=== PATIENT | male | born 1950 | race Caucasian/White ===

== ENCOUNTER → 2016-10-17 | Outpatient (CLI) | payer BC ==
[~2016-10-17] MED LIST: ALLO100T PO; ASPI81TA28 PO; ATOR-26 PO; CYAN10005 PO; ERGO500037 PO; FNTTP50 TD; HYDR25TA4 PO; INSDGI SC; INSU100I2 SQ; INSUINJ SC; ISOS60TA25 PO; KRIL1000 PO; LEVO100T PO; METO25TA56 PO; SODI650T8 PO; [UNRECOGNIZED DRUG - CODE] PO
[2016-10-17 12:39] LABS: HEMATOCRIT 31.3 % (42-52); MEAN CELL VOLUME 86.9 fL (80-100); MEAN CORPUSCULAR HEMOGLOBIN 28.1 pg (25-34); MEAN CORPUSCULAR HGB CONC 32.3 g/dl (32-36); MEAN PLATELET VOLUME 9.6 fL (7.4-10.4); PLATELET COUNT 251 K/uL (130-400)
[2016-10-17 13:07] LABS: URINE APPEARANCE CLEAR (CLEAR); URINE BILIRUBIN NEG (NEG); URINE COLOR YELLOW; URINE NITRITE NEG (NEG); URINE PH 7.5 (4.5-7.5); URINE SPECIFIC GRAVITY 1.008 (1.000-1.030); UROBILINOGEN NEG (NEG)
[2016-10-17 13:14] LABS: BLOOD UREA NITROGEN 24 mg/dl (7-18); BUN/CREATININE RATIO 14.1 (10-20); CALCIUM 9.4 mg/dl (8.5-10.1); CARBON DIOXIDE 26 mmol/L (21-32); CHLORIDE 104 mmol/L (98-107); GLUCOSE 94 mg/dl (70-99); PHOSPHORUS 3.5 mg/dl (2.5-4.9); POTASSIUM 4.1 mmol/L (3.5-5.1); SODIUM 142 mmol/L (136-145)
[2016-10-17 13:18] LABS: MANUAL MICROSCOPIC REQUIRED? NO; REVIEW REQ? NO; SULFASALICYLIC ACID POS (NEG)
[2016-10-17 13:19] LABS: URINE PROTIEN/CREAT RATIO 0.8 (0-0.2); URINE TOTAL PROTEIN 41.6 mg/dl (0-11.9)
== END | disposition home or self-care (01) ==
LOC: C.LABPVFM 09:49
PROVIDERS: ATTEND Internal Medicine Nephrology
DX: I10 Essential (primary) hypertension (principal); N20.0 Calculus of kidney; N18.3 Chronic kidney disease, stage 3 (moderate); F64.9 Gender identity disorder, unspecified; R80.9 Proteinuria, unspecified; E55.9 Vitamin D deficiency, unspecified

== ENCOUNTER → 2016-10-25 | Outpatient (CLI) | payer BC ==
[2016-10-25 14:09] VITALS: BP 116/70; PULSE 90; TEMP 37.2; O2SAT 96
--- NOTE | 2016-10-25 15:18 | Radiation Oncology Follow-Up ---
Radiation Oncology Follow-Up Date of Visit Oct 25, 2016. (Sadaf Smith PA-C) Reason For Visit One-month follow-up (Sadaf Smith PA-C) Radiation Completion Date 09/23/16 (Sadaf Smtih PA-C) Diagnosis (1) Cancer of renal pelvis and ureter Stage: IV Permanent Comment: STAGING: Right renal pelvis/ureter, urothelial carcinoma, cT3/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 Systemic chemotherapy (Opdivo) had progression 2. Combined radiation and chemotherapy. Radiation to the abdomen completed 09/23. Received 5,940 cGy. 3. Plan for immunotherapy Last Edited By: Sadaf Smith on Oct 25, 2016 14: 55 (2) Carcinoma of bladder Status: Chronic Onset Date: 03/29/2013 Permanent Comment: STAGING: Bladder, urothelial carcinoma, [id number] TREATMENT: 1. Partial course of neoadjuvant chemotherapy 2. Radical cystectomy, bilateral pelvic lymph node dissection and ileal neobladder formation - 04/12/2013 3. Adjuvant chemotherapy with G/C for 3 cycles Last Edited By: Maria De Jesus Canada on Jul 22, 2016 15:32 (Sadaf Smith PA-C) History of Present Illness Mr. Weir is a 66-year-old gentleman who was originally diagnosed with urothelial carcinoma of the bladder in 2012. He was initially treated with neoadjuvant cis-rincon and gemcitabine chemotherapy however he was unable to completely tolerate the therapy. He subsequently went on to undergo a radical cystectomy and bilateral pelvic lymph node dissection on 03/13/2013 which revealed invasive urothelial carcinoma of the bladder that was muscle invasive with perivesicular extension. Margins were negative at the time of surgery. Lymph nodes were resected bilaterally and 2 were positive, which were the right obturator and right hypogastric lymph nodes. The patient received 3 cycles of adjuvant chemotherapy with gemcitabine and cis-rincon. The patient was then followed with surveillance studies with no evidence of recurrence. More recently, he presented with right flank pain and underwent a CT abdomen/ pelvis on 03/24/2016 which did reveal a 2.7 cm soft tissue mass in the region of the right pelvis with probable hydronephrosis of the right renal collecting system. Several localized regional lymph nodes were also noted. There was some questionable hepatic lesions also noted that were unable to be more specifically determined. The patient subsequently underwent a biopsy of the right renal mass on 04/08/2016 which confirmed high-grade urothelial carcinoma. The patient then had a renal scan on 04/28/2016 which showed a nonfunctioning right kidney. The patient had a PET/CT scan on 05/02/2016 which revealed an intensely FDG avid obstructing mass at the right renal hilum with associated severe right-sided hydronephrosis as well as hypermetabolic right sided perirenal and retroperitoneal lymphadenopathy. The PET/CT scan did not show any evidence of distant metastatic disease. The patient's case was discussed at the multidisciplinary tumor board and consensus was to initiate systemic treatment with potentially locally aggressive therapy depending on the patient' s response. The patient was subsequently treated with Opvido underneath the supervision of Dr. Tracy Jarrett at [facility]. The patient subsequently had a restaging CT chest/abdomen/pelvis on 07/04/2016 which showed that the mass in the right renal pelvis increased in size from 5.4 cm to 5.7 cm and abuts the right paraspinous musculature and IVC. Otherwise, the study was unchanged overall. The patient's case was rediscussed at the [facility] multidisciplinary tumor board and the recommendation was consideration for definitive chemotherapy and radiation therapy. The patient was seen in consultation by Dr. Jan Gibson from radiation oncology at [facility] who agreed with the recommendation. The patient requested treatment closer to home so we are now seeing the patient in consultation to discuss the role of radiation therapy. The patient is also being sent to [facility]. Currently, the patient is doing okay overall. He continues to have right flank pain that is nontender to palpation. He is taking oxycodone at night to help relieve his pain which is partially successful. He denies any other significant complaints at this time. Status post completion of combined radiation and chemotherapy. Radiation completed 09/23/16, received 5,940 cGy. (Sadaf Smith PA-C) Interim History He is steadily recuperating since completion of radiation and chemotherapy. He is now beginning to feel less fatigued over the past week. He did have a blood transfusion of 2 units approximately 2 weeks ago. He has mild nausea and no vomiting. He has had no difficulty in bowel habits. He had a recheck visit with medical oncology in [place] and PET scan on 10/24/2016. He stated that he had a good report on the PET scan. It is now planned that he will begin immunotherapy. This will begin on 11/14/2016. He is going to receive this every 3 weeks. The discomfort that he had been experiencing has steadily improved. The fentanyl patch has steadily been decreased in size. He is now at 25 g per hour. His pain is well-controlled. He does not give his discomfort a pain level. He calls this a feeling of "tiredness in his back". (Sadaf Smith PA-C) Allergies Coded Allergies: No Known Allergies (Unverified , 10/06/16) Home Medications Scheduled Allopurinol (Zyloprim), 100 MG PO QAM Aspirin (Aspirin Ec), 81 MG PO QAM Atorvastatin (Lipitor), 80 MG PO HS Cyanocobalamin (Vitamin B-12), 500 MCG PO QAM Diltiazem Hcl Coated Beads (Cardizem La), 420 MG PO QAM Ergocalciferol (Vitamin D 13724 Unit), 1 CAP PO WK Fentanyl (Duragesic), 25 MCG TD [id number] Hydrochlorothiazide (Hctz), 1 TAB PO DAILY Insulin Glargine (Lantus), 40 UNITS SC QAM Insulin Lispro (Human) (Humalog Kwikpen), 100 UNITS SQ TIDM Insulin Nph (Humulin-N), 35 UNITS SC HS Isosorbide Mononitrate Ext Rel (Imdur Ext Rel), 60 MG PO QAM Krill Oil (Krill Oil), 1 CAP PO QAM Levothyroxine Sodium (Synthroid), 100 MCG PO QAM Metoprolol Tartrate (Lopressor) (Lopressor), 75 MG PO DAILY Sodium Bicarbonate (Sodium Bicarbonate), 650 MG PO BID Review of Systems Gastrointestinal: Symptoms: Nausea GI Comments: Nausea every once in a while - dav first thing in AM Oral: Symptoms: No Problems Respiratory: Symptoms: WNL Urinary: Symptoms: WNL Skin: Symptoms: No Problems (Sadaf Smith PA-C) Physical Exam Vital Signs Date Time Temp Pulse Resp B/P Pulse Ox O2 Delivery O2 Flow Rate FiO2 1/31/17 14:09 37.2 90 20 116/70 96 Pain: Patient Pain Scale: 0 - 10 Initial Pain Intensity: 0.0 Additional Comments: states when he gets pain its like a "tired back" Fatigue: None General Appearance: no apparent distress Eyes: normal inspection, EOMI ENT: normal ENT inspection, hearing grossly normal Respiratory/Chest: lungs clear, no respiratory distress, no accessory muscle use, + pertinent finding (no erythema or hyperpigmentation of the anterior posterior thorax) Cardiovascular: regular rate, rhythm, no gallop, no murmur Abdomen: non tender, soft, no organomegaly Extremities: no pedal edema Neurologic/Psychiatric: no motor/sensory deficits, alert, normal mood/affect Skin: warm/dry (Sadaf Smith PA-C) Laboratory Studies Test 08/15/16 13:25 08/17/16 11:22 08/22/16 13:31 08/29/16 12:35 Urine Renal Epithelial Cells 0-5 /lpf (0-5) Urine Pathogenic Casts 1-5 GRANULAR CASTS /lpf (0) Urine Yeast (Auto) (NONE PRSENT) Hypersegmented Polys 1+ Hypochromasia PRESENT PRESENT Echinocytes 1+ Beta-Hydroxybutyric Acid 1.05 mg/dL (0.2-2.81) Test 09/07/16 08:55 09/07/16 09:00 09/12/16 12:02 09/20/16 10:35 Estimated Average Glucose 180 mg/dl Hemoglobin A1c 7.9 % (4.5-5.6) Uric Acid 4.1 mg/dl (2.6-7.2) Triglycerides Level 154 mg/dl (0-150) Cholesterol Level 131 mg/dl (0-200) HDL Cholesterol 56 mg/dl LDL Cholesterol, Calculated 44 mg/dl VLDL Cholesterol, Calculated 31 mg/dl Cholesterol/HDL Ratio 2.3 25-Hydroxy Vitamin D Total 23.1 ng/ml (30-100) Parathyroid Hormone (Intact) 232.3 pg/mL (11.1-79.5) Urine Color YELLOW Urine Appearance TURBID (CLEAR) Urine pH 7.0 (4.5-7.5) Urine Specific [place] 1.010 (1.000-1.030) Urine Protein 1+ (NEG) Urine Glucose (UA) NEG (NEG) Urine Ketones NEG (NEG) Urine Occult Blood 2+ (NEG) Urine Nitrite NEG (NEG) Urine Bilirubin NEG (NEG) Urine Urobilinogen NEG (NEG) Urine Leukocyte Esterase NEG (NEG) Urine WBC (Auto) >30 /hpf (0-5) Urine RBC (Auto) 0-4 /hpf (0-4) Urine Hyaline Casts (Auto) 1-5 /lpf (0-5) Urine Epithelial Cells (Auto) 5-10 /lpf (0-5) Urine Bacteria (Auto) 1+ (NEG) Urine Yeast (Auto) (NONE PRSENT) Urine Random Creatinine 43.0 mg/dl Urine Random Total Protein 74.1 mg/dl (0-11.9) Urine Protein/Creatinine Ratio 1.7 (0-0.2) Acanthocytes (Spur Cells) 1+ Immature Granulocyte % (Auto) 6.7 % White Blood Count 2.70 K/uL (4.8-10.8) Red Blood Count 3.20 M/uL (4.7-6.1) Hemoglobin 8.3 g/dL (14.0-18.0) Hematocrit 26.4 % (42-52) Mean Corpuscular Volume 82.5 fL (80-100) Mean Corpuscular Hemoglobin 25.9 pg (25-34) Mean Corpuscular Hemoglobin Concent 31.4 g/dl (32-36) Platelet Count 147 K/uL (130-400) Mean Platelet Volume 9.4 fL (7.4-10.4) Neutrophils (%) (Auto) 70.7 % Lymphocytes (%) (Auto) 18.9 % Monocytes (%) (Auto) 3.7 % Eosinophils (%) (Auto) 0.0 % Basophils (%) (Auto) 0.0 % Neutrophils # (Auto) 1.91 K/uL (1.4-6.5) Lymphocytes # (Auto) 0.51 K/uL (1.2-3.4) Monocytes # (Auto) 0.10 K/uL (0.11-0.59) Eosinophils # (Auto) 0.00 K/uL (0-0.5) Basophils # (Auto) 0.00 K/uL (0-0.2) Immature Granulocyte # (Auto) 0.18 K/uL (0.00-0.02) Anisocytosis PRESENT Ovalocytes 1+ Est Creatinine Clear Calc Drug Dose 41.2 ml/min Magnesium Level 1.4 mg/dl (1.8-2.4) Total Bilirubin 0.5 mg/dl (0.2-1) Aspartate Amino Transferase (AST) 18 U/L (15-37) Alanine Aminotransferase (ALT) 29 U/L (12-78) Alkaline Phosphatase 96 U/L (45-117) Total Protein 5.7 gm/dl (6.4-8.2) Globulin 3.2 gm/dl (2.5-4.0) Albumin/Globulin Ratio 0.8 (0.9-2) Beta-Hydroxybutyric Acid 1.07 mg/dL (0.2-2.81) Test 10/04/16 13:46 10/17/16 09:57 10/17/16 10:00 White Blood Count 3.51 K/uL (4.8-10.8) 6.70 K/uL (4.8-10.8) Red Blood Count 3.25 M/uL (4.7-6.1) 3.60 M/uL (4.7-6.1) Hemoglobin 8.4 g/dL (14.0-18.0) 10.1 g/dL (14.0-18.0) Hematocrit 27.1 % (42-52) 31.3 % (42-52) Mean Corpuscular Volume 83.4 fL (80-100) 86.9 fL (80-100) Mean Corpuscular Hemoglobin 25.8 pg (25-34) 28.1 pg (25-34) Mean Corpuscular Hemoglobin Concent 31.0 g/dl (32-36) 32.3 g/dl (32-36) Platelet Count 163 K/uL (130-400) 251 K/uL (130-400) Mean Platelet Volume 9.2 fL (7.4-10.4) 9.6 fL (7.4-10.4) Neutrophils (%) (Auto) 50.4 % Lymphocytes (%) (Auto) 26.5 % Monocytes (%) (Auto) 14.2 % Eosinophils (%) (Auto) 0.9 % Basophils (%) (Auto) 0.3 % Neutrophils # (Auto) 1.77 K/uL (1.4-6.5) Lymphocytes # (Auto) 0.93 K/uL (1.2-3.4) Monocytes # (Auto) 0.50 K/uL (0.11-0.59) Eosinophils # (Auto) 0.03 K/uL (0-0.5) Basophils # (Auto) 0.01 K/uL (0-0.2) RDW Standard Deviation 69.0 fL (36.4-46.3) 63.1 fL (36.4-46.3) RDW Coefficient of Variation 22.6 % (11.5-14.5) 19.7 % (11.5-14.5) Immature Granulocyte % (Auto) 7.7 % Immature Granulocyte # (Auto) 0.27 K/uL (0.00-0.02) Anisocytosis PRESENT Ovalocytes 1+ Sodium Level 139 mmol/L (136-145) 142 mmol/L (136-145) Potassium Level 4.2 mmol/L (3.5-5.1) 4.1 mmol/L (3.5-5.1) Chloride Level 103 mmol/L (98-107) 104 mmol/L (98-107) Carbon Dioxide Level 28 mmol/L (21-32) 26 mmol/L (21-32) Anion Gap 8.0 mmol/L (3-11) 12.0 mmol/L (3-11) Blood Urea Nitrogen 21 mg/dl (7-18) 24 mg/dl (7-18) Creatinine 1.60 mg/dl (0.60-1.40) 1.70 mg/dl (0.60-1.40) Est Creatinine Clear Calc Drug Dose 56.6 ml/min Estimated GFR () 50.6 47.0 Estimated GFR (Non- 43.6 40.5 BUN/Creatinine Ratio 13.4 (10-20) 14.1 (10-20) Random Glucose 154 mg/dl (70-99) 94 mg/dl (70-99) Calcium Level 8.6 mg/dl (8.5-10.1) 9.4 mg/dl (8.5-10.1) Magnesium Level 1.6 mg/dl (1.8-2.4) Total Bilirubin 0.5 mg/dl (0.2-1) Aspartate Amino Transferase (AST) 17 U/L (15-37) Alanine Aminotransferase (ALT) 29 U/L (12-78) Alkaline Phosphatase 133 U/L (45-117) Total Protein 5.6 gm/dl (6.4-8.2) Albumin 2.4 gm/dl (3.4-5.0) 2.7 gm/dl (3.4-5.0) Globulin 3.2 gm/dl (2.5-4.0) Albumin/Globulin Ratio 0.8 (0.9-2) Urine Random Creatinine 50.0 mg/dl Urine Random Total Protein 41.6 mg/dl (0-11.9) Urine Protein/Creatinine Ratio 0.8 (0-0.2) Phosphorus Level 3.5 mg/dl (2.5-4.9) Urine Color YELLOW Urine Appearance CLEAR (CLEAR) Urine pH 7.5 (4.5-7.5) Urine Specific [place] 1.008 (1.000-1.030) Urine Protein 1+ (NEG) Urine Glucose (UA) NEG (NEG) Urine Ketones NEG (NEG) Urine Occult Blood TRACE (NEG) Urine Nitrite NEG (NEG) Urine Bilirubin NEG (NEG) Urine Urobilinogen NEG (NEG) Urine Leukocyte Esterase NEG (NEG) Urine WBC (Auto) >30 /hpf (0-5) Urine RBC (Auto) 0-4 /hpf (0-4) Urine Hyaline Casts (Auto) 5-10 /lpf (0-5) Urine Epithelial Cells (Auto) 5-10 /lpf (0-5) Urine Bacteria (Auto) NEG (NEG) (Sadaf Smith PA-C) Additional Studies He had a PET scan 10/24/2016 at [facility] ordered by Dr. Jarrett. This revealed favorable partial metabolic response of an enlarging right renal hilar mass with new central necrosis and persistent areas of peripheral intense FDG avidity which likely represents residual disease, and less likely post radiation changes. Interval decrease in size and metabolic activity of multiple retroperitoneal lymph nodes with no new enlarged or abnormally FDG avid lymph nodes. Stable postsurgical changes of radical cystoprostatectomy and pelvic lymph node dissection. No new abnormality enlarged or FDG avid pelvic lymph nodes. New focal intensely FDG avid superficial soft tissue density measuring 2.3 cm long the inferior aspect of the right scrotum, likely representing a focal infection. Direct visualization was recommended. Incidental finding including a right inguinal hernia containing the appendix, sequela of prior granulomatous infection, scattered peripheral vascular and coronary atherosclerotic disease, and bilateral L5 deficits with slight grade 1 anterior listhesis. (Sadaf Smith PA-C) Assessment & Plan Plan: Patient was also seen and examined by Dr. Canada. He'll continue follow- up with medical oncology at [place]. He is going to start immunotherapy every 3 weeks. His pain status is greatly improved. He continues on the fentanyl patch. We asked him to return to our office in 6 months. He'll call if he has a questions or concerns in the interim. (Sadaf Smith PA-C) I agree with note created by Sadaf Smith PA-C. I reviewed the patient's chart and information with her. I have examined and evaluated the patient. I reviewed relevant clinical information and answered the patient's and/or family' s questions. (Veeral. Canada MD) Total Time In Follow-Up I spent 20 minutes speaking to the patient performing examination. I spent 15 minutes reviewing information in completing this note. (Sadaf Smith PA-C) I spent 15 minutes examining and counseling the patient. (Veeral. Canada MD) Copy To Stephen Odom M.D.; Tracy Jarrett M.D.; Lewis Latif MD
== END | disposition home or self-care (01) ==
LOC: C.ONC 14:00
PROVIDERS: ATTEND Radiology Radiation Oncology
DX: Z08 Encounter for follow-up examination after completed treatment for malignant neoplasm (principal); Z92.3 Personal history of irradiation; Z85.89 Personal history of malignant neoplasm of other organs and systems

== ENCOUNTER → 2016-12-15 | Outpatient (CLI) | payer BC ==
[2016-12-15 13:01] LABS: ESTIMATED AVERAGE GLUCOSE 143 mg/dl; HA1C FLAG Normal (Normal)
== END | disposition home or self-care (01) ==
LOC: C.LABPVFM 10:36
PROVIDERS: ATTEND Nurse Practitioner Adult Health
DX: E11.65 Type 2 diabetes mellitus with hyperglycemia (principal)

== ENCOUNTER → 2017-04-13 | Outpatient (CLI) | payer BC ==
[2017-04-13 17:31] LABS: HEMATOCRIT 34.4 % (42-52); MEAN CELL VOLUME 92.2 fL (80-100); MEAN CORPUSCULAR HGB CONC 31.4 g/dl (32-36); MEAN PLATELET VOLUME 9.9 fL (7.4-10.4); PLATELET COUNT 270 K/uL (130-400); RED BLOOD COUNT 3.73 M/uL (4.7-6.1); WHITE BLOOD COUNT 7.43 K/uL (4.8-10.8)
[2017-04-13 17:37] LABS: URINE APPEARANCE CLEAR (CLEAR); URINE BILIRUBIN NEG (NEG); URINE COLOR YELLOW; URINE EPITHELIAL CELL AUTO >30 /lpf (0-5); URINE NITRITE NEG (NEG); URINE SPECIFIC GRAVITY 1.013 (1.000-1.030); UROBILINOGEN NEG (NEG)
[2017-04-13 17:40] LABS: MANUAL MICROSCOPIC REQUIRED? NO; REVIEW REQ? YES
[2017-04-13 17:54] LABS: ALB/GLOB RATIO 0.8 (0.9-2); ALKALINE PHOSPHATASE 186 U/L (45-117); ALT/SGPT 31 U/L (12-78); AST/SGOT 17 U/L (15-37); BLOOD UREA NITROGEN 49 mg/dl (7-18); BUN/CREATININE RATIO 22.3 (10-20); CALCIUM 9.5 mg/dl (8.5-10.1); CARBON DIOXIDE 25 mmol/L (21-32); CHLORIDE 108 mmol/L (98-107); GLUCOSE 187 mg/dl (70-99); MAGNESIUM 1.8 mg/dl (1.8-2.4); SODIUM 140 mmol/L (136-145); URIC ACID 6.8 mg/dl (2.6-7.2)
[2017-04-13 18:03] LABS: URINE PROTIEN/CREAT RATIO 0.8 (0-0.2); URINE TOTAL PROTEIN 64.6 mg/dl (0-11.9)
== END | disposition home or self-care (01) ==
LOC: C.LABPVFM 11:06
PROVIDERS: ATTEND Internal Medicine Nephrology
DX: I12.9 Hypertensive chronic kidney disease with stage 1 through stage 4 chronic kidney disease, or unspecified chronic kidney disease (principal); N20.0 Calculus of kidney; N18.3 Chronic kidney disease, stage 3 (moderate); R80.9 Proteinuria, unspecified; E55.9 Vitamin D deficiency, unspecified; R31.9 Hematuria, unspecified

== ENCOUNTER → 2017-04-19 | Outpatient (CLI) | payer BC ==
[2016-10-25 14:09] VITALS: BP 116/70; PULSE 90
[2017-04-19 14:01] VITALS: BP 145/72; PULSE 85; TEMP 37; O2SAT 96
--- NOTE | 2017-04-19 15:58 | Radiation Oncology Follow-Up ---
Radiation Oncology Follow-Up Date of Visit Apr 19, 2017. (Sadaf Smith PA-C) Reason For Visit 6 month follow-up (Sadaf Smith PA-C) Radiation Completion Date 09/23/16 (Sadaf Smith PA-C) Diagnosis (1) Cancer of renal pelvis and ureter Status: Chronic Stage: IV Permanent Comment: STAGING: Right renal pelvis/ureter, urothelial carcinoma, cT3/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 Systemic chemotherapy (Opdivo) had progression 2. Combined radiation and chemotherapy. Radiation to the abdomen completed 09/23. Received 5,940 cGy. 3. Plan for immunotherapy Last Edited By: Sadaf Smith on Oct 25, 2016 14: 55 (Sadaf Smith PA-C) History of Present Illness Mr. Weir is a 66-year-old gentleman who was originally diagnosed with urothelial carcinoma of the bladder in 2012. He was initially treated with neoadjuvant cis-campo and gemcitabine chemotherapy however he was unable to completely tolerate the therapy. He subsequently went on to undergo a radical cystectomy and bilateral pelvic lymph node dissection on 03/13/2013 which revealed invasive urothelial carcinoma of the bladder that was muscle invasive with perivesicular extension. Margins were negative at the time of surgery. Lymph nodes were resected bilaterally and 2 were positive, which were the right obturator and right hypogastric lymph nodes. The patient received 3 cycles of adjuvant chemotherapy with gemcitabine and cis-campo. The patient was then followed with surveillance studies with no evidence of recurrence. More recently, he presented with right flank pain and underwent a CT abdomen/ pelvis on 03/24/2016 which did reveal a 2.7 cm soft tissue mass in the region of the right pelvis with probable hydronephrosis of the right renal collecting system. Several localized regional lymph nodes were also noted. There was some questionable hepatic lesions also noted that were unable to be more specifically determined. The patient subsequently underwent a biopsy of the right renal mass on 04/08/2016 which confirmed high-grade urothelial carcinoma. The patient then had a renal scan on 04/28/2016 which showed a nonfunctioning right kidney. The patient had a PET/CT scan on 05/02/2016 which revealed an intensely FDG avid obstructing mass at the right renal hilum with associated severe right-sided hydronephrosis as well as hypermetabolic right sided perirenal and retroperitoneal lymphadenopathy. The PET/CT scan did not show any evidence of distant metastatic disease. The patient's case was discussed at the multidisciplinary tumor board and consensus was to initiate systemic treatment with potentially locally aggressive therapy depending on the patient' s response. The patient was subsequently treated with Opvido underneath the supervision of Dr. Tracy Jarrett at [facility]. The patient subsequently had a restaging CT chest/abdomen/pelvis on 07/04/2016 which showed that the mass in the right renal pelvis increased in size from 5.4 cm to 5.7 cm and abuts the right paraspinous musculature and IVC. Otherwise, the study was unchanged overall. The patient's case was rediscussed at the [facility] multidisciplinary tumor board and the recommendation was consideration for definitive chemotherapy and radiation therapy. The patient was seen in consultation by Dr. Jan Gibson from radiation oncology at [facility] who agreed with the recommendation. The patient requested treatment closer to home so we are now seeing the patient in consultation to discuss the role of radiation therapy. The patient is also being sent to [facility]. Currently, the patient is doing okay overall. He continues to have right flank pain that is nontender to palpation. He is taking oxycodone at night to help relieve his pain which is partially successful. He denies any other significant complaints at this time. Status post completion of combined radiation and chemotherapy. Radiation completed 09/23/16, received 5,940 cGy (Sadaf Smith PA-C) Interim History He's been doing well over the past 6 months. He has had an excellent clinical response. The severe pain he had of the abdomen has steadily resolved and is now gone. He had been on fentanyl patches. These were tapered and then discontinued. He doesn't require any periodic pain medications. He continues follow-up at [facility] with his medical oncologist and surgeon. He is now on immunotherapy. He is receiving Atezolizumab every 3 weeks. He is being followed with recheck PET scan's and CAT scans. He had a PET scan on . This showed interval decreased metabolic activity and size of the right renal mass since September 2016 consistent with a continued partial metabolic response. Residual moderate increased metabolic activity around the periphery of the right renal hilar mass probably resolving inflammation from radiation therapy versus less likely residual tumor. Complete metabolic resolution and continued decrease in the size of index retroperitoneal lymph nodes. No new abdominal or pelvic lymphadenopathy. Postsurgical changes from radical cystoprostatectomy, lymph node dissection and neobladder formation. Improving FDG avid superficial soft tissue lesion along the right infra hemiscrotal area likely represents resolving inflammation. He'll be having recheck CAT scans in 2 weeks. He stated he'll have a recheck PET scan in the fall. (Sadaf Smith PA-C) Allergies Coded Allergies: No Known Allergies (Unverified , 10/06/16) Home Medications Scheduled Allopurinol (Zyloprim), 100 MG PO QAM Aspirin (Aspirin Ec), 81 MG PO QAM Atorvastatin (Lipitor), 80 MG PO HS Cyanocobalamin (Vitamin B-12), 500 MCG PO QAM Diltiazem Hcl Coated Beads (Cardizem La), 420 MG PO QAM Ergocalciferol (Vitamin D 55882 Unit), 1 CAP PO WK Hydrochlorothiazide (Hctz), 1 TAB PO DAILY Insulin Glargine (Lantus), 40 UNITS SC QAM Insulin Lispro (Human) (Humalog Kwikpen), 100 UNITS SQ TIDM Insulin Nph (Humulin-N), 35 UNITS SC HS Isosorbide Mononitrate Ext Rel (Imdur Ext Rel), 60 MG PO QAM Krill Oil (Krill Oil), 1 CAP PO QAM Levothyroxine Sodium (Synthroid), 100 MCG PO QAM Metoprolol Tartrate (Lopressor) (Lopressor), 75 MG PO DAILY Sodium Bicarbonate (Sodium Bicarbonate), 650 MG PO BID Review of Systems Gastrointestinal: Symptoms: WNL GI Comments: Nausea every once in a while - dav first thing in AM Oral: Symptoms: No Problems Respiratory: Symptoms: WNL Urinary: Symptoms: WNL, Nocturia Comments: Nocturia x 2-3 Skin: Symptoms: No Problems (Sadaf Smith PA-C) Physical Exam Vital Signs Date Time Temp Pulse Resp B/P (MAP) Pulse Ox O2 Delivery O2 Flow Rate FiO2 04/19/17 14:01 37.0 85 16 145/72 96 Pain: Patient Pain Scale: 0 - 10 Initial Pain Intensity: 0.0 Additional Comments: states when he gets pain its like a "tired back" Fatigue: None General Appearance: no apparent distress Eyes: normal inspection, EOMI ENT: normal ENT inspection, hearing grossly normal Neck: no adenopathy, thyroid normal Respiratory/Chest: lungs clear, no respiratory distress, no accessory muscle use Cardiovascular: regular rate, rhythm, no gallop, no murmur Abdomen: non tender, soft, no organomegaly, + pertinent finding (obese) Extremities: no pedal edema Neurologic/Psychiatric: no motor/sensory deficits, alert, normal mood/affect Skin: warm/dry (Sadaf Smith PA-C) Laboratory Studies Test 04/13/17 11:10 04/13/17 11:15 White Blood Count 7.43 K/uL (4.8-10.8) Red Blood Count 3.73 M/uL (4.7-6.1) Hemoglobin 10.8 g/dL (14.0-18.0) Hematocrit 34.4 % (42-52) Mean Corpuscular Volume 92.2 fL (80-100) Mean Corpuscular Hemoglobin 29.0 pg (25-34) Mean Corpuscular Hemoglobin Concent 31.4 g/dl (32-36) RDW Standard Deviation 53.7 fL (36.4-46.3) RDW Coefficient of Variation 16.0 % (11.5-14.5) Platelet Count 270 K/uL (130-400) Mean Platelet Volume 9.9 fL (7.4-10.4) Sodium Level 140 mmol/L (136-145) Potassium Level 4.0 mmol/L (3.5-5.1) Chloride Level 108 mmol/L (98-107) Carbon Dioxide Level 25 mmol/L (21-32) Anion Gap 7.0 mmol/L (3-11) Blood Urea Nitrogen 49 mg/dl (7-18) Creatinine 2.20 mg/dl (0.60-1.40) Estimated GFR () 34.4 Estimated GFR (Non- 29.7 BUN/Creatinine Ratio 22.3 (10-20) Random Glucose 187 mg/dl (70-99) Uric Acid 6.8 mg/dl (2.6-7.2) Calcium Level 9.5 mg/dl (8.5-10.1) Magnesium Level 1.8 mg/dl (1.8-2.4) Total Bilirubin 0.5 mg/dl (0.2-1) Aspartate Amino Transferase (AST) 17 U/L (15-37) Alanine Aminotransferase (ALT) 31 U/L (12-78) Alkaline Phosphatase 186 U/L (45-117) Total Protein 7.4 gm/dl (6.4-8.2) Albumin 3.3 gm/dl (3.4-5.0) Globulin 4.1 gm/dl (2.5-4.0) Albumin/Globulin Ratio 0.8 (0.9-2) 25-Hydroxy Vitamin D Total 33.4 ng/ml (30-100) Parathyroid Hormone (Intact) 80.2 pg/mL (11.1-79.5) Urine Color YELLOW Urine Appearance CLEAR (CLEAR) Urine pH 7.0 (4.5-7.5) Urine Specific [place] 1.013 (1.000-1.030) Urine Protein 2+ (NEG) Urine Glucose (UA) NEG (NEG) Urine Ketones NEG (NEG) Urine Occult Blood 1+ (NEG) Urine Nitrite NEG (NEG) Urine Bilirubin NEG (NEG) Urine Urobilinogen NEG (NEG) Urine Leukocyte Esterase NEG (NEG) Urine WBC (Auto) 10-30 /hpf (0-5) Urine RBC (Auto) 0-4 /hpf (0-4) Urine Hyaline Casts (Auto) 1-5 /lpf (0-5) Urine Epithelial Cells (Auto) >30 /lpf (0-5) Urine Bacteria (Auto) NEG (NEG) Urine Renal Epithelial Cells 0-5 /lpf (0-5) Urine Random Creatinine 81.0 mg/dl Urine Random Total Protein 64.6 mg/dl (0-11.9) Urine Protein/Creatinine Ratio 0.8 (0-0.2) (Sadaf Smith PA-C) Assessment & Plan Plan: Patient is also seen today by Dr. Canada. He'll continue with his scheduled follow-up. He'll be having CAT scans in 2 weeks. It is planning on the PET scan in the fall. He continues on his immunotherapy every 3 weeks. He is planning to re-join his local gym next week to restart an exercise program to help with his fatigue. He'll continue follow-up with the medical oncologist and urologist at [place]. We asked her to return to our office in 1 year. He may call if he has any questions or concerns in the interim. (Sadaf Smith PA-C) I agree with note created by Sadaf Smith PA-C. I reviewed the patient's chart and information with her. I have examined and evaluated the patient. I reviewed relevant clinical information and answered the patient's and/or family' s questions. (Veeral. Canada MD) Total Time In Follow-Up I spent 20 minutes speaking to the patient performing examination. I spent 15 minutes reviewing information in completing this note. (Sadaf Smith PA-C) I spent 15 minutes examining and counseling the patient. (Veeral. Canada MD) Copy To Stephen Odom M.D.; Tracy Jarrett M.D.; Lewis Latif MD
== END | disposition home or self-care (01) ==
LOC: C.ONC 13:52
PROVIDERS: ATTEND Physician Assistant Medical
DX: Z08 Encounter for follow-up examination after completed treatment for malignant neoplasm (principal); Z92.3 Personal history of irradiation; Z85.54 Personal history of malignant neoplasm of ureter

== ENCOUNTER → 2017-06-21 | Outpatient (CLI) | payer BC ==
[~2017-06-21] MED LIST changes: -FNTTP50 TD
[2017-06-21 17:55] LABS: THYROID STIMULATING HORMONE 1.28 uIu/ml (0.300-4.500)
[2017-06-22 06:49] LABS: ESTIMATED AVERAGE GLUCOSE 189 mg/dl; HA1C FLAG Normal (Normal)
== END | disposition home or self-care (01) ==
LOC: C.LABPVFM 11:37
PROVIDERS: ATTEND Internal Medicine
DX: E03.9 Hypothyroidism, unspecified (principal); E11.65 Type 2 diabetes mellitus with hyperglycemia; Z79.4 Long term (current) use of insulin

== ENCOUNTER → 2017-08-25 | Outpatient (CLI) | payer BC ==
[2017-08-25 17:59] LABS: HEMATOCRIT 30.6 % (42-52); MEAN CELL VOLUME 88.2 fL (80-100); MEAN CORPUSCULAR HEMOGLOBIN 25.9 pg (25-34); MEAN CORPUSCULAR HGB CONC 29.4 g/dl (32-36); MEAN PLATELET VOLUME 9.4 fL (7.4-10.4); PLATELET COUNT 325 K/uL (130-400); RED BLOOD COUNT 3.47 M/uL (4.7-6.1); WHITE BLOOD COUNT 9.09 K/uL (4.8-10.8)
[2017-08-25 18:01] LABS: URINE APPEARANCE CLEAR (CLEAR); URINE BILIRUBIN NEG (NEG); URINE COLOR YELLOW; URINE EPITHELIAL CELL AUTO >30 /lpf (0-5); URINE NITRITE NEG (NEG); URINE SPECIFIC GRAVITY 1.013 (1.000-1.030); UROBILINOGEN NEG (NEG)
[2017-08-25 18:03] LABS: MANUAL MICROSCOPIC REQUIRED? NO; REVIEW REQ? YES
[2017-08-25 18:24] LABS: BLOOD UREA NITROGEN 41 mg/dl (7-18); BUN/CREATININE RATIO 18.6 (10-20); CARBON DIOXIDE 26 mmol/L (21-32); CHLORIDE 101 mmol/L (98-107); CREATININE 2.22 mg/dl (0.60-1.40); GLUCOSE 180 mg/dl (70-99); POTASSIUM 4.7 mmol/L (3.5-5.1); SODIUM 134 mmol/L (136-145)
[2017-08-25 18:27] LABS: ALB/GLOB RATIO 0.5 (0.9-2); ALKALINE PHOSPHATASE 288 U/L (45-117); ALT/SGPT 44 U/L (12-78); AST/SGOT 27 U/L (15-37); URIC ACID 6.7 mg/dl (2.6-7.2)
[2017-08-25 18:31] LABS: CREATININE, URINE 77.3 mg/dl; URINE PROTIEN/CREAT RATIO 0.7 (0-0.2)
== END | disposition home or self-care (01) ==
LOC: C.LABPVFM 11:15
PROVIDERS: ATTEND Internal Medicine Nephrology
DX: D64.9 Anemia, unspecified (principal); I12.9 Hypertensive chronic kidney disease with stage 1 through stage 4 chronic kidney disease, or unspecified chronic kidney disease; N18.3 Chronic kidney disease, stage 3 (moderate); N20.0 Calculus of kidney; N28.89 Other specified disorders of kidney and ureter; E55.9 Vitamin D deficiency, unspecified

== ENCOUNTER 2017-09-02 09:04 | Inpatient (IN) | payer BC, OTHER ==
[~2017-09-02] VITALS: Ht 180.3 cm; Wt 99.1 kg
[2017-09-02] MEDS ORDERED: SODIUM CHLORIDE 0.9% 1000ML 1,000 ML IV STA (09:37)
[2017-09-02] MEDS ORDERED: ONDANSETRON INJ 2 MG/ML 2 ML VIAL IV STA (09:42)
[2017-09-02 09:56] LABS: BASO % 0.1 %; BASO ABS # 0.01 K/uL (0-0.2); COMPLETE YES; HEMATOCRIT 33.2 % (42-52); IG% 0.7 %; LYMPH % 4.7 %; LYMPH ABS # 0.75 K/uL (1.2-3.4); MEAN CELL VOLUME 84.7 fL (80-100); MEAN CORPUSCULAR HEMOGLOBIN 26.3 pg (25-34); MONO % 7.7 %; NEUT % 86.8 %; PLATELET COUNT 384 K/uL (130-400); RED BLOOD COUNT 3.92 M/uL (4.7-6.1); WHITE BLOOD COUNT 15.92 K/uL (4.8-10.8)
[2017-09-02] MEDS ORDERED: PIPERACILLIN/TAZOBACTAM 4.5 GM/100ML D5W IV STA (10:13)
--- NOTE | 2017-09-02 10:13 | DIAGNOSTIC IMAGING REPORT ---
CHEST ONE VIEW PORTABLE CLINICAL HISTORY: Shortness of breath. COMPARISON STUDY: Chest radiograph September 26, 2013 and PET/CT January 12, 2017. FINDINGS: A right internal jugular Omkqms-o-Efoo is noted. No pneumothorax or pleural effusion is present. There is no consolidation or evidence of pulmonary edema. Moderate cardiomegaly is noted. This is unchanged. Calcified right lung nodule is noted. IMPRESSION: 1. No acute cardiopulmonary findings. 2. Moderate cardiomegaly. Electronically signed by: Brendan Machado M.D. 09/02/2017 10:12 AM Dictated Date/Time: 09/02/2017 10:10 AM
[2017-09-02] MEDS ORDERED: LEVAQUIN 750MG / 150ML D5W IV ONE (10:15)
[2017-09-02 10:18] LABS: ALB/GLOB RATIO 0.6 (0.9-2); ALKALINE PHOSPHATASE 311 U/L (45-117); ALT/SGPT 31 U/L (12-78); AST/SGOT 18 U/L (15-37); BLOOD UREA NITROGEN 71 mg/dl (7-18); BUN/CREATININE RATIO 25.2 (10-20); CALCIUM 11.7 mg/dl (8.5-10.1); CARBON DIOXIDE 31 mmol/L (21-32); CHLORIDE 93 mmol/L (98-107); GLUCOSE 358 mg/dl (70-99); POTASSIUM 3.5 mmol/L (3.5-5.1); SODIUM 134 mmol/L (136-145)
[2017-09-02] MEDS ORDERED: INSU1INJ23 SQ (10:21)
[2017-09-02] MEDS ORDERED: ALLO300T2 PO (10:21)
[2017-09-02] MEDS ORDERED: DILT-121 PO (10:21)
[2017-09-02] MEDS ORDERED: INSDGIPEN SC (10:21)
[2017-09-02] MEDS ORDERED: METO50TA16 PO (10:22)
[2017-09-02] MEDS ORDERED: CHOL2000 PO (10:24)
[2017-09-02] MEDS ORDERED: FENT25DI10 TD (10:25)
[2017-09-02 10:29] LABS: BETA-HYDROXYBUTYRATE 15.83 mg/dL (0.2-2.81)
[2017-09-02 10:44] LABS: INR 1.1 (0.9-1.1); PARTIAL THROMBOPLASTIN RATIO 1.1; PROTHROMBIN TIME (PATIENT) 11.4 SECONDS (9.0-12.0)
[2017-09-02 11:10] VITALS: O2SAT 97; BMI 29.9
[2017-09-02 11:11] VITALS: Ht 180.3 cm; Wt 99.1 kg
[2017-09-02] MEDS: SODIUM CHLORIDE 0.9% 1000ML 1,000 ML IV SCH ×2 (11:15→12:16)
[2017-09-02 11:19] LABS: VEN BLOOD GAS BASE EXCESS 5.8 mEq/L; VENOUS BLOOD GAS PCO2 41 mmHg (38.0-50.0); VENOUS BLOOD GAS PO2 27 mmHg
[2017-09-02 11:20] LABS: VEN BLD GAS O2 SATURATION < 60.0 %
[2017-09-02 11:36] LABS: URINE APPEARANCE CLEAR (CLEAR); URINE BILIRUBIN NEG (NEG); URINE COLOR DK YELLOW; URINE EPITHELIAL CELL AUTO >30 /lpf (0-5); URINE NITRITE POS (NEG); URINE PH 7.5 (4.5-7.5); URINE SPECIFIC GRAVITY 1.014 (1.000-1.030); UROBILINOGEN NEG (NEG)
[2017-09-02 11:50] LABS: MANUAL MICROSCOPIC REQUIRED? NO; REVIEW REQ? YES; SULFASALICYLIC ACID POS (NEG)
[2017-09-02] MEDS ORDERED: PROMETHAZINE HCL INJ 12.5 MG in SODIUM CHLORIDE 0.9% 50ML 50 ML IV STA (12:01)
--- NOTE | 2017-09-02 12:13 | EMERGENCY ROOM VISIT NOTE ---
History First contact with patient: 09:25 Chief Complaint: NAUSEA Stated Complaint: NAUSEA,VOMITING EXTREME WEAKNESS Nursing Triage Summary: see triage note History of Present Illness The patient is a 67 year old male who presents to the Emergency Room with complaints of vomiting. He has had vomiting on and off for the past month which he possibly relates to his opiate use due to malignant bladder ca. It has been much worse in the past 2 days and he is very fatigued and short of breath on exertion. His has also noticed he has been getting progressively confused. Due to his vomiting he was switched to fentanyl on Monday but reports this may have made things worse. He has a history of urothelial bladder ca. which was treated with surgery (he has a neobladder), chemotherapy and radiation. Despite this is spread to his kidney and he is currently awaiting to talk to Dr Collazo (Oncology) and Surgery about further treatment. He travelled to [facility] 4 weeks previously by plane, he took a cruise ship on the way back for 2 weeks and returned to the [place] 10 days ago. He reports not calf pain or swelling. He has a Hx of PE when he was diagnosed with bladder cancer and previously treated with warfarin although he is no longer on anticoagulation although is unsure who stopped this medication. Review of Systems All other systems reviewed and otherwise negative other than HPI Past Medical/Surgical History Medical Problems: (1) Cancer of renal pelvis and ureter (2) Carcinoma of bladder (3) History of pulmonary embolus (PE) (4) History of renal bleeding (5) Presence of IVC filter (6) Vomiting Social History Smoking Status: Former Smoker Drug Use: none Marital Status: Housing Status: lives with family Current/Historical Medications Scheduled Allopurinol (Zyloprim), 300 MG PO DAILY Aspirin (Aspirin Ec), 81 MG PO QAM Atorvastatin (Lipitor), 80 MG PO HS Cholecalciferol (Vitamin D3), 2,000 UNITS PO DAILY Cyanocobalamin (Vitamin B-12), 1,000 MCG PO QAM Diltiazem Hcl Ext Rel (Tiazac), 420 MG PO DAILY Fentanyl (Duragesic), 25 MCG TD [id number] Hydrochlorothiazide (Hctz), 25 MG PO QAM Insulin Glargine (Lantus Solostar), 45 UNITS SC QAM Insulin Isophane (Human) (Humulin N Kwikpen), 35 UNITS SQ HS Insulin Lispro (Human) (Humalog Kwikpen), 33 UNITS SQ TIDM Krill Oil (Krill Oil), 1 CAP PO QAM Levothyroxine Sodium (Synthroid), 100 MCG PO QAM Metoprolol Tartrate (Lopressor) (Lopressor), 75 MG PO DAILY Ondasetron Odt (Zofran Odt), 4 MG SL TID Sodium Bicarbonate (Sodium Bicarbonate), 650 MG PO BID Physical Exam Vital Signs Date Time Temp Pulse Resp B/P (MAP) Pulse Ox O2 Delivery O2 Flow Rate FiO2 09/02/17 13:29 115 24 171/109 94 Room Air 09/02/17 12:35 112 20 171/99 97 Room Air 09/02/17 11:22 120 24 178/107 97 Room Air 09/02/17 11:10 97 Room Air 09/02/17 09:56 121 24 143/99 97 Room Air 09/02/17 09:53 97 Room Air 09/02/17 09:46 123 09/02/17 09:11 36.4 126 20 115/78 98 Room Air Physical Exam General Appearance: + mild distress (respiratory), + obese Head: normocephalic, atraumatic Eyes: normal inspection, PERRL, EOMI ENT: normal ENT inspection, pharynx normal (dry mucus membranes) Neck: supple, no JVD (difficult to assess due to neck size), trachea midline Respiratory/Chest: no accessory muscle use, + respiratory distress (mild), + crackles (R> L basal crackles, no wheezing) Cardiovascular: no murmur, normal peripheral pulses, + tachycardia Abdomen / GI: normal bowel sounds, non tender, soft Back: no CVA tenderness Extremities: no calf tenderness, normal capillary refill, + pedal edema (1+ b/l to knees) Neurologic/Psych: hospice registered nurse II-XII nml as tested, no motor/sensory deficits, alert , oriented x 3 Medical Decision & Procedures ER Provider Diagnostic Interpretation: CHEST ONE VIEW PORTABLE CLINICAL HISTORY: Shortness of breath. COMPARISON STUDY: Chest radiograph September 26, 2013 and PET/CT January 12, 2017. FINDINGS: A right internal jugular Wmllgv-c-Ckon is noted. No pneumothorax or pleural effusion is present. There is no consolidation or evidence of pulmonary edema. Moderate cardiomegaly is noted. This is unchanged. Calcified right lung nodule is noted. IMPRESSION: 1. No acute cardiopulmonary findings. 2. Moderate cardiomegaly. Electronically signed by: Brendan Machado M.D. 09/02/2017 10:12 AM Dictated Date/Time: 09/02/2017 10:10 AM Laboratory Results Test 09/02/17 09:35 09/02/17 11:05 09/02/17 11:20 Immature Granulocyte % (Auto) 0.7 % White Blood Count 15.92 K/uL (4.8-10.8) Red Blood Count 3.92 M/uL (4.7-6.1) Hemoglobin 10.3 g/dL (14.0-18.0) Hematocrit 33.2 % (42-52) Mean Corpuscular Volume 84.7 fL (80-100) Mean Corpuscular Hemoglobin 26.3 pg (25-34) Mean Corpuscular Hemoglobin Concent 31.0 g/dl (32-36) Platelet Count 384 K/uL (130-400) Mean Platelet Volume 10.0 fL (7.4-10.4) Neutrophils (%) (Auto) 86.8 % Lymphocytes (%) (Auto) 4.7 % Monocytes (%) (Auto) 7.7 % Eosinophils (%) (Auto) 0.0 % Basophils (%) (Auto) 0.1 % Neutrophils # (Auto) 13.82 K/uL (1.4-6.5) Lymphocytes # (Auto) 0.75 K/uL (1.2-3.4) Monocytes # (Auto) 1.23 K/uL (0.11-0.59) Eosinophils # (Auto) 0.00 K/uL (0-0.5) Basophils # (Auto) 0.01 K/uL (0-0.2) Immature Granulocyte # (Auto) 0.11 K/uL (0.00-0.02) Prothrombin Time 11.4 SECONDS (9.0-12.0) Prothromb Time International Ratio 1.1 (0.9-1.1) Activated Partial Thromboplast Time 29.2 SECONDS (21.0-31.0) Partial Thromboplastin Ratio 1.1 Troponin I < 0.015 ng/ml (0-0.045) Lipase 142 U/L (73-393) Beta-Hydroxybutyric Acid 15.83 mg/dL (0.2-2.81) Hepatitis C Antibody Screen NEG (NEG) Venous Blood pH 7.48 (7.36-7.41) Venous Blood Partial Pressure CO2 41 mmHg (38.0-50.0) Venous Blood Partial Pressure O2 27 mmHg Venous Blood HCO3 30 mmol/L Venous Blood Oxygen Saturation < 60.0 % Venous Blood Base Excess 5.8 mEq/L Urine Color DK YELLOW Urine Appearance CLEAR (CLEAR) Urine pH 7.5 (4.5-7.5) Urine Specific [place] 1.014 (1.000-1.030) Urine Protein 2+ (NEG) Urine Glucose (UA) NEG (NEG) Urine Ketones TRACE (NEG) Urine Occult Blood 3+ (NEG) Urine Nitrite POS (NEG) Urine Bilirubin NEG (NEG) Urine Urobilinogen NEG (NEG) Urine Leukocyte Esterase TRACE (NEG) Urine WBC (Auto) >30 /hpf (0-5) Urine RBC (Auto) >30 /hpf (0-4) Urine Hyaline Casts (Auto) 1-5 /lpf (0-5) Urine Epithelial Cells (Auto) >30 /lpf (0-5) Urine Bacteria (Auto) NEG (NEG) Urine Renal Epithelial Cells /lpf (0-5) Date/Time Source Procedure Growth Status 09/02/17 11:20 Urine , Clean Catch Urine Culture - Final NO GROWTH - LESS THAN 1,000 COLONIES/ML Complete Medications Administered Medications (Trade) Dose Ordered Sig/Sara Route Start Time Stop Time Status Last Admin Dose Admin Sodium Chloride 1,000 ml @ 999 mls/hr Q1H1M STAT IV 09/02/17 09:37 09/02/17 10:37 DC 09/02/17 10:00 999 MLS/HR Ondansetron HCl (Zofran Inj) 4 mg NOW STAT IV 09/02/17 09:42 09/02/17 09:43 DC 09/02/17 10:00 4 MG Piperacillin Sod/ Tazobactam Sod (Zosyn Iv) 4.5 gm NOW STAT IV 09/02/17 10:13 09/02/17 10:19 DC 09/02/17 11:06 4.5 GM Levofloxacin (Levaquin / D5W) 750 mg NOW ONCE IV 09/02/17 10:15 09/02/17 10:19 DC 09/02/17 10:15 750 MG Sodium Chloride 1,000 ml @ 999 mls/hr Q1H1M IV 09/02/17 11:15 09/02/17 18:32 DC 09/02/17 11:15 999 MLS/HR Promethazine HCl 12.5 mg/Sodium Chloride 50.5 ml @ 204 mls/hr NOW STAT IV 09/02/17 12:01 09/02/17 12:15 DC 09/02/17 12:28 204 MLS/HR ECG Indication: nausea, vomiting Rate (beats per minute): 111 Rhythm: sinus tachycardia Change: Sinus tachycardia Possible Left atrial enlargement Inferior infarct (cited on or before 28-APR-2011) Anterolateral infarct , age undetermined Abnormal ECG When compared with ECG of 26-SEP-2013 00:57, Anterolateral infarct is now Present Nonspecific T wave abnormality now evident in Anterolateral leads Confirmed by ROCKY CARPENTER ([id number]) on 09/03/2017 11:50:42 AM ED Course Complete history and physical was performed by myself - routine labs and workup for sepsis ordered The patient was discussed with Dr Barfield who separately performed history and physical The patient was re-examined multiple times without change in his symptoms Patient was discussed with Dr Rodriguez and Dr Man from the [facility] hospitalist team and he will be evaluated in the ER for further treatment. Patient was discussed in the ER with Dr Lackey (Resident) who will admit the patient. Medical Decision Prior records/ancillary studies reviewed. Triage Nursing notes reviewed. Additional history obtained from the family. The patient's history was concerning for respiratory difficulties and vomiting Differential diagnosis: Etiologies such as infections, reactive airway disease, pneumonia, pneumothorax , COPD, CHF, cardiac ischemia, pulmonary embolism, musculoskeletal, gastrointestinal, as well as others were entertained. Physical examination: As above. Crackles in right > left base ER treatment provided: Ondansetron 4mg IV Phenergan 12.5mg IV Levaquin 750mg IV Zosyn 4.5g IV On reassessment the patient felt his nausea slightly improve. Diagnostic interpretation by me: The electrocardiogram was concerning for sinus tachycardia and some ischemic changes (likely related to rate) The labs revealed hypercalcemia, elevated BUN and Cr from baseline and elevated WBC. Concerning for significant dehydration and infection. Imaging studies: Chest x-ray as above. Consultation: A consultation was placed with the [facility] hospitalist given concern of ongoing vomiting with tachycardia and labs concerning for significant dehydration, possible chest sepsis, unable to rule out PE at this stage. The case was discussed and diagnostics were reviewed. The patient was evaluated in the ER for further treatment. Medication Reconcilliation Current Medication List: was personally reviewed by me Consults Time Called: 10:54 Consulting Physician: [facility] Hospitalist (Dr Rodriguez) Agree to call Dr Man to admit the patient under resident service. Patient was discussed with Dr Man and Dr Lackey will come to the ER to evaluate for admission Impression Primary Impression: Vomiting Additional Impressions: Hypercalcemia Dehydration Sepsis Departure Information Dispostion Being Evaluated By Hospitalist Prescriptions Ondasetron Odt (ZOFRAN ODT) 4 Mg Tab 4 MG SL TID for Nausea or Vomiting, #5 TAB Prov: Issac Toro M.D. 09/04/17 Referrals Stephen Odom M.D. (PCP) Patient Instructions My [facility] Resident Tracking Resident Involvement: Resident Care Provided Care Provided: Adult ED Problem Qualifiers
--- NOTE | 2017-09-02 13:01 | History and Physical ---
History & Physical Date & Time of Service: Sep 02, 2017 at 12:41 Chief Complaint: Nausea,Vomiting Extreme Weakness Primary Care Physician: Stephen Odom M.D. History of Present Illness Source: patient, family Patient is a 67 year old male with bladder cancer (s/p chemo and radiation) who presented with 24 hours of vomiting. Patient notes that he has been vomiting for the past 24 hours. He denies any blood in the vomit and it is mostly food contents. He has been feeling very nauseated. He denies any associated abdominal pain, diarrhea, fevers or chills. He has also been feeling very fatigued, with low energy levels and has a decreased appetite. His notes that at times he has been nonsensical and has been slightly confused. He has also had a 15 pound weight loss in the past 1 month He was started on a fentanyl patch 3 days ago and was transitioned from PO morphine due to pain from cancer in his R kidney. He has had recurrence of cancer which has been found in his R kidney and there is still uncertainty as to whether or not this is a new primary cancer or recurrence of his bladder cancer that has spread to the kidney. He has been following with Dr. Jarrett in [place] and is planning to have chemotherapy. He had a PET scan 1 week ago which did not show any spread outside the kidney and he recently had a port placed in preparation for chemo. Of note in the ED his vitals were significant for a pulse in the 120's, RR of 24 ; however he was afebrile. He was found to have a WCC of 16. CXR was unremarkable. UA showed +nitrites, +leukocytes, >30wbc's, >30rbc's and trace high ketones. Patient was also found to have a glucose of 385. He had lower extremity dopplers which were negative for DVT. In the ED he was given IV levaquin, IV pip-tazo, 2 L of Normal saline, zofran and phenergan The patient was admitted to the telemetry unit for further monitoring Past Medical/Surgical History Medical Problems: Cancer of renal pelvis and ureter Bladder carcinoma Pulmonary Embolism HTN DM T2 Hypothyroid Gout Family History Mom- aneurysm Brother- colon cancer Brother - HLD Social History Smoking Status: Former Smoker Alcohol Use: occasionally Drug Use: none Marital Status: Housing status: lives with family Occupational Status: retired Immunizations History of Influenza Vaccine: Yes Influenza Vaccine Date: Aug 01, 2013 History of Tetanus Vaccine?: Unknown Tetanus Immunization Date: Sep 28, 2011 History of Pneumococcal: Yes Pneumococcal Date: Jul 04, 2012 History of Hepatitis B Vaccine: Unknown Multi-Drug Resistant Organisms History of MDRO: No Allergies Coded Allergies: No Known Allergies (Unverified , 09/02/17) Home Medications Scheduled Allopurinol (Zyloprim), 300 MG PO DAILY Aspirin (Aspirin Ec), 81 MG PO QAM Atorvastatin (Lipitor), 80 MG PO HS Cholecalciferol (Vitamin D3), 2,000 UNITS PO DAILY Cyanocobalamin (Vitamin B-12), 1,000 MCG PO QAM Diltiazem Hcl Ext Rel (Tiazac), 420 MG PO DAILY Fentanyl (Duragesic), 25 MCG TD [id number] Hydrochlorothiazide (Hctz), 25 MG PO QAM Insulin Glargine (Lantus Solostar), 45 UNITS SC QAM Insulin Isophane (Human) (Humulin N Kwikpen), 35 UNITS SQ HS Insulin Lispro (Human) (Humalog Kwikpen), 100 UNITS SQ TIDM Krill Oil (Krill Oil), 1 CAP PO QAM Levothyroxine Sodium (Synthroid), 100 MCG PO QAM Metoprolol Tartrate (Lopressor) (Lopressor), 75 MG PO DAILY Sodium Bicarbonate (Sodium Bicarbonate), 650 MG PO BID Review of Systems Constitutional: + weight loss, + weakness, + fatigue, No fever, No chills, No sweats Eyes: No worsening of vision ENT: No hearing loss, No sore throat, No trouble swallowing Respiratory: + dyspnea on exertion, No cough, No sputum, No shortness of breath , No dyspnea at rest, No hemoptysis Cardiovascular: No chest pain, No edema, No palpitations Abdomen: + nausea, + vomiting, No pain, No diarrhea, No constipation, No GI bleeding Musculoskeletal: No joint pain, No muscle pain, No swelling Genitourinary - Male: + hematuria, No dysuria, No urinary frequency Neurologic: + weakness, + problem reported (confusion), No memory loss, No numbness/tingling Endocrine: + fatigue Hematologic / Lymphatic: + abnormal bleeding/bruising Physical Exam Vital Signs Date Time Temp Pulse Resp B/P (MAP) Pulse Ox O2 Delivery O2 Flow Rate FiO2 09/02/17 12:35 112 20 171/99 97 Room Air 09/02/17 11:22 120 24 178/107 97 Room Air 09/02/17 11:10 97 Room Air 09/02/17 09:56 121 24 143/99 97 Room Air 09/02/17 09:53 97 Room Air 09/02/17 09:46 123 09/02/17 09:11 36.4 126 20 115/78 98 Room Air General Appearance: WD/WN, no apparent distress Head: normocephalic, atraumatic Eyes: normal inspection, sclerae normal ENT: hearing grossly normal, pharynx normal Neck: supple, no adenopathy, thyroid normal, no JVD, no carotid bruits, trachea midline Respiratory/Chest: chest non-tender, lungs clear (crackles at LLLB), no respiratory distress, no accessory muscle use Cardiovascular: regular rate, rhythm, no edema, no JVD, no murmur, normal peripheral pulses Abdomen/GI: normal bowel sounds, non tender, soft, + pertinent finding (lower abdominal scar for neobladder surgery) Back: normal inspection, no muscle spasm, normal range of motion Extremities/Musculoskelatal: normal inspection, no calf tenderness, no pedal edema, normal range of motion, non-tender 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, no motor/sensory deficits, alert, normal mood/affect, oriented x 3 Skin: normal color, warm/dry, no rash Diagnostics Laboratory Results Results Past 24 Hours Test 09/02/17 09:35 09/02/17 10:13 09/02/17 11:05 09/02/17 11:20 Range/Units White Blood Count 15.92 4.8-10.8 K/uL Red Blood Count 3.92 4.7-6.1 M/uL Hemoglobin 10.3 14.0-18.0 g/dL Hematocrit 33.2 42-52 % Mean Corpuscular Volume 84.7 80-100 fL Mean Corpuscular Hemoglobin 26.3 25-34 pg Mean Corpuscular Hemoglobin Concent 31.0 32-36 g/dl Platelet Count 384 130-400 K/uL Mean Platelet Volume 10.0 7.4-10.4 fL Neutrophils (%) (Auto) 86.8 % Lymphocytes (%) (Auto) 4.7 % Monocytes (%) (Auto) 7.7 % Eosinophils (%) (Auto) 0.0 % Basophils (%) (Auto) 0.1 % Neutrophils # (Auto) 13.82 1.4-6.5 K/uL Lymphocytes # (Auto) 0.75 1.2-3.4 K/uL Monocytes # (Auto) 1.23 0.11-0.59 K/uL Eosinophils # (Auto) 0.00 0-0.5 K/uL Basophils # (Auto) 0.01 0-0.2 K/uL RDW Standard Deviation 54.3 36.4-46.3 fL RDW Coefficient of Variation 17.4 11.5-14.5 % Immature Granulocyte % (Auto) 0.7 % Immature Granulocyte # (Auto) 0.11 0.00-0.02 K/uL Prothrombin Time 11.4 9.0-12.0 SECONDS Prothromb Time International Ratio 1.1 0.9-1.1 Activated Partial Thromboplast Time 29.2 21.0-31.0 SECONDS Partial Thromboplastin Ratio 1.1 Sodium Level 134 136-145 mmol/L Potassium Level 3.5 3.5-5.1 mmol/L Chloride Level 93 98-107 mmol/L Carbon Dioxide Level 31 21-32 mmol/L Anion Gap 10.0 3-11 mmol/L Blood Urea Nitrogen 71 7-18 mg/dl Creatinine 2.80 0.60-1.40 mg/dl Estimated GFR () 25.5 Estimated GFR (Non- 22.0 BUN/Creatinine Ratio 25.2 10-20 Random Glucose 358 70-99 mg/dl Calcium Level 11.7 8.5-10.1 mg/dl Total Bilirubin 0.6 0.2-1 mg/dl Aspartate Amino Transf (AST/SGOT) 18 15-37 U/L Alanine Aminotransferase (ALT/SGPT) 31 12-78 U/L Alkaline Phosphatase 311 45-117 U/L Troponin I < 0.015 0-0.045 ng/ml Total Protein 8.4 6.4-8.2 gm/dl Albumin 3.0 3.4-5.0 gm/dl Globulin 5.4 2.5-4.0 gm/dl Albumin/Globulin Ratio 0.6 0.9-2 Lipase 142 73-393 U/L Beta-Hydroxybutyric Acid 15.83 0.2-2.81 mg/dL Venous Blood pH 7.48 7.36-7.41 Venous Blood Partial Pressure CO2 41 38.0-50.0 mmHg Venous Blood Partial Pressure O2 27 mmHg Venous Blood HCO3 30 mmol/L Venous Blood Oxygen Saturation < 60.0 % Venous Blood Base Excess 5.8 mEq/L Urine Color DK YELLOW Urine Appearance CLEAR CLEAR Urine pH 7.5 4.5-7.5 Urine Specific [place] 1.014 1.000-1.030 Urine Protein 2+ NEG Urine Glucose (UA) NEG NEG Urine Ketones TRACE NEG Urine Occult Blood 3+ NEG Urine Nitrite POS NEG Urine Bilirubin NEG NEG Urine Urobilinogen NEG NEG Urine Leukocyte Esterase TRACE NEG Urine WBC (Auto) >30 0-5 /hpf Urine RBC (Auto) >30 0-4 /hpf Urine Hyaline Casts (Auto) 1-5 0-5 /lpf Urine Epithelial Cells (Auto) >30 0-5 /lpf Urine Bacteria (Auto) NEG NEG Urine Renal Epithelial Cells 0-5 /lpf Test 09/02/17 11:37 Range/Units Microbiology Results 09/02/17 Blood Culture, Received Pending 09/02/17 Blood Culture, Received Pending 09/02/17 Urine Culture, Received Pending CXR normal EKG Tachycardia with left atrial enlargement Impression Assessment and Plan Assessment: 67 year old male with PMH of bladder cancer/renal cancer and DMT2 who presented with a 1 day history of vomiting. Leading diagnosis at the moment is UTI leading to decreased appetite, confusion and weakness. This may have led to hyperglycemic state which has led to worsening nausea. Vomiting may also be due to current immunotherapy which was started in July 24 or from starting oral morphine and now fentanyl patch. If patient continues to remain tachycardic after fluid resuscitation and antibiotic treatment then would be reasonable to consider PE on the differential diagnosis. Plan: Vomiting secondary to complicated UTI - UA showed infection in ED - treat with cefepime 2g IV q12 - normosol 135 mls/hr with 20meq of potassium - urine culture and blood cultures pending - IV zofran 4mg q6 for nausea Hyperglycemia/ T2DM - ketones in urine and VBG without any abnormalities therefore does not meet criteria for hyperosmolar hyperglycemic state - glucose 385 in the ED - hx of T2 DM - continue glargine 40 untis qam and humalin 30 units at bedtime - glycemic consult ordered CATHERINE with CKD stage 4 - creatinine 2.5, baseline 2 - secondary to dehydration - continue IVF and continue to monitor Anemia - hgb 10.3, baseline 8.5 (likely volume depleted) - normocytic - will continue to monitor Renal and bladder carcinoma - diagnosed in 2012 --> neobladder surgery ---> chemo and radiation in 2015 ---- > immunotherapy started in [place] July 24 ---> PET scan showed cancer in R kidney ----> A-port placed and plan for chemo - continue fentanyl patch for pain HTN - continue diltiazem and isosorbide Hypothyroidism - continue levothyroxine HLD - continue atorvastatin Gout - continue allopurinol DVT prophylaxis - Lovenox 30mg q12 Code Status: Unknown Dispo: likely will go home with , ambulatory at baseline Resident Physician Supervision Note: I interviewed and examined the patient. Discussed with Dr. Lackey and agree with findings and plan as documented in the note. Any exceptions or clarifications are listed here: 67-year-old male with history of bladder cancer and now renal cancer (uncertain if metastatic spread versus primary) presents to the emergency department with a 24-36 hour history of nausea, vomiting, and weakness. The patient asked he states that he's been having episodes of nausea for quite some time - may be as long as 4 weeks. He was recently on a cruise with his - and states that he lost almost 15 pounds. The patient states he will develop what he describes as a hiccup, which will regress to retching; he may or may not have actual emesis, but when he does it usually a small amount, and the symptoms will sadaf for a period of time. Over the last 24-36 hours, this cycle has intensified. He reports that he was unable to sleep last night due to the symptoms. In addition, over the last 24-36 hours, he is noted a profound weakness. He stated that he was unable to walk up the steps in his house without pausing for recovery. Upon examination, he is currently afebrile - he is awake alert and oriented; he does have an episode of retching without emesis during my examination. Heart is rate or rhythm but tachycardic. His lungs are clear throughout; he does have some difficulty taking a deep breath secondary to the retching. His abdomen is generally soft and nontender. No rebound or guarding is noted. IMPRESSION Nausea and vomiting, uncertain etiology Urinary tract infection Weakness Acute kidney injury Bladder cancer, status post neobladder, renal cell carcinoma (question metastatic versus second primary) Diabetes with hyperglycemia Anemia (his hemoglobin is actually improved compared to his most recent outpatient labs 2 weeks ago, suspect that he is hemoconcentrated at this moment) PLAN Antibiotic coverage as noted above IV fluids Symptomatic treatment for his nausea and vomiting Resume home medications; hopefully he is able to tolerate with additional medicines for his nausea Lower extremity Dopplers to rule out DVT Documented By: Ovi Man Advanced Directives Existing Living Will: Yes Existing Power of Bodily Injury Adjuster: Yes VTE Prophylaxis VTE Risk Assessment Done? Y/N: Yes Risk Level: High Given or contraindicated: Enoxaparin (Lovenox)SQ
[2017-09-02] MEDS ORDERED: INSULIN IV INFUSION PROTOCOL STA (13:11)
--- NOTE | 2017-09-02 13:14 | DIAGNOSTIC IMAGING REPORT ---
BILATERAL LOWER EXTREMITY VENOUS DOPPLER CLINICAL HISTORY: Tachycardia, shortness of breath, unable to get CT for PE. COMPARISON STUDY: Bilateral lower extremity venous Doppler September 26, 2013 TECHNIQUE: Sonography of the deep venous system of the bilateral lower extremities was performed. Compression and augmentation were evaluated. FINDINGS: The bilateral common femoral, superficial femoral and popliteal veins were compressible. Augmentation was normal. Flow was shown within the deep calf vessels. IMPRESSION: No evidence of deep venous thrombus within the bilateral lower extremities. Electronically signed by: Brendan Machado M.D. 09/02/2017 1:13 PM Dictated Date/Time: 09/02/2017 1:12 PM
[2017-09-02] MEDS ORDERED: MODERATE STRESS LEVEL ONE (13:15)
[2017-09-02] MEDS ORDERED: POLYETHYLENE (MIRALAX) 17 GM PACK PO PRN (13:15)
[2017-09-02] MEDS ORDERED: MAGNESIUM HYDROXIDE SUSP 30 ML UDC PO PRN (13:15)
[2017-09-02] MEDS ORDERED: ALUMINUM/MAGNESIUM/SIMETH (MAALOX MAX) 30 ML UDC PO PRN (13:15)
[2017-09-02] MEDS ORDERED: INSULIN PROTOCOL GOAL RANGE ONE (13:15)
[2017-09-02] MEDS ORDERED: ONDANSETRON INJ 2 MG/ML 2 ML VIAL IV PRN (13:15)
--- NOTE | 2017-09-02 13:20 | EMERGENCY ROOM VISIT NOTE ---
History Report prepared by Zeb: Marjorie Ponce Under the Supervision of: Dr. Eusebio Barfield D.O. First contact with patient: 09:25 Chief Complaint: NAUSEA Stated Complaint: NAUSEA,VOMITING EXTREME WEAKNESS Nursing Triage Summary: see triage note History of Present Illness The patient is a 67 year old male who presents to the Emergency Room with complaints of worsening vomiting beginning 2 days ago. The patient states that he has a past medical history of bladder cancer and now the cancer has spread to his right kidney. He states that he has had chemotherapy for this and that he plans to meet with a surgeon. The patient states that he had a PET scan done last week which did not show that the cancer has spread anywhere else. He states that he has been placed on pain medications and since this, he has had worsening nausea and vomiting. He also reports having shortness of breath upon exertion over the last 2 days. His states that the patient has been more confused over the last 2 days. He states that he went to [facility] 4 weeks ago. Source of History: patient Onset: 2 days ago Position: other (global) Quality: other (vomiting ) Timing: worsening Associated Symptoms: + SOB (upon exertion ), + nausea, + weakness ( confusion ) Review of Systems See HPI for pertinent positives & negatives. A total of 10 systems reviewed and were otherwise negative. Past Medical & Surgical Medical Problems: (1) Cancer of renal pelvis and ureter (2) Carcinoma of bladder (3) History of pulmonary embolus (PE) (4) History of renal bleeding (5) Presence of IVC filter (6) Vomiting Family History No pertinent family history stated. Social History Smoking Status: Former Smoker Drug Use: none Marital Status: Housing Status: lives with family Current/Historical Medications Scheduled Allopurinol (Zyloprim), 300 MG PO DAILY Aspirin (Aspirin Ec), 81 MG PO QAM Atorvastatin (Lipitor), 80 MG PO HS Cholecalciferol (Vitamin D3), 2,000 UNITS PO DAILY Cyanocobalamin (Vitamin B-12), 1,000 MCG PO QAM Diltiazem Hcl Ext Rel (Tiazac), 420 MG PO DAILY Fentanyl (Duragesic), 25 MCG TD [id number] Hydrochlorothiazide (Hctz), 25 MG PO QAM Insulin Glargine (Lantus Solostar), 45 UNITS SC QAM Insulin Isophane (Human) (Humulin N Kwikpen), 35 UNITS SQ HS Insulin Lispro (Human) (Humalog Kwikpen), 100 UNITS SQ TIDM Krill Oil (Krill Oil), 1 CAP PO QAM Levothyroxine Sodium (Synthroid), 100 MCG PO QAM Metoprolol Tartrate (Lopressor) (Lopressor), 75 MG PO DAILY Sodium Bicarbonate (Sodium Bicarbonate), 650 MG PO BID Allergies Coded Allergies: No Known Allergies (Unverified , 09/02/17) Physical Exam Vital Signs Date Time Temp Pulse Resp B/P (MAP) Pulse Ox O2 Delivery O2 Flow Rate FiO2 09/02/17 12:35 112 20 171/99 97 Room Air 09/02/17 11:22 120 24 178/107 97 Room Air 09/02/17 11:10 97 Room Air 09/02/17 09:56 121 24 143/99 97 Room Air 09/02/17 09:53 97 Room Air 09/02/17 09:46 123 09/02/17 09:11 36.4 126 20 115/78 98 Room Air Physical Exam CONSTITUTIONAL/VITAL SIGNS: Reviewed / noted above. GENERAL: Vomiting. INTEGUMENTARY: Warm, dry, and [place]. HEAD: Normocephalic. EYES: without scleral icterus or trauma. ENT/OROPHARYNX: clear and moist. LYMPHADENOPATHY/NECK: Is supple without lymphadenopathy or meningismus. RESPIRATORY: Lungs clear and equal. CARDIOVASCULAR: Regular rate and rhythm. GI/ABDOMEN: Soft and nontender. No organomegaly or pulsatile mass. No rebound or guarding. Normal bowel sounds. EXTREMITIES: Warm and well perfused. BACK: No CVA tenderness. NEUROLOGICAL: Intact without focal deficits. PSYCHIATRIC: normal affect. MUSCULOSKELETAL: Normally developed with good muscle tone. Medical Decision & Procedures ER Provider Diagnostic Interpretation: Radiology results as stated below per my review and radiologist interpretation: CHEST ONE VIEW PORTABLE CLINICAL HISTORY: Shortness of breath. COMPARISON STUDY: Chest radiograph September 26, 2013 and PET/CT January 12, 2017. FINDINGS: A right internal jugular [id number] is noted. No pneumothorax or pleural effusion is present. There is no consolidation or evidence of pulmonary edema. Moderate cardiomegaly is noted. This is unchanged. Calcified right lung nodule is noted. IMPRESSION: 1. No acute cardiopulmonary findings. 2. Moderate cardiomegaly. Electronically signed by: Brendan Machado M.D. 09/02/2017 10:12 AM Dictated Date/Time: 09/02/2017 10:10 AM Laboratory Results 09/02/17 09:35 Red Blood Count 3.92, Mean Corpuscular Volume 84.7, Mean Corpuscular Hemoglobin 26.3, Mean Corpuscular Hemoglobin Concent 31.0, Mean Platelet Volume 10.0, Neutrophils (%) (Auto) 86.8, Lymphocytes (%) (Auto) 4.7, Monocytes (%) (Auto) 7.7, Eosinophils (%) (Auto) 0.0, Basophils (%) (Auto) 0.1, Neutrophils # (Auto) 13.82, Lymphocytes # (Auto) 0.75, Monocytes # (Auto) 1.23, Eosinophils # (Auto) 0.00, Basophils # (Auto) 0.01 09/02/17 09:35 Test 09/02/17 09:35 09/02/17 10:13 09/02/17 11:05 09/02/17 11:20 White Blood Count 15.92 K/uL (4.8-10.8) Red Blood Count 3.92 M/uL (4.7-6.1) Hemoglobin 10.3 g/dL (14.0-18.0) Hematocrit 33.2 % (42-52) Mean Corpuscular Volume 84.7 fL (80-100) Mean Corpuscular Hemoglobin 26.3 pg (25-34) Mean Corpuscular Hemoglobin Concent 31.0 g/dl (32-36) Platelet Count 384 K/uL (130-400) Mean Platelet Volume 10.0 fL (7.4-10.4) Neutrophils (%) (Auto) 86.8 % Lymphocytes (%) (Auto) 4.7 % Monocytes (%) (Auto) 7.7 % Eosinophils (%) (Auto) 0.0 % Basophils (%) (Auto) 0.1 % Neutrophils # (Auto) 13.82 K/uL (1.4-6.5) Lymphocytes # (Auto) 0.75 K/uL (1.2-3.4) Monocytes # (Auto) 1.23 K/uL (0.11-0.59) Eosinophils # (Auto) 0.00 K/uL (0-0.5) Basophils # (Auto) 0.01 K/uL (0-0.2) RDW Standard Deviation 54.3 fL (36.4-46.3) RDW Coefficient of Variation 17.4 % (11.5-14.5) Immature Granulocyte % (Auto) 0.7 % Immature Granulocyte # (Auto) 0.11 K/uL (0.00-0.02) Prothrombin Time 11.4 SECONDS (9.0-12.0) Prothromb Time International Ratio 1.1 (0.9-1.1) Activated Partial Thromboplast Time 29.2 SECONDS (21.0-31.0) Partial Thromboplastin Ratio 1.1 Anion Gap 10.0 mmol/L (3-11) Estimated GFR () 25.5 Estimated GFR (Non- 22.0 BUN/Creatinine Ratio 25.2 (10-20) Calcium Level 11.7 mg/dl (8.5-10.1) Total Bilirubin 0.6 mg/dl (0.2-1) Aspartate Amino Transf (AST/SGOT) 18 U/L (15-37) Alanine Aminotransferase (ALT/SGPT) 31 U/L (12-78) Alkaline Phosphatase 311 U/L (45-117) Troponin I < 0.015 ng/ml (0-0.045) Total Protein 8.4 gm/dl (6.4-8.2) Albumin 3.0 gm/dl (3.4-5.0) Globulin 5.4 gm/dl (2.5-4.0) Albumin/Globulin Ratio 0.6 (0.9-2) Lipase 142 U/L (73-393) Beta-Hydroxybutyric Acid 15.83 mg/dL (0.2-2.81) Venous Blood pH 7.48 (7.36-7.41) Venous Blood Partial Pressure CO2 41 mmHg (38.0-50.0) Venous Blood Partial Pressure O2 27 mmHg Venous Blood HCO3 30 mmol/L Venous Blood Oxygen Saturation < 60.0 % Venous Blood Base Excess 5.8 mEq/L Urine Color DK YELLOW Urine Appearance CLEAR (CLEAR) Urine pH 7.5 (4.5-7.5) Urine Specific [place] 1.014 (1.000-1.030) Urine Protein 2+ (NEG) Urine Glucose (UA) NEG (NEG) Urine Ketones TRACE (NEG) Urine Occult Blood 3+ (NEG) Urine Nitrite POS (NEG) Urine Bilirubin NEG (NEG) Urine Urobilinogen NEG (NEG) Urine Leukocyte Esterase TRACE (NEG) Urine WBC (Auto) >30 /hpf (0-5) Urine RBC (Auto) >30 /hpf (0-4) Urine Hyaline Casts (Auto) 1-5 /lpf (0-5) Urine Epithelial Cells (Auto) >30 /lpf (0-5) Urine Bacteria (Auto) NEG (NEG) Urine Renal Epithelial Cells /lpf (0-5) Medications Administered Medications (Trade) Dose Ordered Sig/Sara Route Start Time Stop Time Status Last Admin Dose Admin Sodium Chloride 1,000 ml @ 999 mls/hr Q1H1M STAT IV 09/02/17 09:37 09/02/17 10:37 DC 09/02/17 10:00 999 MLS/HR Ondansetron HCl (Zofran Inj) 4 mg NOW STAT IV 09/02/17 09:42 09/02/17 09:43 DC 09/02/17 10:00 4 MG Piperacillin Sod/ Tazobactam Sod (Zosyn Iv) 4.5 gm NOW STAT IV 09/02/17 10:13 09/02/17 10:19 DC 09/02/17 11:06 4.5 GM Levofloxacin (Levaquin / D5W) 750 mg NOW ONCE IV 09/02/17 10:15 09/02/17 10:19 DC 09/02/17 10:15 750 MG Sodium Chloride 1,000 ml @ 999 mls/hr Q1H1M IV 09/02/17 11:15 10/02/17 11:14 09/02/17 11:15 999 MLS/HR Promethazine HCl 12.5 mg/Sodium Chloride 50.5 ml @ 204 mls/hr NOW STAT IV 09/02/17 12:01 09/02/17 12:15 DC 09/02/17 12:28 204 MLS/HR ECG Indication: weakness Rate (beats per minute): 111 Rhythm: sinus tachycardia Findings: no acute ischemic change, no ectopy ED Course 0930: Previous medical records were reviewed. The patient was evaluated in room B2 by Dr. Carter. A complete history and physical examination was performed. 0937: Ordered Sodium Chloride 1,000 ml @ 999 mls/hr IV. 0942: Ordered Zofran Inj 4 mg IV. 1013: Ordered Zosyn Iv 4.5 gn IV. 1015: Ordered Levofloxacin 750 mg IV. 1036: Previous medical records were reviewed. The patient was evaluated in room B2. A complete history and physical examination was performed. 1054: Dr. Carter discussed the patient's case with Dr. Rodriguez. The patient will be evaluated for further treatment and disposition. 1100: On reevaluation, the patient is resting. I discussed the results and findings with the patient. He verbalized agreement of the treatment plan. The patient will be evaluated for further management and care. Medical Decision Differential includes acute coronary syndrome, myocardial infarction, CVA, TIA, anemia, infection, pneumonia, UTI, pyelonephritis, poor nutrition, dehydration, electrolyte disturbance,hypoglycemia. This patient was seen in conjunction with the resident. The patient presents to the emergency department with a chief complaint of severe vomiting and unable to keep anything down for the past 24 hours. Over the past couple of weeks, the patient has had a poor appetite as well as poor by mouth intake. He also has a history of IDDM. His thought that he was a little confused this morning. He also reports some shortness of breath with exertion. He recently went to [facility] 6 weeks ago and then came on a cruise back to the 10 days ago. Physical exam reveals things noted above. The patient appears to be generally weak and has vomiting despite nausea medication. He was treated here with IV fluids as well as Zofran. He was also Given some antibiotics his laboratory studies were concerning for dehydration, hyperglycemia and hypercalcemia. The patient will be seen by the hospitalist service for further inpatient evaluation and care. Medication Reconcilliation Current Medication List: was personally reviewed by me Blood Pressure Screening Patient's blood pressure: Normal blood pressure Consults Time Called: 1040 Consulting Physician: Dr. Yamila Albright Returned Call: 1054 Dr. Carter discussed the patient's case with Dr. Rodriguez. The patient will be evaluated for further treatment and disposition. Impression Primary Impression: Intractable vomiting Additional Impressions: Dehydration Hyperglycemia Hypercalcemia Scribe Attestation The scribe's documentation has been prepared under my direction and personally reviewed by me in its entirety. I confirm that the note above accurately reflects all work, treatment, procedures, and medical decision making performed by me. Departure Information Dispostion Being Evaluated By Hospitalist Referrals Odom, Christopher E.,M.D. (PCP) Patient Instructions My [facility] Problem Qualifiers
[2017-09-02] MEDS ORDERED: PHARMACY GLYCEMIC MGMT CONSULT SCH (13:41)
[2017-09-02] MEDS ORDERED: INSULIN HUMAN REGULAR PER IV ONE ×2 (14:15→16:00)
[2017-09-02 15:41] VITALS: BP 119/63; PULSE 127; TEMP 36.7; O2SAT 94
[2017-09-02] MEDS ORDERED: INSULIN ASPART 100 UNITS/ML 3 ML PEN SC SCH ×2 (16:00→19:00)
[2017-09-02] MEDS ORDERED: GLUCOSE 40% GEL 15 GM TUBE PO PRN (16:15)
[2017-09-02] MEDS ORDERED: DEXTROSE 50% 50 ML SYR IV PRN (16:15)
[2017-09-02] MEDS ORDERED: GLUCOSE 10 TABS/TUBE PO PRN (16:15)
[2017-09-02] MEDS ORDERED: GLUCAGON FOR INJ 1 MG VIAL SQ PRN (16:15)
[2017-09-02] MEDS: INSULIN ASPART 100 UNITS/ML 3 ML PEN SC SCH ×2 (16:30→21:00)
[2017-09-02] MEDS ORDERED: POTASSIUM CHLORIDE IV SCH (16:30)
[2017-09-02] MEDS ORDERED: INSULIN HUMAN REGULAR IV BOLUS 2.5 UNIT in SYRINGE 0 ML IV ONE (16:30)
[2017-09-02] MEDS ORDERED: NORMOSOL R IV SCH (16:30)
[2017-09-02] MEDS: INSULIN REGULAR 250 UNITS in SODIUM CHLORIDE 0.9% 250ML 250 ML IV SCH ×2 (17:05→18:09)
[2017-09-02] MEDS ORDERED: NURSING VERBAL MED ORDER ONE (17:15)
[2017-09-02] MEDS ORDERED: DILTIAZEM HCL 120 MG EXT REL CAP PO ONE (17:45)
[2017-09-02] MEDS ORDERED: REL PO ONE ×2 (18:00)
[2017-09-02] MEDS ORDERED: DILTIAZEM HCL PO ONE ×2 (18:00)
[2017-09-02] MEDS ORDERED: METOPROLOL TARTRATE 25 MG TAB PO ONE (18:00)
[2017-09-02] MEDS: CEFEPIME IV 1,000 MG in SYRINGE 0 ML IV SCH (18:12)
[2017-09-02] MEDS: NSS + 20MEQ KCL 1000ML 1,000 ML IV SCH (18:27)
[2017-09-02 19:02] VITALS: BP 144/95; PULSE 113; TEMP 37.1; O2SAT 97
[2017-09-02 20:00] VITALS: BP 150/96; PULSE 110; TEMP 37; O2SAT 92
[2017-09-02] MEDS ORDERED: CEFEPIME IV 2,000 MG in DEXTROSE 5% 100ML 100 ML IV SCH (20:00)
[2017-09-02] MEDS ORDERED: INSULIN HUMAN NPH SQ SCH (21:00)
[2017-09-02] MEDS: ATORVASTATIN 40 MG TAB PO SCH (21:07)
[2017-09-02] MEDS: SODIUM BICARBONATE 650 MG TAB PO SCH (21:07)
[2017-09-02] MEDS: ENOXAPARIN 30 MG/0.3 ML SYR SQ SCH (21:09)
[2017-09-02 23:52] VITALS: BP 137/85; PULSE 105; TEMP 37.3; O2SAT 90
[2017-09-03] VITALS (8 sets, daily range): BP systolic 129–163; BP diastolic 75–91; PULSE 77–90; TEMP 36.7–36.9; O2SAT 93–96
[2017-09-03] MEDS: CHECK FENTANYL PATCH PLACEMENT SCH ×4 (00:07→23:25)
[2017-09-03] MEDS: NSS + 20MEQ KCL 1000ML 1,000 ML IV SCH ×4 (01:54→23:25)
[2017-09-03 04:48] LABS: HEMATOCRIT 29.8 % (42-52); MEAN CELL VOLUME 86.9 fL (80-100); MEAN CORPUSCULAR HEMOGLOBIN 25.9 pg (25-34); MEAN CORPUSCULAR HGB CONC 29.9 g/dl (32-36); MEAN PLATELET VOLUME 9.3 fL (7.4-10.4); PLATELET COUNT 297 K/uL (130-400); RED BLOOD COUNT 3.43 M/uL (4.7-6.1); WHITE BLOOD COUNT 16.67 K/uL (4.8-10.8)
[2017-09-03 05:07] LABS: BUN/CREATININE RATIO 30.2 (10-20); CALCIUM 10.2 mg/dl (8.5-10.1); CREATININE 2.54 mg/dl (0.60-1.40); POTASSIUM 3.6 mmol/L (3.5-5.1)
[2017-09-03 05:26] LABS: ALB/GLOB RATIO 0.5 (0.9-2)
[2017-09-03] MEDS: LEVOTHYROXINE 100 MCG TAB PO SCH (06:17)
[2017-09-03] MEDS: ASPIRIN 81 MG ECTAB PO SCH (07:59)
[2017-09-03] MEDS ORDERED: [UNRECOGNIZED DRUG - OTHER] PO SCH (08:00)
[2017-09-03] MEDS ORDERED: NON-FORMULARY MEDICATION (Krill Oil 1 CAP) PO SCH (08:00)
[2017-09-03] MEDS ORDERED: INSULIN GLARGINE SOLOSTAR 100 UNITS/ML 3 ML PEN SC SCH ×2 (08:00→09:00)
[2017-09-03] MEDS: HYDROCHLOROTHIAZIDE 25 MG TAB PO SCH (08:00)
[2017-09-03] MEDS: SODIUM BICARBONATE 650 MG TAB PO SCH ×2 (08:01→21:07)
[2017-09-03] MEDS: METOPROLOL TARTRATE 50 MG TAB PO SCH (08:01)
[2017-09-03] MEDS: CYANOCOBALAMIN 500 MCG TAB (VIT B-12) PO SCH (08:01)
[2017-09-03] MEDS: ALLOPURINOL 300 MG TAB PO SCH (08:02)
[2017-09-03] MEDS: CHOLECALCIFEROL 1000 INTER.UNIT TAB PO SCH (08:02)
[2017-09-03] MEDS: DILTIAZEM HCL PO SCH ×2 (08:04)
[2017-09-03] MEDS: REL PO SCH ×2 (08:04)
[2017-09-03] MEDS: INSULIN ASPART 100 UNITS/ML 3 ML PEN SC SCH ×4 (09:01→21:09)
--- NOTE | 2017-09-03 09:51 | Family Medicine Progress Note ---
Progress Note Date of Service Sep 03, 2017. Subjective Pt evaluation today including: conversation w/ patient, physical exam, chart review, lab review, conversation w/ science consultant, review of inpatient medication list Pain: none PO Intake: good Voiding: no voiding problems Patient is feeling much better today Denies any vomiting or belching overnight Appetite has returned and fatigue has improved Constitutional: + weakness, No fever, No chills, No sweats, No fatigue Respiratory: No cough, No sputum, No shortness of breath Cardiovascular: No chest pain, No edema, No palpitations Abdomen: No pain, No nausea, No vomiting, No diarrhea, No GI bleeding Male : No dysuria, No urinary frequency, No hematuria Medications Current Inpatient Medications Medications (Trade) Dose Ordered Sig/Sara Route Start Time Stop Time Status Last Admin Dose Admin Enoxaparin Sodium (Lovenox Inj) 30 mg Q24H SQ 09/02/17 21:00 10/02/17 20:59 09/02/17 21:09 30 MG Al Hydrox/Mg Hydrox/Simethicone (Maalox Max Susp) 15 ml Q4H PRN PO 09/02/17 13:15 10/02/17 13:14 Magnesium Hydroxide (Milk Of Magnesia Susp) 30 ml Q6H PRN PO 09/02/17 13:15 10/02/17 13:14 Polyethylene (Miralax Powder Packet) 17 gm DAILY PRN PO 09/02/17 13:15 10/02/17 13:14 Ondansetron HCl (Zofran Inj) 4 mg Q6H PRN IV 09/02/17 13:15 10/02/17 13:14 Allopurinol (Zyloprim Tab) 300 mg DAILY PO 09/03/17 08:00 10/03/17 08:59 09/03/17 08:02 300 MG Aspirin (Ecotrin Tab) 81 mg QAM PO 09/03/17 08:00 10/03/17 08:59 09/03/17 07:59 81 MG Atorvastatin Calcium (Lipitor Tab) 80 mg HS PO 09/02/17 21:00 10/02/17 20:59 09/02/17 21:07 80 MG Cyanocobalamin (Vitamin B-12 Tab) 1,000 mcg QAM PO 09/03/17 08:00 10/03/17 08:59 09/03/17 08:01 1,000 MCG Fentanyl (Duragesic Patch) 25 mcg Q3D TD 09/03/17 12:00 09/17/17 11:59 Hydrochlorothiazide (Hydrochlorothiazide Tab) 25 mg QAM PO 09/03/17 08:00 10/03/17 08:59 09/03/17 08:00 25 MG Levothyroxine Sodium (Synthroid Tab) 100 mcg DAILYBB PO 09/03/17 06:00 10/03/17 06:59 09/03/17 06:17 100 MCG Metoprolol Tartrate (Lopressor Tab) 75 mg DAILY PO 09/03/17 08:00 10/03/17 08:59 09/03/17 08:01 75 MG Sodium Bicarbonate (Sodium Bicarbonate Tab) 650 mg BID PO 09/02/17 20:00 10/02/17 20:59 09/03/17 08:01 650 MG Cholecalciferol (Vitamin D Tab) 2,000 inter.unit DAILY PO 09/03/17 08:00 10/03/17 08:59 09/03/17 08:02 2,000 INTER.UNIT Miscellaneous Information (Consult Glycemic Management Pharmacy) 1 ea UD N/A 09/02/17 13:41 10/02/17 13:40 Insulin Human Regular 250 units/ Sodium Chloride 252.5 ml @ 0 mls/hr Q24H IV 09/02/17 16:15 09/03/17 15:00 09/02/17 18:09 1.9 MLS/HR Glucose (Glucose 40% Gel) UD PRN PO 09/02/17 16:15 10/02/17 16:14 Glucose (Glucose Chew Tab) 1 tabs UD PRN PO 09/02/17 16:15 10/02/17 16:14 Dextrose (Dextrose 50% 50ML Syringe) 50 ml UD PRN IV 09/02/17 16:15 10/02/17 16:14 Glucagon (Glucagon Inj) 1 mg UD PRN SQ 09/02/17 16:15 10/02/17 16:14 Diltiazem HCl (TIAzac CAP) 420 mg QAM PO 09/03/17 08:00 10/03/17 07:59 09/03/17 08:04 420 MG Miscellaneous (Fentanyl Patch Remove & Waste) 1 ea Q3D N/A 09/03/17 11:59 10/03/17 11:58 Miscellaneous Information (Check Fentanyl Patch Placement) 1 ea QS N/A 09/03/17 00:00 10/03/17 00:00 09/03/17 07:59 1 EA Potassium Chloride/Sodium Chloride 1,000 ml @ 135 mls/hr Q7H25M IV 09/02/17 17:45 10/02/17 17:44 09/03/17 08:35 135 MLS/HR Cefepime HCl 1000 mg/Syringe 11 ml @ 5.5 mls/min Q24H IV 09/02/17 18:00 09/12/17 17:59 09/02/17 18:12 5.5 MLS/MIN Heparin Sodium (Porcine) (Heparin 100 Unit/ml 5ml Flush) 5 ml PRN PRN IV 09/03/17 02:15 10/03/17 02:14 Insulin Glargine (Lantus Solostar Pen) 60 units QAM SC 09/03/17 09:00 09/03/17 10:00 09/03/17 08:34 60 UNITS Miscellaneous Information (Dc Iv Insulin Infusion) 1 ea 1500 ONCE N/A 09/03/17 15:00 09/03/17 15:01 Insulin Aspart (novoLOG ASPART) SLIDING SCALE If CARB RA... ACHS IN 09/03/17 08:00 10/03/17 07:59 09/03/17 09:01 8 UNITS Objective Vital Signs Date Time Temp Pulse Resp B/P (MAP) Pulse Ox O2 Delivery O2 Flow Rate FiO2 09/03/17 07:52 36.9 89 16 153/89 (110) 93 Room Air 09/03/17 04:00 36.7 90 16 135/84 (101) 93 Room Air 09/03/17 04:00 Room Air 09/02/17 23:59 Room Air 09/02/17 23:52 37.3 105 18 137/85 (102) 90 Room Air 09/02/17 20:00 Room Air 09/02/17 20:00 37.0 110 24 150/96 (114) 92 Room Air 09/02/17 19:02 37.1 113 21 144/95 (111) 97 Room Air 09/02/17 15:41 36.7 127 22 119/63 (81) 94 Room Air 09/02/17 14:44 117 160/104 93 Room Air 09/02/17 13:29 115 24 171/109 94 Room Air 09/02/17 12:35 112 20 171/99 97 Room Air 09/02/17 11:22 120 24 178/107 97 Room Air 09/02/17 11:10 97 Room Air 09/02/17 09:56 121 24 143/99 97 Room Air 09/02/17 09:53 97 Room Air 09/02/17 09:46 123 Physical Exam General Appearance: WD/WN, no apparent distress ENT: hearing grossly normal, pharynx normal Neck: supple, no JVD, no carotid bruits Respiratory/Chest: chest non-tender, lungs clear, no respiratory distress, no accessory muscle use Cardiovascular: regular rate, rhythm, no JVD, no murmur Abdomen: normal bowel sounds, non tender, soft, + pertinent finding (Lower abdominal surgical scar) Extremities: non-tender, no pedal edema, no calf tenderness, normal capillary refill Neurologic/Psychiatric: alert, normal mood/affect, oriented x 3 Skin: normal color, warm/dry, no rash Laboratory Results Results Past 24 Hours Test 09/02/17 11:05 09/02/17 11:20 09/02/17 13:32 09/02/17 14:33 Range/Units Venous Blood pH 7.48 7.36-7.41 Venous Blood Partial Pressure CO2 41 38.0-50.0 mmHg Venous Blood Partial Pressure O2 27 mmHg Venous Blood HCO3 30 mmol/L Venous Blood Oxygen Saturation < 60.0 % Venous Blood Base Excess 5.8 mEq/L Urine Color DK YELLOW Urine Appearance CLEAR CLEAR Urine pH 7.5 4.5-7.5 Urine Specific [place] 1.014 1.000-1.030 Urine Protein 2+ NEG Urine Glucose (UA) NEG NEG Urine Ketones TRACE NEG Urine Occult Blood 3+ NEG Urine Nitrite POS NEG Urine Bilirubin NEG NEG Urine Urobilinogen NEG NEG Urine Leukocyte Esterase TRACE NEG Urine WBC (Auto) >30 0-5 /hpf Urine RBC (Auto) >30 0-4 /hpf Urine Hyaline Casts (Auto) 1-5 0-5 /lpf Urine Epithelial Cells (Auto) >30 0-5 /lpf Urine Bacteria (Auto) NEG NEG Urine Renal Epithelial Cells 0-5 /lpf Bedside Glucose 327 70-99 mg/dl Lactic Acid Level 1.7 0.4-2.0 mmol/L Test 09/02/17 15:33 09/02/17 17:05 09/02/17 18:05 09/02/17 19:07 Range/Units Bedside Glucose 326 319 251 267 70-99 mg/dl Test 09/02/17 20:06 09/02/17 21:03 09/02/17 21:54 09/02/17 23:05 Range/Units Bedside Glucose 228 217 202 188 70-99 mg/dl Test 09/03/17 00:45 09/03/17 03:05 09/03/17 04:38 09/03/17 04:40 Range/Units Bedside Glucose 184 183 179 70-99 mg/dl White Blood Count 16.67 4.8-10.8 K/uL Red Blood Count 3.43 4.7-6.1 M/uL Hemoglobin 8.9 14.0-18.0 g/dL Hematocrit 29.8 42-52 % Mean Corpuscular Volume 86.9 80-100 fL Mean Corpuscular Hemoglobin 25.9 25-34 pg Mean Corpuscular Hemoglobin Concent 29.9 32-36 g/dl RDW Standard Deviation 56.2 36.4-46.3 fL RDW Coefficient of Variation 17.9 11.5-14.5 % Platelet Count 297 130-400 K/uL Mean Platelet Volume 9.3 7.4-10.4 fL Sodium Level 140 136-145 mmol/L Potassium Level 3.6 3.5-5.1 mmol/L Chloride Level 105 98-107 mmol/L Carbon Dioxide Level 28 21-32 mmol/L Anion Gap 7.0 3-11 mmol/L Blood Urea Nitrogen 77 7-18 mg/dl Creatinine 2.54 0.60-1.40 mg/dl Est Creatinine Clear Calc Drug Dose 32.6 ml/min Estimated GFR () 28.7 Estimated GFR (Non- 24.8 BUN/Creatinine Ratio 30.2 10-20 Random Glucose 162 70-99 mg/dl Calcium Level 10.2 8.5-10.1 mg/dl Total Bilirubin 0.4 0.2-1 mg/dl Aspartate Amino Transf (AST/SGOT) 22 15-37 U/L Alanine Aminotransferase (ALT/SGPT) 32 12-78 U/L Alkaline Phosphatase 253 45-117 U/L Total Protein 6.8 6.4-8.2 gm/dl Albumin 2.4 3.4-5.0 gm/dl Globulin 4.4 2.5-4.0 gm/dl Albumin/Globulin Ratio 0.5 0.9-2 Test 09/03/17 06:37 Range/Units Bedside Glucose 171 70-99 mg/dl Microbiology Results 09/02/17 Blood Culture, Received Pending 09/02/17 Blood Culture, Received Pending 09/02/17 Urine Culture, Received Pending Assessment and Plan Assessment: 67 year old male with PMH of bladder cancer/renal cancer and DMT2 who presented with a 1 day history of vomiting. Patient has improved overnight and is no longer tachycardic. Many of his symptoms have resolved since starting cefepime. He was put on an insulin drip last night and his blood sugars have been improving slowly. Plan: Vomiting secondary to complicated UTI - UA showed infection in ED - treat with cefepime 2g IV q12 Day #2 - potassium chloride/sodium chloride 135 mls/hr - urine culture and blood cultures pending - IV zofran 4mg q6 for nausea Hyperglycemia/ T2DM - ketones in urine and VBG without any abnormalities therefore does not meet criteria for hyperosmolar hyperglycemic state - glucose 385 in the ED ----> downtrending with most recent 171 - On an insulin drip which will be stopped when blood sugars less than 180 - hx of T2 DM - glycemic consult ordered CATHERINE with CKD stage 4 - creatinine improved from 2.8 to 2.54, baseline around 2 - secondary to dehydration - continue IVF and continue to monitor Anemia - hgb decreased to 8.9 which is his baseline - normocytic - will continue to monitor Renal and bladder carcinoma - diagnosed in 2012 --> neobladder surgery ---> chemo and radiation in 2015 ---- > immunotherapy started in [place] July 24 ---> PET scan showed cancer in R kidney ----> A-port placed and plan for chemo - continue fentanyl patch for pain HTN - continue diltiazem and isosorbide Hypothyroidism - continue levothyroxine HLD - continue atorvastatin Gout - continue allopurinol DVT prophylaxis - Lovenox 30mg q12 Code Status: Unknown Dispo: likely home tomorrow pending urine culture and symptom control Resident Physician Supervision Note: I interviewed and examined the patient. Discussed with Dr. Lackey and agree with findings and plan as documented in the note. Any exceptions or clarifications are listed here: The patient states that he feels better in general; he has less nausea, no emesis, and few hiccups. Continue current IV hydration Antibiotics pending urine and blood cultures Continue insulin drip per protocol Recommended addition of PPI Documented By: Ovi Man Continued [facility] stay due to: multiple IV medications needed Discharge planning: home
[2017-09-03] MEDS ORDERED: FENTANYL PATCH REMOVE & WASTE SCH (11:59)
[2017-09-03] MEDS ORDERED: FENTANYL 25 MCG/HR TDSY TD SCH (12:00)
[2017-09-03] MEDS ORDERED: DC IV INSULIN INFUSION ONE (15:00)
--- NOTE | 2017-09-03 15:04 | Pharmacy Progress Note ---
Glycemic Control Intl Consult Date of Service Sep 03, 2017. Scope Glycemic Pharmacist consulted by Dr Lackey on 09/02/17 for glycemic control and to write orders per [facility] inpatient glycemic control protocol Objective Weight (Kilograms): 98.600 Accuchecks BSG (last 24hrs): Test 09/02/17 15:33 09/02/17 17:05 09/02/17 18:05 09/02/17 19:07 Bedside Glucose 326 mg/dl (70-99) 319 mg/dl (70-99) 251 mg/dl (70-99) 267 mg/dl (70-99) Test 09/02/17 20:06 09/02/17 21:03 09/02/17 21:54 09/02/17 23:05 Bedside Glucose 228 mg/dl (70-99) 217 mg/dl (70-99) 202 mg/dl (70-99) 188 mg/dl (70-99) Test 09/03/17 00:45 09/03/17 03:05 09/03/17 04:38 09/03/17 04:40 Bedside Glucose 184 mg/dl (70-99) 183 mg/dl (70-99) 179 mg/dl (70-99) Random Glucose 162 mg/dl (70-99) Test 09/03/17 06:37 09/03/17 09:02 09/03/17 10:54 Bedside Glucose 171 mg/dl (70-99) 169 mg/dl (70-99) 166 mg/dl (70-99) Laboratory Data (last 24hrs) Test 09/03/17 04:38 Anion Gap 7.0 mmol/L BUN/Creatinine Ratio 30.2 Blood Urea Nitrogen 77 mg/dl Creatinine 2.54 mg/dl Potassium Level 3.6 mmol/L Sodium Level 140 mmol/L White Blood Count 16.67 K/uL Recent Pertinent Medications Outpatient Anti-diabetic Regimen: * Lantus 45 units SQ qam + NPH 35 units SQ HS + Novolog 30-33 units TIDM * A1c = 8.2 % 06/21/17 * Per conversation with patient; he rarely has hypoglycemia, fasting BSG tends to be ~ 140 mg/dL Assessment & Plan ASSESSMENT: * 67 yr old T2DM male admitted with 24 hours of vomiting, dehydration, UTI. * Pt on significant amount of insulin at home; 170-179 units[address] Mr. Weir told me he has been decreasing his insulin doses d/t N/V. * At time of consult, patient's BSG was 326 mg/dL and had been > 300 mg/dL since at least 9 am. Patient had missed am dose of Lantus and Novolog breakfast and lunch doses. Due to severe hyperglycemia, pt was started on an IV insulin infusion for short term use. * BSGs improved this am. Will transition to SQ basal/bolus insulin. * Basal dose will be based off of current infusion rate of 2.3 units/hr (~55 units per day) and 25% reduction in basal dose based on home needs. Patient not eating during this time so drip rate is indicative of basal needs. * Home insulin needs of 170 units/day split 50/50 basal/bolus = Lantus 43 units BID, CF/CR 06/27 * Bolus insulin will be based on wt/stress of 3 for today. May need tightened on 09/04. PLAN FOR INPATIENT GLYCEMIC CONTROL: * IV insulin infusion per moderate stress protocol * overlap with SQ insulin for up to 6 hours * Basal insulin * Lantus 60 units SQ this am * Lantus 25-30-35 units SQ BID * 25 units for BSG < 120 * 30 for BSG 120-180 * 35 units for BSG >180 * Bolbus Insulin with NOVOLOG per scale ACHS or Q6hrs while NPO * Goal Range: Low 110 mg/dL - High 140 mg/dL * Correction Factor: 15 mg/dL/unit * Nutritional / Prandial insulin per carb ratio of 1 unit per 5 grams CHO consumed * overnight check with coverage added for 0200 * Please note that the plan above was derived based on current level of insulin resistance and hospital stress. These recommendations are appropriate for inpatient admission only. Plan of care upon discharge will need to be reassessed to avoid potential outpatient hypo/hyperglycemia. Thank you.
[2017-09-03] MEDS: CEFEPIME IV 1,000 MG in SYRINGE 0 ML IV SCH (17:05)
[2017-09-03] MEDS ORDERED: RANITIDINE HCL 150 MG TAB PO ONE (17:32)
[2017-09-03] MEDS: ENOXAPARIN 30 MG/0.3 ML SYR SQ SCH (21:07)
[2017-09-03] MEDS: ATORVASTATIN 40 MG TAB PO SCH (21:07)
[2017-09-03] MEDS: INSULIN GLARGINE SOLOSTAR 100 UNITS/ML 3 ML PEN SC SCH (21:09)
[2017-09-04 00:03] VITALS: BP 164/91; PULSE 83; TEMP 37.2; O2SAT 93
[2017-09-04] MEDS ORDERED: INSULIN ASPART 100 UNITS/ML 3 ML PEN SC SCH (02:00)
[2017-09-04 03:39] VITALS: BP 157/84; PULSE 81; TEMP 37; O2SAT 92
[2017-09-04 04:52] LABS: HEMATOCRIT 28.8 % (42-52); MEAN CELL VOLUME 87.8 fL (80-100); MEAN CORPUSCULAR HEMOGLOBIN 25.6 pg (25-34); MEAN CORPUSCULAR HGB CONC 29.2 g/dl (32-36); MEAN PLATELET VOLUME 9.5 fL (7.4-10.4); PLATELET COUNT 260 K/uL (130-400); RED BLOOD COUNT 3.28 M/uL (4.7-6.1)
[2017-09-04 05:41] LABS: BUN/CREATININE RATIO 30.4 (10-20); CALCIUM 9.5 mg/dl (8.5-10.1); CREATININE 2.04 mg/dl (0.60-1.40); POTASSIUM 4.5 mmol/L (3.5-5.1)
[2017-09-04] MEDS: LEVOTHYROXINE 100 MCG TAB PO SCH (06:01)
[2017-09-04] MEDS: NSS + 20MEQ KCL 1000ML 1,000 ML IV SCH (06:15)
--- NOTE | 2017-09-04 06:47 | Family Medicine Progress Note ---
Progress Note Date of Service Sep 04, 2017.
[2017-09-04] MEDS: CYANOCOBALAMIN 500 MCG TAB (VIT B-12) PO SCH (08:13)
[2017-09-04] MEDS: REL PO SCH ×2 (08:13)
[2017-09-04] MEDS: ALLOPURINOL 300 MG TAB PO SCH (08:13)
[2017-09-04] MEDS: ASPIRIN 81 MG ECTAB PO SCH (08:13)
[2017-09-04] MEDS: DILTIAZEM HCL PO SCH ×2 (08:13)
[2017-09-04] MEDS: SODIUM BICARBONATE 650 MG TAB PO SCH (08:13)
[2017-09-04] MEDS: HYDROCHLOROTHIAZIDE 25 MG TAB PO SCH (08:13)
[2017-09-04] MEDS: METOPROLOL TARTRATE 50 MG TAB PO SCH (08:14)
[2017-09-04] MEDS: CHOLECALCIFEROL 1000 INTER.UNIT TAB PO SCH (08:14)
[2017-09-04 08:15] VITALS: BP 153/88; PULSE 92; TEMP 37; O2SAT 98
[2017-09-04] MEDS: INSULIN ASPART 100 UNITS/ML 3 ML PEN SC SCH ×2 (08:17→12:04)
[2017-09-04] MEDS: INSULIN GLARGINE SOLOSTAR 100 UNITS/ML 3 ML PEN SC SCH (08:17)
[2017-09-04] MEDS: CHECK FENTANYL PATCH PLACEMENT SCH (08:18)
[2017-09-04 11:39] VITALS: BP 159/88; PULSE 82; TEMP 36.6; O2SAT 96
[2017-09-04] MEDS ORDERED: ONDA4TAB10 SL (13:53)
--- NOTE | 2017-09-04 14:04 | Discharge Instructions ---
Discharge Instructions Date of Service Sep 04, 2017. Admission Reason for Admission: Vomiting Discharge Discharge Diagnosis / Problem: Vomiting Discharge Goals Goal(s): Decrease discomfort, Improve function, Increase independence, Improve disease control, Improve nutritional status, Learn about illness Activity Recommendations Activity Limitations: per Instructions/Follow-up section . Instructions / Follow-Up Instructions / Follow-Up Current Hospital Diet Patient's current hospital diet: Renal Diet, Diabetes Type 2 Diet Discharge Diet Recommended Diet: Diabetes Type 2 Diet Pending Studies Studies pending at discharge: no Laboratory Results Hemoglobin A1c Test 06/21/17 11:40 Range/Units Estimated Average Glucose 189 mg/dl Hemoglobin A1c 8.2 H 4.5-5.6 % Medical Emergencies . Who to Call and When: Medical Emergencies: If at any time you feel your situation is an emergency, please call 911 immediately. . Non-Emergent Contact Non-Emergency issues call your: Primary Care Provider, Specialist ( field human resources manager) . . "Provider Documentation" section prepared by Issac Toro. . VTE Core Measure Inpt VTE Proph given/why not?: Enoxaparin (Lovenox)SQ Resident Involvement: Resident Care Provided Care Provided: Adult Hospital Medicine
[2017-09-04 14:26] VITALS: BP 159/88; PULSE 82; TEMP 36.6; O2SAT 96
--- NOTE | 2017-09-04 15:37 | Discharge Summary ---
Discharge Summary Date of Service Sep 04, 2017. Discharge Summary Admission Date: Sep 02, 2017 at 14:03 Discharge Date: Sep 04, 2017 Discharge Disposition: Home Principal Diagnosis: Vomiting Immunizations: Have You Had Influenza Vaccine: Yes Influenza Vaccine Date: Aug 01, 2013 History of Tetanus Vaccine?: Unknown Tetanus Immunization Date: Sep 28, 2011 History of Pneumococcal: Yes Pneumococcal Date: Jul 04, 2012 History of Hepatitis B Vaccine: Unknown Procedures: BILATERAL LOWER EXTREMITY VENOUS DOPPLER CLINICAL HISTORY: Tachycardia, shortness of breath, unable to get CT for PE. COMPARISON STUDY: Bilateral lower extremity venous Doppler September 26, 2013 TECHNIQUE: Sonography of the deep venous system of the bilateral lower extremities was performed. Compression and augmentation were evaluated. FINDINGS: The bilateral common femoral, superficial femoral and popliteal veins were compressible. Augmentation was normal. Flow was shown within the deep calf vessels. IMPRESSION: No evidence of deep venous thrombus within the bilateral lower extremities. CHEST ONE VIEW PORTABLE CLINICAL HISTORY: Shortness of breath. COMPARISON STUDY: Chest radiograph September 26, 2013 and PET/CT January 12, 2017. FINDINGS: A right internal jugular [id number] is noted. No pneumothorax or pleural effusion is present. There is no consolidation or evidence of pulmonary edema. Moderate cardiomegaly is noted. This is unchanged. Calcified right lung nodule is noted. IMPRESSION: 1. No acute cardiopulmonary findings. 2. Moderate cardiomegaly. Medication Reconciliation New Medications: Ondasetron Odt (Zofran Odt) 4 Mg Tab 4 MG SL TID for Nausea or Vomiting, #5 TAB Continued Medications: Allopurinol (Zyloprim) 300 Mg Tab 300 MG PO DAILY, TAB Aspirin (Aspirin Ec) 81 Mg Tab 81 MG PO QAM Atorvastatin (Lipitor) 80 Mg Tab 80 MG PO HS, 0 Refills Cholecalciferol (Vitamin D3) 2,000 Unit Cap 2000 UNITS PO DAILY for 90 Days, CAP 3 Refills Cyanocobalamin (Vitamin B-12) 1,000 Mcg Tab 1000 MCG PO QAM, 0 Refills Diltiazem Hcl Ext Rel (Tiazac) 420 Mg Capcr 420 MG PO DAILY, CAP Fentanyl (Duragesic) 25 Mcg/Hr Dis 25 MCG TD CQ72HR Insulin Glargine (Lantus Solostar) 100 Unit/Ml Inj 45 UNITS SC QAM, PEN Insulin Isophane (Human) (Humulin N Kwikpen) 100 Unit/Ml Inj 35 UNITS SQ HS Insulin Lispro (Human) (Humalog Kwikpen) 100 Unit/Ml Inj 33 UNITS SQ TIDM PER SLIDING SCALE 30-33 UNITS Krill Oil (Krill Oil) 1 Cap Cap 1 CAP PO QAM Levothyroxine Sodium (Synthroid) 100 Mcg Tab 100 MCG PO QAM, TAB Metoprolol Tartrate (Lopressor) (Lopressor) 50 Mg Tab 75 MG PO DAILY, TAB Sodium Bicarbonate (Sodium Bicarbonate) 650 Mg Tab 650 MG PO BID Discontinued Medications: Hydrochlorothiazide (Hctz) 25 Mg Tab 25 MG PO QAM for 30 Days, #30 TAB 5 Refills Discharge Exam The patient was seen and examined at bedside. No acute overnight events. Tele showed sinus rhythm on monitor. Patient reports that his vomiting has resolved. Patient is resting comfortably in bed. Denies having any pain. Eating and urinating well. Review of Systems: Constitutional: No fever, No chills ENT: No sore throat Respiratory: No cough, No sputum, No wheezing, No shortness of breath, No dyspnea on exertion Abdomen: No pain, No nausea, No vomiting, No diarrhea, No constipation Musculoskeletal: No joint pain Genitourinary - Female: No urinary frequency, No urinary urgency Genitourinary - Male: No dysuria Integumentary: No rash Physical Exam General Appearance: WD/WN, no apparent distress Head: normocephalic, atraumatic Eyes: normal inspection, sclerae normal ENT: hearing grossly normal, pharynx normal Neck: supple, no adenopathy, thyroid normal, no JVD, no carotid bruits, trachea midline Respiratory/Chest: chest non-tender, lungs clear, no respiratory distress, no accessory muscle use Cardiovascular: regular rate, rhythm, no edema, no JVD, no murmur, normal peripheral pulses Abdomen/GI: normal bowel sounds, non tender, soft, + pertinent finding (lower abdominal scar for neobladder surgery) Back: normal inspection, no muscle spasm, normal range of motion Extremities/Musculoskelatal: normal inspection, no calf tenderness, no pedal edema, normal range of motion, non-tender Neurologic/Psych: marketing executive II-XII nml as tested, no motor/sensory deficits, alert, normal mood/affect, oriented x 3 Skin: normal color, warm/dry, no rash Hospital Course 67 year old male with PMH of bladder cancer/renal cancer and DMT2 who presented with a 1 day history of vomiting. He was noted to have abnormal UA and so was started on IV Cefepime and vomiting was thought to be likely due to it. Urine and blood cultures came back negative though. On further questioning patient has been taking narcotics and has been constipated which certainly could be contributing to his symptoms. Advised to keep regular bowel movements. To consider GI eval if symptoms recur. Prescribed 4mg of ODT Zofran TID PRN nausea/vomiting in case his symptoms reappear. Patient was also found to have a calcium of 11.7 on admission with a Albumin of 2.4. While in the hospital the calcium decreased from 11.7 to 9.5. Patient has been seeing Dr. Butler and had PTH tested on 08/25/2017 for Vitamin D deficiency (per [facility] chart review) with low normal level. Since HCTZ can contribute to hypercalcemia - it has been d/gianna on d/gianna. To consider resuming if calcium continues to be controlled. Should f/u with nephrology and PCP to further address this. Incidentally the patient had a blood sugar on admission of 180 that increased to 350. Most recent HBA1C was 8.2. We will arranged outpatient follow up with Dr. Morales's office within two weeks. All other home meds were continued on discharge. Total Time Spent: Greater than 30 minutes (44 min) This includes examination of the patient, discharge planning, medication reconciliation, and communication with other providers. Discharge Instructions Please refer to the electronic Patient Visit Report (Discharge Instructions) for additional information. Additional Copies To Roverto Butler M.D.; Stephen Odom M.D.; Selvin Morales M.D. Resident Involvement: Resident Care Provided Care Provided: Adult Hospital Medicine Reviewed: Pt Seen/Exam by Me History nausea resolved. tolerating regular diet well. no bowel movement here. Constitutional: denies: fever Respiratory: negative: short of breath Cardiovascular: denies chest pain Gastrointestinal/Abdominal: negative: abdominal pain General Appearance: no apparent distress Respiratory: lungs clear, no respiratory distress Cardiovascular: regular rate, rhythm Gastrointestinal: soft Neurologic/Psychiatric: alert, oriented x 3 Assessment/Plan Resident Physician Supervision Note: I independently interviewed and examined the patient and verified the morris history and physical, reviewed labs and image studies, discussed the case with the resident Dr. Toro and agree with the findings and care plan.
[2017-09-04] MEDS ORDERED: ENOXAPARIN 40 MG/0.4 ML SYR SQ SCH (21:00)
[2017-09-04] MEDS ORDERED: RANITIDINE HCL 150 MG TAB PO SCH (21:00)
== END 2017-09-04 16:05 | disposition home or self-care (01) | DRG 392 ==
LOC: C.EDB 09:07 → CANRESERV 13:47 → ENRESERV 13:47 → C.4E 14:03 → ENRESERV 14:21 → C.2T 19:04
PROVIDERS: ADMIT Family Medicine; ATTEND Family Medicine
DX: K59.03 Drug induced constipation (principal); N17.9 Acute kidney failure, unspecified; C64.1 Malignant neoplasm of right kidney, except renal pelvis; N18.4 Chronic kidney disease, stage 4 (severe); T40.605A Adverse effect of unspecified narcotics, initial encounter; E11.65 Type 2 diabetes mellitus with hyperglycemia; Z86.711 Personal history of pulmonary embolism; I12.9 Hypertensive chronic kidney disease with stage 1 through stage 4 chronic kidney disease, or unspecified chronic kidney disease; Z95.828 Presence of other vascular implants and grafts; Z85.51 Personal history of malignant neoplasm of bladder; Z87.891 Personal history of nicotine dependence; E86.0 Dehydration; E83.52 Hypercalcemia; Z92.3 Personal history of irradiation; M1A.9XX0 Chronic gout, unspecified, without tophus (tophi); E55.9 Vitamin D deficiency, unspecified; R00.0 Tachycardia, unspecified; Y92.009 Unspecified place in unspecified non-institutional (private) residence as the place of occurrence of the external cause

== ENCOUNTER 2017-09-08 11:40 | Inpatient (IN) | payer BC, OTHER ==
[~2017-09-08] VITALS: Ht 180.3 cm; Wt 115.8 kg
[~2017-09-08 11:40] MED LIST changes: -ALLO100T PO; +ALLO300T2 PO; +CHOL2000 PO; +DILT-121 PO; -ERGO500037 PO; +ETOMIDATE 2 MG/ML 20 ML VIAL IV ONE; +FENT25DI10 TD; +FENTANYL CITRATE 100 MCG 2 ML CARP IV ONE; -HYDR25TA4 PO; -INSDGI SC; +INSDGIPEN SC; +INSU1INJ23 SQ; -INSUINJ SC; -ISOS60TA25 PO; -METO25TA56 PO; +METO50TA16 PO; +MIDAZOLAM HCL 5 MG/ML 1 ML VIAL IV ONE; +ONDA4TAB10 SL; +SODIUM CHLORIDE 0.9% 10ML FLUSH IV ONE; +SODIUM CHLORIDE 0.9% 2.5 ML FLUSH IV ONE; -[UNRECOGNIZED DRUG - CODE] PO
[2017-09-08 12:44] VITALS: BP 136/87; PULSE 108; TEMP 36.6; O2SAT 97; Ht 180.3 cm; Wt 115.8 kg
[2017-09-08] MEDS ORDERED: ONDANSETRON INJ 2 MG/ML 2 ML VIAL IV PRN (12:45)
[2017-09-08] MEDS ORDERED: FENTANYL 25 MCG/HR TDSY TD SCH (13:00)
[2017-09-08] MEDS ORDERED: PANTOprazole INJ 40 MG in SYRINGE 0 ML IV ONE (13:00)
[2017-09-08 13:20] LABS: BASO % 0.1 %; BASO ABS # 0.02 K/uL (0-0.2); EOS % 0.8 %; EOS ABS # 0.12 K/uL (0-0.5); HEMATOCRIT 29.8 % (42-52); HEMOGLOBIN 9.1 g/dL (14.0-18.0); IG# 0.34 K/uL (0.00-0.02); LYMPH % 9.3 %; LYMPH ABS # 1.35 K/uL (1.2-3.4); MEAN CELL VOLUME 85.4 fL (80-100); MEAN CORPUSCULAR HEMOGLOBIN 26.1 pg (25-34); MEAN CORPUSCULAR HGB CONC 30.5 g/dl (32-36); MEAN PLATELET VOLUME 10.4 fL (7.4-10.4); MONO % 11.1 %; MONO ABS # 1.62 K/uL (0.11-0.59); NEUT % 76.4 %; NEUT ABS # 11.08 K/uL (1.4-6.5); PLATELET COUNT 150 K/uL (130-400); RED CELL DISTRIBUTION WIDTH CV 18.1 % (11.5-14.5); RED CELL DISTRIBUTION WIDTH SD 55.6 fL (36.4-46.3); WHITE BLOOD COUNT 14.53 K/uL (4.8-10.8)
[2017-09-08] MEDS: SODIUM CHLORIDE 0.9% 1000ML 1,000 ML IV SCH ×2 (13:30→23:28)
[2017-09-08] MEDS ORDERED: NURSING DECISION MEDICATION ORDER SCH (13:30)
--- NOTE | 2017-09-08 13:33 | History and Physical ---
History & Physical Date & Time of Service: Sep 08, 2017 at 13:23 Chief Complaint: Weakness Primary Care Physician: Stephen Odom M.D. History of Present Illness This is a 67 yo M with PMhx of bladder carcinoma dx in 2012, renal pelvis and ureteral cancer more recently diagnosed and following with Dr. Jarrett in [facility], HTN, HLD, hx of PE, DM II, hypothyroidism, gout and remote tobacco use who presents directly from Dr. Odom's office. The patient was recently admitted here from 09/02-09/04 with hypercalcemia, nausea/vomiting and weakness. Today he was seen in the PCP office for routine follow up and noted to be extremely weak, where he thought he would be unable to get up on his own. He has been sleeping upwards on 16-18 hours per day, and is uninterested in ADLs and even conversation at times. He attributes some of this weakness to his poor appetite where he has only been able to take a few bites of food per day due to indigestion and nausea. He reports upon exam even deep breaths seem to cause epigastric pain which lasts a few seconds then goes away. He reports feeling like some dryer foods do get stuck in the esophagus, and has early satiety. Pt notes he must be sitting up at 90 degrees to drink thin liquids as he sometimes chokes on it. He admits to a slight cough with clear-white mucous production which is new since coming home from the hospital. His and grandchildren whom they watch twice per week have had a similar cough however. The patient recently had an A-port placed in anticipation of starting chemotherapy and had an appointment with Dr. Collazo this Monday for chemo options.. He admits to a weight loss of 40 lbs in the past 6 weeks. This first started around Jul 26 when he and his went on a cruise and he lost 15 lbs alone on that trip due to nausea and vomiting. He denies night sweats. The patient also recently was taken off morphine for pain and switched to Fentanyl patch 25 mcg daily, but denies that this appears to be worsening his nausea or vomiting. His pain is well controlled. Past Medical/Surgical History Medical Problems: (1) Cancer of renal pelvis and ureter Permanent Comment: STAGING: Right renal pelvis/ureter, urothelial carcinoma, cT3 /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 Systemic chemotherapy (Opdivo) had progression 2. Combined radiation and chemotherapy. Radiation to the abdomen completed 09/23. Received 5,940 cGy. 3. Plan for immunotherapy Status: Chronic (2) Carcinoma of bladder Permanent Comment: STAGING: Bladder, urothelial carcinoma, [id number] TREATMENT: 1. Partial course of neoadjuvant chemotherapy 2. Radical cystectomy, bilateral pelvic lymph node dissection and ileal neobladder formation - 04/12/2013 3. Adjuvant chemotherapy with G/C for 3 cycles Status: Chronic (3) History of pulmonary embolus (PE) Status: Chronic (4) History of renal bleeding Status: Chronic (5) Presence of IVC filter Status: Chronic Social History Smoking Status: Former Smoker Drug Use: none Marital Status: Housing status: lives with family Occupational Status: retired Immunizations History of Influenza Vaccine: Yes Influenza Vaccine Date: Aug 01, 2013 History of Tetanus Vaccine?: Unknown Tetanus Immunization Date: Sep 28, 2011 History of Pneumococcal: Yes Pneumococcal Date: Jul 04, 2012 History of Hepatitis B Vaccine: Unknown Multi-Drug Resistant Organisms History of MDRO: No Allergies Coded Allergies: No Known Allergies (Unverified , 09/02/17) Home Medications Scheduled Allopurinol (Zyloprim), 300 MG PO DAILY Aspirin (Aspirin Ec), 81 MG PO QAM Atorvastatin (Lipitor), 80 MG PO HS Cholecalciferol (Vitamin D3), 2,000 UNITS PO DAILY Cyanocobalamin (Vitamin B-12), 1,000 MCG PO QAM Diltiazem Hcl Ext Rel (Tiazac), 420 MG PO DAILY Fentanyl (Duragesic), 25 MCG TD CQ72HR Insulin Glargine (Lantus Solostar), 45 UNITS SC QAM Insulin Isophane (Human) (Humulin N Kwikpen), 35 UNITS SQ HS Insulin Lispro (Human) (Humalog Kwikpen), 33 UNITS SQ TIDM Krill Oil (Krill Oil), 1 CAP PO QAM Levothyroxine Sodium (Synthroid), 100 MCG PO QAM Metoprolol Tartrate (Lopressor) (Lopressor), 75 MG PO DAILY Ondasetron Odt (Zofran Odt), 4 MG SL TID Sodium Bicarbonate (Sodium Bicarbonate), 650 MG PO BID Review of Systems Constitutional: + weight loss, + weakness, + fatigue, No fever, No chills, No sweats Eyes: No redness, No discharge, No diplopia ENT: + sore throat, + trouble swallowing, No nasal symptoms, No dental problems Respiratory: + cough, + sputum, No wheezing, No shortness of breath, No dyspnea on exertion, No dyspnea at rest, No hemoptysis Cardiovascular: + edema, No chest pain, No palpitations Abdomen: + pain, + nausea, + vomiting, No diarrhea, No constipation Musculoskeletal: No joint pain, No calf pain Genitourinary - Male: No hematuria Neurologic: No numbness/tingling, No balance problems Psychiatric: No depression symptoms, No anxiety Endocrine: + fatigue Integumentary: No rash, No itch Physical Exam Vital Signs Date Time Temp Pulse Resp B/P (MAP) Pulse Ox O2 Delivery O2 Flow Rate FiO2 09/08/17 12:44 36.6 108 18 136/87 97 Room Air General Appearance: WD/WN, no apparent distress Head: normocephalic, atraumatic Eyes: PERRL, EOMI ENT: hearing grossly normal, pharynx normal Neck: supple, no JVD Respiratory/Chest: chest non-tender, lungs clear, no respiratory distress, no accessory muscle use, + pertinent finding (A port in left upper chest wall, accessed) Cardiovascular: no murmur, normal peripheral pulses, + tachycardia Abdomen/GI: normal bowel sounds, non tender, soft Back: normal inspection Extremities/Musculoskelatal: no calf tenderness, + pedal edema (2+ pitting up to knee on Left, 1+ pitting up to knee on Right) Neurologic/Psych: alert, normal mood/affect, oriented x 3 Skin: normal color, warm/dry Diagnostics Laboratory Results Results Past 24 Hours Test 09/08/17 12:53 Range/Units White Blood Count 14.53 4.8-10.8 K/uL Red Blood Count 3.49 4.7-6.1 M/uL Hemoglobin 9.1 14.0-18.0 g/dL Hematocrit 29.8 42-52 % Mean Corpuscular Volume 85.4 80-100 fL Mean Corpuscular Hemoglobin 26.1 25-34 pg Mean Corpuscular Hemoglobin Concent 30.5 32-36 g/dl Platelet Count 150 130-400 K/uL Mean Platelet Volume 10.4 7.4-10.4 fL Neutrophils (%) (Auto) 76.4 % Lymphocytes (%) (Auto) 9.3 % Monocytes (%) (Auto) 11.1 % Eosinophils (%) (Auto) 0.8 % Basophils (%) (Auto) 0.1 % Neutrophils # (Auto) 11.08 1.4-6.5 K/uL Lymphocytes # (Auto) 1.35 1.2-3.4 K/uL Monocytes # (Auto) 1.62 0.11-0.59 K/uL Eosinophils # (Auto) 0.12 0-0.5 K/uL Basophils # (Auto) 0.02 0-0.2 K/uL RDW Standard Deviation 55.6 36.4-46.3 fL RDW Coefficient of Variation 18.1 11.5-14.5 % Immature Granulocyte % (Auto) 2.3 % Immature Granulocyte # (Auto) 0.34 0.00-0.02 K/uL Impression Assessment and Plan (1) Hypercalcemia Assessment & Plan: - Pt recently admitted with hypercalcemia where level was > 11, at time of discharge was 9.5. - Today is 10.3 - Will give fluids for hydration, concern that hypercalcemia is due to malignancy (2) Vomiting (3) Weakness Assessment & Plan: - Unknown etiology - WBC 14 K with a left shift, follow am labs, no antibiotics at this time. Afebrile and other VSS. - Supportive care with zofran and IVFs, maalox, magic swizzel - Speech therapy consult - possibly will need a barium swallow study - Follow CXR to r/o pulmonary involvement - lungs are clear but pt is at risk for aspiration (4) Carcinoma of bladder (5) Cancer of renal pelvis and ureter Assessment & Plan: - Cont fentanyl patch 25 mcg daily (6) Chemotherapy Assessment & Plan: - Follows with Dr. Jarrett at [facility], Dr. Collazo here - was scheduled for outpt appt to discuss chemo regimen this Monday - consult oncology for hypercalcemia - A-port placed in anticipation of chemotherapy- L upper chest wall - Pt had underwent immunotherapy starting Jul 24 2017 at [place] as well - Follow cbc - Unsure if hypercalcemia is secondary to malignancy at this time. During last admission hyperCa+ was treated with IVF and seemed to resolve. (7) PE (pulmonary embolism) (8) DVT (deep venous thrombosis) (9) Presence of IVC filter Assessment & Plan: - Currently stable - Placed on lovenox subQ 40 mg daily for DVT ppx (10) DM II (diabetes mellitus, type II), controlled Assessment & Plan: - Continue on ISS with accuchecks - Last A1C = 8.2 at end of May, will recheck with am labs - Pt has been taking Lantus 45 U QAm and Humalin 35 U QHS and Humalin Quickpen 33 U TID at home despite poor diet - denies hypoglycemia. (11) Benign essential HTN Assessment & Plan: - Continue metoprolol tartrate 75 mg daily, dilltiazem 420 mg daily, asa 81 mg (12) Hypothyroidism Assessment & Plan: - Cont levothyroxine 100 mcg daily (13) CKD (chronic kidney disease) stage 3, GFR 30-59 ml/min Assessment & Plan: - Cr 2.22 and seems to be around baseline currently Level of Care Med/Surg Advanced Directives Existing Living Will: Yes Existing Power of Staff Accountant: Yes (Dominga ()) Resuscitation Status FULL RESUSCITATION VTE Prophylaxis VTE Risk Assessment Done? Y/N: Yes Risk Level: High Given or contraindicated: Enoxaparin (Lovenox)SQ
[2017-09-08 13:42] LABS: ALBUMIN 2.7 gm/dl (3.4-5.0); CALCIUM 10.3 mg/dl (8.5-10.1); CREATININE 2.22 mg/dl (0.60-1.40); POTASSIUM 3.6 mmol/L (3.5-5.1)
[2017-09-08 13:44] LABS: TOTAL PROTEIN 6.5 gm/dl (6.4-8.2)
[2017-09-08] MEDS ORDERED: IV FLUIDS COMPLETED PRN (13:45)
[2017-09-08] MEDS ORDERED: ALUMINUM/MAGNESIUM/SIMETH (MAALOX MAX) 30 ML UDC PO PRN (14:15)
[2017-09-08] MEDS ORDERED: LIDOCAINE HCL 2% VISCOUS SOLN 60 ML, DiphenhydrAMINE HCL SYRUP 150 MG, ALUMINUM/MAGNESI... MT PRN ×4 (14:15)
[2017-09-08] MEDS ORDERED: MAGIC SWIZZLE PO PRN (14:15)
[2017-09-08 14:49] VITALS: BP 128/83; PULSE 99; TEMP 36.2; O2SAT 97
[2017-09-08] MEDS ORDERED: FLUCONAZOLE / NSS 100 MG in PREMIXED NSS 50 ML IV ONE (15:05)
[2017-09-08] MEDS ORDERED: GLUCAGON FOR INJ 1 MG VIAL SQ PRN (15:15)
[2017-09-08] MEDS ORDERED: DEXTROSE 50% 50 ML SYR IV PRN (15:15)
[2017-09-08] MEDS ORDERED: GLUCOSE 40% GEL 15 GM TUBE PO PRN (15:15)
[2017-09-08] MEDS ORDERED: GLUCOSE 10 TABS/TUBE PO PRN (15:15)
[2017-09-08] MEDS: FLUCONAZOLE / NSS 100 MG in PREMIXED NSS 50 ML IV SCH (15:47)
[2017-09-08] MEDS: CHECK FENTANYL PATCH PLACEMENT SCH ×2 (15:48→23:30)
[2017-09-08] MEDS: ENOXAPARIN 40 MG/0.4 ML SYR SQ SCH (15:49)
--- NOTE | 2017-09-08 16:01 | DIAGNOSTIC IMAGING REPORT ---
CHEST ONE VIEW PORTABLE HISTORY: cough, leukocytosis COMPARISON: Chest 09/02/2017. FINDINGS: Right jugular Port-A-Cath terminates in the distal SVC. There are low lung volumes. The heart remains mildly enlarged. No pleural effusions. No pneumothorax. Calcified granuloma within the right midlung zone is again noted. Slight increase in the bibasilar densities. The upper lungs and remain clear. IMPRESSION: Slight increase in the bibasilar densities. This favors atelectasis given the low lung volumes. A pneumonia could also have a similar appearance. Electronically signed by: Cornel Clifton M.D. 09/08/2017 4:00 PM Dictated Date/Time: 09/08/2017 3:58 PM
[2017-09-08] MEDS: NYSTATIN SUSP 500,000 U/5 ML UDC PO SCH ×2 (16:58→19:07)
[2017-09-08] MEDS: INSULIN ASPART 100 UNITS/ML 3 ML PEN SC SCH ×2 (17:15→20:54)
[2017-09-08 17:42] LABS: INFLUENZA B ANTIGEN Neg for Influ B (NEG)
[2017-09-08] MEDS: SODIUM BICARBONATE 650 MG TAB PO SCH (19:08)
[2017-09-08 19:12] VITALS: BP 126/77; PULSE 101; TEMP 36.1; O2SAT 94
--- NOTE | 2017-09-08 20:13 | Oncology Consultation ---
Oncology/Heme Consultation Date of Consultation: Sep 08, 2017. Attending Physician: Devin Gamino M.D. Reason for Consultation: Mr Weir is a 67-year-old gentleman with a history of metastatic bladder carcinoma. History of Present Illness He has a history of metastatic urothelial carcinoma the bladder originally diagnosed in early 2012. He has a history of muscle invasive urothelial carcinoma the bladder was diagnosed in early 2012. He initially received gemcitabine and cis-eklutna and developed renal failure. He then underwent radical cystectomy as well as bilateral pelvic lymph node dissection with an ileal neobladder formation in March 2014. Stage of the tumor at that time was pathologic stage T3 N2 with negative surgical margins. He had positive lymph nodes and subsequently was at high risk for recurrence. He denied have any recurrence but did have a pulmonary embolism post his treatment. He was anticoagulated but then developed hemorrhage secondary to the anticoagulation. He subsequently needed right renal embolization an umbrella was placed and has subsequently been removed. He was followed up with surveillance imaging every 3 -6 months. In mid 2015 he developed flank pain which prompted a CT of the abdomen done in March 2016 and was found to have moderate right and mild left hydronephrosis. There was also an mass in the region of the right renal pelvis with multiple surrounding lymph nodes. A biopsy of the right renal pelvis lesion was positive for malignant cells consistent with high-grade urothelial carcinoma. It was felt that this could be a recurrence of the initial cancer or a second primary. He had significant renal impairment. Because of this it was felt that he was not a cis-eklutna treatment candidate. He was treated with Taxol and carboplatinum along with radiation therapy. A subsequent PET CT scan showed a good response but there was concern for residual disease and he was started on a checkpoint inhibitor. However disease progression has been noted. His last PET/CT on August show progression of disease with marked enlargement and increased metabolic activity of a right renal and pararenal mass since the prior PET/CT examination. The mass contacts and surrounds and may involve the right renal vessels as well as the inferior vena cava and the right psoas muscle. There is no evidence of distant metastatic disease. There was severe right renal and mid upper hydronephrosis with thin rim of surrounding renal cortex. Previous scans have demonstrated no significant right renal function. There was a new intensely FDG avid cutaneous lesion along the medial left upper thigh and there was postoperative changes of a radical cystoprostatectomy as well as pelvic pelvic lymph node dissection. Discussions were carried out with the patient in a suggestion has been made to begin weekly Navebine. He was to come to the cancer clinic to begin that. He is now admitted with progression of lethargy. He was found to be mildly hypercalcemic. He denies fever. He denies any chills. Denies any new bone pain. He denies significant constipation he does admit to anorexia. Past Medical/Surgical History Medical Problems: (1) Acute kidney injury Status: Acute (2) Cancer of renal pelvis and ureter Permanent Comment: STAGING: Right renal pelvis/ureter, urothelial carcinoma, cT3 /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 Systemic chemotherapy (Opdivo) had progression 2. Combined radiation and chemotherapy. Radiation to the abdomen completed 09/23. Received 5,940 cGy. 3. Plan for immunotherapy Status: Chronic (3) Carcinoma of bladder Permanent Comment: STAGING: Bladder, urothelial carcinoma, [id number] TREATMENT: 1. Partial course of neoadjuvant chemotherapy 2. Radical cystectomy, bilateral pelvic lymph node dissection and ileal neobladder formation - 04/12/2013 3. Adjuvant chemotherapy with G/C for 3 cycles Status: Acute (4) Chemotherapy Status: Acute (5) Dehydration Status: Acute (6) History of pulmonary embolus (PE) Status: Chronic (7) History of renal bleeding Status: Chronic (8) Hypercalcemia Status: Acute (9) Hypercalcemia Status: Acute (10) Hyperglycemia Status: Acute (11) Intractable vomiting Status: Acute (12) Perinephric hematoma Status: Acute (13) Retroperitoneal bleeding Status: Acute (14) Retroperitoneal hematoma Status: Acute (15) Sepsis Status: Acute (16) Vomiting Status: Acute (17) Weakness Status: Acute Social History Smoking Status: Former Smoker Drug Use: none Marital Status: Housing Status: lives with family Occupation Status: retired Allergies Coded Allergies: No Known Allergies (Unverified , 09/02/17) Home Medications Scheduled Allopurinol (Zyloprim), 300 MG PO DAILY Aspirin (Aspirin Ec), 81 MG PO QAM Atorvastatin (Lipitor), 80 MG PO HS Cholecalciferol (Vitamin D3), 2,000 UNITS PO DAILY Cyanocobalamin (Vitamin B-12), 1,000 MCG PO QAM Diltiazem Hcl Ext Rel (Tiazac), 420 MG PO DAILY Fentanyl (Duragesic), 25 MCG TD [id number] Insulin Glargine (Lantus Solostar), 45 UNITS SC QAM Insulin Isophane (Human) (Humulin N Kwikpen), 35 UNITS SQ HS Insulin Lispro (Human) (Humalog Kwikpen), 33 UNITS SQ TIDM Krill Oil (Krill Oil), 1 CAP PO QAM Levothyroxine Sodium (Synthroid), 100 MCG PO QAM Metoprolol Tartrate (Lopressor) (Lopressor), 75 MG PO DAILY Ondasetron Odt (Zofran Odt), 4 MG SL TID Sodium Bicarbonate (Sodium Bicarbonate), 650 MG PO BID Current Inpatient Medications Current Inpatient Medications Medications (Trade) Dose Ordered Sig/Sara Route Start Time Stop Time Status Last Admin Dose Admin Enoxaparin Sodium (Lovenox Inj) 40 mg Q24H SQ 09/08/17 16:00 10/08/17 15:59 09/08/17 15:49 40 MG Acetaminophen (Tylenol Tab) 650 mg Q4H PRN PO 09/08/17 12:45 10/08/17 12:44 Ondansetron HCl (Zofran Inj) 4 mg Q6H PRN IV 09/08/17 12:45 10/08/17 12:44 Pantoprazole Sodium 40 mg/ Syringe 10 ml @ 5 mls/min DAILY@11 IV 09/09/17 11:00 10/09/17 10:59 Allopurinol (Zyloprim Tab) 300 mg DAILY PO 09/09/17 08:00 10/09/17 07:59 Aspirin (Ecotrin Tab) 81 mg QAM PO 09/09/17 08:00 10/09/17 07:59 Levothyroxine Sodium (Synthroid Tab) 100 mcg DAILYBB PO 09/09/17 06:30 10/09/17 06:29 Metoprolol Tartrate (Lopressor Tab) 75 mg DAILY PO 09/09/17 08:00 10/09/17 07:59 Sodium Bicarbonate (Sodium Bicarbonate Tab) 650 mg BID PO 09/08/17 20:00 10/08/17 19:59 09/08/17 19:08 650 MG Diltiazem HCl (TIAzac CAP) 240 mg DAILY PO 09/09/17 08:00 10/09/17 07:59 Miscellaneous Information (Check Fentanyl Patch Placement) 1 ea QS N/A 09/08/17 16:00 10/08/17 15:59 09/08/17 15:48 1 EA Sodium Chloride 1,000 ml @ 100 mls/hr Q10H IV 09/08/17 13:00 10/08/17 12:59 09/08/17 13:30 100 MLS/HR Diltiazem HCl (TIAzac CAP) 180 mg DAILY PO 09/09/17 08:00 10/09/17 07:59 Heparin Sodium (Porcine) (Heparin 100 Unit/ml 5ml Flush) 5 ml PRN PRN IV 09/08/17 13:30 10/08/17 13:29 Fentanyl (Duragesic Patch) 25 mcg Q3D@0900 TD 09/10/17 09:00 09/24/17 08:59 Miscellaneous (Fentanyl Patch Remove & Waste) 1 ea Q3D@0859 N/A 09/10/17 08:59 10/10/17 08:58 Miscellaneous (Iv Fluids Completed) 1 ea PRN PRN N/A 09/08/17 13:45 09/08/18 13:44 Al Hydrox/Mg Hydrox/Simethicone (Maalox Max Susp) 30 ml Q6H PRN PO 09/08/17 14:15 10/08/17 14:14 Lidocaine HCl/ Diphenhydramine HCl/Al Hydroxide/ Mg Hydroxide/ Glycerin/Barcode Q6H PRN MT 09/08/17 14:15 10/08/17 14:14 09/08/17 19:05 5 ML Insulin Glargine (Lantus Solostar Pen) 25 units QAM SC 09/09/17 08:00 10/09/17 07:59 Insulin Human NPH (novoLIN-N NPH) 15 units HS SQ 09/08/17 21:00 10/08/17 20:59 Insulin Aspart (novoLOG ASPART) SLIDING SCALE G... ACHS SC 09/08/17 16:30 10/08/17 16:29 Glucose (Glucose 40% Gel) 15-30 GRAMS 15 GRAMS... UD PRN PO 09/08/17 15:15 1/14/18 15:14 Glucose (Glucose Chew Tab) 4-8 Tablets 4 Tabl... UD PRN PO 09/08/17 15:15 10/08/17 15:14 Dextrose (Dextrose 50% 50ML Syringe) 25-50ML OF 50% DW IV FOR... UD PRN IV 09/08/17 15:15 10/08/17 15:14 Glucagon (Glucagon Inj) 1 mg UD PRN SQ 09/08/17 15:15 10/08/17 15:14 Fluconazole/ Sodium Chloride 100 mg/Prmx 50 ml @ 100 mls/hr Q24H IV 09/08/17 16:00 09/18/17 15:59 09/08/17 15:47 100 MLS/HR Nystatin (Mycostatin Susp) 5 ml QID PO 09/08/17 17:00 09/18/17 16:59 09/08/17 19:07 5 ML Review of Systems Constitutional: Negative for night sweats, or fever. Positive for significant weight loss Eyes: Negative for event change of vision ENT: Negative for epistaxis, nasal discharge, sore throat, or deafness Cardiovascular: Negative for chest pain, palpitations, dizziness, diaphoresis Respiratory: Negative for new shortness of breath,hemoptysis, or purulent cough Gastrointestinal: Negative for diarrhea, hematemesis, melena, nausea, vomiting , or dyspepsia Integumentary (skin): Negative for rash or jaundice discoloration Genitourinary: Negative for urinary frequency, hematuria, or dysuria Neurological: Negative for weakness, seizure activity, headache, or dizziness Lymphatic/Hematologic: Negative for petechiae, bleeding or new adenopathy Musculoskeletal: Negative for new joint or back pain Allergic/Immunologic: Negative for unusual rash or pruritis. Physical Exam Date Time Temp Pulse Resp B/P (MAP) Pulse Ox O2 Delivery O2 Flow Rate FiO2 09/08/17 19:12 36.1 101 20 126/77 (93) 94 Room Air 09/08/17 16:00 Room Air 09/08/17 14:49 36.2 99 20 128/83 (98) 97 09/08/17 12:44 36.6 108 18 136/87 97 Room Air Constitutional: vitals are stable. Eyes: Eyes are JUAN EOMI without conjuctival erythema or icterus. ENT: External examination was negative for masses. Neck: Negative for masses or palpable thyromegaly Respiratory: Lung sounds were generally clear bilaterally Cardiovascular: Heart was RRR without significant murmur, gallops aoe rubs Gastrointestinal: No palpable hepatic or splenomegaly. The abdomen was soft with normal bowel sounds. Lymphatic system: there was no palpable peripheral lymphadenopathy Musculoskeletal System: The musculoskeletal system seemed concordant with age. Skin: The skin was negative for jaundice. Neurologic exam: The exam was negative for any focal findings. Deep tendon reflexes were equal and symmetrical. Psychiatric exam: Was essentially negative with normal mood and effect. Extremities: negative for edema Laboratory Results Last 24 Hours Test 09/08/17 12:53 09/08/17 14:42 09/08/17 16:35 09/08/17 16:57 White Blood Count 14.53 K/uL Red Blood Count 3.49 M/uL Hemoglobin 9.1 g/dL Hematocrit 29.8 % Mean Corpuscular Volume 85.4 fL Mean Corpuscular Hemoglobin 26.1 pg Mean Corpuscular Hemoglobin Concent 30.5 g/dl Platelet Count 150 K/uL Mean Platelet Volume 10.4 fL Neutrophils (%) (Auto) 76.4 % Lymphocytes (%) (Auto) 9.3 % Monocytes (%) (Auto) 11.1 % Eosinophils (%) (Auto) 0.8 % Basophils (%) (Auto) 0.1 % Neutrophils # (Auto) 11.08 K/uL Lymphocytes # (Auto) 1.35 K/uL Monocytes # (Auto) 1.62 K/uL Eosinophils # (Auto) 0.12 K/uL Basophils # (Auto) 0.02 K/uL RDW Standard Deviation 55.6 fL RDW Coefficient of Variation 18.1 % Immature Granulocyte % (Auto) 2.3 % Immature Granulocyte # (Auto) 0.34 K/uL Sodium Level 135 mmol/L Potassium Level 3.6 mmol/L Chloride Level 100 mmol/L Carbon Dioxide Level 27 mmol/L Anion Gap 8.0 mmol/L Blood Urea Nitrogen 67 mg/dl Creatinine 2.22 mg/dl Est Creatinine Clear Calc Drug Dose 37.3 ml/min Estimated GFR () 33.8 Estimated GFR (Non- 29.2 BUN/Creatinine Ratio 30.2 Random Glucose 117 mg/dl Calcium Level 10.3 mg/dl Total Bilirubin 0.5 mg/dl Aspartate Amino Transf (AST/SGOT) 29 U/L Alanine Aminotransferase (ALT/SGPT) 29 U/L Alkaline Phosphatase 206 U/L Total Protein 6.5 gm/dl Albumin 2.7 gm/dl Globulin 3.8 gm/dl Albumin/Globulin Ratio 0.7 Bedside Glucose 132 mg/dl 142 mg/dl Influenza Type A Antigen Neg for Influ A Influenza Type B Antigen Neg for Influ B Test 09/08/17 19:03 Urine Color DK YELLOW Urine Appearance CLEAR Urine pH 7.0 Urine Specific [place] 1.015 Urine Protein 1+ Urine Glucose (UA) NEG Urine Ketones NEG Urine Occult Blood 2+ Urine Nitrite NEG Urine Bilirubin NEG Urine Urobilinogen NEG Urine Leukocyte Esterase TRACE Urine WBC (Auto) 10-30 /hpf Urine RBC (Auto) >30 /hpf Urine Hyaline Casts (Auto) 1-5 /lpf Urine Epithelial Cells (Auto) >30 /lpf Urine Bacteria (Auto) NEG Urine Renal Epithelial Cells /lpf Assessment & Plan metastatic refractory urothelial carcinoma. He is slightly hypercalcemic. With the correction of the albumin is calcium borders just slightly above 11.0. This should be correctable with fluid and in addition I would add Solu-Medrol 40-60 mg a day for now. The patient also complains of nausea that has been intermittent to the cause is unclear. I believe a least a CT scan without contrast of his head would be warranted. Supportive care continues we will follow along with you. He is scheduled to come to our clinic in the middle of next week in anticipation of perhaps beginning a drug like weekly Navelbine.
[2017-09-08] MEDS: INSULIN HUMAN NPH SQ SCH (20:54)
[2017-09-08] MEDS ORDERED: INSULIN HUMAN NPH SQ SCH (21:00)
[2017-09-08 23:00] VITALS: BP 126/75; PULSE 87; TEMP 36.7; O2SAT 95
[2017-09-09 03:30] VITALS: BP 136/76; PULSE 85; TEMP 36.6; O2SAT 96
[2017-09-09 05:54] LABS: HEMOGLOBIN 8.1 g/dL (14.0-18.0); MEAN CORPUSCULAR HEMOGLOBIN 25.8 pg (25-34); MEAN PLATELET VOLUME 10.2 fL (7.4-10.4); PLATELET COUNT 136 K/uL (130-400); RED CELL DISTRIBUTION WIDTH CV 18.5 % (11.5-14.5); RED CELL DISTRIBUTION WIDTH SD 57.6 fL (36.4-46.3); WHITE BLOOD COUNT 10.39 K/uL (4.8-10.8)
[2017-09-09 06:17] LABS: CALCIUM 9.5 mg/dl (8.5-10.1); CREATININE 1.99 mg/dl (0.60-1.40); POTASSIUM 4.1 mmol/L (3.5-5.1)
[2017-09-09 06:27] LABS: BASO % 0.2 %; BASO ABS # 0.02 K/uL (0-0.2); EOS % 1.3 %; EOS ABS # 0.14 K/uL (0-0.5); IG# 0.37 K/uL (0.00-0.02); LYMPH % 8.2 %; LYMPH ABS # 0.85 K/uL (1.2-3.4); MONO % 10.4 %; MONO ABS # 1.08 K/uL (0.11-0.59); NEUT % 76.3 %; NEUT ABS # 7.93 K/uL (1.4-6.5)
[2017-09-09] MEDS: LEVOTHYROXINE 100 MCG TAB PO SCH (06:40)
[2017-09-09 07:03] LABS: HEMOGLOBIN A1C 7.1 % (4.5-5.6)
[2017-09-09 07:32] VITALS: BP 142/81; PULSE 89; TEMP 36.4; O2SAT 96
[2017-09-09] MEDS ORDERED: INSULIN GLARGINE SOLOSTAR 100 UNITS/ML 3 ML PEN SC SCH ×2 (08:00)
[2017-09-09] MEDS: NYSTATIN SUSP 500,000 U/5 ML UDC PO SCH ×4 (08:14→20:23)
[2017-09-09] MEDS: PANTOprazole INJ 40 MG in SYRINGE 0 ML IV SCH (08:14)
[2017-09-09] MEDS: ALLOPURINOL 300 MG TAB PO SCH (08:15)
[2017-09-09] MEDS: METOPROLOL TARTRATE 25 MG TAB PO SCH (08:15)
[2017-09-09] MEDS: DILTIAZEM HCL 120 MG EXT REL CAP PO SCH (08:15)
[2017-09-09] MEDS: SODIUM BICARBONATE 650 MG TAB PO SCH ×2 (08:15→20:23)
[2017-09-09] MEDS: DILTIAZEM HCL (TIAzac) 180 MG CAPCR PO SCH (08:15)
[2017-09-09] MEDS: CHECK FENTANYL PATCH PLACEMENT SCH ×2 (08:16→16:20)
[2017-09-09] MEDS: ASPIRIN 81 MG ECTAB PO SCH (08:16)
[2017-09-09] MEDS: SODIUM CHLORIDE 0.9% 1000ML 1,000 ML IV SCH ×2 (08:21→19:09)
[2017-09-09] MEDS: INSULIN ASPART 100 UNITS/ML 3 ML PEN SC SCH ×4 (08:21→20:26)
[2017-09-09] MEDS ORDERED: METHYLPREDNISOLONE IV 40 MG in SYRINGE 0 ML IV ONE (08:45)
--- NOTE | 2017-09-09 10:32 | DIAGNOSTIC IMAGING REPORT ---
HEAD CT NONCONTRAST CT DOSE: 614.27 mGy.cm HISTORY: nausea, renal cancer, eval for mets TECHNIQUE: Multiaxial CT images of the head were performed without the use of intravenous contrast. Automated exposure control was utilized for this study. A dose lowering technique was utilized adhering to the principles of ALARA. Comparison: None. Findings: Mild mucosal thickening within the left maxillary sinus. Remaining paranasal sinuses and mastoid air cells are clear. The calvarium and skull base are intact. There is no hematoma, midline shift, acute infarct. White matter hypodensity is nonspecific but suggestive of microvascular ischemic change. The ventricles and sulci demonstrate mild age-related involutional changes. No intracranial masses identified on this noncontrast study. Impression: No acute intracranial abnormality. Electronically signed by: Cornel Clifton M.D. 09/09/2017 10:30 AM Dictated Date/Time: 09/09/2017 10:27 AM
--- NOTE | 2017-09-09 11:22 | GASTROINTESTINAL CONSULTATION ---
DATE OF CONSULTATION: 09/09/2017 REASON FOR EVALUATION: Nausea, anorexia and weakness. HISTORY OF PRESENT ILLNESS: The patient is a 67-year-old male diagnosed with bladder cancer in 2012, which spread to the renal pelvis and ureter. The patient has had surgery and chemo and since July 26, he has been feeling extremely weak with anorexia and nausea at the same time that this began. The patient was initially started on morphine for pain and then a couple of weeks ago switched to fentanyl patch. The patient was admitted from Dr. Odom's office with profound weakness, anorexia, nausea and was hospitalized earlier this month with similar symptoms associated with hypercalcemia as well. The patient has lost about 40 pounds in the last 6 weeks. PAST MEDICAL HISTORY: Remarkable for bladder cancer T3N2M0 stage IV, treated with surgery, radiation and chemotherapy. He has had a history of a pulmonary embolism and has had an inferior vena cava filter. MEDICATIONS: Include enteric coated aspirin once a day along with other medications. ALLERGIES: None. SOCIAL HISTORY: The patient is and lives with his . He is retired, former smoker. FAMILY HISTORY: Noncontributory. REVIEW OF SYSTEMS: The patient is extremely weak, has intermittent nausea and anorexia. The remainder is negative. PHYSICAL EXAMINATION: GENERAL: The patient appears very weak, but in no acute distress. VITAL SIGNS: Blood pressure is 136/87, pulse is 100, he is afebrile. ABDOMEN: Shows a low midline scar, no masses or hepatosplenomegaly. He has a Rice catheter in place. LABORATORY: Shows a white count of 14.53, hemoglobin 9.1, platelets are 150,000. Liver profile is normal. IMPRESSION: The patient has nausea, anorexia, weakness with anemia. He is on a baby aspirin and has been started on Protonix since being hospitalized 40 mg a day IV. I think that an ulcer is possible, but I think more likely his symptoms are due to his opiates for pain. It is interesting that his symptoms of nausea and anorexia began when he was started on morphine on July 26 and continued while he has been switched to fentanyl patches. In the meantime, I agree with using the IV Protonix. We will check a stool for H. pylori and schedule for an EGD on Monday, September 11 and if that is negative, then we may need to reconsider the opiates that is on for pain medication. We will follow the patient during his hospital stay.
[2017-09-09 11:25] VITALS: BP 144/83; PULSE 93; TEMP 36.7; O2SAT 97
--- NOTE | 2017-09-09 11:31 | Hematology/Oncology Prog Note ---
Hematology/Onc Progress Note Date of Service Sep 09, 2017. Diagnoses Static urothelial cell carcinoma Increasing lethargy Mild hypercalcemia Medications Medications Administered Medications (Trade) Dose Ordered Sig/Sara Route Start Time Stop Time Status Last Admin Dose Admin Enoxaparin Sodium (Lovenox Inj) 40 mg Q24H SQ 09/08/17 16:00 10/08/17 15:59 09/08/17 15:49 40 MG Pantoprazole Sodium 40 mg/ Syringe 10 ml @ 5 mls/min DAILY@11 IV 09/09/17 11:00 10/09/17 10:59 09/09/17 08:14 5 MLS/MIN Pantoprazole Sodium 40 mg/ Syringe 10 ml @ 5 mls/min TODAY@1300 ONCE IV 09/08/17 13:00 09/08/17 13:01 DC 09/08/17 13:30 5 MLS/MIN Allopurinol (Zyloprim Tab) 300 mg DAILY PO 09/09/17 08:00 10/09/17 07:59 09/09/17 08:15 300 MG Aspirin (Ecotrin Tab) 81 mg QAM PO 09/09/17 08:00 10/09/17 07:59 09/09/17 08:16 81 MG Levothyroxine Sodium (Synthroid Tab) 100 mcg DAILYBB PO 09/09/17 06:30 10/09/17 06:29 09/09/17 06:40 100 MCG Metoprolol Tartrate (Lopressor Tab) 75 mg DAILY PO 09/09/17 08:00 10/09/17 07:59 09/09/17 08:15 75 MG Sodium Bicarbonate (Sodium Bicarbonate Tab) 650 mg BID PO 09/08/17 20:00 10/08/17 19:59 09/09/17 08:15 650 MG Diltiazem HCl (TIAzac CAP) 240 mg DAILY PO 09/09/17 08:00 10/09/17 07:59 09/09/17 08:15 240 MG Miscellaneous Information (Check Fentanyl Patch Placement) 1 ea QS N/A 09/08/17 16:00 10/08/17 15:59 09/09/17 08:16 1 EA Sodium Chloride 1,000 ml @ 100 mls/hr Q10H IV 09/08/17 13:00 10/08/17 12:59 09/09/17 08:21 100 MLS/HR Diltiazem HCl (TIAzac CAP) 180 mg DAILY PO 09/09/17 08:00 10/09/17 07:59 09/09/17 08:15 180 MG Lidocaine HCl/ Diphenhydramine HCl/Al Hydroxide/ Mg Hydroxide/ Glycerin/Barcode Q6H PRN MT 09/08/17 14:15 10/08/17 14:14 09/08/17 19:05 5 ML Insulin Glargine (Lantus Solostar Pen) 25 units QAM SC 09/09/17 08:00 10/09/17 07:59 09/09/17 08:21 25 UNITS Insulin Human NPH (novoLIN-N NPH) 15 units HS SQ 09/08/17 21:00 10/08/17 20:59 09/08/17 20:54 15 UNITS Insulin Aspart (novoLOG ASPART) SLIDING SCALE G... ACHS SC 09/08/17 16:30 10/08/17 16:29 09/09/17 08:21 1 UNITS Fluconazole/ Sodium Chloride 100 mg/Prmx 50 ml @ 100 mls/hr Q24H IV 09/08/17 16:00 09/18/17 15:59 09/08/17 15:47 100 MLS/HR Nystatin (Mycostatin Susp) 5 ml QID PO 09/08/17 17:00 09/18/17 16:59 09/09/17 08:14 5 ML Methylprednisolone Sodium Succinate 40 mg/Syringe 0.64 ml @ 1.5 mls/min TODAY@0845 ONCE IV 09/09/17 08:45 09/09/17 08:46 DC 09/09/17 09:01 1.5 MLS/MIN Subjective Lab work looks acceptable. His hemoglobin is 8.1 and may need eventually transfused. CT scan of the head done today without contrast was really unremarkable. Clinically he remains about the same. Review of Systems: Constitutional: Negative for night sweats, or fever Eyes: Negative for event change of vision ENT: Negative for epistaxis, nasal discharge, sore throat, or deafness Cardiovascular: Negative for chest pain, palpitations, dizziness, diaphoresis Respiratory: Negative for new shortness of breath,hemoptysis, or purulent cough Gastrointestinal: Negative for diarrhea, hematemesis, melena, nausea, vomiting , or dyspepsia Integumentary (skin): Negative for rash or jaundice discoloration Genitourinary: Negative for urinary frequency, hematuria, or dysuria Neurological: Negative for weakness, seizure activity, headache, or dizziness Lymphatic/Hematologic: Negative for petechiae, bleeding or new adenopathy Musculoskeletal: Negative for new joint or back pain Allergic/Immunologic: Negative for unusual rash or pruritis. Vital Signs Vital Signs Past 12 Hours Date Time Temp Pulse Resp B/P (MAP) Pulse Ox O2 Delivery O2 Flow Rate FiO2 09/09/17 11:25 36.7 93 18 144/83 (103) 97 09/09/17 08:00 Room Air 09/09/17 07:32 36.4 89 18 142/81 (101) 96 Room Air 09/09/17 03:30 36.6 85 18 136/76 (96) 96 Room Air 09/09/17 00:00 Room Air Physical Exam Constitutional: vitals are stable. Awake and alert Eyes: Eyes are JUAN EOMI without conjuctival erythema or icterus. ENT: External examination was negative for masses. Neck: Negative for masses or palpable thyromegaly Respiratory: Lung sounds were generally clear bilaterally Cardiovascular: Heart was RRR without significant murmur, gallops aoe rubs Gastrointestinal: No palpable hepatic or splenomegaly. The abdomen was soft with normal bowel sounds. Lymphatic system: there was no palpable peripheral lymphadenopathy Musculoskeletal System: The musculoskeletal system seemed concordant with age. Skin: The skin was negative for jaundice. Neurologic exam: The exam was negative for any focal findings. Deep tendon reflexes were equal and symmetrical. Psychiatric exam: Was essentially negative with normal mood and effect. Extremities: Right lower extremity remains mildly edematous. This had been edematous in the past The patient and inform me. Doppler in the past have been unremarkable for DVT. Laboratory Last 24 Hours Test 09/08/17 12:53 09/08/17 14:42 09/08/17 16:35 09/08/17 16:57 White Blood Count 14.53 K/uL Red Blood Count 3.49 M/uL Hemoglobin 9.1 g/dL Hematocrit 29.8 % Mean Corpuscular Volume 85.4 fL Mean Corpuscular Hemoglobin 26.1 pg Mean Corpuscular Hemoglobin Concent 30.5 g/dl Platelet Count 150 K/uL Mean Platelet Volume 10.4 fL Neutrophils (%) (Auto) 76.4 % Lymphocytes (%) (Auto) 9.3 % Monocytes (%) (Auto) 11.1 % Eosinophils (%) (Auto) 0.8 % Basophils (%) (Auto) 0.1 % Neutrophils # (Auto) 11.08 K/uL Lymphocytes # (Auto) 1.35 K/uL Monocytes # (Auto) 1.62 K/uL Eosinophils # (Auto) 0.12 K/uL Basophils # (Auto) 0.02 K/uL RDW Standard Deviation 55.6 fL RDW Coefficient of Variation 18.1 % Immature Granulocyte % (Auto) 2.3 % Immature Granulocyte # (Auto) 0.34 K/uL Sodium Level 135 mmol/L Potassium Level 3.6 mmol/L Chloride Level 100 mmol/L Carbon Dioxide Level 27 mmol/L Anion Gap 8.0 mmol/L Blood Urea Nitrogen 67 mg/dl Creatinine 2.22 mg/dl Est Creatinine Clear Calc Drug Dose 37.3 ml/min Estimated GFR () 33.8 Estimated GFR (Non- 29.2 BUN/Creatinine Ratio 30.2 Random Glucose 117 mg/dl Calcium Level 10.3 mg/dl Total Bilirubin 0.5 mg/dl Aspartate Amino Transf (AST/SGOT) 29 U/L Alanine Aminotransferase (ALT/SGPT) 29 U/L Alkaline Phosphatase 206 U/L Total Protein 6.5 gm/dl Albumin 2.7 gm/dl Globulin 3.8 gm/dl Albumin/Globulin Ratio 0.7 Bedside Glucose 132 mg/dl 142 mg/dl Influenza Type A Antigen Neg for Influ A Influenza Type B Antigen Neg for Influ B Test 09/08/17 19:03 09/08/17 20:43 09/09/17 00:47 09/09/17 05:38 Urine Color DK YELLOW Urine Appearance CLEAR Urine pH 7.0 Urine Specific [place] 1.015 Urine Protein 1+ Urine Glucose (UA) NEG Urine Ketones NEG Urine Occult Blood 2+ Urine Nitrite NEG Urine Bilirubin NEG Urine Urobilinogen NEG Urine Leukocyte Esterase TRACE Urine WBC (Auto) 10-30 /hpf Urine RBC (Auto) >30 /hpf Urine Hyaline Casts (Auto) 1-5 /lpf Urine Epithelial Cells (Auto) >30 /lpf Urine Bacteria (Auto) NEG Urine Renal Epithelial Cells /lpf Bedside Glucose 180 mg/dl Hepatitis B Surface Antigen NEG Hepatitis C Antibody NEG HIV (1&2) Ab and P24 Ag, 4th Gener NEG White Blood Count 10.39 K/uL Red Blood Count 3.14 M/uL Hemoglobin 8.1 g/dL Hematocrit 27.0 % Mean Corpuscular Volume 86.0 fL Mean Corpuscular Hemoglobin 25.8 pg Mean Corpuscular Hemoglobin Concent 30.0 g/dl Platelet Count 136 K/uL Mean Platelet Volume 10.2 fL Neutrophils (%) (Auto) 76.3 % Lymphocytes (%) (Auto) 8.2 % Monocytes (%) (Auto) 10.4 % Eosinophils (%) (Auto) 1.3 % Basophils (%) (Auto) 0.2 % Neutrophils # (Auto) 7.93 K/uL Lymphocytes # (Auto) 0.85 K/uL Monocytes # (Auto) 1.08 K/uL Eosinophils # (Auto) 0.14 K/uL Basophils # (Auto) 0.02 K/uL RDW Standard Deviation 57.6 fL RDW Coefficient of Variation 18.5 % Immature Granulocyte % (Auto) 3.6 % Immature Granulocyte # (Auto) 0.37 K/uL Sodium Level 135 mmol/L Potassium Level 4.1 mmol/L Chloride Level 104 mmol/L Carbon Dioxide Level 24 mmol/L Anion Gap 7.0 mmol/L Blood Urea Nitrogen 64 mg/dl Creatinine 1.99 mg/dl Est Creatinine Clear Calc Drug Dose 41.6 ml/min Estimated GFR () 38.6 Estimated GFR (Non- 33.3 BUN/Creatinine Ratio 32.1 Random Glucose 166 mg/dl Estimated Average Glucose 157 mg/dl Hemoglobin A1c 7.1 % Calcium Level 9.5 mg/dl Magnesium Level 2.5 mg/dl Test 09/09/17 07:46 Bedside Glucose 188 mg/dl Assessment & Plan Metastatic urothelial cell carcinoma. Declining performance status. Does have mild hypercalcemia but it is questionable as to whether this is playing a role in his symptoms. I understand an upper endoscopy is planned in Monday for possible peptic ulceration. It seems as though he will need to be a little stronger in order to receive chemotherapy. Navelbine has been proposed to be given weekly by his physicians at [facility] and this should be fairly well tolerated. For now supportive care continues. He has received some IV steroids. Results of the noncontrast head CT (negative) were reviewed with the patient and his .
[2017-09-09] MEDS ORDERED: FAMOTIDINE IV INJ 20 MG in DEXTROSE 5% 100ML 100 ML IV ONE (15:16)
--- NOTE | 2017-09-09 15:47 | Progress Note ---
Subjective Date of Service: Sep 09, 2017. Subjective Pt evaluation today including: conversation w/ patient, physical exam, chart review, lab review, review of studies, review of inpatient medication list feeling about the same - tried to eat lunch and then vomited right away. no much as far as epigastric pain - he can't say that there isn't, but also it certainly is not a dominant part of the picture. has been ongoing - willing to do just about anythign to help w the nausea GI to scope monday asymmetric leg edema no real pain R bigger than L Problem List Medical Problems: (1) Acute kidney injury Status: Acute (2) Cancer of renal pelvis and ureter Permanent Comment: STAGING: Right renal pelvis/ureter, urothelial carcinoma, cT3 /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 Systemic chemotherapy (Opdivo) had progression 2. Combined radiation and chemotherapy. Radiation to the abdomen completed 09/23. Received 5,940 cGy. 3. Plan for immunotherapy Status: Chronic (3) Carcinoma of bladder Permanent Comment: STAGING: Bladder, urothelial carcinoma, [id number] TREATMENT: 1. Partial course of neoadjuvant chemotherapy 2. Radical cystectomy, bilateral pelvic lymph node dissection and ileal neobladder formation - 04/12/2013 3. Adjuvant chemotherapy with G/C for 3 cycles Status: Acute (4) Chemotherapy Status: Acute (5) Dehydration Status: Acute (6) History of pulmonary embolus (PE) Status: Chronic (7) History of renal bleeding Status: Chronic (8) Hypercalcemia Status: Acute (9) Hypercalcemia Status: Acute (10) Hyperglycemia Status: Acute (11) Intractable vomiting Status: Acute (12) Perinephric hematoma Status: Acute (13) Retroperitoneal bleeding Status: Acute (14) Retroperitoneal hematoma Status: Acute (15) Sepsis Status: Acute (16) Vomiting Status: Acute (17) Weakness Status: Acute Review of Systems all other ROS otherwise negative except for as above Objective Vital Signs Date Time Temp Pulse Resp B/P (MAP) Pulse Ox O2 Delivery O2 Flow Rate FiO2 09/09/17 11:25 36.7 93 18 144/83 (103) 97 09/09/17 08:00 Room Air 09/09/17 07:32 36.4 89 18 142/81 (101) 96 Room Air 09/09/17 03:30 36.6 85 18 136/76 (96) 96 Room Air 09/09/17 00:00 Room Air 09/08/17 23:00 36.7 87 18 126/75 (92) 95 Room Air 09/08/17 19:12 36.1 101 20 126/77 (93) 94 Room Air 09/08/17 16:00 Room Air Physical Exam General Appearance: no apparent distress Eyes: EOMI ENT: hearing grossly normal Neck: trachea midline Respiratory/Chest: no respiratory distress, no accessory muscle use Extremities: normal range of motion Neurologic/Psychiatric: 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, alert, normal mood/affect Skin: normal color, warm/dry Laboratory Results Last 24 Hours Test 09/08/17 16:35 09/08/17 16:57 09/08/17 19:03 09/08/17 20:43 Influenza Type A Antigen Neg for Influ A Influenza Type B Antigen Neg for Influ B Bedside Glucose 142 mg/dl 180 mg/dl Urine Color DK YELLOW Urine Appearance CLEAR Urine pH 7.0 Urine Specific [place] 1.015 Urine Protein 1+ Urine Glucose (UA) NEG Urine Ketones NEG Urine Occult Blood 2+ Urine Nitrite NEG Urine Bilirubin NEG Urine Urobilinogen NEG Urine Leukocyte Esterase TRACE Urine WBC (Auto) 10-30 /hpf Urine RBC (Auto) >30 /hpf Urine Hyaline Casts (Auto) 1-5 /lpf Urine Epithelial Cells (Auto) >30 /lpf Urine Bacteria (Auto) NEG Urine Renal Epithelial Cells /lpf Test 09/09/17 00:47 09/09/17 05:38 09/09/17 07:46 09/09/17 11:29 Hepatitis B Surface Antigen NEG Hepatitis C Antibody NEG HIV (1&2) Ab and P24 Ag, 4th Gener NEG White Blood Count 10.39 K/uL Red Blood Count 3.14 M/uL Hemoglobin 8.1 g/dL Hematocrit 27.0 % Mean Corpuscular Volume 86.0 fL Mean Corpuscular Hemoglobin 25.8 pg Mean Corpuscular Hemoglobin Concent 30.0 g/dl Platelet Count 136 K/uL Mean Platelet Volume 10.2 fL Neutrophils (%) (Auto) 76.3 % Lymphocytes (%) (Auto) 8.2 % Monocytes (%) (Auto) 10.4 % Eosinophils (%) (Auto) 1.3 % Basophils (%) (Auto) 0.2 % Neutrophils # (Auto) 7.93 K/uL Lymphocytes # (Auto) 0.85 K/uL Monocytes # (Auto) 1.08 K/uL Eosinophils # (Auto) 0.14 K/uL Basophils # (Auto) 0.02 K/uL RDW Standard Deviation 57.6 fL RDW Coefficient of Variation 18.5 % Immature Granulocyte % (Auto) 3.6 % Immature Granulocyte # (Auto) 0.37 K/uL Sodium Level 135 mmol/L Potassium Level 4.1 mmol/L Chloride Level 104 mmol/L Carbon Dioxide Level 24 mmol/L Anion Gap 7.0 mmol/L Blood Urea Nitrogen 64 mg/dl Creatinine 1.99 mg/dl Est Creatinine Clear Calc Drug Dose 41.6 ml/min Estimated GFR () 38.6 Estimated GFR (Non- 33.3 BUN/Creatinine Ratio 32.1 Random Glucose 166 mg/dl Estimated Average Glucose 157 mg/dl Hemoglobin A1c 7.1 % Calcium Level 9.5 mg/dl Magnesium Level 2.5 mg/dl Bedside Glucose 188 mg/dl 215 mg/dl Assessment and Plan (1) Vomiting Assessment & Plan: unclear etiology but likely multifactorial - ?effects from cancer since urinary tract irritation can cause nausea, ?GI mucosal pathology as well (EGD monday), ?other factors -aggressive symptomatic care even as w/u in progress: pepcid IV scheduled zofran trial of marinol (discussed risks/benefits and controversies) (2) Hypercalcemia Assessment & Plan: probably mostly due to dehydration continue fluids and follow (3) Weakness Assessment & Plan: likely multifactorial but poor eating/acute malnutrition/ weight loss likely a big factor -treat above, hydrate, supportive care, time (4) Carcinoma of bladder (5) Cancer of renal pelvis and ureter (6) Chemotherapy (7) PE (pulmonary embolism) (8) DVT (deep venous thrombosis) (9) Presence of IVC filter (10) DM II (diabetes mellitus, type II), controlled (11) Benign essential HTN (12) Hypothyroidism (13) CKD (chronic kidney disease) stage 3, GFR 30-59 ml/min (14) Edema Assessment & Plan: venous dopplers
[2017-09-09 16:00] VITALS: BP 135/78; PULSE 83; TEMP 36.5; O2SAT 94
[2017-09-09] MEDS: FLUCONAZOLE / NSS 100 MG in PREMIXED NSS 50 ML IV SCH (16:18)
[2017-09-09] MEDS: ENOXAPARIN 40 MG/0.4 ML SYR SQ SCH (16:19)
[2017-09-09] MEDS ORDERED: DRONABINOL 2.5 MG CAP PO ONE (16:45)
[2017-09-09] MEDS: FAMOTIDINE IV INJ 20 MG in SYRINGE 3 ML IV SCH ×2 (17:12→20:24)
[2017-09-09] MEDS: ONDANSETRON INJ 2 MG/ML 2 ML VIAL IV SCH ×2 (17:13→23:23)
[2017-09-09 19:44] VITALS: BP 144/83; PULSE 77; TEMP 36.6; O2SAT 97
[2017-09-09 20:00] VITALS: O2SAT 97
[2017-09-09] MEDS ORDERED: FAMOTIDINE IV INJ 20 MG in DEXTROSE 5% 100ML 100 ML IV SCH (20:00)
[2017-09-09] MEDS: DRONABINOL 2.5 MG CAP PO SCH (20:23)
[2017-09-09] MEDS: INSULIN HUMAN NPH SQ SCH (20:26)
[2017-09-10] VITALS (7 sets, daily range): BP systolic 150–164; BP diastolic 75–80; PULSE 69–77; TEMP 36.4–36.8; O2SAT 96–98
[2017-09-10] MEDS ORDERED: HEPARIN IV BOLUS 7,000 UNIT in SYRINGE 0 ML IV ONE (01:30)
[2017-09-10] MEDS: HEPARIN 25,000 UNIT/500ML D5W 500 ML IV PRN ×3 (01:40→18:10)
[2017-09-10] MEDS: ONDANSETRON INJ 2 MG/ML 2 ML VIAL IV SCH ×4 (05:31→20:06)
[2017-09-10] MEDS: LEVOTHYROXINE 100 MCG TAB PO SCH (05:31)
[2017-09-10] MEDS: SODIUM CHLORIDE 0.9% 1000ML 1,000 ML IV SCH ×2 (05:31→15:24)
--- NOTE | 2017-09-10 05:36 | DIAGNOSTIC IMAGING REPORT ---
VENOUS DOPPLER LWR EXT BILA CLINICAL HISTORY: 67 years-old Male presenting with asymmetric edema rule out DVT. TECHNIQUE: Real-time grayscale and color and spectral Doppler ultrasound imaging of the veins of the bilateral lower extremities was performed. Compression and augmentation were also utilized. COMPARISON: None. FINDINGS: Right: Common femoral vein: Nearly occlusive filling defect in the common femoral vein. Femoral vein: Nearly occlusive filling defect throughout the femoral vein. Deep femoral vein: Patent. Greater saphenous vein: Nearly occlusive filling defect extends into the greater saphenous vein. Popliteal vein: Nearly occlusive filling defect throughout the popliteal vein Calf veins: Minimal extension of thrombus into the calf veins. Left: Common femoral vein: Nearly occlusive filling defect in the common femoral vein. Femoral vein: Nearly occlusive filling defect throughout the femoral vein. Deep femoral vein: Patent. Greater saphenous vein: Patent. Popliteal vein: Nearly occlusive filling defect throughout the popliteal vein Calf veins: Extensive thrombus in the calf veins. Other: None. IMPRESSION: Extensive bilateral lower extremity deep venous thrombosis extending from the calf veins to the common femoral veins bilaterally. The report will be called/faxed according to standard departmental protocol. Electronically signed by: Hever Buckner M.D. 09/10/2017 5:35 AM Dictated Date/Time: 09/10/2017 5:31 AM
[2017-09-10 07:42] LABS: HEMOGLOBIN 8.9 g/dL (14.0-18.0); MEAN CELL VOLUME 85.7 fL (80-100); MEAN CORPUSCULAR HEMOGLOBIN 25.4 pg (25-34); MEAN CORPUSCULAR HGB CONC 29.7 g/dl (32-36); MEAN PLATELET VOLUME 9.6 fL (7.4-10.4); PLATELET COUNT 166 K/uL (130-400); RED CELL DISTRIBUTION WIDTH CV 18.4 % (11.5-14.5); RED CELL DISTRIBUTION WIDTH SD 57.1 fL (36.4-46.3); WHITE BLOOD COUNT 10.89 K/uL (4.8-10.8)
[2017-09-10] MEDS: CHECK FENTANYL PATCH PLACEMENT SCH ×4 (08:48→22:46)
[2017-09-10] MEDS: FENTANYL 25 MCG/HR TDSY TD SCH (08:48)
[2017-09-10] MEDS: METHYLPREDNISOLONE IV 40 MG in SYRINGE 0 ML IV SCH (08:48)
[2017-09-10] MEDS: ALLOPURINOL 300 MG TAB PO SCH (08:49)
[2017-09-10] MEDS: SODIUM BICARBONATE 650 MG TAB PO SCH ×2 (08:49→20:07)
[2017-09-10] MEDS: DILTIAZEM HCL (TIAzac) 180 MG CAPCR PO SCH (08:50)
[2017-09-10] MEDS: METOPROLOL TARTRATE 25 MG TAB PO SCH (08:50)
[2017-09-10] MEDS: DILTIAZEM HCL 120 MG EXT REL CAP PO SCH (08:50)
[2017-09-10] MEDS: NYSTATIN SUSP 500,000 U/5 ML UDC PO SCH ×4 (08:50→20:07)
[2017-09-10] MEDS: ASPIRIN 81 MG ECTAB PO SCH (08:51)
[2017-09-10] MEDS: INSULIN ASPART 100 UNITS/ML 3 ML PEN SC SCH ×4 (08:58→20:09)
[2017-09-10] MEDS: FAMOTIDINE IV INJ 20 MG in SYRINGE 3 ML IV SCH ×2 (08:59→20:18)
[2017-09-10] MEDS: DRONABINOL 2.5 MG CAP PO SCH ×2 (08:59→20:06)
[2017-09-10] MEDS: FENTANYL PATCH REMOVE & WASTE SCH (08:59)
[2017-09-10 09:05] LABS: PTT PATIENT 124.6 SECONDS (21.0-31.0)
[2017-09-10 10:14] LABS: PTT PATIENT 70.4 SECONDS (21.0-31.0)
[2017-09-10] MEDS: PANTOprazole INJ 40 MG in SYRINGE 0 ML IV SCH (12:21)
--- NOTE | 2017-09-10 15:23 | Progress Note ---
Subjective Date of Service: Sep 10, 2017. Subjective Pt evaluation today including: conversation w/ patient, physical exam, chart review, lab review, review of inpatient medication list feeling better actually able to eat some today levy was blocked for about 1300 of urine felt full but no new nausea notes grogginess improving notes feeling stronger no other new complaints Problem List Medical Problems: (1) Acute kidney injury Status: Acute (2) Cancer of renal pelvis and ureter Permanent Comment: STAGING: Right renal pelvis/ureter, urothelial carcinoma, cT3 /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 Systemic chemotherapy (Opdivo) had progression 2. Combined radiation and chemotherapy. Radiation to the abdomen completed 09/23. Received 5,940 cGy. 3. Plan for immunotherapy Status: Chronic (3) Carcinoma of bladder Permanent Comment: STAGING: Bladder, urothelial carcinoma, [id number] TREATMENT: 1. Partial course of neoadjuvant chemotherapy 2. Radical cystectomy, bilateral pelvic lymph node dissection and ileal neobladder formation - 04/12/2013 3. Adjuvant chemotherapy with G/C for 3 cycles Status: Acute (4) Chemotherapy Status: Acute (5) Dehydration Status: Acute (6) Edema Status: Acute (7) History of pulmonary embolus (PE) Status: Chronic (8) History of renal bleeding Status: Chronic (9) Hypercalcemia Status: Acute (10) Hypercalcemia Status: Acute (11) Hyperglycemia Status: Acute (12) Intractable vomiting Status: Acute (13) Perinephric hematoma Status: Acute (14) Retroperitoneal bleeding Status: Acute (15) Retroperitoneal hematoma Status: Acute (16) Sepsis Status: Acute (17) Vomiting Status: Acute (18) Weakness Status: Acute Review of Systems all other ROS otherwise negative except for as above Objective Vital Signs Date Time Temp Pulse Resp B/P (MAP) Pulse Ox O2 Delivery O2 Flow Rate FiO2 09/10/17 11:00 36.6 72 18 157/79 (105) 96 Room Air 09/10/17 10:43 Room Air 09/10/17 07:27 36.5 77 18 164/75 (104) 96 09/10/17 04:22 36.6 71 20 163/80 (107) 97 Room Air 09/10/17 00:00 97 Room Air 09/09/17 20:00 97 Room Air 09/09/17 19:44 36.6 77 18 144/83 (103) 97 Room Air 09/09/17 16:00 36.5 83 18 135/78 (97) 94 Room Air Physical Exam General Appearance: no apparent distress Eyes: EOMI ENT: hearing grossly normal Neck: trachea midline Respiratory/Chest: no respiratory distress, no accessory muscle use Extremities: normal range of motion Neurologic/Psychiatric: 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, alert, normal mood/affect Skin: normal color, warm/dry Laboratory Results Last 24 Hours Test 09/09/17 16:35 09/09/17 20:02 09/10/17 07:31 09/10/17 07:42 Bedside Glucose 227 mg/dl 247 mg/dl 218 mg/dl White Blood Count 10.89 K/uL Red Blood Count 3.50 M/uL Hemoglobin 8.9 g/dL Hematocrit 30.0 % Mean Corpuscular Volume 85.7 fL Mean Corpuscular Hemoglobin 25.4 pg Mean Corpuscular Hemoglobin Concent 29.7 g/dl RDW Standard Deviation 57.1 fL RDW Coefficient of Variation 18.4 % Platelet Count 166 K/uL Mean Platelet Volume 9.6 fL Prothrombin Time 11.0 SECONDS Prothromb Time International Ratio 1.0 Activated Partial Thromboplast Time 148.0 SECONDS Partial Thromboplastin Ratio 5.7 Test 09/10/17 08:22 09/10/17 09:20 09/10/17 11:56 Activated Partial Thromboplast Time 124.6 SECONDS 70.4 SECONDS Partial Thromboplastin Ratio 4.8 2.7 Bedside Glucose 253 mg/dl Assessment and Plan (1) Vomiting Assessment & Plan: unclear etiology but likely multifactorial - ?effects from cancer since urinary tract irritation can cause nausea, ?GI mucosal pathology as well (EGD monday), ?other factors -aggressive symptomatic care even as w/u in progress: pepcid IV continue scheduled zofran trial of marinol going well, increase to 5mg bid (2) Hypercalcemia (3) Weakness (4) Carcinoma of bladder (5) Cancer of renal pelvis and ureter (6) Chemotherapy (7) PE (pulmonary embolism) (8) DVT (deep venous thrombosis) (9) Presence of IVC filter (10) DM II (diabetes mellitus, type II), controlled (11) Benign essential HTN (12) Hypothyroidism (13) CKD (chronic kidney disease) stage 3, GFR 30-59 ml/min (14) Edema
[2017-09-10] MEDS: FLUCONAZOLE / NSS 100 MG in PREMIXED NSS 50 ML IV SCH (15:24)
[2017-09-10 17:04] LABS: PTT PATIENT 87.8 SECONDS (21.0-31.0)
[2017-09-10] MEDS: INSULIN HUMAN NPH SQ SCH (20:10)
[2017-09-11] VITALS (13 sets, daily range): BP systolic 148–174; BP diastolic 80–94; PULSE 72–170; TEMP 36–36.8; O2SAT 94–97
[2017-09-11] MEDS: ONDANSETRON INJ 2 MG/ML 2 ML VIAL IV SCH ×3 (01:22→13:27)
[2017-09-11] MEDS: HEPARIN 25,000 UNIT/500ML D5W 500 ML IV PRN ×3 (01:22→18:08)
[2017-09-11] MEDS: SODIUM CHLORIDE 0.9% 1000ML 1,000 ML IV SCH ×2 (01:23→11:27)
[2017-09-11] MEDS: LEVOTHYROXINE 100 MCG TAB PO SCH (05:17)
[2017-09-11] MEDS: DRONABINOL 2.5 MG CAP PO SCH ×2 (07:16→20:38)
[2017-09-11] MEDS: NYSTATIN SUSP 500,000 U/5 ML UDC PO SCH ×4 (07:16→20:35)
[2017-09-11] MEDS: METOPROLOL TARTRATE 25 MG TAB PO SCH (07:16)
[2017-09-11] MEDS: SODIUM BICARBONATE 650 MG TAB PO SCH ×2 (07:16→20:36)
[2017-09-11] MEDS: DILTIAZEM HCL (TIAzac) 180 MG CAPCR PO SCH (07:16)
[2017-09-11] MEDS: ASPIRIN 81 MG ECTAB PO SCH (07:16)
[2017-09-11] MEDS: DILTIAZEM HCL 120 MG EXT REL CAP PO SCH (07:17)
[2017-09-11] MEDS: ALLOPURINOL 300 MG TAB PO SCH (07:17)
[2017-09-11 07:56] LABS: PTT PATIENT 33.4 SECONDS (21.0-31.0)
[2017-09-11] MEDS: CHECK FENTANYL PATCH PLACEMENT SCH ×3 (08:20→23:04)
[2017-09-11] MEDS: METHYLPREDNISOLONE IV 40 MG in SYRINGE 0 ML IV SCH (08:20)
[2017-09-11] MEDS: INSULIN ASPART 100 UNITS/ML 3 ML PEN SC SCH ×4 (08:27→20:56)
[2017-09-11] MEDS: INSULIN GLARGINE SOLOSTAR 100 UNITS/ML 3 ML PEN SC SCH (08:28)
[2017-09-11] MEDS: FAMOTIDINE IV INJ 20 MG in SYRINGE 3 ML IV SCH ×2 (08:29→20:35)
[2017-09-11] MEDS ORDERED: HEPARIN IV BOLUS 7,000 UNIT in SYRINGE 0 ML IV ONE (08:45)
--- NOTE | 2017-09-11 09:20 | Progress Note ---
Subjective Date of Service: Sep 11, 2017. Subjective Pt evaluation today including: conversation w/ patient, conversation w/ family , physical exam, chart review, lab review, review of studies, conversation w/ urban design consultant, review of inpatient medication list Feeling better, out of bed with railways assistant, feeling every day stronger, was vomiting 1 yesterday, no nausea vomiting today, feeling heart burnt occasionally report was possible confused, patient reported he does not feel confused, possible to many providers, Problem List Medical Problems: (1) Acute kidney injury Status: Acute (2) Cancer of renal pelvis and ureter Permanent Comment: STAGING: Right renal pelvis/ureter, urothelial carcinoma, cT3 /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 Systemic chemotherapy (Opdivo) had progression 2. Combined radiation and chemotherapy. Radiation to the abdomen completed 09/23. Received 5,940 cGy. 3. Plan for immunotherapy Status: Chronic (3) Carcinoma of bladder Permanent Comment: STAGING: Bladder, urothelial carcinoma, [id number] TREATMENT: 1. Partial course of neoadjuvant chemotherapy 2. Radical cystectomy, bilateral pelvic lymph node dissection and ileal neobladder formation - 04/12/2013 3. Adjuvant chemotherapy with G/C for 3 cycles Status: Acute (4) Chemotherapy Status: Acute (5) Dehydration Status: Acute (6) Edema Status: Acute (7) History of pulmonary embolus (PE) Status: Chronic (8) History of renal bleeding Status: Chronic (9) Hypercalcemia Status: Acute (10) Hypercalcemia Status: Acute (11) Hyperglycemia Status: Acute (12) Intractable vomiting Status: Acute (13) Perinephric hematoma Status: Acute (14) Retroperitoneal bleeding Status: Acute (15) Retroperitoneal hematoma Status: Acute (16) Sepsis Status: Acute (17) Vomiting Status: Acute (18) Weakness Status: Acute Review of Systems Constitutional: + fatigue, No fever, No chills, No sweats, No weight loss, No weakness, No problem reported Eyes: No worsening of vision, No eye pain, No redness, No discharge, No diplopia ENT: No hearing loss, No unusual epistaxis, No nasal symptoms, No sore throat, No tinnitus, No dental problems, No trouble swallowing Respiratory: No cough, No sputum, No wheezing, No shortness of breath, No dyspnea on exertion, No dyspnea at rest, No hemoptysis Cardiac: + edema, No chest pain, No orthopnea, No PND, No claudication, No palpitations Abdomen: + problem reported (okay to drink water but difficult to drink foot), No pain, No nausea, No vomiting, No diarrhea, No constipation Musculoskeletal: No joint pain, No muscle pain, No swelling, No calf pain Male : No dysuria, No urinary frequency, No incontinence, No nocturia more than once/night, No slowing stream, No hematuria Neurologic: No memory loss, No paralysis, No weakness, No numbness/tingling, No vertigo, No balance problems Psychiatric: No depression symptoms, No anhedonism, No anxiety, No insomnia, No substance abuse Heme: No abnormal bleeding/bruising, No clotting problems, No swollen lymph nodes, No night sweats Endo: No fatigue, No excessive thirst, No excessive urination Skin: No rash, No itch, No new/changing skin lesions, No color change, No bleeding Objective Vital Signs Date Time Temp Pulse Resp B/P (MAP) Pulse Ox O2 Delivery O2 Flow Rate FiO2 09/11/17 07:32 36.2 78 22 168/88 (114) 95 Room Air 172/89 (116) 09/11/17 03:24 36.4 72 20 174/82 (112) 97 Room Air 09/11/17 00:00 Room Air 09/10/17 23:02 36.4 69 20 156/76 (102) 96 Room Air 09/10/17 20:00 Room Air 09/10/17 19:17 36.8 74 19 150/78 (102) 98 Room Air 09/10/17 16:00 Room Air 09/10/17 15:16 36.6 74 18 161/80 (107) 98 Room Air 09/10/17 11:00 36.6 72 18 157/79 (105) 96 Room Air 09/10/17 10:43 Room Air Physical Exam General Appearance: WD/WN, no apparent distress, + obese Eyes: normal inspection, PERRL, EOMI, sclerae normal ENT: normal ENT inspection, hearing grossly normal, pharynx normal Neck: supple, no adenopathy, thyroid normal, no JVD, no carotid bruits, trachea midline Respiratory/Chest: chest non-tender, normal breath sounds, no respiratory distress, no accessory muscle use, + decreased breath sounds, + crackles (left lower lung) Cardiovascular: regular rate, rhythm, no edema, no gallop, no JVD, no murmur Abdomen: normal bowel sounds, non tender, soft, no organomegaly, no pulsatile mass, + pertinent finding (Rice in place with light yellow clean urine) Extremities: normal range of motion, non-tender, normal inspection, no pedal edema, no calf tenderness, normal capillary refill, pelvis stable, + swelling (1 + in left lower extremity, 2+ in right lower extremity) Neurologic/Psychiatric: 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, no motor/sensory deficits, alert, normal mood/affect, oriented x 3 Skin: normal color, warm/dry, no rash Lymphatic: no adenopathy Laboratory Results Last 24 Hours Test 09/10/17 09:20 09/10/17 11:56 09/10/17 16:19 09/10/17 16:35 Activated Partial Thromboplast Time 70.4 SECONDS 87.8 SECONDS Partial Thromboplastin Ratio 2.7 3.4 Bedside Glucose 253 mg/dl 256 mg/dl Test 09/10/17 20:00 09/11/17 00:14 09/11/17 07:35 09/11/17 07:46 Bedside Glucose 248 mg/dl 212 mg/dl Activated Partial Thromboplast Time 86.0 SECONDS 33.4 SECONDS Partial Thromboplastin Ratio 3.3 1.3 Prothrombin Time 10.4 SECONDS Prothromb Time International Ratio 1.0 Assessment and Plan (1) Vomiting (2) Hypercalcemia (3) Weakness (4) Carcinoma of bladder (5) Cancer of renal pelvis and ureter (6) Chemotherapy (7) PE (pulmonary embolism) (8) DVT (deep venous thrombosis) (9) Presence of IVC filter (10) DM II (diabetes mellitus, type II), controlled (11) Benign essential HTN (12) Hypothyroidism (13) CKD (chronic kidney disease) stage 3, GFR 30-59 ml/min (14) Edema (15) Hypercalcemia (16) Dysphagia (17) Anemia (18) Acute kidney injury 67-year-old white male admitted because of dysphagia, Vomiting with Dysphagia/odynophagia: causing significant weight loss has lost 40 lbs Unclear etiology but likely multifactorial ?effects from cancer since urinary tract irritation can cause nausea ?GI mucosal pathology as well ?other factors has been on pepcid IV, scheduled zofran, and trial of marinol (my previous colleague discussed risks/benefits and controversies) Plan EGD today Hypercalcemia probably mostly due to dehydration Improved to corrected calcium is 10.5 yesterday continue fluids and follow Weakness, likely multifactorial but poor eating/acute malnutrition/weight loss , treat with hydrate, supportive care, time Hypertensive with history of hypertension, hydralazine as needed metastatic refractory stage iV urothelial carcinoma. most recent PET shows it is confined to right kidney, supposed to follow up with Dr. Collazo, patient and family requesting inpatient visit, oncologist up in per , the report shows that the tumor is confined to the right kidney onco f/u, recs a CT scan without contrast of his head would, which was done and unremarkable Confusion? Patient currently conversational awake alert and orientated, has CTs not remarkable Chronic anemia, hemoglobin 8.9 from 8.1 yesterday, which is stable Hyperglycemia with history of diabetic on Lantus, currently is nothing by mouth , planning for EGD Chronic kidney disease, creatinine is in baseline History of right lower extremity DVT, S/P IVC filter, was not on anticoagulation by the admission, currently ON Lovenox for DVT prophylaxis Discussed with Dominga patient's about condition and care plan answer all questions Continued [facility] stay due to: multiple IV medications needed Discharge planning: uncertain
[2017-09-11] MEDS ORDERED: HydrALAZINE HCL 20 MG/ML VIAL IV. PRN (09:30)
--- NOTE | 2017-09-11 10:08 | Clinical Documentation Query ---
CLINICAL DOCUMENTATION QUERY A 67 yo male with PMH bladder ca admitted with extreme weakness, poor appetite, nausea and vomiting. In your clinical opinion is this patient being managed for: ( x ) possible Protein-calorie malnutrition ( ) Not Agree ( ) Other explanation of clinical findings (Please Explain) ( ) Unable to determine (Please Define) ( ) Need to Discuss The medical record reflects the following clinical findings, treatment, and risk factors. Clinical Indicators: 40 pound weight loss in past 6 weeks, nausea, vomiting Treatment: Aspiration precautions, daily weights Risk Factors: Malignant carcinomas, weakness, vomiting, nausea, chemotherapy Please clarify and document your clinical opinion in the progress notes and discharge summary. Terms such as "probable", "suspected", "likely", "questionable", "possible", or "still to be ruled out" are acceptable. IF IN AGREEMENT, YOU MUST DOCUMENT ABOVE DIAGNOSTIC STATEMENT IN DAILY PROGRESS NOTES AND DISCHARGE SUMMARY. This document is not part of the patient's record. Thank You, Kell Peoples RN [phone]
[2017-09-11] MEDS: PANTOprazole INJ 40 MG in SYRINGE 0 ML IV SCH (11:27)
--- NOTE | 2017-09-11 12:09 | Clinical Documentation Query ---
CLINICAL DOCUMENTATION QUERY A 67 yo male with PMH bladder ca admitted with extreme weakness, poor appetite, nausea and vomiting. In your clinical opinion is this patient being managed for: ( x )possible Encephalopathy upon admission, resolved ( ) Not Agree ( ) Other explanation of clinical findings (Please Explain) ( ) Unable to determine (Please Define) ( ) Need to Discuss The medical record reflects the following clinical findings, treatment, and risk factors. Clinical Indicators: Altered mental status, confusion, lethargy, weakness Treatment: IV hydration, CT head, hematology consult Risk Factors: Malignant carcinoma, malnutrition, vomiting Please clarify and document your clinical opinion in the progress notes and discharge summary. Terms such as "probable", "suspected", "likely", "questionable", "possible", or "still to be ruled out" are acceptable. IF IN AGREEMENT, YOU MUST DOCUMENT ABOVE DIAGNOSTIC STATEMENT IN DAILY PROGRESS NOTES AND DISCHARGE SUMMARY. This document is not part of the patient's record. Thank You, Kell Peoples RN [phone]
[2017-09-11] MEDS ORDERED: FENTANYL PATCH REMOVE & WASTE SCH (13:00)
--- NOTE | 2017-09-11 15:06 | Endo History and Physical ---
History & Physical Date of Service: Sep 11, 2017. Chief Complaint: nausea, anorexia Referring Physician: Dr Odom History of Present Illness For EGD Past Medical History Diabetes, Male Genitourinary Prob., Pulmonary Emboli, Cancer, High Cholesterol, Hypertension, Thyroid Disease Past Surgical History Hx Cardiac Surgery: No Hx Internal Defibrillator: No Hx Pacemaker: No Hx Abdominal Surgery: Yes (appendectomy) Hx Post-Op Nausea and Vomiting: No Hx Cancer Surgery: Yes (bladder) Hx Thoracic Surgery: No Hx Orthopedic: No Hx Urinary Tract Surgery: No Social History Smoking Status: Former Smoker Hx Substance Use: No Hx Alcohol Use: Yes (1 beverage a day) Allergies Coded Allergies: No Known Allergies (Unverified , 09/02/17) Current Medications Reported Home Medications Medications Dose Route/Sig Max Daily Dose Days Date Category Dose Instructions Zofran Odt (Ondansetron HCl) 4 Mg Tab 4 Mg SL TID 09/04/17 Rx Duragesic (Fentanyl) 25 Mcg/Hr Dis 25 Mcg TD [id number] 09/02/17 Reported Vitamin D3 (Cholecalciferol) 2,000 Unit Cap 2,000 Units PO DAILY 90 09/02/17 Reported Lopressor (Metoprolol Tartrate) 50 Mg Tab 75 Mg PO DAILY 09/02/17 Reported Lantus Solostar (Insulin Glargine) 100 Unit/Ml Inj 45 Units SC QAM 09/02/17 Reported Humulin N Kwikpen (Insulin Isophane (Human)) 100 Unit/Ml Inj 35 Units SQ HS 09/02/17 Reported Tiazac (Diltiazem HCl) 420 Mg Capcr 420 Mg PO DAILY 09/02/17 Reported Zyloprim (Allopurinol) 300 Mg Tab 300 Mg PO DAILY 09/02/17 Reported Aspirin Ec (Aspirin) 81 Mg Tab 81 Mg PO QAM 08/18/15 Reported Synthroid (Levothyroxine Sodium) 100 Mcg Tab 100 Mcg PO QAM 08/18/15 Reported Krill Oil 1 Cap Cap 1 Cap PO QAM 08/18/15 Reported Sodium Bicarbonate 650 Mg Tab 650 Mg PO BID 11/04/13 Reported Humalog Kwikpen (Insulin Lispro (Human)) 100 Unit/Ml Inj 33 Units SQ TIDM 09/26/13 Reported PER SLIDING SCALE 30-33 UNITS Vitamin B-12 (Cyanocobalamin) 1,000 Mcg Tab 1,000 Mcg PO QAM 04/28/11 Reported Lipitor (Atorvastatin Calcium) 80 Mg Tab 80 Mg PO HS 12/19/10 Reported Vital Signs Weight (Kilograms): 104.300 Height (Feet): 5 Height (Inches): 11.00 Date Time Temp Pulse Resp B/P (MAP) Pulse Ox O2 Delivery O2 Flow Rate FiO2 09/11/17 14:59 36.7 86 14 155/85 (108) 96 Room Air 09/11/17 14:44 36.8 86 18 151/88 (109) 95 Room Air 09/11/17 14:23 36.2 83 20 149/84 94 Room Air 09/11/17 11:59 36.2 83 20 149/84 (105) 94 Room Air 09/11/17 08:00 95 Room Air 09/11/17 07:32 36.2 78 22 168/88 (114) 95 Room Air 172/89 (116) 09/11/17 03:24 36.4 72 20 174/82 (112) 97 Room Air 09/11/17 00:00 Room Air 09/10/17 23:02 36.4 69 20 156/76 (102) 96 Room Air 09/10/17 20:00 Room Air 09/10/17 19:17 36.8 74 19 150/78 (102) 98 Room Air 09/10/17 16:00 Room Air 09/10/17 15:16 36.6 74 18 161/80 (107) 98 Room Air Physical Exam General Appearance: WD/WN Respiratory/Chest: Respiratory effort: no dyspnea Cardiovascular: Heart Auscultation: RRR Abdomen: Inspection & Palpation: soft Assessment and Plan Nausea, anorexia for EGD
--- NOTE | 2017-09-11 15:41 | Discharge Instructions ---
Endoscopy Patient Instructions Date / Procedure(s) Performed Sep 11, 2017. EGD Allergy Information Coded Allergies: No Known Allergies (Unverified , 09/02/17) Discharge Date / Findings Sep 11, 2017. Linda, gastric retention Medication Instructions Restart Stopped Medication(s): resume meds Current Inpatient Medications Medications (Trade) Dose Ordered Sig/Sara Route Start Time Stop Time Status Last Admin Dose Admin Acetaminophen (Tylenol Tab) 650 mg Q4H PRN PO 09/08/17 12:45 10/08/17 12:44 Pantoprazole Sodium 40 mg/ Syringe 10 ml @ 5 mls/min DAILY@11 IV 09/09/17 11:00 10/09/17 10:59 09/11/17 11:27 5 MLS/MIN Allopurinol (Zyloprim Tab) 300 mg DAILY PO 09/09/17 08:00 10/09/17 07:59 09/10/17 08:49 300 MG Aspirin (Ecotrin Tab) 81 mg QAM PO 09/09/17 08:00 10/09/17 07:59 09/10/17 08:51 81 MG Levothyroxine Sodium (Synthroid Tab) 100 mcg DAILYBB PO 09/09/17 06:30 10/09/17 06:29 09/10/17 05:31 100 MCG Metoprolol Tartrate (Lopressor Tab) 75 mg DAILY PO 09/09/17 08:00 10/09/17 07:59 09/10/17 08:50 75 MG Sodium Bicarbonate (Sodium Bicarbonate Tab) 650 mg BID PO 09/08/17 20:00 10/08/17 19:59 09/10/17 20:07 650 MG Diltiazem HCl (TIAzac CAP) 240 mg DAILY PO 09/09/17 08:00 10/09/17 07:59 09/10/17 08:50 240 MG Miscellaneous Information (Check Fentanyl Patch Placement) 1 ea QS N/A 09/08/17 16:00 10/08/17 15:59 09/11/17 08:20 1 EA Sodium Chloride 1,000 ml @ 75 mls/hr [id number] IV 09/08/17 13:00 10/08/17 12:59 09/11/17 11:27 75 MLS/HR Diltiazem HCl (TIAzac CAP) 180 mg DAILY PO 09/09/17 08:00 10/09/17 07:59 09/10/17 08:50 180 MG Heparin Sodium (Porcine) (Heparin 100 Unit/ml 5ml Flush) 5 ml PRN PRN IV 09/08/17 13:30 10/08/17 13:29 Fentanyl (Duragesic Patch) 25 mcg Q3D@0900 TD 09/10/17 09:00 09/24/17 08:59 09/10/17 08:48 25 MCG Miscellaneous (Fentanyl Patch Remove & Waste) 1 ea Q3D@0859 N/A 09/10/17 08:59 10/10/17 08:58 09/10/17 08:59 1 EA Miscellaneous (Iv Fluids Completed) 1 ea PRN PRN N/A 09/08/17 13:45 09/08/18 13:44 Al Hydrox/Mg Hydrox/Simethicone (Maalox Max Susp) 30 ml Q6H PRN PO 09/08/17 14:15 10/08/17 14:14 Lidocaine HCl/ Diphenhydramine HCl/Al Hydroxide/ Mg Hydroxide/ Glycerin/Barcode Q6H PRN MT 09/08/17 14:15 10/08/17 14:14 09/08/17 19:05 5 ML Insulin Human NPH (novoLIN-N NPH) 15 units HS SQ 09/08/17 21:00 10/08/17 20:59 09/10/17 20:10 15 UNITS Insulin Aspart (novoLOG ASPART) SLIDING SCALE G... ACHS SC 09/08/17 16:30 10/08/17 16:29 09/11/17 11:30 3 UNITS Glucose (Glucose 40% Gel) 15-30 GRAMS 15 GRAMS... UD PRN PO 09/08/17 15:15 10/08/17 15:14 Glucose (Glucose Chew Tab) 4-8 Tablets 4 Tabl... UD PRN PO 09/08/17 15:15 10/08/17 15:14 Dextrose (Dextrose 50% 50ML Syringe) 25-50ML OF 50% DW IV FOR... UD PRN IV 09/08/17 15:15 10/08/17 15:14 Glucagon (Glucagon Inj) 1 mg UD PRN SQ 09/08/17 15:15 10/08/17 15:14 Fluconazole/ Sodium Chloride 100 mg/Prmx 50 ml @ 100 mls/hr Q24H IV 09/08/17 16:00 09/18/17 15:59 09/10/17 15:24 100 MLS/HR Nystatin (Mycostatin Susp) 5 ml QID PO 09/08/17 17:00 09/18/17 16:59 09/10/17 20:07 5 ML Methylprednisolone Sodium Succinate 40 mg/Syringe 0.64 ml @ 1.5 mls/min DAILY IV 09/10/17 08:00 10/10/17 07:59 09/11/17 08:20 1.5 MLS/MIN Famotidine 20 mg/ Syringe 5 ml @ 2.5 mls/min Q12 IV 09/09/17 17:00 10/09/17 16:59 09/11/17 08:29 2.5 MLS/MIN Heparin Sodium/ Dextrose 500 ml @ 26 mls/hr [id number] PRN IV 09/10/17 01:30 10/10/17 01:29 09/11/17 08:50 26 MLS/HR Insulin Glargine (Lantus Solostar Pen) 30 units QAM SC 09/11/17 08:00 10/09/17 07:59 09/11/17 08:28 15 UNITS Dronabinol (Marinol Cap) 5 mg BID PO 09/10/17 20:00 10/09/17 19:59 09/10/17 20:06 5 MG Ondansetron HCl (Zofran Inj) 4 mg Q6H PRN IV 09/11/17 13:00 10/11/17 12:59 Hydralazine HCl (HydrALAZINE INJ) 20 mg Q6 PRN IV. 09/11/17 09:30 10/11/17 09:29 Provider Instructions Activity Restrictions - No exercising or heavy lifting for 24 hours. - Do not drink alcohol the day of the procedure. - Do not drive a car or operate machinery until the day after the procedure. - Do not make any important decisions or sign important papers in 24 hours after the procedure. Following Day: - Return to full activity which may include returning to work/school. Diet Start your diet with liquids and light foods (jello, soup, juice, toast). Then eat your usual diet if not nauseated. Treatment For Common After Affects For mild abdominal pain, bloating, or excessive gas: - Rest - Eat lightly - Lie on right side Follow-Up Information Follow-up with as scheduled Anesthesia Information What You Should Know You have had a procedure that required some medicine to reduce anxiety and discomfort. This treatment is called moderate sedation. After receiving the treatment, you may be sleepy, but you will be able to breathe on your own. The effects of the treatment may last for several hours. Follow these instructions along with Activity/Diet recommendations noted above: * Do NOT do anything where dizziness or clumsiness would be dangerous. * Rest quietly at home today, then you can be up and about tomorrow. * Have a responsible person stay with you the rest of today. * You may have had an I.V. today. If so, you may take the dressing off later today. Recommendations Call your doctor if: * Trouble breathing * Continuous vomiting for more than 24 hours * Temperature above 101 degrees * Severe abdominal pain or bloating * Pain not relieved by pain medicine ordered * There is increased drainage or redness from any incision * A large amount of rectal bleeding greater than 2-3 tablespoons. (If you had a polyp/s removed or have hemorrhoids, a small amount of blood - from the rectum is to be expected.) * You have any unanswered questions or concerns. IN THE EVENT OF A SERIOUS EMERGENCY, GO TO THE NEAREST EMERGENCY ROOM Your discharge instructions were prepared by provider Doni Verdugo. Patient Instructions Signature Page Wilner Weir Patient (or Guardian) Signature/Date: I have read and understand the instructions given to me by my caregivers. Caregiver/RN/Doctor Signature/Date: The above-named patient and/or guardian has received patient instructions on this date. + Original Patient Signature Page (only) stays with chart. Please make copy for patient.
--- NOTE | 2017-09-11 15:45 | GI REPORT ---
Procedure Date: 09/11/2017 3:04 PM Procedure: Upper GI endoscopy Indications: Anorexia, Nausea with vomiting Medicines: Propofol total dose 90 mg IV, Lidocaine 80 mg IV Complications: No immediate complications. Estimated Blood Loss: Estimated blood loss: none. Procedure: Pre-Anesthesia Assessment: - Prior to the procedure, a History and Physical was performed, and patient medications, allergies and sensitivities were reviewed. The patient's tolerance of previous anesthesia was reviewed. - The risks and benefits of the procedure and the sedation options and risks were discussed with the patient. All questions were answered and informed consent was obtained. - Prior to the procedure, a History and Physical was performed, and patient medications, allergies and sensitivities were reviewed. The patient's tolerance of previous anesthesia was reviewed. - The risks and benefits of the procedure and the sedation options and risks were discussed with the patient. All questions were answered and informed consent was obtained. After obtaining informed consent, the endoscope was passed under direct vision. Throughout the procedure, the patient's blood pressure, pulse, and oxygen saturations were monitored continuously. The Scope was introduced through the mouth, and advanced to the second part of duodenum. The upper GI endoscopy was accomplished without difficulty. The patient tolerated the procedure poorly due to vomiting. Findings: Diffuse candidiasis was found in the entire esophagus. Cells for cytology were obtained by brushing. Estimated blood loss: none. Excessive fluid was found in the gastric body. The duodenal bulb was normal. Impression: - Monilial esophagitis. Cells for cytology obtained. - Excessive gastric fluid. - Normal duodenal bulb. Recommendation: - [facility] patient [facility] care. - Await pathology results. Doni Verdugo M.D. Doni Verdugo MD 09/11/2017 3:44:35 PM This report has been signed electronically. Note Initiated On: 09/11/2017 3:04 PM I attest to the content of the Intraoperative Record and orders documented therein, exceptions below
[2017-09-11] MEDS ORDERED: LIDOCAINE HCL 2% 2 ML VIAL (20MG/ML) ONE (15:52)
[2017-09-11] MEDS ORDERED: PROPOFOL IV EMULSION 10 MG/ML 20 ML VIAL IV ONE (15:52)
--- NOTE | 2017-09-11 16:24 | Hematology/Oncology Prog Note ---
Hematology/Onc Progress Note Date of Service Sep 11, 2017. 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 Intractable nausea/vomiting Medications Medications Administered Medications (Trade) Dose Ordered Sig/Sara Route Start Time Stop Time Status Last Admin Dose Admin Enoxaparin Sodium (Lovenox Inj) 40 mg Q24H SQ 09/08/17 16:00 09/10/17 01:16 DC 09/09/17 16:19 40 MG Ondansetron HCl (Zofran Inj) 4 mg Q6H PRN IV 09/08/17 12:45 09/09/17 15:19 DC 09/09/17 12:32 4 MG Pantoprazole Sodium 40 mg/ Syringe 10 ml @ 5 mls/min DAILY@11 IV 09/09/17 11:00 10/09/17 10:59 09/11/17 11:27 5 MLS/MIN Pantoprazole Sodium 40 mg/ Syringe 10 ml @ 5 mls/min TODAY@1300 ONCE IV 09/08/17 13:00 09/08/17 13:01 DC 09/08/17 13:30 5 MLS/MIN Allopurinol (Zyloprim Tab) 300 mg DAILY PO 09/09/17 08:00 10/09/17 07:59 09/10/17 08:49 300 MG Aspirin (Ecotrin Tab) 81 mg QAM PO 09/09/17 08:00 10/09/17 07:59 09/10/17 08:51 81 MG Levothyroxine Sodium (Synthroid Tab) 100 mcg DAILYBB PO 09/09/17 06:30 10/09/17 06:29 09/10/17 05:31 100 MCG Metoprolol Tartrate (Lopressor Tab) 75 mg DAILY PO 09/09/17 08:00 10/09/17 07:59 09/10/17 08:50 75 MG Sodium Bicarbonate (Sodium Bicarbonate Tab) 650 mg BID PO 09/08/17 20:00 10/08/17 19:59 09/10/17 20:07 650 MG Diltiazem HCl (TIAzac CAP) 240 mg DAILY PO 09/09/17 08:00 10/09/17 07:59 09/10/17 08:50 240 MG Miscellaneous Information (Check Fentanyl Patch Placement) 1 ea QS N/A 09/08/17 16:00 10/08/17 15:59 09/11/17 08:20 1 EA Sodium Chloride 1,000 ml @ 75 mls/hr [id number] IV 09/08/17 13:00 10/08/17 12:59 09/11/17 11:27 75 MLS/HR Diltiazem HCl (TIAzac CAP) 180 mg DAILY PO 09/09/17 08:00 10/09/17 07:59 09/10/17 08:50 180 MG Fentanyl (Duragesic Patch) 25 mcg Q3D@0900 TD 09/10/17 09:00 09/24/17 08:59 09/10/17 08:48 25 MCG Miscellaneous (Fentanyl Patch Remove & Waste) 1 ea Q3D@0859 N/A 09/10/17 08:59 10/10/17 08:58 09/10/17 08:59 1 EA Lidocaine HCl/ Diphenhydramine HCl/Al Hydroxide/ Mg Hydroxide/ Glycerin/Barcode Q6H PRN MT 09/08/17 14:15 10/08/17 14:14 09/08/17 19:05 5 ML Insulin Glargine (Lantus Solostar Pen) 25 units QAM SC 09/09/17 08:00 09/10/17 08:21 DC 09/09/17 08:21 25 UNITS Insulin Human NPH (novoLIN-N NPH) 15 units HS SQ 09/08/17 21:00 10/08/17 20:59 09/10/17 20:10 15 UNITS Insulin Aspart (novoLOG ASPART) SLIDING SCALE G... ACHS SC 09/08/17 16:30 10/08/17 16:29 09/11/17 11:30 3 UNITS Fluconazole/ Sodium Chloride 100 mg/Prmx 50 ml @ 100 mls/hr Q24H IV 09/08/17 16:00 09/18/17 15:59 09/10/17 15:24 100 MLS/HR Nystatin (Mycostatin Susp) 5 ml QID PO 09/08/17 17:00 09/11/17 15:53 DC 09/10/17 20:07 5 ML Methylprednisolone Sodium Succinate 40 mg/Syringe 0.64 ml @ 1.5 mls/min DAILY IV 09/10/17 08:00 1/16/18 07:59 09/11/17 08:20 1.5 MLS/MIN Methylprednisolone Sodium Succinate 40 mg/Syringe 0.64 ml @ 1.5 mls/min TODAY@0845 ONCE IV 09/09/17 08:45 09/09/17 08:46 DC 09/09/17 09:01 1.5 MLS/MIN Ondansetron HCl (Zofran Inj) 4 mg Q6H IV 09/09/17 17:00 09/10/17 15:22 DC 09/10/17 12:22 4 MG Dronabinol (Marinol Cap) 2.5 mg BID PO 09/09/17 20:00 09/10/17 15:17 DC 09/10/17 08:59 2.5 MG Dronabinol (Marinol Cap) 2.5 mg NOW ONCE PO 09/09/17 16:45 09/09/17 16:46 DC 09/09/17 17:12 2.5 MG Famotidine 20 mg/ Syringe 5 ml @ 2.5 mls/min Q12 IV 09/09/17 17:00 10/09/17 16:59 09/11/17 08:29 2.5 MLS/MIN Ondansetron HCl (Zofran Inj) 4 mg Q6H IV 09/10/17 13:00 09/11/17 13:00 DC 09/11/17 13:27 4 MG Heparin Sodium (Porcine) 7000 unit/Syringe 7 ml @ 10 mls/min NOW ONCE IV 09/10/17 01:30 09/10/17 01:31 DC 09/10/17 01:38 10 MLS/MIN Heparin Sodium/ Dextrose 500 ml @ 26 mls/hr [id number] PRN IV 09/10/17 01:30 10/10/17 01:29 09/11/17 08:50 26 MLS/HR Insulin Glargine (Lantus Solostar Pen) 30 units QAM SC 09/11/17 08:00 10/09/17 07:59 09/11/17 08:28 15 UNITS Dronabinol (Marinol Cap) 5 mg BID PO 09/10/17 20:00 10/09/17 19:59 09/10/17 20:06 5 MG Heparin Sodium (Porcine) 7000 unit/Syringe 7 ml @ 10 mls/min 0845 ONCE IV 09/11/17 08:45 09/11/17 08:46 DC 09/11/17 08:28 10 MLS/MIN Subjective Mr. Weir continues to have difficult eating. He describes something like early satiety, with an urge to belch with even small amounts of food. He has recently had his narcotic dose increased and some of his GI issues correspond with this change. He moves his bowels every other day, on average, but sometimes goes 3 days or more without a BM. He takes intermittent senna and some other sort of stool softener, the name of which he could not recall. He had not yet gone for his EGD by the time I saw him. Review of Systems: Constitutional: No fever, No chills Respiratory: No cough, No shortness of breath Cardiovascular: No chest pain Abdomen: + nausea, + vomiting Male : No dysuria Heme: No abnormal bleeding/bruising, No night sweats Skin: No rash Vital Signs Vital Signs Past 12 Hours Date Time Temp Pulse Resp B/P (MAP) Pulse Ox O2 Delivery O2 Flow Rate FiO2 09/11/17 16:05 82 18 149/83 (105) 96 Room Air 09/11/17 15:51 81 18 140/79 (99) 97 Room Air 09/11/17 14:59 36.7 86 14 155/85 (108) 96 Room Air 09/11/17 14:44 36.8 86 18 151/88 (109) 95 Room Air 09/11/17 14:23 36.2 83 20 149/84 94 Room Air 09/11/17 11:59 36.2 83 20 149/84 (105) 94 Room Air 09/11/17 08:00 95 Room Air 09/11/17 07:32 36.2 78 22 168/88 (114) 95 Room Air 172/89 (116) Physical Exam Constitutional: Level of Distress: NAD, chronically ill Psychiatric: Mental Status: active & alert Orientation: oriented except where noted ENMT: pharynx normal Lungs: Respiratory Effort: no dyspnea Auscuitation: breath sounds normal Cardiovascular: Heart Auscultation: RRR Abdomen: Inspection & Palpation: soft, no tenderness, guarding & rebound Extremities: no edema Laboratory Last 24 Hours Test 09/10/17 16:35 09/10/17 20:00 09/11/17 00:14 09/11/17 07:35 Bedside Glucose 256 mg/dl 248 mg/dl Activated Partial Thromboplast Time 86.0 SECONDS 33.4 SECONDS Partial Thromboplastin Ratio 3.3 1.3 Prothrombin Time 10.4 SECONDS Prothromb Time International Ratio 1.0 Test 09/11/17 07:46 09/11/17 11:20 09/11/17 11:32 09/11/17 14:30 Bedside Glucose 212 mg/dl 247 mg/dl Prealbumin 13.0 mg/dl Assessment & Plan Mr. Weir's EGD revealed extensive esophageal candidasis, which may be contributing to his symptoms. I also suspect narcotic-induced GI motility issues are playing a part as well. He will need treatment for both issues. I would suggest a more aggressive bowel regimen, like Senna and Colace BID with Dulcolax or Miralax as needed if he does not move his bowels in more than 2 days. We will discuss plans for further treatment of his cancer as an outpatient , once his acute issues are resolved.
--- NOTE | 2017-09-11 16:25 | PROGRESS NOTE ---
DATE: 09/11/2017 SUBJECTIVE: The patient underwent an EGD today and was found to have a large volume of fluid in the stomach, about 2 liters, about half which he vomited during the procedure. Unfortunately, did not seem to aspirate. His esophagus was coated with white plaque consistent with severe Linda esophagitis, brush cytology was obtained. Most of the fluid was suctioned from the stomach and the scope advanced into the duodenal bulb. I did not advance beyond there as I was concerned that he could continue to vomit and aspirate. There was no mass, no ulcer, no tumor found. IMPRESSION: The patient has, appears to be Linda esophagitis and gastric retention, probably from gastroparesis related to his pain medication. PLAN: Plan on starting him on antifungal and see if he feels any better. Since he has got gastric retention, I do not think will treat him with Diflucan, which probably is Nystatin swish and swallow.
--- NOTE | 2017-09-11 16:42 | Anesthesiology Progress Note ---
Anesthesia Post Op Note Date & Time Sep 11, 2017 at 16:41 Vital Signs Pain Intensity: 0 Vital Signs Past 12 Hours Date Time Temp Pulse Resp B/P (MAP) Pulse Ox O2 Delivery O2 Flow Rate FiO2 09/11/17 16:18 81 18 143/85 (104) 97 Room Air 09/11/17 16:05 82 18 149/83 (105) 96 Room Air 09/11/17 15:51 81 18 140/79 (99) 97 Room Air 09/11/17 14:59 36.7 86 14 155/85 (108) 96 Room Air 09/11/17 14:44 36.8 86 18 151/88 (109) 95 Room Air 09/11/17 14:23 36.2 83 20 149/84 94 Room Air 09/11/17 11:59 36.2 83 20 149/84 (105) 94 Room Air 09/11/17 11:25 83 94 09/11/17 08:00 95 Room Air 09/11/17 07:32 36.2 78 22 168/88 (114) 95 Room Air 172/89 (116) Notes Mental Status: alert / awake / arousable, participated in evaluation Pt Amnestic to Procedure: Yes Nausea / Vomiting: adequately controlled Pain: adequately controlled Airway Patency, RR, SpO2: stable & adequate BP & HR: stable & adequate Hydration State: stable & adequate Anesthetic Complications: no major complications apparent Anesthetic Complications: Pt with copious stomach contents during EGD and some emesis despite aggressive suctioning though scope. No evidence of aspiration and patient hemodynamically stable throughout case and while in PACU.
[2017-09-11] MEDS: FLUCONAZOLE / NSS 100 MG in PREMIXED NSS 50 ML IV SCH (16:51)
[2017-09-11 17:56] LABS: PTT PATIENT 49.1 SECONDS (21.0-31.0)
[2017-09-11] MEDS: INSULIN HUMAN NPH SQ SCH (20:57)
[2017-09-12] MEDS ORDERED: NURSING VERBAL MED ORDER ONE ×2 (00:15→15:30)
[2017-09-12] MEDS: HEPARIN 25,000 UNIT/500ML D5W 500 ML IV PRN (00:22)
[2017-09-12] MEDS ORDERED: INSULIN ASPART 100 UNITS/ML 3 ML PEN SC ONE (00:45)
[2017-09-12 03:31] VITALS: BP 176/92; PULSE 76; TEMP 36.5; O2SAT 96
[2017-09-12] MEDS: INSULIN ASPART 100 UNITS/ML 3 ML PEN SC SCH ×4 (06:30→20:58)
[2017-09-12] MEDS: LEVOTHYROXINE 100 MCG TAB PO SCH (06:30)
[2017-09-12 07:27] VITALS: BP 152/78; PULSE 85; TEMP 36.6; O2SAT 96
[2017-09-12 07:44] LABS: BASO % 0.1 %; BASO ABS # 0.01 K/uL (0-0.2); EOS % 0.1 %; EOS ABS # 0.01 K/uL (0-0.5); HEMATOCRIT 30.1 % (42-52); HEMOGLOBIN 9.2 g/dL (14.0-18.0); LYMPH % 7.6 %; MEAN CELL VOLUME 85.5 fL (80-100); MEAN CORPUSCULAR HEMOGLOBIN 26.1 pg (25-34); MEAN CORPUSCULAR HGB CONC 30.6 g/dl (32-36); MEAN PLATELET VOLUME 9.6 fL (7.4-10.4); MONO % 7.2 %; MONO ABS # 0.86 K/uL (0.11-0.59); NEUT % 83.3 %; NEUT ABS # 9.92 K/uL (1.4-6.5); PLATELET COUNT 193 K/uL (130-400); RED CELL DISTRIBUTION WIDTH CV 18.1 % (11.5-14.5); RED CELL DISTRIBUTION WIDTH SD 56.7 fL (36.4-46.3)
[2017-09-12 08:14] LABS: ALBUMIN 2.3 gm/dl (3.4-5.0); CALCIUM 9.9 mg/dl (8.5-10.1); CREATININE 1.86 mg/dl (0.60-1.40); POTASSIUM 4.4 mmol/L (3.5-5.1)
[2017-09-12 08:17] LABS: PHOSPHORUS 3.4 mg/dl (2.5-4.9); TOTAL PROTEIN 5.9 gm/dl (6.4-8.2)
[2017-09-12] MEDS: SODIUM CHLORIDE 0.9% 1000ML 1,000 ML IV SCH (09:27)
[2017-09-12] MEDS: METHYLPREDNISOLONE IV 40 MG in SYRINGE 0 ML IV SCH (09:27)
[2017-09-12] MEDS: ASPIRIN 81 MG ECTAB PO SCH (09:28)
[2017-09-12] MEDS: ALLOPURINOL 300 MG TAB PO SCH (09:28)
[2017-09-12] MEDS: CHECK FENTANYL PATCH PLACEMENT SCH ×2 (09:28→16:05)
[2017-09-12] MEDS: NYSTATIN SUSP 500,000 U/5 ML UDC PO SCH ×4 (09:29→20:52)
[2017-09-12] MEDS: METOPROLOL TARTRATE 25 MG TAB PO SCH (09:29)
[2017-09-12] MEDS: DILTIAZEM HCL 120 MG EXT REL CAP PO SCH (09:30)
[2017-09-12] MEDS: DILTIAZEM HCL (TIAzac) 180 MG CAPCR PO SCH (09:30)
[2017-09-12] MEDS: SODIUM BICARBONATE 650 MG TAB PO SCH ×2 (09:31→20:53)
[2017-09-12] MEDS: DRONABINOL 2.5 MG CAP PO SCH ×2 (09:34→21:01)
[2017-09-12] MEDS: FAMOTIDINE IV INJ 20 MG in SYRINGE 3 ML IV SCH (09:35)
[2017-09-12] MEDS: PANTOprazole INJ 40 MG in SYRINGE 0 ML IV SCH (12:32)
[2017-09-12] MEDS: INSULIN GLARGINE SOLOSTAR 100 UNITS/ML 3 ML PEN SC SCH (12:38)
--- NOTE | 2017-09-12 12:49 | DIAGNOSTIC IMAGING REPORT ---
VIDEO SWALLOW HISTORY: Aspiration. Colon cancer. TECHNIQUE: Video fluoroscopic evaluation of swallowing was performed in the AP and lateral projections by the speech pathology staff. The patient is fed nectar-thick and thin liquid barium, a barium coated wafer, and barium pudding. FLUOROSCOPY TIME: 2.5 minutes. NUMBER OF FLUOROSCOPY IMAGES: 0 COMPARISON STUDY: None. FINDINGS: With swallowing thin liquids, there was a single episode of minimal penetration. There is no aspiration. There is no aspiration when swallowing nectar thick liquids, pudding, or cracker with paste. There is premature vallecular leakage. There is mild vallecular residue. IMPRESSION: 1. No aspiration identified. 2. Please see the speech pathologist report for detailed findings and recommendations. Electronically signed by: Froylan Rodriguez M.D. 09/12/2017 12:47 PM Dictated Date/Time: 09/12/2017 12:46 PM
--- NOTE | 2017-09-12 14:34 | Progress Note ---
Subjective Date of Service: Sep 12, 2017. Problem List Medical Problems: (1) Acute kidney injury Status: Acute (2) Cancer of renal pelvis and ureter Permanent Comment: STAGING: Right renal pelvis/ureter, urothelial carcinoma, cT3 /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 Systemic chemotherapy (Opdivo) had progression 2. Combined radiation and chemotherapy. Radiation to the abdomen completed 09/23. Received 5,940 cGy. 3. Plan for immunotherapy Status: Chronic (3) Carcinoma of bladder Permanent Comment: STAGING: Bladder, urothelial carcinoma, [id number] TREATMENT: 1. Partial course of neoadjuvant chemotherapy 2. Radical cystectomy, bilateral pelvic lymph node dissection and ileal neobladder formation - 04/12/2013 3. Adjuvant chemotherapy with G/C for 3 cycles Status: Acute (4) Chemotherapy Status: Acute (5) Dehydration Status: Acute (6) Edema Status: Acute (7) History of pulmonary embolus (PE) Status: Chronic (8) History of renal bleeding Status: Chronic (9) Hypercalcemia Status: Acute (10) Hypercalcemia Status: Acute (11) Hyperglycemia Status: Acute (12) Intractable vomiting Status: Acute (13) Perinephric hematoma Status: Acute (14) Retroperitoneal bleeding Status: Acute (15) Retroperitoneal hematoma Status: Acute (16) Sepsis Status: Acute (17) Vomiting Status: Acute (18) Weakness Status: Acute Objective Vital Signs Date Time Temp Pulse Resp B/P (MAP) Pulse Ox O2 Delivery O2 Flow Rate FiO2 09/12/17 08:40 Room Air 09/12/17 07:27 36.6 85 18 152/78 (102) 96 09/12/17 03:31 36.5 76 20 176/92 (120) 96 Room Air 09/12/17 00:00 Room Air 09/11/17 23:40 36.7 79 20 170/90 (116) 96 Room Air 09/11/17 19:46 36.8 170 81 170/92 (118) 96 Room Air 09/11/17 17:30 36.8 85 18 163/94 (117) 97 Room Air 09/11/17 17:15 36.6 80 20 148/84 (105) 97 Room Air 09/11/17 17:00 36.6 79 20 164/85 (111) 97 Room Air 09/11/17 16:45 36.0 80 18 159/80 (106) 97 Room Air 09/11/17 16:30 Room Air 09/11/17 16:18 81 18 143/85 (104) 97 Room Air 09/11/17 16:05 82 18 149/83 (105) 96 Room Air 09/11/17 15:51 81 18 140/79 (99) 97 Room Air 09/11/17 14:59 36.7 86 14 155/85 (108) 96 Room Air 09/11/17 14:44 36.8 86 18 151/88 (109) 95 Room Air Laboratory Results Last 24 Hours Test 09/11/17 16:46 09/11/17 17:11 09/11/17 19:46 09/12/17 00:20 Bedside Glucose 259 mg/dl 258 mg/dl 199 mg/dl Activated Partial Thromboplast Time 49.1 SECONDS Partial Thromboplastin Ratio 1.9 Test 09/12/17 06:27 09/12/17 07:17 09/12/17 11:30 Bedside Glucose 176 mg/dl 207 mg/dl White Blood Count 11.90 K/uL Red Blood Count 3.52 M/uL Hemoglobin 9.2 g/dL Hematocrit 30.1 % Mean Corpuscular Volume 85.5 fL Mean Corpuscular Hemoglobin 26.1 pg Mean Corpuscular Hemoglobin Concent 30.6 g/dl Platelet Count 193 K/uL Mean Platelet Volume 9.6 fL Neutrophils (%) (Auto) 83.3 % Lymphocytes (%) (Auto) 7.6 % Monocytes (%) (Auto) 7.2 % Eosinophils (%) (Auto) 0.1 % Basophils (%) (Auto) 0.1 % Neutrophils # (Auto) 9.92 K/uL Lymphocytes # (Auto) 0.90 K/uL Monocytes # (Auto) 0.86 K/uL Eosinophils # (Auto) 0.01 K/uL Basophils # (Auto) 0.01 K/uL RDW Standard Deviation 56.7 fL RDW Coefficient of Variation 18.1 % Immature Granulocyte % (Auto) 1.7 % Immature Granulocyte # (Auto) 0.20 K/uL Prothrombin Time 10.5 SECONDS Prothromb Time International Ratio 1.0 Activated Partial Thromboplast Time 53.0 SECONDS Partial Thromboplastin Ratio 2.0 Sodium Level 141 mmol/L Potassium Level 4.4 mmol/L Chloride Level 113 mmol/L Carbon Dioxide Level 18 mmol/L Anion Gap 10.0 mmol/L Blood Urea Nitrogen 56 mg/dl Creatinine 1.86 mg/dl Est Creatinine Clear Calc Drug Dose 46.0 ml/min Estimated GFR () 41.8 Estimated GFR (Non- 36.1 BUN/Creatinine Ratio 30.1 Random Glucose 175 mg/dl Calcium Level 9.9 mg/dl Phosphorus Level 3.4 mg/dl Magnesium Level 2.3 mg/dl Total Bilirubin 0.4 mg/dl Direct Bilirubin 0.1 mg/dl Aspartate Amino Transf (AST/SGOT) 15 U/L Alanine Aminotransferase (ALT/SGPT) 26 U/L Alkaline Phosphatase 182 U/L Total Protein 5.9 gm/dl Albumin 2.3 gm/dl Assessment and Plan (1) Vomiting (2) Hypercalcemia (3) Weakness (4) Carcinoma of bladder (5) Cancer of renal pelvis and ureter (6) Chemotherapy (7) PE (pulmonary embolism) (8) DVT (deep venous thrombosis) (9) Presence of IVC filter (10) DM II (diabetes mellitus, type II), controlled (11) Benign essential HTN (12) Hypothyroidism (13) CKD (chronic kidney disease) stage 3, GFR 30-59 ml/min (14) Edema (15) Hypercalcemia (16) Dysphagia (17) Anemia (18) Acute kidney injury 67-year-old white male admitted because of dysphagia, Linda esophagitis with Vomiting with Dysphagia/odynophagia: causing significant weight loss has lost 40 lbs Had EGD on 09/11/2017, report in below EGD per report: Impression: - Monilial esophagitis. Cells for cytology obtained. - Excessive gastric fluid. - Normal duodenal bulb. Recommendation: - [facility]. - Await pathology results. has been on pepcid IV, scheduled zofran, and trial of marinol (my previous colleague discussed risks/benefits and controversies) GI consulted for the antibiotics because of esophageal candidiasis in cancer.pt Hypercalcemia probably mostly due to dehydration Improved to corrected calcium is 10.5 yesterday continue fluids and follow Weakness, likely multifactorial but poor eating/acute malnutrition/weight loss , treat with hydrate, supportive care, time Hypertensive with history of hypertension, hydralazine as needed metastatic refractory stage iV urothelial carcinoma. most recent PET shows it is confined to right kidney, supposed to follow up with Dr. Collazo, patient and family requesting inpatient visit, oncologist up in per , the report shows that the tumor is confined to the right kidney onco f/u, recs a CT scan without contrast of his head would, which was done and unremarkable Confusion upon admission , Patient currently conversational awake alert and orientated, has CTs not remarkable Chronic anemia, hemoglobin 8.9 from 8.1 yesterday, which is stable Hyperglycemia with history of diabetic on Lantus, currently is nothing by mouth , planning for EGD Chronic kidney disease, creatinine is in baseline History of right lower extremity DVT, S/P IVC filter but was removed , Possible Lovenox bridging for Coumadin upon discharge to home Discussed with Dominga patient's about condition and care plan answer all questions Continued [facility] stay due to: multiple IV medications needed Discharge planning: uncertain
--- NOTE | 2017-09-12 14:58 | Progress Note ---
Progress Note Date of Service Sep 12, 2017. Progress Note ID Consult Dictated #[id number] A/P: 1. Esophageal candidiasis -Suggest fluconazole 200mg po daily x 21 days -Thank you
--- NOTE | 2017-09-12 15:21 | INFECT. DISEASE CONSULTATION ---
DATE OF CONSULTATION: 09/12/2017 DATE OF CONSULTATION: 09/12/2017 REQUESTING PHYSICIAN: Dr. Rodriguez. HISTORY OF PRESENT ILLNESS: This is a 67-year-old gentleman who was admitted to the hospital secondary to weakness and fatigue. He does have a history of pelvis and ureteral cancer which was diagnosed in 2012. He also has a history of bladder carcinoma. He has been following previously at [facility]. He recently had a port placed to begin chemotherapy. As part of his workup here he did undergo an EGD yesterday which showed a diffuse esophageal candidiasis. He was placed on a statin, but infectious disease was called for additional treatment of this. He does have a history of radiation and chemotherapy. On my examination today, he denies any fevers or chills. He denies any abdominal pain, nausea, vomiting or diarrhea. He denies any chest pain. He denies any difficulty swallowing. He did have a swallowing eval which was unremarkable. He has no known drug allergies. He currently has no complaints. He has no pain at his port site. All remaining review of systems are reviewed and unremarkable. PAST MEDICAL HISTORY: Significant for carcinoma as stated above. He has history of PE and IVC filter, cystectomy, lymph node dissection, formation in 2012. SOCIAL HISTORY: Significant for history of tobacco use. He denies any alcohol or drug use. ALLERGIES: He has no known drug allergies. MEDICATIONS: Include Coumadin, insulin, Nystatin suspension, Zofran, hydralazine, Lantus, Marinol, Duragesic patch, Solu-Medrol, subQ heparin, Pepcid, Protonix, allopurinol, aspirin, Lopressor, diltiazem, Synthroid, fluconazole, Maalox. PHYSICAL EXAMINATION: VITAL SIGNS: He is afebrile, pulse 85, respiratory rate 18, blood pressure is 152/78. Oxygen saturation is 96% on room air. GENERAL: He is awake, alert and oriented x3. He is in no acute distress. HEAD, EYES, EARS, NOSE, AND THROAT: Mucous membranes are moist. Extraocular muscles are intact. HEART: Regular. LUNGS: Clear. Port site is clean, dry and intact. ABDOMEN: Soft and nondistended. Catheter is in place. EXTREMITIES: There is no lower extremity edema bilaterally. SKIN: Without rash. Flu swab was negative in the ER. LABORATORY STUDIES: CBC today reveals a white blood cell count of 11.9, hemoglobin 9.2, platelets are 193. Chemistry panel reveals a sodium of 141, potassium 4.4, chloride 113, bicarbonate 18, BUN 56, creatinine 1.6, glucose is 207. LFTs are within normal limits. Urinalysis had no bacteria. A fungal culture of the throat is negative. Venous Dopplers done this admission showed bilateral DVTs. A chest x-ray done in the ER showed atelectasis. IMPRESSION: Esophageal candidiasis. He currently is on fluconazole. This dose could be increased to 200 mg daily. If he is tolerating p.o. and able to eat, which he states he is this certainly could be changed to oral fluconazole. I would recommend a 21-day course. Thank you for this consultation. CORNELIUS
[2017-09-12 15:27] VITALS: BP 166/85; PULSE 82; TEMP 36.7; O2SAT 97
[2017-09-12 16:00] VITALS: O2SAT 97
[2017-09-12] MEDS ORDERED: FLUCONAZOLE / NSS 200 MG in PREMIXED NSS 100 ML IV SCH (16:00)
[2017-09-12] MEDS: FAMOTIDINE 20 MG TAB PO SCH (20:52)
[2017-09-12] MEDS: INSULIN HUMAN NPH SQ SCH (20:57)
[2017-09-12 22:43] VITALS: BP 153/76; PULSE 64; TEMP 36.5; O2SAT 96
[2017-09-13] VITALS (7 sets, daily range): BP systolic 122–156; BP diastolic 72–88; PULSE 73–83; TEMP 36.4–37; O2SAT 94–98
[2017-09-13] MEDS: CHECK FENTANYL PATCH PLACEMENT SCH ×4 (00:41→23:25)
[2017-09-13] MEDS: ACETAMINOPHEN 325 MG TAB PO PRN ×2 (03:45→23:15)
[2017-09-13] MEDS: LEVOTHYROXINE 100 MCG TAB PO SCH (07:10)
[2017-09-13 07:49] LABS: PTT PATIENT 59.2 SECONDS (21.0-31.0)
[2017-09-13] MEDS ORDERED: WARFARIN SOD 4 MG TAB PO SCH (08:00)
[2017-09-13] MEDS: PANTOprazole SOD 40 MG TAB PO SCH (09:01)
[2017-09-13] MEDS: ALLOPURINOL 300 MG TAB PO SCH (09:01)
[2017-09-13] MEDS: METOPROLOL TARTRATE 25 MG TAB PO SCH (09:01)
[2017-09-13] MEDS: ASPIRIN 81 MG ECTAB PO SCH (09:01)
[2017-09-13] MEDS: NYSTATIN SUSP 500,000 U/5 ML UDC PO SCH ×4 (09:02→21:20)
[2017-09-13] MEDS: SODIUM BICARBONATE 650 MG TAB PO SCH ×2 (09:02→21:21)
[2017-09-13] MEDS: DILTIAZEM HCL (TIAzac) 180 MG CAPCR PO SCH (09:02)
[2017-09-13] MEDS: DILTIAZEM HCL 120 MG EXT REL CAP PO SCH (09:03)
[2017-09-13] MEDS: FAMOTIDINE 20 MG TAB PO SCH ×2 (09:03→21:22)
[2017-09-13] MEDS: METHYLPREDNISOLONE IV 40 MG in SYRINGE 0 ML IV SCH (09:03)
[2017-09-13] MEDS: DRONABINOL 2.5 MG CAP PO SCH ×2 (09:10→21:30)
[2017-09-13] MEDS: FENTANYL 25 MCG/HR TDSY TD SCH (09:11)
[2017-09-13] MEDS: INSULIN ASPART 100 UNITS/ML 3 ML PEN SC SCH ×4 (09:21→21:25)
[2017-09-13] MEDS: INSULIN GLARGINE SOLOSTAR 100 UNITS/ML 3 ML PEN SC SCH (09:22)
[2017-09-13] MEDS: FENTANYL PATCH REMOVE & WASTE SCH (09:23)
--- NOTE | 2017-09-13 09:46 | Progress Note ---
Subjective Date of Service: Sep 13, 2017. Subjective Pt evaluation today including: conversation w/ patient, conversation w/ family , physical exam, chart review, lab review, review of studies, conversation w/ [employer] operations consultant, review of inpatient medication list Generally feeling better, and stronger , tolerate diet, still has pain when swallowing and after eating, patient has been better controlled, however and this morning is feeling some pain is generalized pain, has Rice catheter which is not new because of neobladder Problem List Medical Problems: (1) Acute kidney injury Status: Acute (2) Cancer of renal pelvis and ureter Permanent Comment: STAGING: Right renal pelvis/ureter, urothelial carcinoma, cT3 /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 Systemic chemotherapy (Opdivo) had progression 2. Combined radiation and chemotherapy. Radiation to the abdomen completed 09/23. Received 5,940 cGy. 3. Plan for immunotherapy Status: Chronic (3) Carcinoma of bladder Permanent Comment: STAGING: Bladder, urothelial carcinoma, [id number] TREATMENT: 1. Partial course of neoadjuvant chemotherapy 2. Radical cystectomy, bilateral pelvic lymph node dissection and ileal neobladder formation - 04/12/2013 3. Adjuvant chemotherapy with G/C for 3 cycles Status: Acute (4) Chemotherapy Status: Acute (5) Dehydration Status: Acute (6) Edema Status: Acute (7) History of pulmonary embolus (PE) Status: Chronic (8) History of renal bleeding Status: Chronic (9) Hypercalcemia Status: Acute (10) Hypercalcemia Status: Acute (11) Hyperglycemia Status: Acute (12) Intractable vomiting Status: Acute (13) Perinephric hematoma Status: Acute (14) Retroperitoneal bleeding Status: Acute (15) Retroperitoneal hematoma Status: Acute (16) Sepsis Status: Acute (17) Vomiting Status: Acute (18) Weakness Status: Acute Review of Systems Constitutional: + weakness, + fatigue, No fever, No chills, No sweats, No weight loss, No problem reported Eyes: No worsening of vision, No eye pain, No redness, No discharge, No diplopia ENT: No hearing loss, No unusual epistaxis, No nasal symptoms, No sore throat, No tinnitus, No dental problems, No trouble swallowing Respiratory: No cough, No sputum, No wheezing, No shortness of breath, No dyspnea on exertion, No dyspnea at rest, No hemoptysis Cardiac: No chest pain, No orthopnea, No PND, No edema, No claudication, No palpitations Abdomen: No pain, No nausea, No vomiting, No diarrhea, No constipation Musculoskeletal: No joint pain, No muscle pain, No swelling, No calf pain Male : + incontinence (sometimes), No dysuria, No urinary frequency, No nocturia more than once/night, No slowing stream, No hematuria Neurologic: No memory loss, No paralysis, No weakness, No numbness/tingling, No vertigo, No balance problems Psychiatric: No depression symptoms, No anhedonism, No anxiety, No insomnia, No substance abuse Heme: No abnormal bleeding/bruising, No clotting problems, No swollen lymph nodes, No night sweats Endo: No fatigue, No excessive thirst, No excessive urination Skin: No rash, No itch, No new/changing skin lesions, No color change, No bleeding Objective Vital Signs Date Time Temp Pulse Resp B/P (MAP) Pulse Ox O2 Delivery O2 Flow Rate FiO2 09/13/17 07:38 36.7 77 18 122/72 (89) 97 Room Air 09/13/17 03:30 36.5 78 19 149/88 (108) 96 Room Air 09/13/17 01:00 Room Air 09/12/17 22:43 36.5 64 20 153/76 (101) 96 Room Air 09/12/17 16:00 97 Room Air 09/12/17 15:27 36.7 82 18 166/85 (112) 97 Room Air Physical Exam General Appearance: WD/WN, no apparent distress, + pertinent finding ( generally looks better in 2 days) Eyes: normal inspection, PERRL, EOMI, sclerae normal ENT: normal ENT inspection, hearing grossly normal, pharynx normal Neck: supple, no adenopathy, thyroid normal, no JVD, no carotid bruits, trachea midline Respiratory/Chest: chest non-tender, lungs clear, normal breath sounds, no respiratory distress, no accessory muscle use Cardiovascular: regular rate, rhythm, no edema, no gallop, no JVD, no murmur Abdomen: normal bowel sounds, non tender, soft, no organomegaly, no pulsatile mass, + pertinent finding (Rice in place with clean and yellow urine) Extremities: normal range of motion, non-tender, normal inspection, no pedal edema, no calf tenderness, normal capillary refill, pelvis stable Neurologic/Psychiatric: 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, no motor/sensory deficits, alert, normal mood/affect, oriented x 3 Skin: normal color, warm/dry, no rash Lymphatic: no adenopathy Laboratory Results Last 24 Hours Test 09/12/17 11:30 09/12/17 16:39 09/12/17 20:08 09/13/17 07:06 Bedside Glucose 207 mg/dl 223 mg/dl 259 mg/dl Prothrombin Time 10.5 SECONDS Prothromb Time International Ratio 1.0 Activated Partial Thromboplast Time 59.2 SECONDS Partial Thromboplastin Ratio 2.3 Test 09/13/17 07:50 Bedside Glucose 186 mg/dl Assessment and Plan (1) Vomiting (2) Hypercalcemia (3) Weakness (4) Carcinoma of bladder (5) Cancer of renal pelvis and ureter (6) Chemotherapy (7) PE (pulmonary embolism) (8) DVT (deep venous thrombosis) (9) Presence of IVC filter (10) DM II (diabetes mellitus, type II), controlled (11) Benign essential HTN (12) Hypothyroidism (13) CKD (chronic kidney disease) stage 3, GFR 30-59 ml/min (14) Edema (15) Hypercalcemia (16) Dysphagia (17) Anemia (18) Acute kidney injury 67-year-old white male admitted because of dysphagia, Linda esophagitis with Vomiting with Dysphagia/odynophagia: causing significant weight loss has lost 40 lbs Had EGD on 09/11/2017, report in below EGD per report: Impression: - Monilial esophagitis. Cells for cytology obtained. - Excessive gastric fluid. - Normal duodenal bulb. Recommendation: - [facility]. - Await pathology results. has been on pepcid IV, scheduled zofran, and trial of marinol (my previous colleague discussed risks/benefits and controversies) ID consulted for the antibiotics because of esophageal candidiasis in cancer.pt Per recommendation from ID, Diflucan can be 200 mg daily for totally 21 days, today is day 2 , has change IV to oral to see if patient able to tolerate Hypercalcemia, resolved probably mostly due to dehydration , encourage plenty fluid intake, follow-up labs Weakness, likely multifactorial but poor eating/acute malnutrition/weight loss , treat with hydrate, supportive care, time Hypertensive with history of hypertension, stable, hydralazine as needed metastatic refractory stage iV urothelial carcinoma. most recent PET shows it is confined to right kidney, supposed to follow up with Dr. Collazo, patient and family requesting inpatient visit, oncologist up in per , the report shows that the tumor is confined to the right kidney onco f/u, recs a CT scan without contrast of his head would, which was done and unremarkable Confusion upon admission , Patient currently conversational awake alert and orientated, has CTs not remarkable Chronic anemia, hemoglobin 8.9 to 9.1 yesterday, which is stable Hyperglycemia with history of diabetic on Lantus, continue current dose Chronic kidney disease, creatinine is in baseline, continue improving Right lower extremity DVT, S/P IVC filter but was removed , history of kidney bleeding need to transfer to [facility] because of on Lovenox Therefore he'll be not safe to use Lovenox bridging for Coumadin upon discharge to home, continue heparin drip until INR therapeutic Again discussed the risk and benefit of anticoagulation which include current heparin drip, and on Coumadin, and also discussed the options, such as IVC filter,, patient and understand and willing to take all the risks to be on blood thinner because they don't want to get pulmonary embolization which can be life-threatening For the pain control, we'll continue fentanyl patch, and discussed to taper off the Marinol , patient and family agreed Discussed with Dominga patient's about condition and care plan answer all questions Planning to go to [facility] when INR therapeutic Continued [facility] stay due to: multiple IV medications needed Discharge planning: rehab hospital
[2017-09-13] MEDS: FLUCONAZOLE 100 MG TAB PO SCH (11:43)
[2017-09-13] MEDS: HEPARIN 25,000 UNIT/500ML D5W 500 ML IV PRN (14:46)
[2017-09-13] MEDS ORDERED: WARFARIN SOD 5 MG TAB PO SCH (16:00)
--- NOTE | 2017-09-13 18:36 | GASTROENTEROLOGY PROGRESS NOTE ---
DATE: 09/13/2017 GASTROENTEROLOGY INPATIENT PROGRESS NOTE SUBJECTIVE: Chart reviewed, patient examined. The patient is sitting in bed comfortably and seemed to be tolerating food intake better today. The patient reports that his symptoms of dysphagia and discomfort seem to be getting better. This likely reflects the Diflucan IV, given his diffuse esophageal candidiasis. There was evidence of potential outlet obstruction or dysmotility with retained fluid in the stomach. The duodenal bulb was not traversed. The patient had an oral specimen obtained for cytology that did not reveal yeast or hyphae. However, the endoscopic appearance appears to represent esophageal candidiasis. MEDICATIONS: The patient's medications include Marinol, fluconazole, pantoprazole, famotidine, insulin, nystatin, hydralazine, Zofran. The patient is no longer on steroids. The patient on levothyroxine, diltiazem, and Lopressor. LABORATORY DATA: His laboratory studies today - white count of 11.9, up slightly from yesterday, although down from September 08; his hemoglobin is stable at 9.2, platelets 193. Serum chemistry is mid 200 on sugars. The patient's hepatitis B core total antibody is nonreactive. He is negative for influenza A and B. REVIEW OF SYSTEMS: Otherwise noncontributory based on 13-point exam except for mentioned above. The patient did not have a bowel movement yet, and believes he feels like he may have to go soon, although has not had flatus. PHYSICAL EXAMINATION: VITAL SIGNS: At this time, blood pressure 136/88, afebrile, 36.4, 97% on room air, respirations 18, pulse 83. GENERAL: The patient is awake, alert and oriented x3. HEENT: Sclerae are anicteric, conjunctivae moist. HEART: Normal S1, S2. LUNGS: Clear to auscultation. ABDOMEN: Soft, flat, nontender, without rebound or guarding. EXTREMITIES: Without edema. RECTAL: Deferred. IMPRESSION AND PLAN: The patient with evidence of esophageal candidiasis endoscopically, although brushings did not reveal this. Nevertheless, he has shown improvement with Diflucan IV and this should be continued. He has begun to tolerate oral intake better. Hopefully, as this resolves and his intestinal motility improves, he will begin bowel movements. Would follow with serial exams and if this is no evidence for return of bowel movements, consideration for enema may be prudent. Will follow with you.
[2017-09-13] MEDS: INSULIN HUMAN NPH SQ SCH (21:26)
[2017-09-13] MEDS ORDERED: COUGH DROP (SUGAR FREE) LOZ 24 LOZ/1 BOX ONE (21:27)
[2017-09-14] VITALS (7 sets, daily range): BP systolic 122–155; BP diastolic 78–88; PULSE 74–87; TEMP 36.3–36.8; O2SAT 96–99
[2017-09-14] MEDS: ACETAMINOPHEN 325 MG TAB PO PRN (04:21)
[2017-09-14] MEDS: LEVOTHYROXINE 100 MCG TAB PO SCH (05:53)
[2017-09-14 06:30] LABS: HEMATOCRIT 28.8 % (42-52); HEMOGLOBIN 8.8 g/dL (14.0-18.0); MEAN CELL VOLUME 84.5 fL (80-100); MEAN CORPUSCULAR HEMOGLOBIN 25.8 pg (25-34); MEAN CORPUSCULAR HGB CONC 30.6 g/dl (32-36); MEAN PLATELET VOLUME 9.5 fL (7.4-10.4); PLATELET COUNT 198 K/uL (130-400); RED CELL DISTRIBUTION WIDTH CV 18.1 % (11.5-14.5); RED CELL DISTRIBUTION WIDTH SD 55.6 fL (36.4-46.3); WHITE BLOOD COUNT 13.85 K/uL (4.8-10.8)
[2017-09-14 06:50] LABS: PTT PATIENT 58.3 SECONDS (21.0-31.0)
[2017-09-14 07:01] LABS: CALCIUM 9.1 mg/dl (8.5-10.1); CREATININE 1.71 mg/dl (0.60-1.40); POTASSIUM 4.3 mmol/L (3.5-5.1)
[2017-09-14] MEDS: DRONABINOL 2.5 MG CAP PO SCH (09:27)
[2017-09-14] MEDS: ALLOPURINOL 300 MG TAB PO SCH (09:27)
[2017-09-14] MEDS: FAMOTIDINE 20 MG TAB PO SCH ×2 (09:28→20:11)
[2017-09-14] MEDS: METOPROLOL TARTRATE 25 MG TAB PO SCH (09:28)
[2017-09-14] MEDS: ASPIRIN 81 MG ECTAB PO SCH (09:28)
[2017-09-14] MEDS: PANTOprazole SOD 40 MG TAB PO SCH (09:28)
[2017-09-14] MEDS: DILTIAZEM HCL 120 MG EXT REL CAP PO SCH (09:29)
[2017-09-14] MEDS: DILTIAZEM HCL (TIAzac) 180 MG CAPCR PO SCH (09:29)
[2017-09-14] MEDS: FLUCONAZOLE 100 MG TAB PO SCH (09:30)
[2017-09-14] MEDS: NYSTATIN SUSP 500,000 U/5 ML UDC PO SCH ×4 (09:30→20:10)
[2017-09-14] MEDS: SODIUM BICARBONATE 650 MG TAB PO SCH ×2 (09:30→20:10)
[2017-09-14] MEDS: INSULIN ASPART 100 UNITS/ML 3 ML PEN SC SCH ×4 (09:35→20:15)
[2017-09-14] MEDS: INSULIN GLARGINE SOLOSTAR 100 UNITS/ML 3 ML PEN SC SCH (09:36)
--- NOTE | 2017-09-14 10:11 | Progress Note ---
Subjective Date of Service: Sep 14, 2017. Subjective Pt evaluation today including: conversation w/ patient, conversation w/ family , physical exam, chart review, lab review, review of studies, conversation w/ financial sales consultant, review of inpatient medication list Has been out of bed to chair, occasionally, report possible worsening heartburn or esophageal pain when swallowing and eating, feel lower back pain is coming back, Otherwise tolerate diet, voiding okay, no fever and chill, denied dysuria Problem List Medical Problems: (1) Acute kidney injury Status: Acute (2) Cancer of renal pelvis and ureter Permanent Comment: STAGING: Right renal pelvis/ureter, urothelial carcinoma, cT3 /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 Systemic chemotherapy (Opdivo) had progression 2. Combined radiation and chemotherapy. Radiation to the abdomen completed 09/23. Received 5,940 cGy. 3. Plan for immunotherapy Status: Chronic (3) Carcinoma of bladder Permanent Comment: STAGING: Bladder, urothelial carcinoma, [id number] TREATMENT: 1. Partial course of neoadjuvant chemotherapy 2. Radical cystectomy, bilateral pelvic lymph node dissection and ileal neobladder formation - 04/12/2013 3. Adjuvant chemotherapy with G/C for 3 cycles Status: Acute (4) Chemotherapy Status: Acute (5) Dehydration Status: Acute (6) Edema Status: Acute (7) History of pulmonary embolus (PE) Status: Chronic (8) History of renal bleeding Status: Chronic (9) Hypercalcemia Status: Acute (10) Hypercalcemia Status: Acute (11) Hyperglycemia Status: Acute (12) Intractable vomiting Status: Acute (13) Perinephric hematoma Status: Acute (14) Retroperitoneal bleeding Status: Acute (15) Retroperitoneal hematoma Status: Acute (16) Sepsis Status: Acute (17) Vomiting Status: Acute (18) Weakness Status: Acute Review of Systems Constitutional: + weakness, + fatigue, No fever, No chills, No sweats, No weight loss, No problem reported Eyes: No worsening of vision, No eye pain, No redness, No discharge, No diplopia ENT: No hearing loss, No unusual epistaxis, No nasal symptoms, No sore throat, No tinnitus, No dental problems, No trouble swallowing Respiratory: No cough, No sputum, No wheezing, No shortness of breath, No dyspnea on exertion, No dyspnea at rest, No hemoptysis Cardiac: No chest pain, No orthopnea, No PND, No edema, No claudication, No palpitations Abdomen: + problem reported (heartburn), No pain, No nausea, No vomiting, No diarrhea, No constipation Musculoskeletal: + problem reported (low back pain having this problem before) , No joint pain, No muscle pain, No swelling, No calf pain Male : No dysuria, No urinary frequency, No incontinence, No nocturia more than once/night, No slowing stream, No hematuria Neurologic: No memory loss, No paralysis, No weakness, No numbness/tingling, No vertigo, No balance problems Psychiatric: No depression symptoms, No anhedonism, No anxiety, No insomnia, No substance abuse Heme: No abnormal bleeding/bruising, No clotting problems, No swollen lymph nodes, No night sweats Endo: No fatigue, No excessive thirst, No excessive urination Skin: No rash, No itch, No new/changing skin lesions, No color change, No bleeding Objective Vital Signs Date Time Temp Pulse Resp B/P (MAP) Pulse Ox O2 Delivery O2 Flow Rate FiO2 09/14/17 07:08 36.3 76 22 155/78 (103) 99 Room Air 09/14/17 04:23 36.7 81 20 122/82 (95) 96 Room Air 09/14/17 00:30 Room Air 09/13/17 23:30 36.6 73 22 137/79 (98) 96 Room Air 09/13/17 19:26 37.0 73 16 149/82 (104) 94 Room Air 09/13/17 16:30 Room Air 09/13/17 15:28 36.4 83 18 156/88 (110) 97 Room Air 09/13/17 15:15 80 98 09/13/17 11:57 36.7 83 18 154/88 (110) 95 Room Air Physical Exam General Appearance: WD/WN, no apparent distress, + pertinent finding (looks a little uncomfortable compared to yesterday) Eyes: normal inspection, PERRL, EOMI, sclerae normal ENT: normal ENT inspection, hearing grossly normal, pharynx normal Neck: supple, no adenopathy, thyroid normal, no JVD, no carotid bruits, trachea midline Respiratory/Chest: chest non-tender, normal breath sounds, no respiratory distress, no accessory muscle use, + decreased breath sounds Cardiovascular: regular rate, rhythm, no gallop, no JVD, no murmur, + pertinent finding (trace edema) Abdomen: normal bowel sounds, non tender, soft, no organomegaly, no pulsatile mass Extremities: normal range of motion, non-tender, normal inspection, no pedal edema, no calf tenderness, normal capillary refill, pelvis stable, + swelling ( trace edema) Neurologic/Psychiatric: 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, no motor/sensory deficits, alert, normal mood/affect, oriented x 3 Skin: normal color, warm/dry, no rash Lymphatic: no adenopathy Laboratory Results Last 24 Hours Test 09/13/17 12:15 09/13/17 16:26 09/13/17 20:07 09/14/17 05:50 Bedside Glucose 205 mg/dl 228 mg/dl 222 mg/dl White Blood Count 13.85 K/uL Red Blood Count 3.41 M/uL Hemoglobin 8.8 g/dL Hematocrit 28.8 % Mean Corpuscular Volume 84.5 fL Mean Corpuscular Hemoglobin 25.8 pg Mean Corpuscular Hemoglobin Concent 30.6 g/dl RDW Standard Deviation 55.6 fL RDW Coefficient of Variation 18.1 % Platelet Count 198 K/uL Mean Platelet Volume 9.5 fL Prothrombin Time 10.8 SECONDS Prothromb Time International Ratio 1.0 Activated Partial Thromboplast Time 58.3 SECONDS Partial Thromboplastin Ratio 2.2 Sodium Level 135 mmol/L Potassium Level 4.3 mmol/L Chloride Level 106 mmol/L Carbon Dioxide Level 20 mmol/L Anion Gap 9.0 mmol/L Blood Urea Nitrogen 49 mg/dl Creatinine 1.71 mg/dl Est Creatinine Clear Calc Drug Dose 49.8 ml/min Estimated GFR () 46.3 Estimated GFR (Non- 40.0 BUN/Creatinine Ratio 28.5 Random Glucose 220 mg/dl Calcium Level 9.1 mg/dl Magnesium Level 1.8 mg/dl Test 09/14/17 07:29 Bedside Glucose 231 mg/dl Assessment and Plan (1) Vomiting (2) Hypercalcemia (3) Weakness (4) Carcinoma of bladder (5) Cancer of renal pelvis and ureter (6) Chemotherapy (7) PE (pulmonary embolism) (8) DVT (deep venous thrombosis) (9) Presence of IVC filter (10) DM II (diabetes mellitus, type II), controlled (11) Benign essential HTN (12) Hypothyroidism (13) CKD (chronic kidney disease) stage 3, GFR 30-59 ml/min (14) Edema (15) Hypercalcemia (16) Dysphagia (17) Anemia (18) Acute kidney injury 67-year-old white male admitted because of dysphagia, Linda esophagitis with Vomiting with Dysphagia/odynophagia: Possible worse heartburn after switch IV Pepcid and Protonix to by mouth, and switching fluconazole to by mouth Had EGD on 09/11/2017, report in below EGD per report: Impression: - Monilial esophagitis. Cells for cytology obtained. - Excessive gastric fluid. - Normal duodenal bulb. Recommendation: - [facility]. - Await pathology results. has been on pepcid IV, scheduled zofran, and trial of marinol (my previous colleague discussed risks/benefits and controversies) Continue current dose of Pepcid, Protonix, Diflucan, and reduced dose of Marinol ID consulted for the antibiotics because of esophageal candidiasis in cancer.pt Per recommendation from ID, Diflucan can be 200 mg daily for totally 21 days, today is day , has change IV to oral to see if patient able to tolerate Hypercalcemia, resolved probably mostly due to dehydration , encourage plenty fluid intake, follow-up labs Weakness, likely multifactorial but poor eating/acute malnutrition/weight loss , Continue treat with hydrate, supportive care, time Hypertensive with history of hypertension, stable, hydralazine as needed metastatic refractory stage iV urothelial carcinoma. most recent PET shows it is confined to right kidney, supposed to follow up with Dr. Collazo, patient and family requesting inpatient visit, oncologist on the case per , the report shows that the tumor is confined to the right kidney onco f/u, recs a CT scan without contrast of his head would, which was done and unremarkable Confusion upon admission , Totally resolved Patient currently conversational awake alert and orientated, has CTs not remarkable Chronic anemia, hemoglobin stable Hyperglycemia with history of diabetic on Lantus, continue current dose Chronic kidney disease, creatinine is in baseline, continue improving Right lower extremity DVT, hx of S/P IVC filter but was removed , history of kidney bleeding need to transfer to [facility] while on Lovenox Therefore he'll be not safe to use Lovenox bridging for Coumadin upon discharge to home, continue heparin drip until INR therapeutic Again discussed the risk and benefit of anticoagulation which include current heparin drip, and on Coumadin, and also discussed the options, such as IVC filter,, patient and understand and willing to take all the risks to be on blood thinner because they don't want to get pulmonary embolization which can be life-threatening INR is 1.0 today, increase Coumadin from 4 mg to 5 mg yesterday, today we'll increase to 6 mg by mouth daily, follow-up PT/INR For the pain control, we'll continue fentanyl patch, and discussed to taper off the Marinol , continue lower dose , heating pack for lower back pain , oxycodone as needed for breakthrough pain, patient and family agreed Discussed with Dominga patient's about condition and care plan answer all questions Planning to go to [facility] when INR therapeutic, in the case can stop heparin drip Continued [facility] stay due to: multiple IV medications needed Discharge planning: rehab hospital
[2017-09-14] MEDS ORDERED: NURSING VERBAL MED ORDER ONE (10:15)
[2017-09-14] MEDS ORDERED: FENTANYL 12 MCG/HR TDSY TD SCH (11:00)
[2017-09-14] MEDS ORDERED: FENTANYL 25 MCG/HR TDSY TD SCH (11:00)
[2017-09-14] MEDS: BOOST VANILLA PO SCH ×2 (14:30→20:17)
[2017-09-14] MEDS: CHECK FENTANYL PATCH PLACEMENT SCH (16:00)
[2017-09-14] MEDS ORDERED: CHECK FENTANYL PATCH PLACEMENT SCH (16:00)
--- NOTE | 2017-09-14 16:18 | Hematology/Oncology Prog Note ---
Hematology/Onc Progress Note Date of Service Sep 14, 2017. 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 Intractable nausea/vomiting Medications Medications Administered Medications (Trade) Dose Ordered Sig/Sara Route Start Time Stop Time Status Last Admin Dose Admin Enoxaparin Sodium (Lovenox Inj) 40 mg Q24H SQ 09/08/17 16:00 09/10/17 01:16 DC 09/09/17 16:19 40 MG Acetaminophen (Tylenol Tab) 650 mg Q4H PRN PO 09/08/17 12:45 10/08/17 12:44 09/14/17 04:21 650 MG Ondansetron HCl (Zofran Inj) 4 mg Q6H PRN IV 09/08/17 12:45 09/09/17 15:19 DC 09/09/17 12:32 4 MG Pantoprazole Sodium 40 mg/ Syringe 10 ml @ 5 mls/min DAILY@11 IV 09/09/17 11:00 09/12/17 15:26 DC 09/12/17 12:32 5 MLS/MIN Pantoprazole Sodium 40 mg/ Syringe 10 ml @ 5 mls/min TODAY@1300 ONCE IV 09/08/17 13:00 09/08/17 13:01 DC 09/08/17 13:30 5 MLS/MIN Allopurinol (Zyloprim Tab) 300 mg DAILY PO 09/09/17 08:00 10/09/17 07:59 09/14/17 09:27 300 MG Aspirin (Ecotrin Tab) 81 mg QAM PO 09/09/17 08:00 10/09/17 07:59 09/14/17 09:28 81 MG Levothyroxine Sodium (Synthroid Tab) 100 mcg DAILYBB PO 09/09/17 06:30 10/09/17 06:29 09/14/17 05:53 100 MCG Metoprolol Tartrate (Lopressor Tab) 75 mg DAILY PO 09/09/17 08:00 10/09/17 07:59 09/14/17 09:28 75 MG Sodium Bicarbonate (Sodium Bicarbonate Tab) 650 mg BID PO 09/08/17 20:00 10/08/17 19:59 09/14/17 09:30 650 MG Diltiazem HCl (TIAzac CAP) 240 mg DAILY PO 09/09/17 08:00 10/09/17 07:59 09/14/17 09:29 240 MG Miscellaneous Information (Check Fentanyl Patch Placement) 1 ea QS N/A 09/08/17 16:00 09/14/17 10:15 DC 09/13/17 23:25 1 EA Sodium Chloride 1,000 ml @ 75 mls/hr [id number] IV 09/08/17 13:00 09/12/17 15:26 DC 09/12/17 09:27 75 MLS/HR Diltiazem HCl (TIAzac CAP) 180 mg DAILY PO 09/09/17 08:00 10/09/17 07:59 09/14/17 09:29 180 MG Fentanyl (Duragesic Patch) 25 mcg Q3D@0900 TD 09/10/17 09:00 09/14/17 10:15 DC 09/13/17 09:11 25 MCG Miscellaneous (Fentanyl Patch Remove & Waste) 1 ea Q3D@0859 N/A 09/10/17 08:59 09/14/17 10:15 DC 09/13/17 09:23 1 EA Lidocaine HCl/ Diphenhydramine HCl/Al Hydroxide/ Mg Hydroxide/ Glycerin/Barcode Q6H PRN MT 09/08/17 14:15 10/08/17 14:14 09/08/17 19:05 5 ML Insulin Glargine (Lantus Solostar Pen) 25 units QAM SC 09/09/17 08:00 09/10/17 08:21 DC 09/09/17 08:21 25 UNITS Insulin Human NPH (novoLIN-N NPH) 15 units HS SQ 09/08/17 21:00 10/08/17 20:59 09/13/17 21:26 15 UNITS Insulin Aspart (novoLOG ASPART) SLIDING SCALE G... ACHS SC 09/08/17 16:30 09/12/17 00:07 DC 09/11/17 20:56 4 UNITS Fluconazole/ Sodium Chloride 100 mg/Prmx 50 ml @ 100 mls/hr Q24H IV 09/08/17 16:00 09/12/17 15:28 DC 09/11/17 16:51 100 MLS/HR Nystatin (Mycostatin Susp) 5 ml QID PO 09/08/17 17:00 09/11/17 15:53 DC 09/10/17 20:07 5 ML Methylprednisolone Sodium Succinate 40 mg/Syringe 0.64 ml @ 1.5 mls/min DAILY IV 09/10/17 08:00 09/13/17 09:38 DC 09/13/17 09:03 1.5 MLS/MIN Methylprednisolone Sodium Succinate 40 mg/Syringe 0.64 ml @ 1.5 mls/min TODAY@0845 ONCE IV 09/09/17 08:45 09/09/17 08:46 DC 09/09/17 09:01 1.5 MLS/MIN Ondansetron HCl (Zofran Inj) 4 mg Q6H IV 09/09/17 17:00 09/10/17 15:22 DC 09/10/17 12:22 4 MG Dronabinol (Marinol Cap) 2.5 mg BID PO 09/09/17 20:00 09/10/17 15:17 DC 09/10/17 08:59 2.5 MG Dronabinol (Marinol Cap) 2.5 mg NOW ONCE PO 09/09/17 16:45 09/09/17 16:46 DC 09/09/17 17:12 2.5 MG Famotidine 20 mg/ Syringe 5 ml @ 2.5 mls/min Q12 IV 09/09/17 17:00 09/12/17 15:26 DC 09/12/17 09:35 2.5 MLS/MIN Ondansetron HCl (Zofran Inj) 4 mg Q6H IV 09/10/17 13:00 09/11/17 13:00 DC 09/11/17 13:27 4 MG Heparin Sodium (Porcine) 7000 unit/Syringe 7 ml @ 10 mls/min NOW ONCE IV 09/10/17 01:30 09/10/17 01:31 DC 09/10/17 01:38 10 MLS/MIN Heparin Sodium/ Dextrose 500 ml @ 26 mls/hr [id number] PRN IV 09/10/17 01:30 10/10/17 01:29 09/13/17 14:46 26 MLS/HR Insulin Glargine (Lantus Solostar Pen) 30 units QAM SC 09/11/17 08:00 10/09/17 07:59 09/14/17 09:36 30 UNITS Dronabinol (Marinol Cap) 5 mg BID PO 09/10/17 20:00 09/13/17 09:38 DC 09/13/17 09:10 5 MG Heparin Sodium (Porcine) 7000 unit/Syringe 7 ml @ 10 mls/min 0845 ONCE IV 09/11/17 08:45 09/11/17 08:46 DC 09/11/17 08:28 10 MLS/MIN Nystatin (Mycostatin Susp) 10 ml QID PO 09/11/17 17:00 09/21/17 16:59 09/14/17 13:15 10 ML Insulin Aspart (novoLOG ASPART) SLIDING SCALE G... Q6 SC 09/12/17 06:00 09/12/17 15:21 DC 09/12/17 12:38 6 UNITS Insulin Aspart (novoLOG ASPART) SLIDING SCALE G... ONE ONCE SC 09/12/17 00:45 09/12/17 00:47 DC 09/12/17 01:04 2 UNITS Warfarin Sodium (Coumadin Tab) 4 mg DAILY@1600 PO 09/13/17 08:00 09/14/17 07:34 DC 09/13/17 09:04 4 MG Insulin Aspart (novoLOG ASPART) SLIDING SCALE G... ACHS SC 09/12/17 16:30 10/12/17 16:29 09/14/17 13:13 7 UNITS Famotidine (Pepcid Tab) 20 mg BID PO 09/12/17 20:00 10/12/17 19:59 09/14/17 09:28 20 MG Pantoprazole Sodium (Protonix Tab) 40 mg DAILY PO 09/13/17 08:00 10/13/17 07:59 09/14/17 09:28 40 MG Fluconazole/ Sodium Chloride 200 mg/Prmx 100 ml @ 100 mls/hr Q24H IV 09/12/17 16:00 09/13/17 09:35 DC 09/12/17 16:11 100 MLS/HR Dronabinol (Marinol Cap) 2.5 mg BID PO 09/13/17 20:00 09/14/17 10:15 DC 09/14/17 09:27 2.5 MG Fluconazole (Diflucan Tab) 200 mg QAM PO 09/13/17 10:30 09/18/17 07:59 09/14/17 09:30 200 MG Warfarin Sodium (Coumadin Tab) 5 mg TODAY@1600 PO 09/13/17 16:00 09/13/17 18:00 DC 09/13/17 16:43 5 MG Menthol (Nice Kodak) 24 kodak STK-MED ONCE .ROUTE 09/13/17 21:27 09/13/17 21:28 DC 09/13/17 21:30 24 KODAK Fentanyl (Duragesic Patch) 25 mcg Q72H TD 09/14/17 11:00 09/28/17 10:59 09/14/17 13:14 25 MCG Fentanyl (Duragesic Patch) 12 mcg Q72H TD 09/14/17 11:00 09/28/17 10:59 09/14/17 13:14 12 MCG Subjective Mr. Weir reports a great improvement in his symptoms since starting anti-fungals. However, he continues to complain of heartburn symptoms. He is eating a bit better, but is having difficulty finishing meals. His pain is better controlled overall, to the point where his primary complaint is the heartburn rather than the pain. Review of Systems: Constitutional: + fatigue, No fever ENT: No trouble swallowing Respiratory: No cough, No shortness of breath Cardiovascular: No chest pain Abdomen: + problem reported (heartburn), No nausea, No vomiting Heme: No abnormal bleeding/bruising Vital Signs Vital Signs Past 12 Hours Date Time Temp Pulse Resp B/P (MAP) Pulse Ox O2 Delivery O2 Flow Rate FiO2 09/14/17 14:53 36.8 87 18 134/87 (103) 98 Room Air 09/14/17 11:08 36.4 74 20 135/88 (104) 98 Room Air 09/14/17 08:30 99 Room Air 09/14/17 07:08 36.3 76 22 155/78 (103) 99 Room Air 09/14/17 04:23 36.7 81 20 122/82 (95) 96 Room Air Physical Exam Constitutional: Level of Distress: NAD, chronically ill Psychiatric: Mental Status: active & alert Orientation: oriented except where noted ENMT: pharynx normal Lungs: Respiratory Effort: no dyspnea Auscuitation: breath sounds normal Cardiovascular: Heart Auscultation: RRR Abdomen: Inspection & Palpation: soft, no tenderness, guarding & rebound Extremities: no edema Laboratory Last 24 Hours Test 09/13/17 16:26 09/13/17 20:07 09/14/17 05:50 09/14/17 07:29 Bedside Glucose 228 mg/dl 222 mg/dl 231 mg/dl White Blood Count 13.85 K/uL Red Blood Count 3.41 M/uL Hemoglobin 8.8 g/dL Hematocrit 28.8 % Mean Corpuscular Volume 84.5 fL Mean Corpuscular Hemoglobin 25.8 pg Mean Corpuscular Hemoglobin Concent 30.6 g/dl RDW Standard Deviation 55.6 fL RDW Coefficient of Variation 18.1 % Platelet Count 198 K/uL Mean Platelet Volume 9.5 fL Prothrombin Time 10.8 SECONDS Prothromb Time International Ratio 1.0 Activated Partial Thromboplast Time 58.3 SECONDS Partial Thromboplastin Ratio 2.2 Sodium Level 135 mmol/L Potassium Level 4.3 mmol/L Chloride Level 106 mmol/L Carbon Dioxide Level 20 mmol/L Anion Gap 9.0 mmol/L Blood Urea Nitrogen 49 mg/dl Creatinine 1.71 mg/dl Est Creatinine Clear Calc Drug Dose 49.8 ml/min Estimated GFR () 46.3 Estimated GFR (Non- 40.0 BUN/Creatinine Ratio 28.5 Random Glucose 220 mg/dl Calcium Level 9.1 mg/dl Magnesium Level 1.8 mg/dl Test 09/14/17 11:26 Bedside Glucose 199 mg/dl Assessment & Plan Mr. Weir's reflux may be related to his improving fungal infection. Dr. Vallejo's note from yesterday also made reference to retained fluid in the stomach and possible outlet obstruction or dysmotility. Dysmotility, which could be related to opiate use, would certainly fit his overall picture. However , he is tolerating PO in general, so I doubt an actual gastric outlet obstruction. We discussed strategies to mitigate the dysmotility issue, such as frequent, smaller meals and increased use of calorically dense nutrition supplements, such as Boost or Ensure. With regard to his cancer, as previously noted, he is currently too weak for further chemotherapy. However, if his nutrition and overall performance status continue to improve, we could readdress systemic therapy as an outpatient.
[2017-09-14] MEDS: WARFARIN SOD 6 MG TAB PO SCH (16:59)
[2017-09-14] MEDS: INSULIN HUMAN NPH SQ SCH (20:16)
--- NOTE | 2017-09-14 20:18 | GASTROENTEROLOGY PROGRESS NOTE ---
DATE: 09/14/2017 SUBJECTIVE: The patient is feeling about the same as yesterday. He has been eating half meals of solid foods which are reasonably tolerated, although he is experiencing regurgitation. There was a sense of fullness across the upper abdomen, although he has not had vomiting. He did have a bowel movement today that was hard and formed. There was no blood described. His cytology specimens did not reveal yeast on brushings. REVIEW OF SYSTEMS: Otherwise noncontributory except for mentioned above. MEDICATIONS: Diflucan, atorvastatin, warfarin, fentanyl patch, which was increased, pantoprazole, famotidine, insulin, levothyroxine, diltiazem, Lopressor, allopurinol. OBJECTIVE: VITAL SIGNS: Today, the patient is afebrile 36.6, blood pressure is 135/80, respirations 18, heart rate 83, 98% on room air. GENERAL: The patient is awake, alert and oriented x3 accompanied by his spouse. HEENT: Oral mucosa is parched. HEART: Normal S1, S2. LUNGS: Clear to auscultation. ABDOMEN: Soft, positive bowel sounds are noted although somewhat diminished. There is no rebound or guarding. I do not appreciate significant tympany. There is no evidence of ascites or shifting dullness. EXTREMITIES: Without clubbing, cyanosis or edema. RECTAL: Deferred. IMPRESSION AND PLAN: The patient with symptoms of regurgitation and on upper endoscopy earlier this week with significant retained gastric content as well as a possible outlet obstruction or stenosis in the postbulbar duodenal region. This was not traversed. I believe it is reasonable to perform an obstruction series tomorrow to assess for evidence of gastric distention, retained fluids, ileus and obstipation. If the patient does not continue to show consistent stool patterns, it may be reasonable to administer a Fleets enemas or tap water enemas to promote bowel movements before trying products from above. If there is still suggestion of retained material then imaging study perhaps with dilute upper GI series with thin barium may be helpful to identify a stricture. All questions answered, would maintain a low residue diet. Maintain aspiration precautions and complete a course of therapy for presumed esophageal candidiasis. Dr. Verdugo will be rounding on the service tomorrow. CORNELIUS
[2017-09-14] MEDS ORDERED: ATORVASTATIN 20 MG TAB PO SCH (21:00)
[2017-09-15] VITALS (7 sets, daily range): BP systolic 109–145; BP diastolic 75–82; PULSE 68–91; TEMP 36.2–36.7; O2SAT 96–97
[2017-09-15] MEDS: CHECK FENTANYL PATCH PLACEMENT SCH ×2 (00:10→08:00)
[2017-09-15] MEDS: LEVOTHYROXINE 100 MCG TAB PO SCH (05:51)
[2017-09-15] MEDS: INSULIN ASPART 100 UNITS/ML 3 ML PEN SC SCH ×4 (06:30→20:21)
[2017-09-15] MEDS ORDERED: CYANOCOBALAMIN 500 MCG TAB (VIT B-12) PO SCH (08:00)
[2017-09-15] MEDS: NYSTATIN SUSP 500,000 U/5 ML UDC PO SCH ×4 (08:00→20:03)
[2017-09-15 08:11] LABS: INR 1.1 (0.9-1.1)
[2017-09-15 08:20] LABS: CALCIUM 9.1 mg/dl (8.5-10.1); CREATININE 1.58 mg/dl (0.60-1.40); POTASSIUM 4.4 mmol/L (3.5-5.1)
[2017-09-15] MEDS: BOOST VANILLA PO SCH ×3 (10:30→20:45)
[2017-09-15] MEDS: HEPARIN 25,000 UNIT/500ML D5W 500 ML IV PRN (11:07)
[2017-09-15] MEDS: INSULIN GLARGINE SOLOSTAR 100 UNITS/ML 3 ML PEN SC SCH (11:08)
--- NOTE | 2017-09-15 12:25 | Progress Note ---
Subjective Date of Service: Sep 15, 2017. Subjective Pt evaluation today including: conversation w/ patient, conversation w/ family , physical exam, chart review, lab review, review of studies, conversation w/ [facility] consultant, review of inpatient medication list Voiding: incontinence Feeling nauseated 2-3 times this morning, but no vomiting, report abdominal distention, still have heartburn, Possible gas, however no bowel movement for several days, decline in enema Pain is fairly controlled, no back pain now Problem List Medical Problems: (1) Acute kidney injury Status: Acute (2) Cancer of renal pelvis and ureter Permanent Comment: STAGING: Right renal pelvis/ureter, urothelial carcinoma, cT3 /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 Systemic chemotherapy (Opdivo) had progression 2. Combined radiation and chemotherapy. Radiation to the abdomen completed 09/23. Received 5,940 cGy. 3. Plan for immunotherapy Status: Chronic (3) Carcinoma of bladder Permanent Comment: STAGING: Bladder, urothelial carcinoma, [id number] TREATMENT: 1. Partial course of neoadjuvant chemotherapy 2. Radical cystectomy, bilateral pelvic lymph node dissection and ileal neobladder formation - 04/12/2013 3. Adjuvant chemotherapy with G/C for 3 cycles Status: Acute (4) Chemotherapy Status: Acute (5) Dehydration Status: Acute (6) Edema Status: Acute (7) History of pulmonary embolus (PE) Status: Chronic (8) History of renal bleeding Status: Chronic (9) Hypercalcemia Status: Acute (10) Hypercalcemia Status: Acute (11) Hyperglycemia Status: Acute (12) Intractable vomiting Status: Acute (13) Perinephric hematoma Status: Acute (14) Retroperitoneal bleeding Status: Acute (15) Retroperitoneal hematoma Status: Acute (16) Sepsis Status: Acute (17) Vomiting Status: Acute (18) Weakness Status: Acute Review of Systems Constitutional: + weakness, + fatigue, No fever, No chills, No sweats, No weight loss, No problem reported Eyes: No worsening of vision, No eye pain, No redness, No discharge, No diplopia ENT: No hearing loss, No unusual epistaxis, No nasal symptoms, No sore throat, No tinnitus, No dental problems, No trouble swallowing Respiratory: No cough, No sputum, No wheezing, No shortness of breath, No dyspnea on exertion, No dyspnea at rest, No hemoptysis Cardiac: No chest pain, No orthopnea, No PND, No edema, No claudication, No palpitations Abdomen: + nausea, + constipation, + problem reported (distention), No pain, No vomiting, No diarrhea Musculoskeletal: No joint pain, No muscle pain, No swelling, No calf pain Male : + incontinence, No dysuria, No urinary frequency, No nocturia more than once/night, No slowing stream, No hematuria Neurologic: No memory loss, No paralysis, No weakness, No numbness/tingling, No vertigo, No balance problems Psychiatric: No depression symptoms, No anhedonism, No anxiety, No insomnia, No substance abuse Heme: No abnormal bleeding/bruising, No clotting problems, No swollen lymph nodes, No night sweats Endo: No fatigue, No excessive thirst, No excessive urination Skin: No rash, No itch, No new/changing skin lesions, No color change, No bleeding Objective Vital Signs Date Time Temp Pulse Resp B/P (MAP) Pulse Ox O2 Delivery O2 Flow Rate FiO2 09/15/17 11:45 36.5 91 18 123/80 (94) 97 Room Air 09/15/17 08:00 Room Air 09/15/17 07:38 36.7 89 18 145/82 (103) 96 Room Air 09/15/17 04:20 36.2 76 18 138/80 (99) 97 Room Air 09/15/17 00:06 36.4 74 16 137/79 (98) 96 Room Air 09/15/17 00:00 Room Air 09/14/17 19:23 36.6 83 18 135/80 (98) 98 Room Air 09/14/17 19:00 Room Air 09/14/17 16:30 99 Room Air 09/14/17 14:53 36.8 87 18 134/87 (103) 98 Room Air Physical Exam General Appearance: WD/WN, no apparent distress, + obese Eyes: normal inspection, PERRL, EOMI, sclerae normal ENT: normal ENT inspection, hearing grossly normal, pharynx normal Neck: supple, no adenopathy, thyroid normal, no JVD, no carotid bruits, trachea midline Respiratory/Chest: chest non-tender, normal breath sounds, no respiratory distress, no accessory muscle use, + decreased breath sounds Cardiovascular: regular rate, rhythm, no edema, no gallop, no JVD, no murmur Abdomen: no organomegaly, no pulsatile mass, + distended, + pertinent finding ( decreased bowel sound, Rice catheter in place) Extremities: normal range of motion, non-tender, normal inspection, no pedal edema, no calf tenderness, normal capillary refill, pelvis stable, + swelling (1 + bilaterally) Neurologic/Psychiatric: rn clinical II-XII nml as tested, no motor/sensory deficits, alert, normal mood/affect, oriented x 3 Skin: normal color, warm/dry, no rash Lymphatic: no adenopathy Laboratory Results Last 24 Hours Test 09/14/17 16:38 09/14/17 20:07 09/15/17 07:27 09/15/17 11:15 Bedside Glucose 219 mg/dl 174 mg/dl 216 mg/dl Prothrombin Time 11.4 SECONDS Prothromb Time International Ratio 1.1 Activated Partial Thromboplast Time 52.0 SECONDS Partial Thromboplastin Ratio 2.0 Sodium Level 136 mmol/L Potassium Level 4.4 mmol/L Chloride Level 107 mmol/L Carbon Dioxide Level 21 mmol/L Anion Gap 8.0 mmol/L Blood Urea Nitrogen 46 mg/dl Creatinine 1.58 mg/dl Est Creatinine Clear Calc Drug Dose 53.5 ml/min Estimated GFR () 51.0 Estimated GFR (Non- 44.0 BUN/Creatinine Ratio 29.0 Random Glucose 166 mg/dl Calcium Level 9.1 mg/dl Assessment and Plan (1) Vomiting (2) Hypercalcemia (3) Weakness (4) Carcinoma of bladder (5) Cancer of renal pelvis and ureter (6) Chemotherapy (7) PE (pulmonary embolism) (8) DVT (deep venous thrombosis) (9) Presence of IVC filter (10) DM II (diabetes mellitus, type II), controlled (11) Benign essential HTN (12) Hypothyroidism (13) CKD (chronic kidney disease) stage 3, GFR 30-59 ml/min (14) Edema (15) Hypercalcemia (16) Dysphagia (17) Anemia (18) Acute kidney injury 67-year-old white male admitted 09/08/2017 because of dysphagia, Linda esophagitis with Vomiting with Dysphagia/odynophagia: Has been on IV Pepcid and Protonix , fluconazole , this medicine was changed to oral 2 days ago, today I put them back to IV formate because of severe gastroparesis EGD on 09/11/2017, report in below Impression: - Monilial esophagitis. Cells for cytology obtained. - Excessive gastric fluid. - Normal duodenal bulb. Recommendation: - [facility] to [facility] care. - Await pathology results. ID consulted for the antibiotics because of esophageal candidiasis in cancer.pt Per recommendation from ID, Diflucan can be 200 mg daily for totally 21 days, today is day 4, Significant fluid retention in the stomach possible gastroparesis Discussed with the radiologist, and I discussed with GI, nothing by mouth for now except medication, change medicine such as levothyroxine, Diflucan to IV, Pepcid, and Protonix to IV too, Hold the order of gastric emptying study, GI service will continue follow-up For the pain control, we'll continue fentanyl patch, has discontinue off Marinol , heating pack for lower back pain , oxycodone as needed for breakthrough pain, patient and family agreed, narcotic medicine slowing down gastric empty, decrease fentanyl patch back to 25 g from 37 g for now Hypercalcemia, resolved probably mostly due to dehydration , encourage plenty fluid intake, follow-up labs Weakness, likely multifactorial but poor eating/acute malnutrition/weight loss , Continue treat with hydrate, supportive care, time Hypertensive with history of hypertension, stable, hydralazine as needed metastatic refractory stage iV urothelial carcinoma. most recent PET shows it is confined to right kidney, supposed to follow up with Dr. Collazo, patient and family requesting inpatient visit, oncologist on the case per , the report shows that the tumor is confined to the right kidney onco f/u, recs a CT scan without contrast of his head, which was done and unremarkable Confusion upon admission , Totally resolved Patient currently conversational awake alert and orientated, has CTs not remarkable Chronic anemia, hemoglobin stable Hyperglycemia with history of diabetic on Lantus, continue current dose Chronic kidney disease, creatinine is in baseline, continue improving Likely lower extremity extensive DVT, hx of S/P IVC filter but was removed , history of kidney bleeding need to transfer to [facility] while on Lovenox Therefore he'll be not safe to use Lovenox bridging for Coumadin upon discharge to home, continue heparin drip until INR therapeutic Again discussed the risk and benefit of anticoagulation which include current heparin drip, and on Coumadin, and also discussed the options, such as IVC filter,, patient and understand and willing to take all the risks to be on blood thinner because they don't want to get pulmonary embolization which can be life-threatening Current dose of Coumadin is 6 mg by mouth daily, follow-up PT/INR, continue heparin drip for bridge Discussed with Dominga patient's about condition and care plan answer all questions Patient has several is use such as severe constipation, severe gastroparesis with fluid retention in the stomach, and the heartburn with esophageal linda, will need to work together with GI closely Planning to go to [facility] when INR therapeutic, in the case can stop heparin drip Continued [facility] stay due to: multiple IV medications needed Discharge planning: rehab hospital
[2017-09-15] MEDS: ALLOPURINOL 300 MG TAB PO SCH (12:31)
[2017-09-15] MEDS: FAMOTIDINE 20 MG TAB PO SCH (12:31)
[2017-09-15] MEDS: ASPIRIN 81 MG ECTAB PO SCH (12:32)
[2017-09-15] MEDS: METOPROLOL TARTRATE 25 MG TAB PO SCH (12:32)
[2017-09-15] MEDS: SODIUM BICARBONATE 650 MG TAB PO SCH ×2 (12:33→20:02)
[2017-09-15] MEDS: DILTIAZEM HCL 120 MG EXT REL CAP PO SCH (12:33)
[2017-09-15] MEDS: DILTIAZEM HCL (TIAzac) 180 MG CAPCR PO SCH (12:34)
[2017-09-15] MEDS: PANTOprazole SOD 40 MG TAB PO SCH (12:36)
[2017-09-15] MEDS ORDERED: NURSING VERBAL MED ORDER ONE ×2 (12:45→17:45)
--- NOTE | 2017-09-15 13:42 | DIAGNOSTIC IMAGING REPORT ---
GI SERIES AND SMALL BOWEL CLINICAL HISTORY: 67 years-old Male presenting with to assess for evidence of gastric distention and fluid. TECHNIQUE: An abdominal straight line press setter radiograph was performed. A standard air contrast upper GI series was then performed. Spot images of the esophagus and stomach were obtained in multiple obliquities with upright and prone. The patient then consumed several of thin barium and a small follow-through was performed. Overhead radiographs and spot compression images were obtained. COMPARISON: None. FINDINGS: Initial straight line press setter radiograph demonstrates endovascular coils projecting over the right mid abdomen. Extensive surgical clips centrally in the lower abdomen and throughout the pelvis likely from prior prostatectomy and lymphadenectomy. A Rice catheter is in place. Hyperdense material noted in the distended stomach. No gross pneumoperitoneum. The patient swallowed barium without difficulty. The esophagus is structurally normal without evidence of intrinsic or extrinsic mass. The esophageal mucosal pattern is normal. The gastroesophageal junction distends normally. The stomach is abnormally distended with particulate material. There is delayed emptying of the stomach into the duodenum. No focal mucosal abnormality is evident in the stomach. Upon delayed imaging, a portion of the duodenum opacifies normally. Passage to the mid to distal small bowel without evidence of a complete obstruction at the pylorus. Fluoroscopy dosage (mGy): Not available. Fluoroscopy time: 3.6 minutes. Number of fluoroscopic spot images: 18. IMPRESSION: Findings consistent with partial obstruction of the distended stomach. Differential considerations include these or versus gastroparesis. Per the clinical team, the patient had a recent EGD on 09/11/2017. The absence of these or an EGD excludes this diagnosis. Therefore, procedure and the patient's clinical history of diabetes, gastroparesis as a primary diagnostic consideration. This could be confirmed with nuclear medicine gastric imaging study. Electronically signed by: Hever Buckner M.D. 09/15/2017 1:41 PM Dictated Date/Time: 09/15/2017 10:53 AM
[2017-09-15] MEDS: POTASSIUM CHLORIDE INJ 10 MEQ in SODIUM CHLORIDE 0.9% 1000ML 1,000 ML IV SCH ×2 (13:45→23:54)
[2017-09-15] MEDS: FLUCONAZOLE / NSS 200 MG in PREMIXED NSS 100 ML IV SCH (13:47)
[2017-09-15] MEDS ORDERED: SOD PHOSPHATE/SOD BIPHOSPHATE ENEMA 132 ML BTL PR SCH (14:00)
--- NOTE | 2017-09-15 16:30 | PROGRESS NOTE ---
DATE: 09/15/2017 SUBJECTIVE: The patient underwent an upper GI today to rule out mechanical obstruction and his stomach was found to be distended, containing a lot of material. The esophagus seem to be functioning normally and contrast had escaped out of the stomach and get through into the small intestine and ruling out a mechanical obstruction. It was also been on the films that he does have a large amount of stool in the colon. He received a Fleet enema today and had a medium sized bowel movement. IMPRESSION AND PLAN: The patient has pervasive intestinal motility disorder, probably on the basis of the medication that he is taking for pain. I talked to the hospitalist and they are going to try to reduce the dose of the medication to see if the patient can get by with less opiate medication. Hopefully, this will improve his intestinal motility and still control his pain. CORNELIUS
[2017-09-15] MEDS: WARFARIN SOD 6 MG TAB PO SCH (16:52)
[2017-09-15] MEDS ORDERED: INSULIN ASPART 100 UNITS/ML 3 ML PEN SC SCH (18:00)
[2017-09-15] MEDS: FAMOTIDINE IV INJ 20 MG in SYRINGE 3 ML IV SCH (20:09)
[2017-09-15] MEDS: INSULIN HUMAN NPH SQ SCH (20:22)
[2017-09-15] MEDS: ONDANSETRON INJ 2 MG/ML 2 ML VIAL IV PRN (21:34)
[2017-09-16] VITALS (7 sets, daily range): BP systolic 120–136; BP diastolic 72–81; PULSE 74–81; TEMP 36.5–36.8; O2SAT 94–99
[2017-09-16] MEDS: HEPARIN 25,000 UNIT/500ML D5W 500 ML IV PRN ×2 (05:41→12:23)
[2017-09-16] MEDS ORDERED: LEVOTHYROXINE SODIUM 20 MCG/1 ML IM SCH (08:00)
[2017-09-16] MEDS: INSULIN GLARGINE SOLOSTAR 100 UNITS/ML 3 ML PEN SC SCH (08:36)
[2017-09-16] MEDS: INSULIN ASPART 100 UNITS/ML 3 ML PEN SC SCH ×4 (08:36→21:00)
[2017-09-16] MEDS: FLUCONAZOLE / NSS 200 MG in PREMIXED NSS 100 ML IV SCH (08:41)
[2017-09-16] MEDS: ASPIRIN 81 MG ECTAB PO SCH (08:43)
[2017-09-16] MEDS: NYSTATIN SUSP 500,000 U/5 ML UDC PO SCH ×4 (08:44→21:21)
[2017-09-16] MEDS: METOPROLOL TARTRATE 25 MG TAB PO SCH (08:44)
[2017-09-16] MEDS: SODIUM BICARBONATE 650 MG TAB PO SCH ×2 (08:45→21:22)
[2017-09-16] MEDS: DILTIAZEM HCL 120 MG EXT REL CAP PO SCH (08:46)
[2017-09-16] MEDS: DILTIAZEM HCL (TIAzac) 180 MG CAPCR PO SCH (08:46)
[2017-09-16] MEDS: ALLOPURINOL 300 MG TAB PO SCH (08:47)
[2017-09-16] MEDS: LEVOTHYROXINE SODIUM INJ 50 MCG in SYRINGE 0 ML IV SCH (08:50)
[2017-09-16] MEDS: FAMOTIDINE IV INJ 20 MG in SYRINGE 3 ML IV SCH ×2 (08:52→21:24)
[2017-09-16] MEDS: POTASSIUM CHLORIDE INJ 10 MEQ in SODIUM CHLORIDE 0.9% 1000ML 1,000 ML IV SCH ×2 (10:00→21:24)
[2017-09-16 10:03] LABS: HEMATOCRIT 26.8 % (42-52); HEMOGLOBIN 8.1 g/dL (14.0-18.0); MEAN CELL VOLUME 85.4 fL (80-100); MEAN CORPUSCULAR HEMOGLOBIN 25.8 pg (25-34); MEAN CORPUSCULAR HGB CONC 30.2 g/dl (32-36); MEAN PLATELET VOLUME 9.2 fL (7.4-10.4); PLATELET COUNT 139 K/uL (130-400); RED CELL DISTRIBUTION WIDTH CV 18.8 % (11.5-14.5); RED CELL DISTRIBUTION WIDTH SD 58.8 fL (36.4-46.3); WHITE BLOOD COUNT 9.53 K/uL (4.8-10.8)
[2017-09-16] MEDS: BOOST VANILLA PO SCH ×3 (10:30→21:23)
[2017-09-16 10:36] LABS: CALCIUM 8.4 mg/dl (8.5-10.1); CREATININE 1.72 mg/dl (0.60-1.40); POTASSIUM 4.3 mmol/L (3.5-5.1)
--- NOTE | 2017-09-16 11:21 | Hematology/Oncology Prog Note ---
Hematology/Onc Progress Note Date of Service Sep 16, 2017. 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 Intractable nausea/vomiting Medications Medications Administered Medications (Trade) Dose Ordered Sig/Sara Route Start Time Stop Time Status Last Admin Dose Admin Enoxaparin Sodium (Lovenox Inj) 40 mg Q24H SQ 09/08/17 16:00 09/10/17 01:16 DC 09/09/17 16:19 40 MG Acetaminophen (Tylenol Tab) 650 mg Q4H PRN PO 09/08/17 12:45 10/08/17 12:44 09/14/17 04:21 650 MG Ondansetron HCl (Zofran Inj) 4 mg Q6H PRN IV 09/08/17 12:45 09/09/17 15:19 DC 09/09/17 12:32 4 MG Pantoprazole Sodium 40 mg/ Syringe 10 ml @ 5 mls/min DAILY@11 IV 09/09/17 11:00 09/12/17 15:26 DC 09/12/17 12:32 5 MLS/MIN Pantoprazole Sodium 40 mg/ Syringe 10 ml @ 5 mls/min TODAY@1300 ONCE IV 09/08/17 13:00 09/08/17 13:01 DC 09/08/17 13:30 5 MLS/MIN Allopurinol (Zyloprim Tab) 300 mg DAILY PO 09/09/17 08:00 10/09/17 07:59 09/16/17 08:47 300 MG Aspirin (Ecotrin Tab) 81 mg QAM PO 09/09/17 08:00 10/09/17 07:59 09/16/17 08:43 81 MG Levothyroxine Sodium (Synthroid Tab) 100 mcg DAILYBB PO 09/09/17 06:30 09/15/17 12:33 DC 09/14/17 05:53 100 MCG Metoprolol Tartrate (Lopressor Tab) 75 mg DAILY PO 09/09/17 08:00 10/09/17 07:59 09/16/17 08:44 75 MG Sodium Bicarbonate (Sodium Bicarbonate Tab) 650 mg BID PO 09/08/17 20:00 10/08/17 19:59 09/16/17 08:45 650 MG Diltiazem HCl (TIAzac CAP) 240 mg DAILY PO 09/09/17 08:00 10/09/17 07:59 09/16/17 08:46 240 MG Miscellaneous Information (Check Fentanyl Patch Placement) 1 ea QS N/A 09/08/17 16:00 09/14/17 10:15 DC 09/13/17 23:25 1 EA Sodium Chloride 1,000 ml @ 75 mls/hr [id number] IV 09/08/17 13:00 09/12/17 15:26 DC 09/12/17 09:27 75 MLS/HR Diltiazem HCl (TIAzac CAP) 180 mg DAILY PO 09/09/17 08:00 10/09/17 07:59 09/16/17 08:46 180 MG Fentanyl (Duragesic Patch) 25 mcg Q3D@0900 TD 09/10/17 09:00 09/14/17 10:15 DC 09/13/17 09:11 25 MCG Miscellaneous (Fentanyl Patch Remove & Waste) 1 ea Q3D@0859 N/A 09/10/17 08:59 09/14/17 10:15 DC 09/13/17 09:23 1 EA Lidocaine HCl/ Diphenhydramine HCl/Al Hydroxide/ Mg Hydroxide/ Glycerin/Barcode Q6H PRN MT 09/08/17 14:15 10/08/17 14:14 09/08/17 19:05 5 ML Insulin Glargine (Lantus Solostar Pen) 25 units QAM SC 09/09/17 08:00 09/10/17 08:21 DC 09/09/17 08:21 25 UNITS Insulin Human NPH (novoLIN-N NPH) 15 units HS SQ 09/08/17 21:00 10/08/17 20:59 09/15/17 20:22 15 UNITS Insulin Aspart (novoLOG ASPART) SLIDING SCALE G... ACHS SC 09/08/17 16:30 09/12/17 00:07 DC 09/11/17 20:56 4 UNITS Fluconazole/ Sodium Chloride 100 mg/Prmx 50 ml @ 100 mls/hr Q24H IV 09/08/17 16:00 09/12/17 15:28 DC 09/11/17 16:51 100 MLS/HR Nystatin (Mycostatin Susp) 5 ml QID PO 09/08/17 17:00 12/18/17 15:53 DC 09/10/17 20:07 5 ML Methylprednisolone Sodium Succinate 40 mg/Syringe 0.64 ml @ 1.5 mls/min DAILY IV 09/10/17 08:00 09/13/17 09:38 DC 09/13/17 09:03 1.5 MLS/MIN Methylprednisolone Sodium Succinate 40 mg/Syringe 0.64 ml @ 1.5 mls/min TODAY@0845 ONCE IV 09/09/17 08:45 09/09/17 08:46 DC 09/09/17 09:01 1.5 MLS/MIN Ondansetron HCl (Zofran Inj) 4 mg Q6H IV 09/09/17 17:00 09/10/17 15:22 DC 09/10/17 12:22 4 MG Dronabinol (Marinol Cap) 2.5 mg BID PO 09/09/17 20:00 09/10/17 15:17 DC 09/10/17 08:59 2.5 MG Dronabinol (Marinol Cap) 2.5 mg NOW ONCE PO 09/09/17 16:45 09/09/17 16:46 DC 09/09/17 17:12 2.5 MG Famotidine 20 mg/ Syringe 5 ml @ 2.5 mls/min Q12 IV 09/09/17 17:00 09/12/17 15:26 DC 09/12/17 09:35 2.5 MLS/MIN Ondansetron HCl (Zofran Inj) 4 mg Q6H IV 09/10/17 13:00 09/11/17 13:00 DC 09/11/17 13:27 4 MG Heparin Sodium (Porcine) 7000 unit/Syringe 7 ml @ 10 mls/min NOW ONCE IV 09/10/17 01:30 09/10/17 01:31 DC 09/10/17 01:38 10 MLS/MIN Heparin Sodium/ Dextrose 500 ml @ 26 mls/hr [id number] PRN IV 09/10/17 01:30 10/10/17 01:29 09/16/17 05:41 26 MLS/HR Insulin Glargine (Lantus Solostar Pen) 30 units QAM SC 09/11/17 08:00 10/09/17 07:59 09/16/17 08:36 30 UNITS Dronabinol (Marinol Cap) 5 mg BID PO 09/10/17 20:00 09/13/17 09:38 DC 09/13/17 09:10 5 MG Ondansetron HCl (Zofran Inj) 4 mg Q6H PRN IV 09/11/17 13:00 10/11/17 12:59 09/15/17 21:34 4 MG Heparin Sodium (Porcine) 7000 unit/Syringe 7 ml @ 10 mls/min 0845 ONCE IV 09/11/17 08:45 09/11/17 08:46 DC 09/11/17 08:28 10 MLS/MIN Nystatin (Mycostatin Susp) 10 ml QID PO 09/11/17 17:00 09/21/17 16:59 09/16/17 08:44 10 ML Insulin Aspart (novoLOG ASPART) SLIDING SCALE G... Q6 SC 09/12/17 06:00 09/12/17 15:21 DC 09/12/17 12:38 6 UNITS Insulin Aspart (novoLOG ASPART) SLIDING SCALE G... ONE ONCE SC 09/12/17 00:45 09/12/17 00:47 DC 09/12/17 01:04 2 UNITS Warfarin Sodium (Coumadin Tab) 4 mg DAILY@1600 PO 09/13/17 08:00 09/14/17 07:34 DC 09/13/17 09:04 4 MG Insulin Aspart (novoLOG ASPART) SLIDING SCALE G... ACHS SC 09/12/17 16:30 09/15/17 12:49 DC 09/15/17 12:44 2 UNITS Famotidine (Pepcid Tab) 20 mg BID PO 09/12/17 20:00 09/15/17 12:45 DC 09/15/17 12:31 20 MG Pantoprazole Sodium (Protonix Tab) 40 mg DAILY PO 09/13/17 08:00 09/15/17 12:45 DC 09/15/17 12:36 40 MG Fluconazole/ Sodium Chloride 200 mg/Prmx 100 ml @ 100 mls/hr Q24H IV 09/12/17 16:00 09/13/17 09:35 DC 09/12/17 16:11 100 MLS/HR Dronabinol (Marinol Cap) 2.5 mg BID PO 09/13/17 20:00 09/14/17 10:15 DC 09/14/17 09:27 2.5 MG Fluconazole (Diflucan Tab) 200 mg QAM PO 09/13/17 10:30 09/15/17 12:33 DC 09/14/17 09:30 200 MG Warfarin Sodium (Coumadin Tab) 5 mg TODAY@1600 PO 09/13/17 16:00 09/13/17 18:00 DC 09/13/17 16:43 5 MG Menthol (Nice Kodak) 24 kodak STK-MED ONCE .ROUTE 09/13/17 21:27 09/13/17 21:28 DC 09/13/17 21:30 24 KODAK Warfarin Sodium (Coumadin Tab) 6 mg DAILY@1600 PO 09/14/17 16:00 10/13/17 07:59 09/15/17 16:52 6 MG Atorvastatin Calcium (Lipitor Tab) 80 mg HS PO 09/14/17 21:00 10/14/17 20:59 Future Hold 09/14/17 20:11 80 MG Fentanyl (Duragesic Patch) 25 mcg Q72H TD 09/14/17 11:00 09/15/17 12:50 DC 09/14/17 13:14 25 MCG Fentanyl (Duragesic Patch) 12 mcg Q72H TD 09/14/17 11:00 09/15/17 12:50 DC 09/14/17 13:14 12 MCG Miscellaneous Information (Check Fentanyl Patch Placement) 1 ea QS N/A 09/14/17 16:00 09/15/17 12:50 DC 09/15/17 08:00 1 EA Enteral Nutritional Formula (Boost) 1 can TID@1030,1430,2000 PO 09/14/17 14:30 10/14/17 14:29 09/16/17 10:30 1 CAN Sodium Biphosphate/ Sodium Phosphate (Fleet Enema) 132 ml TODAY@1400 ND 09/15/17 14:00 09/15/17 23:59 DC 09/15/17 13:50 132 ML Fluconazole/ Sodium Chloride 200 mg/Prmx 100 ml @ 100 mls/hr DAILY IV 09/15/17 14:00 09/18/17 13:59 09/16/17 08:41 100 MLS/HR Potassium Chloride 10 meq/ Sodium Chloride 1,005 ml @ 100 mls/hr Q10H3M IV 09/15/17 13:00 10/15/17 12:59 09/16/17 10:00 100 MLS/HR Famotidine 20 mg/ Syringe 5 ml @ 2.5 mls/min Q12H IV 09/15/17 21:00 10/15/17 20:59 09/16/17 08:52 2.5 MLS/MIN Levothyroxine Sodium 50 mcg/ Syringe 2.5 ml @ 2 mls/min QAM IV 09/16/17 08:00 10/16/17 07:59 09/16/17 08:50 2 MLS/MIN Insulin Aspart (novoLOG ASPART) SLIDING SCALE G... ACHS SC 09/15/17 18:01 10/15/17 17:59 09/16/17 08:36 4 UNITS Subjective Mr. Weir's UGI series yesterday revealed a functional but not mechanical obstruction and a great deal of retained stool. He received an enema yesterday and has had two large bowel movements since. He still feels bloated and uncomfortable. He is on 37.5 mcg of Fentanyl q72 hours and is well controlled. He was able to tolerate some liquids this morning without vomiting. Review of Systems: Constitutional: + weakness, + fatigue, No fever Respiratory: No cough, No shortness of breath Cardiovascular: No chest pain Abdomen: + pain, + constipation, No vomiting Musculoskeletal: No joint pain, No muscle pain Skin: No rash Vital Signs Vital Signs Past 12 Hours Date Time Temp Pulse Resp B/P (MAP) Pulse Ox O2 Delivery O2 Flow Rate FiO2 09/16/17 08:00 98 Room Air 09/16/17 07:36 36.7 74 16 136/81 (99) 98 Room Air 09/16/17 04:24 36.5 78 18 124/76 (92) 97 Room Air 09/16/17 00:35 Room Air 09/15/17 23:56 36.7 79 18 109/75 (86) 96 Room Air Physical Exam Constitutional: Level of Distress: NAD, chronically ill Psychiatric: Mental Status: active & alert Orientation: oriented except where noted ENMT: pharynx normal Lungs: Respiratory Effort: no dyspnea Auscuitation: breath sounds normal Cardiovascular: Heart Auscultation: RRR Abdomen: Inspection & Palpation: soft, no tenderness, guarding & rebound Extremities: no edema Laboratory Medications Administered Medications (Trade) Dose Ordered Sig/Sara Route Start Time Stop Time Status Last Admin Dose Admin Enoxaparin Sodium (Lovenox Inj) 40 mg Q24H SQ 09/08/17 16:00 09/10/17 01:16 DC 09/09/17 16:19 40 MG Acetaminophen (Tylenol Tab) 650 mg Q4H PRN PO 09/08/17 12:45 10/08/17 12:44 09/14/17 04:21 650 MG Ondansetron HCl (Zofran Inj) 4 mg Q6H PRN IV 09/08/17 12:45 09/09/17 15:19 DC 09/09/17 12:32 4 MG Pantoprazole Sodium 40 mg/ Syringe 10 ml @ 5 mls/min DAILY@11 IV 09/09/17 11:00 09/12/17 15:26 DC 09/12/17 12:32 5 MLS/MIN Pantoprazole Sodium 40 mg/ Syringe 10 ml @ 5 mls/min TODAY@1300 ONCE IV 09/08/17 13:00 09/08/17 13:01 DC 09/08/17 13:30 5 MLS/MIN Allopurinol (Zyloprim Tab) 300 mg DAILY PO 09/09/17 08:00 10/09/17 07:59 09/16/17 08:47 300 MG Aspirin (Ecotrin Tab) 81 mg QAM PO 09/09/17 08:00 10/09/17 07:59 09/16/17 08:43 81 MG Levothyroxine Sodium (Synthroid Tab) 100 mcg DAILYBB PO 09/09/17 06:30 09/15/17 12:33 DC 09/14/17 05:53 100 MCG Metoprolol Tartrate (Lopressor Tab) 75 mg DAILY PO 09/09/17 08:00 10/09/17 07:59 09/16/17 08:44 75 MG Sodium Bicarbonate (Sodium Bicarbonate Tab) 650 mg BID PO 09/08/17 20:00 10/08/17 19:59 09/16/17 08:45 650 MG Diltiazem HCl (TIAzac CAP) 240 mg DAILY PO 09/09/17 08:00 10/09/17 07:59 09/16/17 08:46 240 MG Miscellaneous Information (Check Fentanyl Patch Placement) 1 ea QS N/A 09/08/17 16:00 09/14/17 10:15 DC 09/13/17 23:25 1 EA Sodium Chloride 1,000 ml @ 75 mls/hr [id number] IV 09/08/17 13:00 09/12/17 15:26 DC 09/12/17 09:27 75 MLS/HR Diltiazem HCl (TIAzac CAP) 180 mg DAILY PO 09/09/17 08:00 10/09/17 07:59 09/16/17 08:46 180 MG Fentanyl (Duragesic Patch) 25 mcg Q3D@0900 TD 09/10/17 09:00 09/14/17 10:15 DC 09/13/17 09:11 25 MCG Miscellaneous (Fentanyl Patch Remove & Waste) 1 ea Q3D@0859 N/A 09/10/17 08:59 09/14/17 10:15 DC 09/13/17 09:23 1 EA Lidocaine HCl/ Diphenhydramine HCl/Al Hydroxide/ Mg Hydroxide/ Glycerin/Barcode Q6H PRN MT 09/08/17 14:15 10/08/17 14:14 09/08/17 19:05 5 ML Insulin Glargine (Lantus Solostar Pen) 25 units QAM SC 09/09/17 08:00 09/10/17 08:21 DC 09/09/17 08:21 25 UNITS Insulin Human NPH (novoLIN-N NPH) 15 units HS SQ 09/08/17 21:00 10/08/17 20:59 09/15/17 20:22 15 UNITS Insulin Aspart (novoLOG ASPART) SLIDING SCALE G... ACHS SC 09/08/17 16:30 09/12/17 00:07 DC 09/11/17 20:56 4 UNITS Fluconazole/ Sodium Chloride 100 mg/Prmx 50 ml @ 100 mls/hr Q24H IV 09/08/17 16:00 09/12/17 15:28 DC 09/11/17 16:51 100 MLS/HR Nystatin (Mycostatin Susp) 5 ml QID PO 09/08/17 17:00 09/11/17 15:53 DC 09/10/17 20:07 5 ML Methylprednisolone Sodium Succinate 40 mg/Syringe 0.64 ml @ 1.5 mls/min DAILY IV 09/10/17 08:00 09/13/17 09:38 DC 09/13/17 09:03 1.5 MLS/MIN Methylprednisolone Sodium Succinate 40 mg/Syringe 0.64 ml @ 1.5 mls/min TODAY@0845 ONCE IV 09/09/17 08:45 09/09/17 08:46 DC 09/09/17 09:01 1.5 MLS/MIN Ondansetron HCl (Zofran Inj) 4 mg Q6H IV 09/09/17 17:00 09/10/17 15:22 DC 09/10/17 12:22 4 MG Dronabinol (Marinol Cap) 2.5 mg BID PO 09/09/17 20:00 09/10/17 15:17 DC 09/10/17 08:59 2.5 MG Dronabinol (Marinol Cap) 2.5 mg NOW ONCE PO 09/09/17 16:45 09/09/17 16:46 DC 09/09/17 17:12 2.5 MG Famotidine 20 mg/ Syringe 5 ml @ 2.5 mls/min Q12 IV 09/09/17 17:00 09/12/17 15:26 DC 09/12/17 09:35 2.5 MLS/MIN Ondansetron HCl (Zofran Inj) 4 mg Q6H IV 09/10/17 13:00 09/11/17 13:00 DC 09/11/17 13:27 4 MG Heparin Sodium (Porcine) 7000 unit/Syringe 7 ml @ 10 mls/min NOW ONCE IV 09/10/17 01:30 09/10/17 01:31 DC 09/10/17 01:38 10 MLS/MIN Heparin Sodium/ Dextrose 500 ml @ 26 mls/hr [id number] PRN IV 09/10/17 01:30 10/10/17 01:29 09/16/17 05:41 26 MLS/HR Insulin Glargine (Lantus Solostar Pen) 30 units QAM SC 09/11/17 08:00 10/09/17 07:59 09/16/17 08:36 30 UNITS Dronabinol (Marinol Cap) 5 mg BID PO 09/10/17 20:00 09/13/17 09:38 DC 09/13/17 09:10 5 MG Ondansetron HCl (Zofran Inj) 4 mg Q6H PRN IV 09/11/17 13:00 10/11/17 12:59 09/15/17 21:34 4 MG Heparin Sodium (Porcine) 7000 unit/Syringe 7 ml @ 10 mls/min 0845 ONCE IV 09/11/17 08:45 09/11/17 08:46 DC 09/11/17 08:28 10 MLS/MIN Nystatin (Mycostatin Susp) 10 ml QID PO 09/11/17 17:00 09/21/17 16:59 09/16/17 08:44 10 ML Insulin Aspart (novoLOG ASPART) SLIDING SCALE G... Q6 SC 09/12/17 06:00 09/12/17 15:21 DC 09/12/17 12:38 6 UNITS Insulin Aspart (novoLOG ASPART) SLIDING SCALE G... ONE ONCE SC 09/12/17 00:45 09/12/17 00:47 DC 09/12/17 01:04 2 UNITS Warfarin Sodium (Coumadin Tab) 4 mg DAILY@1600 PO 09/13/17 08:00 09/14/17 07:34 DC 09/13/17 09:04 4 MG Insulin Aspart (novoLOG ASPART) SLIDING SCALE G... ACHS SC 09/12/17 16:30 09/15/17 12:49 DC 09/15/17 12:44 2 UNITS Famotidine (Pepcid Tab) 20 mg BID PO 09/12/17 20:00 09/15/17 12:45 DC 09/15/17 12:31 20 MG Pantoprazole Sodium (Protonix Tab) 40 mg DAILY PO 09/13/17 08:00 09/15/17 12:45 DC 09/15/17 12:36 40 MG Fluconazole/ Sodium Chloride 200 mg/Prmx 100 ml @ 100 mls/hr Q24H IV 09/12/17 16:00 09/13/17 09:35 DC 09/12/17 16:11 100 MLS/HR Dronabinol (Marinol Cap) 2.5 mg BID PO 09/13/17 20:00 09/14/17 10:15 DC 09/14/17 09:27 2.5 MG Fluconazole (Diflucan Tab) 200 mg QAM PO 09/13/17 10:30 09/15/17 12:33 DC 09/14/17 09:30 200 MG Warfarin Sodium (Coumadin Tab) 5 mg TODAY@1600 PO 09/13/17 16:00 09/13/17 18:00 DC 09/13/17 16:43 5 MG Menthol (Nice Kodak) 24 kodak STK-MED ONCE .ROUTE 09/13/17 21:27 09/13/17 21:28 DC 09/13/17 21:30 24 KODAK Warfarin Sodium (Coumadin Tab) 6 mg DAILY@1600 PO 09/14/17 16:00 10/13/17 07:59 09/15/17 16:52 6 MG Atorvastatin Calcium (Lipitor Tab) 80 mg HS PO 09/14/17 21:00 10/14/17 20:59 Future Hold 09/14/17 20:11 80 MG Fentanyl (Duragesic Patch) 25 mcg Q72H TD 09/14/17 11:00 09/15/17 12:50 DC 09/14/17 13:14 25 MCG Fentanyl (Duragesic Patch) 12 mcg Q72H TD 09/14/17 11:00 09/15/17 12:50 DC 09/14/17 13:14 12 MCG Miscellaneous Information (Check Fentanyl Patch Placement) 1 ea QS N/A 09/14/17 16:00 09/15/17 12:50 DC 09/15/17 08:00 1 EA Enteral Nutritional Formula (Boost) 1 can TID@1030,1430,2000 PO 09/14/17 14:30 10/14/17 14:29 09/16/17 10:30 1 CAN Sodium Biphosphate/ Sodium Phosphate (Fleet Enema) 132 ml TODAY@1400 ND 09/15/17 14:00 09/15/17 23:59 DC 09/15/17 13:50 132 ML Fluconazole/ Sodium Chloride 200 mg/Prmx 100 ml @ 100 mls/hr DAILY IV 09/15/17 14:00 09/18/17 13:59 09/16/17 08:41 100 MLS/HR Potassium Chloride 10 meq/ Sodium Chloride 1,005 ml @ 100 mls/hr Q10H3M IV 09/15/17 13:00 10/15/17 12:59 09/16/17 10:00 100 MLS/HR Famotidine 20 mg/ Syringe 5 ml @ 2.5 mls/min Q12H IV 09/15/17 21:00 10/15/17 20:59 09/16/17 08:52 2.5 MLS/MIN Levothyroxine Sodium 50 mcg/ Syringe 2.5 ml @ 2 mls/min QAM IV 09/16/17 08:00 10/16/17 07:59 09/16/17 08:50 2 MLS/MIN Insulin Aspart (novoLOG ASPART) SLIDING SCALE G... 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 This is either related to his opiates directly or to his significant constipation and fecal retention, which is clearly opiate-related. I would continue with an aggressive bowel regimen ( continued enemas for now) and would start Senna and Colace BID as a maintenance regimen. We may need to reduce his long-acting opiates to resolve this issue, though he was not on much of a bowel regimen before, so I would want to have that optimized first before reducing his narcotics. He may also warrant a consultation with Dr. Pruitt with palliative care at some point, as he has a narrow therapeutic index with opiates.
[2017-09-16] MEDS: PANTOprazole INJ 40 MG in SYRINGE 0 ML IV SCH (11:27)
[2017-09-16 11:30] LABS: INR 1.4 (0.9-1.1)
[2017-09-16 11:35] LABS: PTT PATIENT 79.4 SECONDS (21.0-31.0)
--- NOTE | 2017-09-16 13:08 | GASTROENTEROLOGY PROGRESS NOTE ---
DATE: 09/16/2017 SUBJECTIVE: Chart reviewed, patient examined. The patient is feeling better today. He has had some bowel movements last night that were hard and today, were softer. The patient underwent an upper GI series yesterday, which suggested a distended stomach with retained solid matter as well as retained fecal material. The patient did have vomiting last evening with his meal. The patient had 4 bowel movements yesterday. CURRENT MEDICATIONS: Include pantoprazole, levothyroxine, famotidine, insulin, Diflucan IV, potassium, warfarin, nystatin, Zofran, hydralazine, Lopressor, and diltiazem. VITAL SIGNS: The patient is afebrile 36.7, blood pressure 120/74, respirations 20, heart rate 81, 99% on room air. REVIEW OF SYSTEMS: Otherwise noncontributory based on 13-point exam. PHYSICAL EXAMINATION: GENERAL: Today, the patient is awake, alert and oriented x3. HEENT: Oral mucosa moist. Sclerae are anicteric. HEART: Normal S1, S2. LUNGS: Clear to auscultation. ABDOMEN: Soft. The bowel sounds are quiet, but detected. There is no rebound or guarding. There is mild tympany. There is no focal tenderness. EXTREMITIES: Without edema. RECTAL: Deferred. IMPRESSION AND PLAN: The patient with features of an outlet obstruction versus gastroparesis. Contrast study with delayed imaging did eventually show passage of contrast partly through the duodenum and distally. This still raised the possibility of a partial duodenal obstruction that is leading to gastric distention. Narcotics may be contributing to the patient's stool patterns and symptomatic nausea and perhaps gastroparesis, although I remained concerned that a mechanical blockage may be present. We would continue current therapy, maintain a low-residue diet at most with mostly clear liquids and full liquids as a source of nutrition. We would consider a flat plate tomorrow or on Monday and if there is still persistence of any contrast or a significant fluid accumulation, it may be reasonable to perform an upper endoscopy early next week to reassess the postbulbar region for stenosis. All questions answered for the patient. The patient should ambulate as tolerated. Please continue with enemas to help promote evacuation.
[2017-09-16] MEDS: WARFARIN SOD 6 MG TAB PO SCH (16:32)
--- NOTE | 2017-09-16 17:09 | Progress Note ---
Subjective Date of Service: Sep 16, 2017. Subjective Pt evaluation today including: conversation w/ patient, physical exam, chart review, lab review, review of studies, review of inpatient medication list Pain: 1-2 PO Intake: good Patient is seen and examined by me. Pt denies cp, sob, dizziness, palpitation and loss of consciousness. Pt does had a BM 2 am this morning feels better. Problem List Medical Problems: (1) Acute kidney injury Status: Acute (2) Cancer of renal pelvis and ureter Permanent Comment: STAGING: Right renal pelvis/ureter, urothelial carcinoma, cT3 /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 Systemic chemotherapy (Opdivo) had progression 2. Combined radiation and chemotherapy. Radiation to the abdomen completed 09/23. Received 5,940 cGy. 3. Plan for immunotherapy Status: Chronic (3) Carcinoma of bladder Permanent Comment: STAGING: Bladder, urothelial carcinoma, [id number] TREATMENT: 1. Partial course of neoadjuvant chemotherapy 2. Radical cystectomy, bilateral pelvic lymph node dissection and ileal neobladder formation - 04/12/2013 3. Adjuvant chemotherapy with G/C for 3 cycles Status: Acute (4) Chemotherapy Status: Acute (5) Dehydration Status: Acute (6) Edema Status: Acute (7) History of pulmonary embolus (PE) Status: Chronic (8) History of renal bleeding Status: Chronic (9) Hypercalcemia Status: Acute (10) Hypercalcemia Status: Acute (11) Hyperglycemia Status: Acute (12) Intractable vomiting Status: Acute (13) Perinephric hematoma Status: Acute (14) Retroperitoneal bleeding Status: Acute (15) Retroperitoneal hematoma Status: Acute (16) Sepsis Status: Acute (17) Vomiting Status: Acute (18) Weakness Status: Acute Review of Systems Constitutional: + weakness, + fatigue, No fever, No chills, No sweats, No weight loss, No problem reported Eyes: No worsening of vision, No eye pain, No redness, No discharge, No diplopia ENT: No hearing loss, No unusual epistaxis, No nasal symptoms, No sore throat, No tinnitus, No dental problems, No trouble swallowing Respiratory: No cough, No sputum, No wheezing, No shortness of breath, No dyspnea on exertion, No dyspnea at rest, No hemoptysis Cardiac: No chest pain, No orthopnea, No PND, No edema, No claudication, No palpitations Abdomen: + nausea, + constipation, + problem reported (distention), No pain, No vomiting, No diarrhea Musculoskeletal: No joint pain, No muscle pain, No swelling, No calf pain Male : + incontinence, No dysuria, No urinary frequency, No nocturia more than once/night, No slowing stream, No hematuria Neurologic: No memory loss, No paralysis, No weakness, No numbness/tingling, No vertigo, No balance problems Psychiatric: No depression symptoms, No anhedonism, No anxiety, No insomnia, No substance abuse Heme: No abnormal bleeding/bruising, No clotting problems, No swollen lymph nodes, No night sweats Endo: No fatigue, No excessive thirst, No excessive urination Skin: No rash, No itch, No new/changing skin lesions, No color change, No bleeding Medications Medications (Trade) Dose Ordered Sig/Sara Route Start Time Stop Time Status Last Admin Dose Admin Famotidine 20 mg/ Syringe 5 ml @ 2.5 mls/min Q12H IV 09/15/17 21:00 10/15/17 20:59 09/16/17 08:52 2.5 MLS/MIN Pantoprazole Sodium 40 mg/ Syringe 10 ml @ 5 mls/min DAILY@11 IV 09/16/17 11:00 10/16/17 10:59 09/16/17 11:27 5 MLS/MIN Levothyroxine Sodium 50 mcg/ Syringe 2.5 ml @ 2 mls/min QAM IV 09/16/17 08:00 10/16/17 07:59 09/16/17 08:50 2 MLS/MIN Insulin Aspart (novoLOG ASPART) SLIDING SCALE G... ACHS SC 09/15/17 18:01 10/15/17 17:59 09/16/17 12:22 7 UNITS Objective Vital Signs Date Time Temp Pulse Resp B/P (MAP) Pulse Ox O2 Delivery O2 Flow Rate FiO2 09/16/17 08:00 98 Room Air 09/16/17 07:36 36.7 74 16 136/81 (99) 98 Room Air 09/16/17 04:24 36.5 78 18 124/76 (92) 97 Room Air 09/16/17 00:35 Room Air 09/15/17 23:56 36.7 79 18 109/75 (86) 96 Room Air 09/15/17 21:00 Room Air 09/15/17 19:28 36.6 68 18 118/75 (89) 96 Room Air 09/15/17 14:49 36.6 87 18 123/75 (91) 97 09/15/17 11:45 36.5 91 18 123/80 (94) 97 Room Air Physical Exam Comments: Constitutional: + weakness, + fatigue, No fever, No chills, No sweats, No weight loss, No problem reported Eyes: No worsening of vision, No eye pain, No redness, No discharge, No diplopia ENT: No hearing loss, No unusual epistaxis, No nasal symptoms, No sore throat, No tinnitus, No dental problems, No trouble swallowing Respiratory: No cough, No sputum, No wheezing, No shortness of breath, No dyspnea on exertion, No dyspnea at rest, No hemoptysis Cardiac: No chest pain, No orthopnea, No PND, No edema, No claudication, No palpitations Abdomen: + nausea, + constipation, + problem reported (distention), No pain, No vomiting, No diarrhea Musculoskeletal: No joint pain, No muscle pain, No swelling, No calf pain Male : + incontinence, No dysuria, No urinary frequency, No nocturia more than once/night, No slowing stream, No hematuria Neurologic: No memory loss, No paralysis, No weakness, No numbness/tingling, No vertigo, No balance problems Psychiatric: No depression symptoms, No anhedonism, No anxiety, No insomnia, No substance abuse Heme: No abnormal bleeding/bruising, No clotting problems, No swollen lymph nodes, No night sweats Endo: No fatigue, No excessive thirst, No excessive urination Skin: No rash, No itch, No new/changing skin lesions, No color change, No bleeding Laboratory Results Last 24 Hours Test 09/15/17 11:15 09/15/17 16:09 09/15/17 18:12 09/15/17 20:12 Bedside Glucose 216 mg/dl 215 mg/dl 236 mg/dl 272 mg/dl Test 09/16/17 07:51 09/16/17 09:54 09/16/17 10:52 Bedside Glucose 155 mg/dl White Blood Count 9.53 K/uL Red Blood Count 3.14 M/uL Hemoglobin 8.1 g/dL Hematocrit 26.8 % Mean Corpuscular Volume 85.4 fL Mean Corpuscular Hemoglobin 25.8 pg Mean Corpuscular Hemoglobin Concent 30.2 g/dl RDW Standard Deviation 58.8 fL RDW Coefficient of Variation 18.8 % Platelet Count 139 K/uL Mean Platelet Volume 9.2 fL Sodium Level 138 mmol/L Potassium Level 4.3 mmol/L Chloride Level 108 mmol/L Carbon Dioxide Level 21 mmol/L Anion Gap 8.0 mmol/L Blood Urea Nitrogen 45 mg/dl Creatinine 1.72 mg/dl Est Creatinine Clear Calc Drug Dose 49.1 ml/min Estimated GFR () 46.0 Estimated GFR (Non- 39.7 BUN/Creatinine Ratio 25.9 Random Glucose 171 mg/dl Calcium Level 8.4 mg/dl Magnesium Level 1.6 mg/dl Assessment and Plan (1) Vomiting (2) Hypercalcemia (3) Weakness (4) Carcinoma of bladder (5) Cancer of renal pelvis and ureter (6) Chemotherapy (7) PE (pulmonary embolism) (8) DVT (deep venous thrombosis) (9) Presence of IVC filter (10) DM II (diabetes mellitus, type II), controlled (11) Benign essential HTN (12) Hypothyroidism (13) CKD (chronic kidney disease) stage 3, GFR 30-59 ml/min (14) Edema (15) Hypercalcemia (16) Dysphagia (17) Anemia (18) Acute kidney injury 67-year-old white male admitted 09/08/2017 because of dysphagia, Linda esophagitis with Vomiting with Dysphagia/odynophagia: -- Has been on IV Pepcid and Protonix , fluconazole , this medicine was changed to oral 3 days ago, on IV formate because of severe gastroparesis -- EGD on 09/11/2017 -- ID consulted for the antibiotics because of esophageal candidiasis in cancer. -- Per recommendation from ID, Diflucan can be 200 mg daily for totally 21 days , today is day , -- For the pain control, we'll continue fentanyl patch, has discontinue off Marinol , heating pack for lower back pain , oxycodone as needed for breakthrough pain, patient and family agreed, narcotic medicine slowing down gastric empty, decrease fentanyl patch back to 25 g from 37 g for now Hypercalcemia, resolved probably mostly due to dehydration , encourage plenty fluid intake, follow-up labs Weakness, likely multifactorial but poor eating/acute malnutrition/weight loss , Continue treat with hydrate, supportive care, time Hypertensive with history of hypertension, stable, hydralazine as needed metastatic refractory stage IV urothelial carcinoma. most recent PET shows it is confined to right kidney, supposed to follow up with Dr. Collazo, patient and family requesting inpatient visit, oncologist on the case per , the report shows that the tumor is confined to the right kidney onco f/u, recs a CT scan without contrast of his head, which was done and unremarkable Hyperglycemia with history of diabetic on Lantus, continue current dose Chronic kidney disease, creatinine is in baseline, continue improving Likely lower extremity extensive DVT, hx of S/P IVC filter but was removed history of kidney bleeding need to transfer to [facility] while on Lovenox. Therefore he'll be not safe to use Lovenox bridging for Coumadin upon discharge to home, continue heparin drip until INR therapeutic Again discussed the risk and benefit of anticoagulation which include current heparin drip, and on Coumadin, and also discussed the options, such as IVC filter,, patient and understand and willing to take all the risks to be on blood thinner because they don't want to get pulmonary embolization which can be life-threatening Current dose of Coumadin is 6 mg by mouth daily, follow-up PT/INR, continue heparin drip for bridge Gastroparesis vs outlet obstruction causing motility disorder secondary to opioid use with fluid retention in the stomach, and the heartburn with esophageal linda,read Gi consult for further detailed. Senna S and bowel enemas for opioid induced constipation.EGD? if not resolved tomorrow plan film. Planning to go to [facility] when INR therapeutic, in the case can stop heparin drip Continued [facility] stay due to: multiple IV medications needed Discharge planning: rehab hospital Continued [facility] stay due to: multiple IV medications needed Discharge planning: rehab hospital
[2017-09-16 18:47] LABS: PTT PATIENT 61.6 SECONDS (21.0-31.0)
[2017-09-16] MEDS ORDERED: DOCUSATE SODIUM 100 MG CAP PO SCH (20:00)
[2017-09-16] MEDS: DOCUSATE SODIUM/SENNA 50/8.6MG TAB PO SCH (21:24)
[2017-09-16] MEDS: INSULIN HUMAN NPH SQ SCH (21:25)
[2017-09-16] MEDS ORDERED: NURSING DECISION MEDICATION ORDER SCH (21:30)
[2017-09-16] MEDS ORDERED: SODIUM CHLORIDE 0.65% NA SOLN 45 ML (OCEAN) PRN (21:45)
[2017-09-17 01:44] VITALS: BP 131/74; PULSE 60; TEMP 36.7; O2SAT 97
[2017-09-17] MEDS: HEPARIN 25,000 UNIT/500ML D5W 500 ML IV PRN ×3 (03:57→15:02)
[2017-09-17] MEDS: ACETAMINOPHEN 325 MG TAB PO PRN (03:59)
[2017-09-17] MEDS: POTASSIUM CHLORIDE INJ 10 MEQ in SODIUM CHLORIDE 0.9% 1000ML 1,000 ML IV SCH ×2 (05:56→15:00)
[2017-09-17 07:39] LABS: INR 1.9 (0.9-1.1)
[2017-09-17 07:42] LABS: PTT PATIENT 71.1 SECONDS (21.0-31.0)
[2017-09-17 07:47] VITALS: BP 142/76; PULSE 82; TEMP 36.8; O2SAT 96
[2017-09-17 08:00] VITALS: O2SAT 96
[2017-09-17] MEDS: FLUCONAZOLE / NSS 200 MG in PREMIXED NSS 100 ML IV SCH (08:11)
[2017-09-17] MEDS: LEVOTHYROXINE SODIUM INJ 50 MCG in SYRINGE 0 ML IV SCH (08:14)
[2017-09-17] MEDS: METOPROLOL TARTRATE 25 MG TAB PO SCH (08:18)
[2017-09-17] MEDS: ASPIRIN 81 MG ECTAB PO SCH (08:18)
[2017-09-17] MEDS: DOCUSATE SODIUM/SENNA 50/8.6MG TAB PO SCH ×2 (08:19→20:57)
[2017-09-17] MEDS: NYSTATIN SUSP 500,000 U/5 ML UDC PO SCH ×4 (08:19→20:57)
[2017-09-17] MEDS: DILTIAZEM HCL (TIAzac) 180 MG CAPCR PO SCH (08:20)
[2017-09-17] MEDS: SODIUM BICARBONATE 650 MG TAB PO SCH ×2 (08:20→20:58)
[2017-09-17] MEDS: DILTIAZEM HCL 120 MG EXT REL CAP PO SCH (08:20)
[2017-09-17] MEDS: ALLOPURINOL 300 MG TAB PO SCH (08:21)
[2017-09-17] MEDS: FAMOTIDINE IV INJ 20 MG in SYRINGE 3 ML IV SCH ×2 (08:40→20:58)
[2017-09-17] MEDS: INSULIN ASPART 100 UNITS/ML 3 ML PEN SC SCH ×4 (08:47→20:58)
[2017-09-17] MEDS: INSULIN GLARGINE SOLOSTAR 100 UNITS/ML 3 ML PEN SC SCH (08:47)
[2017-09-17] MEDS: BOOST VANILLA PO SCH ×3 (10:13→20:58)
[2017-09-17] MEDS ORDERED: FENTANYL PATCH REMOVE & WASTE SCH ×2 (10:15→10:59)
--- NOTE | 2017-09-17 10:44 | Gastroenterology Progress Note ---
Progress Note Date of Service: Sep 17, 2017 Subjective Pt evaluation today including: conversation w/ patient, conversation w/ family ( in room), physical exam, chart review, lab review, review of studies, review of inpatient medication list cc f/u gerd, delayed gastric emptying HPI Pt with some nausea off and on. Not much appetite but is eating his liquid diet. Some burning epigastric pain if drinks or eats quickly but not if eats slowly.He is moving his bowels some and not sure if he is constipated or not. Review of Systems Respiratory: No shortness of breath Cardiac: No chest pain Medications Current Inpatient Medications Medications (Trade) Dose Ordered Sig/Sara Route Start Time Stop Time Status Last Admin Dose Admin Acetaminophen (Tylenol Tab) 650 mg Q4H PRN PO 09/08/17 12:45 10/08/17 12:44 09/17/17 03:59 650 MG Allopurinol (Zyloprim Tab) 300 mg DAILY PO 09/09/17 08:00 10/09/17 07:59 09/17/17 08:21 300 MG Aspirin (Ecotrin Tab) 81 mg QAM PO 09/09/17 08:00 10/09/17 07:59 09/17/17 08:18 81 MG Metoprolol Tartrate (Lopressor Tab) 75 mg DAILY PO 09/09/17 08:00 10/09/17 07:59 09/17/17 08:18 75 MG Sodium Bicarbonate (Sodium Bicarbonate Tab) 650 mg BID PO 09/08/17 20:00 10/08/17 19:59 09/17/17 08:20 650 MG Diltiazem HCl (TIAzac CAP) 240 mg DAILY PO 09/09/17 08:00 10/09/17 07:59 09/17/17 08:20 240 MG Diltiazem HCl (TIAzac CAP) 180 mg DAILY PO 09/09/17 08:00 10/09/17 07:59 09/17/17 08:20 180 MG Heparin Sodium (Porcine) (Heparin 100 Unit/ml 5ml Flush) 5 ml PRN PRN IV 09/08/17 13:30 10/08/17 13:29 Miscellaneous (Iv Fluids Completed) 1 ea PRN PRN N/A 09/08/17 13:45 09/08/18 13:44 Al Hydrox/Mg Hydrox/Simethicone (Maalox Max Susp) 30 ml Q6H PRN PO 09/08/17 14:15 10/08/17 14:14 Lidocaine HCl/ Diphenhydramine HCl/Al Hydroxide/ Mg Hydroxide/ Glycerin/Barcode Q6H PRN MT 09/08/17 14:15 10/08/17 14:14 09/08/17 19:05 5 ML Insulin Human NPH (novoLIN-N NPH) 15 units HS SQ 09/08/17 21:00 10/08/17 20:59 09/16/17 21:25 15 UNITS Glucose (Glucose 40% Gel) 15-30 GRAMS 15 GRAMS... UD PRN PO 09/08/17 15:15 10/08/17 15:14 Glucose (Glucose Chew Tab) 4-8 Tablets 4 Tabl... UD PRN PO 09/08/17 15:15 10/08/17 15:14 Dextrose (Dextrose 50% 50ML Syringe) 25-50ML OF 50% DW IV FOR... UD PRN IV 09/08/17 15:15 10/08/17 15:14 Glucagon (Glucagon Inj) 1 mg UD PRN SQ 09/08/17 15:15 10/08/17 15:14 Heparin Sodium/ Dextrose 500 ml @ 21 mls/hr [id number] PRN IV 09/10/17 01:30 10/10/17 01:29 09/17/17 08:46 21 MLS/HR Insulin Glargine (Lantus Solostar Pen) 30 units QAM SC 09/11/17 08:00 10/09/17 07:59 09/17/17 08:47 30 UNITS Ondansetron HCl (Zofran Inj) 4 mg Q6H PRN IV 09/11/17 13:00 10/11/17 12:59 09/15/17 21:34 4 MG Hydralazine HCl (HydrALAZINE INJ) 20 mg Q6 PRN IV. 09/11/17 09:30 10/11/17 09:29 Nystatin (Mycostatin Susp) 10 ml QID PO 09/11/17 17:00 09/21/17 16:59 09/17/17 08:19 10 ML Warfarin Sodium (Coumadin Tab) 6 mg DAILY@1600 PO 09/14/17 16:00 10/13/17 07:59 09/16/17 16:32 6 MG Atorvastatin Calcium (Lipitor Tab) 80 mg HS PO 09/14/17 21:00 10/14/17 20:59 Future Hold 09/14/17 20:11 80 MG Cyanocobalamin (Vitamin B-12 Tab) 1,000 mcg QAM PO 09/15/17 08:00 10/15/17 07:59 Future Hold Enteral Nutritional Formula (Boost) 1 can TID@1030,1430,2000 PO 09/14/17 14:30 10/14/17 14:29 09/17/17 10:13 1 CAN Fluconazole/ Sodium Chloride 200 mg/Prmx 100 ml @ 100 mls/hr DAILY IV 09/15/17 14:00 09/18/17 13:59 09/17/17 08:11 100 MLS/HR Potassium Chloride 10 meq/ Sodium Chloride 1,005 ml @ 100 mls/hr Q10H3M IV 09/15/17 13:00 10/15/17 12:59 09/17/17 05:56 100 MLS/HR Famotidine 20 mg/ Syringe 5 ml @ 2.5 mls/min Q12H IV 09/15/17 21:00 10/15/17 20:59 09/17/17 08:40 2.5 MLS/MIN Pantoprazole Sodium 40 mg/ Syringe 10 ml @ 5 mls/min DAILY@11 IV 09/16/17 11:00 10/16/17 10:59 09/16/17 11:27 5 MLS/MIN Levothyroxine Sodium 50 mcg/ Syringe 2.5 ml @ 2 mls/min QAM IV 09/16/17 08:00 10/16/17 07:59 09/17/17 08:14 2 MLS/MIN Insulin Aspart (novoLOG ASPART) SLIDING SCALE G... ACHS SC 09/15/17 18:01 10/15/17 17:59 09/17/17 08:47 5 UNITS Senna/Docusate Sodium (Senokot S Tab) 1 tab BID PO 09/16/17 20:00 09/23/17 16:59 09/17/17 08:19 1 TAB Sodium Chloride ([place] Nasal [place]) 1 sprays PRN PRN NA 09/16/17 21:45 10/16/17 21:44 Objective Vital Signs Date Time Temp Pulse Resp B/P (MAP) Pulse Ox O2 Delivery O2 Flow Rate FiO2 09/17/17 08:00 96 Room Air 09/17/17 07:47 36.8 82 18 142/76 (98) 96 Room Air 09/17/17 01:44 36.7 60 20 131/74 (93) 97 Room Air 09/17/17 01:30 Room Air 09/16/17 21:30 Room Air 09/16/17 20:00 36.8 78 20 125/72 (89) 98 Room Air 09/16/17 16:00 98 Room Air 09/16/17 15:07 36.7 79 18 130/79 (96) 94 Room Air 09/16/17 11:18 36.7 81 20 120/74 (89) 99 Room Air Physical Exam General Appearance: WD/WN, no apparent distress Respiratory/Chest: lungs clear, no respiratory distress Cardiovascular: no murmur Abdomen: normal bowel sounds, non tender, soft, no organomegaly, + pertinent finding (mildly distended and tympanitic, No guarding nor rebound. ) Neurologic/Psych: normal mood/affect, oriented x 3 Laboratory Results Last 24 Hours Test 09/16/17 11:01 09/16/17 11:27 09/16/17 16:11 09/16/17 17:54 Prothrombin Time 14.8 SECONDS Prothromb Time International Ratio 1.4 Activated Partial Thromboplast Time 79.4 SECONDS 61.6 SECONDS Partial Thromboplastin Ratio 3.1 2.4 Bedside Glucose 172 mg/dl 134 mg/dl Test 09/16/17 20:34 09/17/17 07:04 09/17/17 07:46 Bedside Glucose 155 mg/dl 178 mg/dl Prothrombin Time 19.9 SECONDS Prothromb Time International Ratio 1.9 Activated Partial Thromboplast Time 71.1 SECONDS Partial Thromboplastin Ratio 2.7 Assessment and Plan GERD-PPI delayed gastric emptying--unclear if gastroparesis versud duodenal obstruction. Recommend repeat EGD monday to examine duodenum again and perhaps go further on exam. In meantime continue liquid diet. Also check KUB to check on stomach distension as well as to see if obstipated whihc can contribute to delayed emptying constipation--check KUB Dr [place]jo resuming GI care tomorrow 09/18 at 0800.
[2017-09-17] MEDS: PANTOprazole INJ 40 MG in SYRINGE 0 ML IV SCH (11:29)
--- NOTE | 2017-09-17 11:36 | DIAGNOSTIC IMAGING REPORT ---
ABDOMEN 2VIEW W/PA CHEST RTN CLINICAL HISTORY: distended stomach on EGD, ongoing abd distension. COMPARISON STUDY: 09/13/2017 FINDINGS: The heart is borderline enlarged. There is a right-sided A-Port catheter. There is a right-sided calcified granuloma. There is no free intraperitoneal air. There is marked gastric distention with residual barium. This may indicate gastric outlet obstruction. Stomach measures 39 cm. There are surgical clips the right upper quadrant. There are multiple surgical clips within the retroperitoneal region. There is an indwelling Rice catheter. IMPRESSION: Marked gastric distention. There is retained barium within the stomach. The findings suggest an element of gastric outlet obstruction. No free intraperitoneal air is visualized. Electronically signed by: Froylan Rodriguez M.D. 09/17/2017 11:34 AM Dictated Date/Time: 09/17/2017 11:31 AM
[2017-09-17] MEDS: ONDANSETRON INJ 2 MG/ML 2 ML VIAL IV PRN (12:33)
--- NOTE | 2017-09-17 12:57 | Progress Note ---
Subjective Date of Service: Sep 17, 2017. Subjective Pt evaluation today including: conversation w/ patient, physical exam, chart review, lab review, review of studies, conversation w/ polymer materials consultant, review of inpatient medication list Pain: no Voiding: no voiding problems Pt is seen and examined by me. Pt denies cp, sob, dizziness, palpitation and loc.Pt does have some nausea, but no vomiting and diarrhea. passing gas and stool. Problem List Medical Problems: (1) Acute kidney injury Status: Acute (2) Cancer of renal pelvis and ureter Permanent Comment: STAGING: Right renal pelvis/ureter, urothelial carcinoma, cT3 /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 Systemic chemotherapy (Opdivo) had progression 2. Combined radiation and chemotherapy. Radiation to the abdomen completed 09/23. Received 5,940 cGy. 3. Plan for immunotherapy Status: Chronic (3) Carcinoma of bladder Permanent Comment: STAGING: Bladder, urothelial carcinoma, [id number] TREATMENT: 1. Partial course of neoadjuvant chemotherapy 2. Radical cystectomy, bilateral pelvic lymph node dissection and ileal neobladder formation - 04/12/2013 3. Adjuvant chemotherapy with G/C for 3 cycles Status: Acute (4) Chemotherapy Status: Acute (5) Dehydration Status: Acute (6) Edema Status: Acute (7) History of pulmonary embolus (PE) Status: Chronic (8) History of renal bleeding Status: Chronic (9) Hypercalcemia Status: Acute (10) Hypercalcemia Status: Acute (11) Hyperglycemia Status: Acute (12) Intractable vomiting Status: Acute (13) Perinephric hematoma Status: Acute (14) Retroperitoneal bleeding Status: Acute (15) Retroperitoneal hematoma Status: Acute (16) Sepsis Status: Acute (17) Vomiting Status: Acute (18) Weakness Status: Acute Review of Systems All Other Systems: Reviewed and Negative Objective Vital Signs Date Time Temp Pulse Resp B/P (MAP) Pulse Ox O2 Delivery O2 Flow Rate FiO2 09/17/17 08:00 96 Room Air 09/17/17 07:47 36.8 82 18 142/76 (98) 96 Room Air 09/17/17 01:44 36.7 60 20 131/74 (93) 97 Room Air 09/17/17 01:30 Room Air 09/16/17 21:30 Room Air 09/16/17 20:00 36.8 78 20 125/72 (89) 98 Room Air 09/16/17 16:00 98 Room Air 09/16/17 15:07 36.7 79 18 130/79 (96) 94 Room Air Laboratory Results Last 24 Hours Test 09/16/17 16:11 09/16/17 17:54 09/16/17 20:34 09/17/17 07:04 Bedside Glucose 134 mg/dl 155 mg/dl Activated Partial Thromboplast Time 61.6 SECONDS 71.1 SECONDS Partial Thromboplastin Ratio 2.4 2.7 Prothrombin Time 19.9 SECONDS Prothromb Time International Ratio 1.9 Test 09/17/17 07:46 09/17/17 11:47 Bedside Glucose 178 mg/dl 157 mg/dl Assessment and Plan (1) Vomiting (2) Hypercalcemia (3) Weakness (4) Carcinoma of bladder (5) Cancer of renal pelvis and ureter (6) Chemotherapy (7) PE (pulmonary embolism) (8) DVT (deep venous thrombosis) (9) Presence of IVC filter (10) DM II (diabetes mellitus, type II), controlled (11) Benign essential HTN (12) Hypothyroidism (13) CKD (chronic kidney disease) stage 3, GFR 30-59 ml/min (14) Edema (15) Hypercalcemia (16) Dysphagia (17) Anemia (18) Acute kidney injury 67-year-old white male admitted 09/08/2017 because of dysphagia, Linda esophagitis with Vomiting with Dysphagia/odynophagia: -- Has been on IV Pepcid and Protonix , fluconazole , this medicine was changed to oral 3 days ago, on IV formate because of severe gastroparesis -- EGD on 09/11/2017 -- ID consulted for the antibiotics because of esophageal candidiasis in cancer. -- Per recommendation from ID, Diflucan can be 200 mg daily for totally 21 days , today is day , -- For the pain control, we'll continue fentanyl patch, has discontinue off Marinol , heating pack for lower back pain , oxycodone as needed for breakthrough pain, patient and family agreed, narcotic medicine slowing down gastric empty, decrease fentanyl patch back to 25 g from 37 g for now -- KUB marked distension of stomach noted and retained barium. NO mention of increased stool in colon. Liquid diet for now with repeat EGD Monday. Hypercalcemia, resolved probably mostly due to dehydration , encourage plenty fluid intake, follow-up labs Weakness, likely multifactorial but poor eating/acute malnutrition/weight loss , Continue treat with hydrate, supportive care, time Hypertensive with history of hypertension, stable, hydralazine as needed metastatic refractory stage IV urothelial carcinoma. most recent PET shows it is confined to right kidney, supposed to follow up with Dr. Collazo, patient and family requesting inpatient visit, oncologist on the case per , the report shows that the tumor is confined to the right kidney onco f/u, recs a CT scan without contrast of his head, which was done and unremarkable Hyperglycemia with history of diabetic on Lantus, continue current dose Chronic kidney disease, creatinine is in baseline, continue improving Likely lower extremity extensive DVT, hx of S/P IVC filter but was removed history of kidney bleeding need to transfer to [facility] while on Lovenox. Therefore he'll be not safe to use Lovenox bridging for Coumadin upon discharge to home, continue heparin drip until INR therapeutic Again discussed the risk and benefit of anticoagulation which include current heparin drip, and on Coumadin, and also discussed the options, such as IVC filter,, patient and understand and willing to take all the risks to be on blood thinner because they don't want to get pulmonary embolization which can be life-threatening Current dose of Coumadin is 6 mg by mouth daily, follow-up PT/INR, continue heparin drip for bridge Gastroparesis vs outlet obstruction causing motility disorderr secondary to opioid use with fluid retention in the stomach, and the heartburn with esophageal linda,read Gi consult for further detailed. Senna S and bowel enemas for opioid induced constipation.EGD? if not resolved tomorrow plan film. Planning to go to [facility] when INR therapeutic, in the case can stop heparin drip Continued [facility] stay due to: multiple IV medications needed Discharge planning: rehab hospital Continued [facility] stay due to: multiple IV medications needed Discharge planning: rehab hospital
[2017-09-17 14:48] LABS: PTT PATIENT 70.3 SECONDS (21.0-31.0)
[2017-09-17 16:00] VITALS: O2SAT 96
[2017-09-17 16:17] VITALS: BP 112/73; PULSE 70; TEMP 36.9; O2SAT 97
[2017-09-17] MEDS: WARFARIN SOD 6 MG TAB PO SCH (16:52)
[2017-09-17] MEDS: BENZONATATE 100MG CAP PO SCH (18:00)
[2017-09-17 19:47] VITALS: BP 123/72; PULSE 68; TEMP 36.8; O2SAT 94
[2017-09-17] MEDS: INSULIN HUMAN NPH SQ SCH (21:01)
[2017-09-17 21:31] LABS: PTT PATIENT 63.7 SECONDS (21.0-31.0)
[2017-09-17] MEDS ORDERED: NURSING VERBAL MED ORDER ONE (23:00)
[2017-09-18] VITALS (30 sets, daily range): BP systolic 75–141; BP diastolic 33–81; PULSE 79–96; TEMP 36.5–38.1; O2SAT 88–100
[2017-09-18] MEDS: HEPARIN 25,000 UNIT/500ML D5W 500 ML IV PRN ×2 (03:44→05:54)
[2017-09-18 05:46] LABS: INR 2.8 (0.9-1.1)
[2017-09-18 05:48] LABS: PTT PATIENT 73.9 SECONDS (21.0-31.0)
[2017-09-18] MEDS: ACETAMINOPHEN 325 MG TAB PO PRN ×3 (07:41→23:55)
[2017-09-18] MEDS: SODIUM BICARBONATE 650 MG TAB PO SCH ×3 (07:42→21:17)
[2017-09-18] MEDS: FLUCONAZOLE / NSS 200 MG in PREMIXED NSS 100 ML IV SCH (07:43)
[2017-09-18] MEDS: DOCUSATE SODIUM/SENNA 50/8.6MG TAB PO SCH ×3 (07:43→21:16)
[2017-09-18] MEDS: DILTIAZEM HCL (TIAzac) 180 MG CAPCR PO SCH (07:43)
[2017-09-18] MEDS: BENZONATATE 100MG CAP PO SCH (07:43)
[2017-09-18] MEDS: NYSTATIN SUSP 500,000 U/5 ML UDC PO SCH ×5 (07:44→21:17)
[2017-09-18] MEDS: ASPIRIN 81 MG ECTAB PO SCH ×2 (07:44→13:05)
[2017-09-18] MEDS: METOPROLOL TARTRATE 25 MG TAB PO SCH (07:45)
[2017-09-18] MEDS: ALLOPURINOL 300 MG TAB PO SCH ×2 (07:46→13:06)
[2017-09-18] MEDS: DILTIAZEM HCL 120 MG EXT REL CAP PO SCH (07:46)
[2017-09-18] MEDS: ONDANSETRON INJ 2 MG/ML 2 ML VIAL IV PRN (07:51)
[2017-09-18] MEDS: LEVOTHYROXINE SODIUM INJ 50 MCG in SYRINGE 0 ML IV SCH (08:57)
[2017-09-18] MEDS: FAMOTIDINE IV INJ 20 MG in SYRINGE 3 ML IV SCH ×2 (08:57→21:15)
--- NOTE | 2017-09-18 09:00 | HEME/ONC PROGRESS NOTE ---
DATE: 09/18/2017 DIAGNOSES: 1. Gastric outlet obstruction. 2. Nausea and vomiting. 3. Metastatic urothelial carcinoma. 4. Pulmonary embolus. SUBJECTIVE: Mr. Weir is a pleasant 67-year-old gentleman well known to [facility], currently under the care of Dr. Peterson Collazo with metastatic urothelial carcinoma. The patient is now on hospital day #10. Continues to make very slow if any progress. Bout of emesis this morning. KUB suggests gastric outlet obstruction. GI's note proposes EGD tomorrow morning. P.o. intake has been minimal. He has no complaints of pain necessarily, but clearly, he is frustrated with lack of progress. He did have a very minimal bowel movement within the past 24 hours. Continues to receive laxatives and enemas periodically. PHYSICAL EXAMINATION: GENERAL: He is in no acute distress. VITAL SIGNS: Temperature 36.8, pulse 79, respirations 20, blood pressure 125/75. SKIN: Without rash or lesion. HEENT: Oral mucosa without erythema or ulceration. ENT: Mucous membranes are dry. NECK: Supple. HEART: Regular rate and rhythm. LUNGS: Clear to auscultation bilaterally. ABDOMEN: Soft, nontender, nondistended. EXTREMITIES: 1+ peripheral edema bilaterally. NEUROLOGIC: Grossly intact. LABORATORY DATA: Pending at the time of this dictation. IMPRESSION: 1. Gastric outlet obstruction. 2. Nausea and vomiting. 3. Constipation. 4. Anorexia. 5. Metastatic urothelial carcinoma. PLAN: Mr. Weir is a pleasant, but unfortunate 67-year-old gentleman, well known to [facility] with the above diagnoses. Unfortunately, he has been making very slow if any progress. I appreciate gastroenterology's input and plans for EGD in the morning. KUB done yesterday clearly suggest gastric outlet obstruction. Perhaps after EGD, rules out structural obstruction, promotility agents such as Reglan or even erythromycin may be helpful in improving his gut motility. From an oncologic standpoint, he has not received therapy in quite some time and we will discuss with Dr. Collazo, his plans for continuing treatment once medically stable. His hemoglobin seems to be following up precipitously as well. May consider transfusion of a unit or two of packed RBCs should his hemoglobin falls below 7.5 grams per deciliter. I have nothing further to add from an oncologic standpoint. We will continue to follow this very pleasant, but unfortunate gentleman throughout his hospital stay. Thank you for assisting us in the care of this very pleasant gentleman.
[2017-09-18] MEDS: INSULIN ASPART 100 UNITS/ML 3 ML PEN SC SCH ×4 (09:02→21:00)
[2017-09-18] MEDS: INSULIN GLARGINE SOLOSTAR 100 UNITS/ML 3 ML PEN SC SCH (09:03)
[2017-09-18] MEDS ORDERED: SODIUM CHLORIDE 0.9% 1000ML 1,000 ML IV SCH ×2 (09:49→15:30)
[2017-09-18] MEDS ORDERED: ICU PROTOCOL FOR HYPERGLYCEMIA PRN (10:00)
[2017-09-18] MEDS ORDERED: ALUMINUM/MAGNESIUM/SIMETH (MAALOX MAX) 30 ML UDC PO PRN (10:00)
[2017-09-18] MEDS ORDERED: ONDANSETRON INJ 2 MG/ML 2 ML VIAL IV PRN (10:00)
[2017-09-18] MEDS ORDERED: MoRPHine SULFATE 2 MG/ML CARP IV PRN (10:00)
--- NOTE | 2017-09-18 10:43 | DIAGNOSTIC IMAGING REPORT ---
CHEST ONE VIEW PORTABLE CLINICAL HISTORY: 67 years-old Male presenting with eval for acute respiratory failure. TECHNIQUE: Portable upright AP view of the chest was obtained. COMPARISON: 09/17/2017. FINDINGS: A neck cyst right internal jugular Mediport terminates at the superior cavoatrial junction. Atherosclerosis of aortic arch. Cardiac silhouette mildly enlarged. Mildly low lung volumes with increased bandlike opacities at the lung bases. Calcified granuloma noted in the right lung. No large pleural effusion or pneumothorax. The patient is slightly STEWART rotated. Degenerative changes of the thoracic spine. Persistent residual oral contrast noted in the stomach, which appears distended. IMPRESSION: 1. Mildly low lung volumes with hypoventilatory changes, including increased basilar atelectasis. 2. Gastric distention with retained contrast. Obstruction cannot be excluded. Consider decompression with nasogastric tube. The report will be called/faxed according to standard departmental protocol. Electronically signed by: Hever Buckner M.D. 09/18/2017 10:42 AM Dictated Date/Time: 09/18/2017 10:17 AM
[2017-09-18] MEDS ORDERED: PIPERACILL/TAZOBAC CONSULT ACTIVE PRN (10:45)
[2017-09-18] MEDS ORDERED: PIPERACILL/TAZOBAC IV 4.5 GM in DEXTROSE 5% 100ML IV ONE (10:45)
[2017-09-18] MEDS ORDERED: NOREPINEPHRINE BITARTRATE 1 MG/ML 4 ML VIAL IV ONE (11:12)
[2017-09-18] MEDS ORDERED: NURSING VERBAL MED ORDER ONE ×7 (11:15→22:45)
[2017-09-18 11:19] LABS: BLOOD UREA NITROGEN 40 mg/dl (7-18); CALCIUM 7.5 mg/dl (8.5-10.1); CARBON DIOXIDE 15 mmol/L (21-32); CREATININE 2.02 mg/dl (0.60-1.40); GLUCOSE 333 mg/dl (70-99); PHOSPHORUS 3.5 mg/dl (2.5-4.9); POTASSIUM 5.2 mmol/L (3.5-5.1); SODIUM 135 mmol/L (136-145)
[2017-09-18 11:25] LABS: HEMATOCRIT 21.9 % (42-52); HEMOGLOBIN 6.4 g/dL (14.0-18.0); MEAN CELL VOLUME 86.6 fL (80-100); MEAN CORPUSCULAR HEMOGLOBIN 25.3 pg (25-34); MEAN CORPUSCULAR HGB CONC 29.2 g/dl (32-36); MEAN PLATELET VOLUME 9.7 fL (7.4-10.4); NUCLEATED RED BLOOD CELL ABS 0.03 K/uL (0-0); PLATELET COUNT 185 K/uL (130-400); RED CELL DISTRIBUTION WIDTH CV 18.5 % (11.5-14.5); RED CELL DISTRIBUTION WIDTH SD 59.2 fL (36.4-46.3); WHITE BLOOD COUNT 11.39 K/uL (4.8-10.8)
[2017-09-18] MEDS: PANTOprazole INJ 40 MG in SYRINGE 0 ML IV SCH (11:29)
[2017-09-18] MEDS: NOREPINEPHRINE BIT INJ 8 MG in DEXTROSE 5% 500ML 500 ML IV PRN ×3 (11:34→21:21)
--- NOTE | 2017-09-18 11:46 | Critical Care Consultation ---
Critical Care Consultation Date of Consultation: Sep 18, 2017. Attending Physician: Devin Gamino M.D. Reason for Consultation: The patient was unresponsive, hypotensive and there was [employer] called and the patient was transferred here for further management in ICU. History of Present Illness Mr. Weir is a pleasant 67-year-old gentleman well [facility], currently under the care of Dr. Peterson Collazo with metastatic urothelial carcinoma. The patient is now on hospital day #10. Continues to make very slow if any progress. Bout of emesis this morning. KUB suggests gastric outlet obstruction. GI's note proposes EGD tomorrow morning. P.o. intake has been minimal. He has no complaints of pain necessarily, but clearly, he is frustrated with lack of progress. He did have a very minimal bowel movement within the past 24 hours. Continues to receive laxatives and enemas periodically. The patient was on the commode this am and became unresponsive, hypotensive. RES[employer]PENTER was called. He had pulse and was hypotensive and was started on fluid bolus. Also had lots of secretions secondary to vomiting which was suctioned and patient also had the gag reflex. Started waking up and moving all rthe extremities and oxygenation and BP improved and at that stage, he was transferred to ICU. While here in ICU, another 20 G IV was put and NT suction and stat CXR was done, which did not reveal any consolidation. The patient was tachypneic and was put on BiPAP 12/5 with 35 % FiO2 and he was stabilized on that with an O2 saturation of 100 %. The patient is alert and awake and moves all the extremities and responds appropriately and is oriented X 3. Denies any chest pain or abdominal pain or dizziness or N/Vomitting. Past Medical/Surgical History 1. Gastric outlet obstruction. 2. Nausea and vomiting. 3. Metastatic urothelial carcinoma. 4. Pulmonary embolus. 5. STAGING: Right renal pelvis/ureter, urothelial carcinoma, cT3/4N2M0, stage IV 6. IVC Filter placed, was removed. Social History Smoking Status: Former Smoker Smokeless Tobacco Use: Unknown Alcohol Use: none Drug Use: none Marital Status: Housing Status: lives with family Occupation Status: retired Allergies Coded Allergies: No Known Allergies (Unverified , 09/02/17) Home Medications Scheduled Allopurinol (Zyloprim), 300 MG PO DAILY Aspirin (Aspirin Ec), 81 MG PO QAM Atorvastatin (Lipitor), 80 MG PO HS Cholecalciferol (Vitamin D3), 2,000 UNITS PO DAILY Cyanocobalamin (Vitamin B-12), 1,000 MCG PO QAM Diltiazem Hcl Ext Rel (Tiazac), 420 MG PO DAILY Fentanyl (Duragesic), 25 MCG TD [id number] Insulin Glargine (Lantus Solostar), 45 UNITS SC QAM Insulin Isophane (Human) (Humulin N Kwikpen), 35 UNITS SQ HS Insulin Lispro (Human) (Humalog Kwikpen), 33 UNITS SQ TIDM Krill Oil (Krill Oil), 1 CAP PO QAM Levothyroxine Sodium (Synthroid), 100 MCG PO QAM Metoprolol Tartrate (Lopressor) (Lopressor), 75 MG PO DAILY Ondasetron Odt (Zofran Odt), 4 MG SL TID Sodium Bicarbonate (Sodium Bicarbonate), 650 MG PO BID Current Inpatient Medications Current Inpatient Medications Medications (Trade) Dose Ordered Sig/Sara Route Start Time Stop Time Status Last Admin Dose Admin Acetaminophen (Tylenol Tab) 650 mg Q4H PRN PO 09/08/17 12:45 10/08/17 12:44 09/18/17 07:41 650 MG Allopurinol (Zyloprim Tab) 300 mg DAILY PO 09/09/17 08:00 10/09/17 07:59 09/17/17 08:21 300 MG Aspirin (Ecotrin Tab) 81 mg QAM PO 09/09/17 08:00 10/09/17 07:59 09/17/17 08:18 81 MG Sodium Bicarbonate (Sodium Bicarbonate Tab) 650 mg BID PO 09/08/17 20:00 10/08/17 19:59 09/17/17 20:58 650 MG Heparin Sodium (Porcine) (Heparin 100 Unit/ml 5ml Flush) 5 ml PRN PRN IV 09/08/17 13:30 10/08/17 13:29 Miscellaneous (Iv Fluids Completed) 1 ea PRN PRN N/A 09/08/17 13:45 09/08/18 13:44 Al Hydrox/Mg Hydrox/Simethicone (Maalox Max Susp) 30 ml Q6H PRN PO 09/08/17 14:15 1/14/18 14:14 Lidocaine HCl/ Diphenhydramine HCl/Al Hydroxide/ Mg Hydroxide/ Glycerin/Barcode Q6H PRN MT 09/08/17 14:15 10/08/17 14:14 09/08/17 19:05 5 ML Insulin Human NPH (novoLIN-N NPH) 15 units HS SQ 09/08/17 21:00 10/08/17 20:59 09/17/17 21:01 15 UNITS Glucose (Glucose 40% Gel) 15-30 GRAMS 15 GRAMS... UD PRN PO 09/08/17 15:15 10/08/17 15:14 Glucose (Glucose Chew Tab) 4-8 Tablets 4 Tabl... UD PRN PO 09/08/17 15:15 10/08/17 15:14 Dextrose (Dextrose 50% 50ML Syringe) 25-50ML OF 50% DW IV FOR... UD PRN IV 09/08/17 15:15 10/08/17 15:14 Glucagon (Glucagon Inj) 1 mg UD PRN SQ 09/08/17 15:15 10/08/17 15:14 Insulin Glargine (Lantus Solostar Pen) 30 units QAM SC 09/11/17 08:00 10/09/17 07:59 09/18/17 09:03 30 UNITS Ondansetron HCl (Zofran Inj) 4 mg Q6H PRN IV 09/11/17 13:00 10/11/17 12:59 09/18/17 07:51 4 MG Nystatin (Mycostatin Susp) 10 ml QID PO 09/11/17 17:00 09/21/17 16:59 09/17/17 20:57 10 ML Cyanocobalamin (Vitamin B-12 Tab) 1,000 mcg QAM PO 09/15/17 08:00 10/15/17 07:59 Future Hold Enteral Nutritional Formula (Boost) 1 can TID@1030,1430,2000 PO 09/14/17 14:30 10/14/17 14:29 09/17/17 20:58 1 CAN Fluconazole/ Sodium Chloride 200 mg/Prmx 100 ml @ 100 mls/hr DAILY IV 09/15/17 14:00 09/18/17 13:59 09/18/17 07:43 100 MLS/HR Potassium Chloride 10 meq/ Sodium Chloride 1,005 ml @ 100 mls/hr Q10H3M IV 09/15/17 13:00 10/15/17 12:59 Future Hold 09/17/17 15:00 100 MLS/HR Famotidine 20 mg/ Syringe 5 ml @ 2.5 mls/min Q12H IV 09/15/17 21:00 10/15/17 20:59 09/18/17 08:57 2.5 MLS/MIN Pantoprazole Sodium 40 mg/ Syringe 10 ml @ 5 mls/min DAILY@11 IV 09/16/17 11:00 10/16/17 10:59 09/17/17 11:29 5 MLS/MIN Levothyroxine Sodium 50 mcg/ Syringe 2.5 ml @ 2 mls/min QAM IV 09/16/17 08:00 10/16/17 07:59 09/18/17 08:57 2 MLS/MIN Insulin Aspart (novoLOG ASPART) SLIDING SCALE G... ACHS SC 09/15/17 18:01 10/15/17 17:59 09/18/17 09:02 3 UNITS Senna/Docusate Sodium (Senokot S Tab) 1 tab BID PO 09/16/17 20:00 09/23/17 16:59 09/17/17 20:57 1 TAB Sodium Chloride ([place] Nasal [place]) 1 sprays PRN PRN NA 09/16/17 21:45 10/16/17 21:44 Sodium Chloride 1,000 ml @ 80 mls/hr [id number] IV 09/18/17 09:49 10/18/17 09:48 UNV Al Hydrox/Mg Hydrox/Simethicone (Maalox Max Susp) 15 ml Q4H PRN PO 09/18/17 10:00 10/18/17 09:59 UNV Ondansetron HCl (Zofran Inj) 4 mg Q6H PRN IV 09/18/17 10:00 10/18/17 09:59 UNV Pantoprazole Sodium 40 mg/ Syringe 10 ml @ 5 mls/min DAILY IV 09/19/17 08:00 10/19/17 07:59 UNV Morphine Sulfate (MoRPHine SULFATE INJ) 2 mg Q2H PRN IV 09/18/17 10:00 1/8/18 09:59 UNV Miscellaneous Information (Icu Protocol For Hyperglycemia) 1 ea PRN PRN N/A 09/18/17 10:00 09/20/17 09:59 UNV Review of Systems Constitutional: + weakness, + fatigue ENT: + trouble swallowing Respiratory: + cough, + shortness of breath, + dyspnea on exertion Cardiovascular: + edema Abdomen: + nausea, + vomiting Neurologic: + weakness Endocrine: + fatigue Hematologic / Lymphatic: + clotting problems Physical Exam Date Time Temp Pulse Resp B/P (MAP) Pulse Ox O2 Delivery O2 Flow Rate FiO2 09/18/17 07:26 36.8 79 125/75 (92) 96 09/18/17 04:00 36.5 89 20 138/80 (99) 94 Room Air 09/18/17 00:37 36.9 82 16 132/81 (98) 96 Room Air 09/18/17 00:00 Room Air 09/17/17 20:00 Room Air 09/17/17 19:47 36.8 68 18 123/72 (89) 94 Room Air 09/17/17 16:17 36.9 70 18 112/73 (86) 97 Room Air 09/17/17 16:00 96 Room Air General Appearance: moderate distress Head: atraumatic Eyes: PERRLA ENT: normal ear exam, other (lots of oral secretions.) Neck: normal range of motion, no tenderness, trachea midline, no stridor, supple, no lymphadenopathy Respiratory: clear to percussion, rales (rales locate posteriorly at rt base.) , respiratory distress, rhonchi Cardiovasular: regular rate/rhythm, no JVD, normal peripheral pulses Abdomen: non tender, hypoactive bowel sounds, other (Distended abdomen.) Back: normal inspection Upper Extremities: no edema, normal ROM Lower Extremities: edema (3 + edema bilateral.) Edema: Bilateral LE (3+) Pulses: radial (R) (2+), radial (L) (2+) Neuro: alert, oriented x 3, normal motor exam, normal speech Psychiatric: normal affect Laboratory Results Last 24 Hours Test 09/17/17 11:47 09/17/17 14:13 09/17/17 16:51 09/17/17 20:22 Bedside Glucose 157 mg/dl 204 mg/dl 149 mg/dl Activated Partial Thromboplast Time 70.3 SECONDS Partial Thromboplastin Ratio 2.7 Test 09/17/17 20:59 09/18/17 05:12 09/18/17 07:43 09/18/17 10:05 Activated Partial Thromboplast Time 63.7 SECONDS 73.9 SECONDS Partial Thromboplastin Ratio 2.5 2.8 Prothrombin Time 28.8 SECONDS Prothromb Time International Ratio 2.8 Bedside Glucose 234 mg/dl Creatine Kinase MB Ratio Diagnostic Results ABDOMEN 2VIEW W/PA CHEST RTN CLINICAL HISTORY: distended stomach on EGD, ongoing abd distension. COMPARISON STUDY: 09/13/2017 FINDINGS: The heart is borderline enlarged. There is a right-sided A-Port catheter. There is a right-sided calcified granuloma. There is no free intraperitoneal air. There is marked gastric distention with residual barium. This may indicate gastric outlet obstruction. Stomach measures 39 cm. There are surgical clips the right upper quadrant. There are multiple surgical clips within the retroperitoneal region. There is an indwelling Rice catheter. IMPRESSION: Marked gastric distention. There is retained barium within the stomach. The findings suggest an element of gastric outlet obstruction. No free intraperitoneal air is visualized. Electronically signed by: Froylan Rodriguez M.D. 09/17/2017 11:34 AM Assessment & Plan The patient was transferred to ICU after [employer]/was unresponsive. 1. NEUROLOGY: The patient is fully alert and awake and oriented X 3 and is moving all the extremities and is not in any neurological distress or any issues. 2. CARDIOLOGY: The patient probably had either vasovagal or presyncopal episode. Fully recovered from the neuro point. ECG did not reveal any ST/T wave abnormalities, but will do series of cardiac enzymes and will R/O for an acute episode of VA. The patient is pain free at this time. The patient received the fluid bolus and still remains hypotensive. Will start the patient on Levophed. Also if indicated will give an albumen. 3. PULMONARY: The patient probably aspirated. CXR did not reveal any consolidation at this time. Will culture the patient. Also will start the patient empirically on Zosyn and follow very closely. Also aspiration precaution all the time. Also the patient has been tachypneic and hypoxemic. was started on BiPAP 12/5 and fiO2 35 % and currently he is oxygenating 100 %. Will monitor closely. 4. RENAL: The chemistry was requested and is still pending. The patient has H/O chronic renal failure. Also generalized edema, possibly related to hypoalbuminemia. If indicated, will give a bolus of albumen. 5. ID: The patient has probably aspirated. Hypotensive. Will start him on sepsis protocol for possible pulmonary source. Will consider sputum, Blood and UA/Cs and treat him accordingly. Was started on Zosyn as a broad spectrum IV antibiotics. If indicated, will add Vancomycin. 6. ENDOCRINE: Stat blood sugar was checked and was in the range of 200. Will monitor very closely. 7. HEMATOLOGY/ONCOLOGY: Metastatic urothelial carcinoma. Currently the patient is followed by Oncology and no new recommendations at this time. The patient is also anemic and Hg went down to 6. Will transfuse two units of PRBC and also will consider non contrast CT of the abdomen to R/O any retroperitoneal bleed. Also INR is 2.8 and if continue to bleed, we have to reverse the anticoagulation. He has DVT and there is a concern of PE as well. Not a candidate for CT angio of the chest because of chronic renal failure and only one kidney. 8. GASTROENTEROLOGY: Bout of emesis this morning. KUB suggests gastric outlet obstruction. GI's note proposes EGD tomorrow morning. P.O. intake has been minimal. The CXR did reveal distended abdomen. If indicated , will consider NG tube, otherwise , he is going for the EGD in am. The patient is also anemic and possibility of GI bleed or retroperitoneal bleed because of anticoagulation. Will get non contrast CT of the abdomen and treat accordingly. The patient has Rice catheter. The patient has RT Power port for his chemotherapy. The patient is on Coumadin for DVT which was diagnosed recently and also had IVC filter, which was reversed. The patient is full code. D/W the Primary care provider and also with family at length and answered all the questions. I have spent greater than 55 minutes of critical care time, excluding any procedure. Reviewed all the lab results/CXR and discussion with family and other health care providers. DR. Doris [facility].
[2017-09-18] MEDS ORDERED: PHARMACY GLYCEMIC MGMT CONSULT PRN (11:58)
[2017-09-18] MEDS ORDERED: PIPERACILL/TAZOBAC IV 3.375 GM in DEXTROSE 5% 100ML 100 ML IV SCH (12:00)
[2017-09-18] MEDS ORDERED: INSULIN IV INFUSION PROTOCOL STA (12:08)
[2017-09-18] MEDS ORDERED: SEVERE STRESS LEVEL ONE (12:15)
[2017-09-18] MEDS ORDERED: INSULIN PROTOCOL GOAL RANGE ONE (12:15)
[2017-09-18] MEDS ORDERED: NovoLIN R BOLUS FROM BAG IV ONE (12:30)
--- NOTE | 2017-09-18 12:38 | Pharmacy Progress Note ---
Glycemic Control Intl Consult Date of Service Sep 18, 2017. Scope Glycemic Pharmacist consulted by Dr Ramirez on 09/18/17 for glycemic control and to write orders per [facility] inpatient glycemic control protocol Objective Weight (Kilograms): 102.500 Accuchecks BSG (last 24hrs): Test 09/17/17 16:51 09/17/17 20:22 09/18/17 07:43 09/18/17 09:37 Bedside Glucose 204 mg/dl (70-99) 149 mg/dl (70-99) 234 mg/dl (70-99) 309 mg/dl (70-99) Test 09/18/17 10:38 Random Glucose 333 mg/dl (70-99) Laboratory Data (last 24hrs) Test 09/18/17 10:38 Anion Gap 11.0 mmol/L BUN/Creatinine Ratio 19.9 Blood Urea Nitrogen 40 mg/dl Creatinine 2.02 mg/dl Potassium Level 5.2 mmol/L Sodium Level 135 mmol/L White Blood Count 11.39 K/uL HbA1c Test 09/09/17 05:38 Hemoglobin A1c 7.1 % (4.5-5.6) H Recent Pertinent Medications Outpatient Anti-diabetic Regimen: * Lantus 45 units SQ AM + NPH 35 units SQ HS * Humalog 33 units SQ TIDM The patient is currently receiving: * Basal insulin: Lantus 30 units every AM + NPH 15 units every HS * Correctional Insulin: Novolog Correction per scale ACHS Goal Range: Low 120 mg/dL - High 160 mg/dL Correction Factor: 30 mg/dL/unit * Prandial insulin: Per carb ratio of 1 unit per 10 grams CHO consumed Risk Factors for Insulin Resistance: * Infection * Pressors Assessment & Plan ASSESSMENT: * 67yo T2DM male with adequate glycemic control as an outpatient per recent A1c * Pt with acute hyperglycemia today secondary to decompensation {code purple}, pressors, and reduced SQ insulin dosing. * Pt uses 179 units of insulin as an outpatient but is only receiving ~ 55-60 units of insulin per day while admitted * Will increase current regimen slightly since BSGs elevated. Conservative increases for NPO status. * Since patient has BSG > 220 mg/dl while in ICU will start IV insulin infusion per ordered ICU hyperglycemia protocol * Will continue SQ insulin dosing with IV insulin infusion to facilitate transition off of IV insulin as soon as possible * IV insulin will essentially serve as stress "correctional" insulin PLAN FOR INPATIENT GLYCEMIC CONTROL: * Start IV insulin infusion per severe stress protocol * Goal Range 100 - 180 mg/dl * In the critical care setting, continuous IV insulin infusion has been shown to be the best method for achieving glycemic targets. * Basal insulin * Lantus 30 units SQ in AM + increase NPH 25 units SQ HS * Bolus Insulin * Novolog per scale on IV insulin insulin calculator ACHS or Q6hrs while NPO * Will tighten SQ scale for when IV insulin infusion d/c * Goal Range: Low 120 mg/dL - High 150 mg/dL * Correction Factor: 15 mg/dL/unit * Nutritional / Prandial insulin per carb ratio of 1 unit per 5 grams CHO consumed * Please note that the plan above was derived based on current level of insulin resistance and hospital stress. These recommendations are appropriate for inpatient admission only. Plan of care upon discharge will need to be reassessed to avoid potential outpatient hypo/hyperglycemia. Thank you.
[2017-09-18] MEDS ORDERED: SODIUM BICARB 8.4% INJ 50 MEQ/50 ML SYR IV ONE (12:52)
--- NOTE | 2017-09-18 13:00 | DIAGNOSTIC IMAGING REPORT ---
ABD/PELVIS NO IV OR ORAL CONT CLINICAL HISTORY: 67 years-old Male presenting with RETROPERITONEAL BLEED. TECHNIQUE: Multidetector CT of the abdomen and pelvis was performed without the use of intravenous contrast. IV contrast: None. A dose lowering technique was used consistent with the principles of ALARA (as low as reasonably achievable). COMPARISON: PET/CT from 10/24/2016. CT DOSE (mGy.cm): The estimated cumulative dose is 1689.66 mGy.cm. FINDINGS: Rubber Mold Maker topogram: Surgical material projects over the right upper quadrant. Lung bases: Interval development of extensive centrilobular nodular opacities in a dependent distribution at the lung bases. Multichamber enlargement of the heart. Partially visualized tip of a central venous catheter. Coronary artery calcification. No pericardial effusion. Trace pleural effusions. Liver: Extensive streak artifact arises from high-density material in the stomach limiting evaluation of the liver parenchyma. Grossly normal morphology. Biliary: Unable to accurately assessed for biliary ductal dilatation in the absence of contrast and given extensive streak artifact. Gallbladder contains gallstones. Pancreas: Unable to assess. Spleen: Unable to assess. Adrenal glands: Unable to assess. Kidneys and ureters: The left kidney is grossly normal. The right kidney is grossly abnormal with soft tissue density material at the renal hilum expanding the architecture. This has increased from prior exam. Multiple metallic densities noted in the right kidney possibly embolization material. Bladder: Rice catheter in place within the bladder is decompressed and containing a normal fluid and gas. Pelvic organs: Postsurgical changes of prostatectomy. Bowel: Oral contrast noted within the colon. The appendix is normal. No bowel obstruction. Small bowel wall thickening may be present though the small bowel is under distended limiting evaluation. The stomach is distended with fluid and contrast material that results in significant beam Jung artifact limiting evaluation of the abdomen. Peritoneal cavity: No free fluid or intraperitoneal gas. The retroperitoneum demonstrates stranding associated with the soft tissue density material in the region of the right renal hilum. Lymph nodes: No discrete lymphadenopathy allowing for noncontrast technique. Postsurgical changes of extensive lymphadenectomy. Vasculature: Atherosclerosis of the normal caliber abdominal aorta. Abdominal wall: Small fat-containing umbilical hernia. Anasarca. Musculoskeletal: Degenerative changes of the spine. IMPRESSION: 1. High density material within the gastric lumen markedly degrades image quality. This limits diagnostic sensitivity significantly. Once oral contrast clears by radiograph, reexamination of the abdomen and pelvis by cross-sectional imaging could be obtained if clinically indicated. 2. Marked interval increase in soft tissue density in the region of the right renal hilum, worsened from prior exam. Hemorrhage is difficult to exclude, although this appears to be a chronic process and could represent progression of disease in the setting of a urothelial neoplasm. Infection is also difficult to exclude. Correlation with history is required. 3. Apart from the grossly abnormal right kidney, no commencing evidence of a retroperitoneal hematoma. 4. Postsurgical changes of prostatectomy and extensive lymphadenectomy. 5. Limited evaluation of solid and hollow viscera secondary to artifact. 6. Bilateral centrilobular nodular opacities at the lung bases, consistent with infectious bronchiolitis versus aspiration/aspiration pneumonitis. The report will be called/faxed according to standard departmental protocol. Electronically signed by: Hever Buckner M.D. 09/18/2017 12:59 PM Dictated Date/Time: 09/18/2017 12:45 PM
[2017-09-18 13:01] LABS: HEMATOCRIT 23.1 % (42-52)
[2017-09-18] MEDS: INSULIN REGULAR 250 UNITS in SODIUM CHLORIDE 0.9% 250ML 250 ML IV SCH (13:04)
[2017-09-18] MEDS: BOOST VANILLA PO SCH ×3 (13:06→19:17)
[2017-09-18] MEDS ORDERED: RAPID SEQUENCE INDUCTION BAG ONE (13:11)
[2017-09-18] MEDS ORDERED: MIDAZOLAM 125MG/250ML D5W IV ONE (13:31)
[2017-09-18] MEDS ORDERED: MIDAZOLAM 125MG/250ML D5W 250 ML IV PRN (14:00)
--- NOTE | 2017-09-18 14:13 | GASTROENTEROLOGY PROGRESS NOTE ---
DATE: 09/18/2017 GASTROINTESTINAL INPATIENT PROGRESS NOTE SUBJECTIVE: Chart reviewed, the patient examined, events of last 24 hours noted. The patient had a syncopal episode with nausea and vomiting while on the commode. The patient also had a similar event when placed supine during CT imaging. The patient has ongoing evidence of a gastric outlet obstruction with significantly dilated stomach with solid and liquid debris. His hemoglobin had fallen more acutely than the slow drift that had been experiencing. There have been no reports of melena or bright red blood per rectum, hematemesis or coffee ground emesis. CT imaging this morning revealed increased soft tissue dense in the region of the right renal hilum, which is worsening from prior exam, hemorrhage cannot be fully excluded. There is no evidence for retroperitoneal hematoma, the central lobular nodular opacities consistent with infection bronchiolitis versus aspiration pneumonitis. There was extensive lymphadenopathy. There is possibility of small bowel thickening. LABORATORY STUDIES: This morning show a white count of 11.3, hemoglobin was 6.4 at 10:00 a.m. and repeat was 7.0. The patient's hemoglobin have been slowly trending down at 9.2, 8.8 and 8.1, on Monday the . Serum chemistries this morning - potassium slightly elevated at 5.2, bicarb is low at 15, troponin is negative, CK-MB is slightly elevated at 3.2 but total CK is 31. The patient's beta-hydroxybutyric acid is elevated at 3.1. LFTs appear normal. Blood sugar is elevated. REVIEW OF SYSTEMS: Otherwise noncontributory. PHYSICAL EXAMINATION: VITAL SIGNS: The patient currently showed vital signs upon transfer to the ICU of heart rate 91, systolic 83, FIO2 is 100% on 100% nonrebreather. GENERAL: The patient was just endotracheally intubated with x-ray confirmation pending. The patient was alert doing intubation, but has received medications for the process of intubation. LUNGS: Show course sounds bilaterally with good breath sounds bilaterally with Ambu bag. HEART: Normal S1, S2. ABDOMEN: Distended, mildly tympanitic. There is no evidence for ascites or shifting dullness. There are diminished bowel sounds. EXTREMITIES: Without clubbing or cyanosis. There is trace edema. IMPRESSION AND PLAN: Mr. Sun likely represents a duodenal compression and outlet obstruction, leading to marked distention of the stomach with the retained contents. The patient was endotracheally intubated because of his acute syncopal event. At this point, would place a larger diameter NG oral gastric tube for gastric decompression. This will aide in eventual esophagogastroduodenoscopy and reevaluation of the postbulbar duodenum for extrinsic compression or mass effect. Would maintain nasogastric tube suction until at least the procedure is completed. If there is any bloody aspirate from the nasogastric tube then we may need to perform an esophagogastroduodenoscopy. Follow hemoglobin sincerely, continue proton pump inhibitor therapy as well as his other medications that include his insulin, Azactam, morphine; fentanyl patch, which had been discontinued today; pantoprazole, levothyroxine, IV Diflucan. Further recommendations to follow. Thank You CORNELIUS
[2017-09-18] MEDS ORDERED: PROPOFOL IV EMULSION 10 MG/ML 100 ML VIAL IV ONE (14:21)
[2017-09-18] MEDS ORDERED: VANCOMYCIN CONSULT ACTIVE PRN (14:30)
--- NOTE | 2017-09-18 14:39 | Procedure Note ---
Procedure Note Procedure Date Sep 18, 2017. Procedure Description Procedure Name: Arterial Line Procedure time out: side/site verified (rt side), patient ID confirmed (yes), correct procedure (rt A line.) Consent obtained: verbal (from the .) Time of procedure: 14:00 Performed by: attending Indications: diagnostic (Hypotension) Contraindications: none Description: Under sterile technique, ultrasound was used and rt side radial artery was localized and needle was pierced in to rt redial artery, good arterial blood return. The guide wire was advanced and over the wire, the canula was advanced and there was good wave form. The A Line catheter was sutured and secured and dressed well. The patient tolerated the procedure very well. No complications were noted. Blood loss was 5 ml. Comments: The family were notified about the current patient condition and plan of care.
--- NOTE | 2017-09-18 14:49 | Procedure Note ---
Procedure Note Procedure Date Sep 18, 2017. Procedure Description Procedure Name: Intubation Procedure time out: patient ID confirmed, correct procedure Consent obtained: verbal (From the .) Time of procedure: 13:30 Performed by: attending Indications: therapeutic (Acute Respiratory failure) Contraindications: none Description: The patient was sedated with 6 mg of IV versed. was Ambu bag to 100 % saturation. After that, size 4 Mac was selected and oral cavity was visualized. Secretions were suctioned. Under direct vision of the vocal cords, size 8 ET tube was advanced in to the trachea and the stylet was removed and given to respiratory therapy. There was color change on CO2 monitor and bilateral breath sounds were heard. The ET tube was secured at teeth gorge level 25. At that time OG tube was also inserted and stat CXR was taken to confirm the location of the ET tube which was above the pia qand the OG tube was below the diaphragm, good abdominal sounds and also return of the gastric secretion. On low continuous secretions. Complications: none Patient tolerated procedure: well Post-procedure vital signs: reviewed and stable Comments: CXR was confirmed for the placement of the tube.
[2017-09-18] MEDS ORDERED: VANCOMYCIN INJ 2,500 MG in SODIUM CHLORIDE 0.9% 500ML 500 ML IV SCH (15:00)
[2017-09-18] MEDS ORDERED: PROPOFOL IV EMULSION 10 MG/ML 100 ML VIAL IV PRN (15:00)
--- NOTE | 2017-09-18 15:00 | DIAGNOSTIC IMAGING REPORT ---
CHEST ONE VIEW PORTABLE CLINICAL HISTORY: 67 years-old Male presenting with intubation and og tube placement. TECHNIQUE: Portable AP view of the chest was obtained. COMPARISON: 09/18/2017 at 10:03 AM. FINDINGS: There has been interval intubation with the endotracheal tube terminating over 3 cm from the pia. Interval placement of a nasogastric tube, which terminates at the gastroesophageal junction, sidehole within the esophagus. The right internal jugular Mediport terminates at the superior cavoatrial junction. Significant interval development of patchy bilateral pulmonary opacities with a central predominance. Calcified granulomas noted in the right lung. No large pleural effusion or pneumothorax. Degenerative changes of the thoracic spine. Numerous external leads overlie the abdomen. Endovascular coil material partially visualized in the right upper quadrant. IMPRESSION: 1. Endotracheal tube appropriately positioned. Nasogastric tube terminates at the gastroesophageal junction. Advancement recommended. 2. Significant interval development of patchy bilateral central predominant opacities, which could represent pulmonary edema, multifocal pneumonia, or diffuse alveolar damage among other considerations. Electronically signed by: Hever Buckner M.D. 09/18/2017 2:59 PM Dictated Date/Time: 09/18/2017 2:55 PM
--- NOTE | 2017-09-18 15:12 | Progress Note ---
Subjective Date of Service: Sep 18, 2017. Subjective was called to code purple due to syncope with bothroom visit, pt was vomiting, pt eventually regained consciousness and alertness but later decompensated and required intubation. I personally spoke to family and updated them Problem List Medical Problems: (1) Acute kidney injury Status: Acute (2) Cancer of renal pelvis and ureter Permanent Comment: STAGING: Right renal pelvis/ureter, urothelial carcinoma, cT3 /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 Systemic chemotherapy (Opdivo) had progression 2. Combined radiation and chemotherapy. Radiation to the abdomen completed 09/23. Received 5,940 cGy. 3. Plan for immunotherapy Status: Chronic (3) Carcinoma of bladder Permanent Comment: STAGING: Bladder, urothelial carcinoma, [id number] TREATMENT: 1. Partial course of neoadjuvant chemotherapy 2. Radical cystectomy, bilateral pelvic lymph node dissection and ileal neobladder formation - 04/12/2013 3. Adjuvant chemotherapy with G/C for 3 cycles Status: Acute (4) Chemotherapy Status: Acute (5) Dehydration Status: Acute (6) Edema Status: Acute (7) History of pulmonary embolus (PE) Status: Chronic (8) History of renal bleeding Status: Chronic (9) Hypercalcemia Status: Acute (10) Hypercalcemia Status: Acute (11) Hyperglycemia Status: Acute (12) Intractable vomiting Status: Acute (13) Perinephric hematoma Status: Acute (14) Retroperitoneal bleeding Status: Acute (15) Retroperitoneal hematoma Status: Acute (16) Sepsis Status: Acute (17) Vomiting Status: Acute (18) Weakness Status: Acute Review of Systems Constitutional: + weakness, + fatigue Respiratory: + cough, + shortness of breath, + dyspnea at rest Cardiac: No chest pain, No orthopnea Abdomen: + pain, + nausea, + vomiting Neurologic: + weakness, No memory loss Psychiatric: + depression symptoms, No anhedonism Objective Vital Signs Date Time Temp Pulse Resp B/P (MAP) Pulse Ox O2 Delivery O2 Flow Rate FiO2 09/18/17 14:06 91 28 101/56 (71) 95 Mechanical Ventilator 100 09/18/17 13:30 100 09/18/17 12:59 91 100 100 09/18/17 12:00 100 BiPAP 30 09/18/17 12:00 90 26 84/57 (66) 95 BiPAP 100 09/18/17 10:10 100 09/18/17 10:00 100 BiPAP 30 09/18/17 10:00 93 26 111/61 (78) 100 BiPAP 30 09/18/17 07:26 36.8 79 125/75 (92) 96 09/18/17 04:00 36.5 89 20 138/80 (99) 94 Room Air 09/18/17 00:37 36.9 82 16 132/81 (98) 96 Room Air 09/18/17 00:00 Room Air 09/17/17 20:00 Room Air 09/17/17 19:47 36.8 68 18 123/72 (89) 94 Room Air 09/17/17 16:17 36.9 70 18 112/73 (86) 97 Room Air 09/17/17 16:00 96 Room Air Physical Exam General Appearance: WD/WN, + moderate distress Eyes: normal inspection, sclerae normal Respiratory/Chest: + respiratory distress, + decreased breath sounds, + rales Cardiovascular: regular rate, rhythm, no murmur Abdomen: soft, + abnormal bowel sounds, + distended Extremities: + pedal edema, + swelling Neurologic/Psychiatric: alert, + depressed affect Skin: normal color, warm/dry Laboratory Results Last 24 Hours Test 09/17/17 16:51 09/17/17 20:22 09/17/17 20:59 09/18/17 05:12 Bedside Glucose 204 mg/dl 149 mg/dl Activated Partial Thromboplast Time 63.7 SECONDS 73.9 SECONDS Partial Thromboplastin Ratio 2.5 2.8 Prothrombin Time 28.8 SECONDS Prothromb Time International Ratio 2.8 Test 09/18/17 07:43 09/18/17 09:37 09/18/17 10:38 09/18/17 11:49 Bedside Glucose 234 mg/dl 309 mg/dl White Blood Count 11.39 K/uL Red Blood Count 2.53 M/uL Hemoglobin 6.4 g/dL Hematocrit 21.9 % Mean Corpuscular Volume 86.6 fL Mean Corpuscular Hemoglobin 25.3 pg Mean Corpuscular Hemoglobin Concent 29.2 g/dl RDW Standard Deviation 59.2 fL RDW Coefficient of Variation 18.5 % Platelet Count 185 K/uL Mean Platelet Volume 9.7 fL Nucleated RBC Absolute Count (auto) 0.03 K/uL Nucleated Red Blood Cells % 0.2 % Sodium Level 135 mmol/L Potassium Level 5.2 mmol/L Chloride Level 109 mmol/L Carbon Dioxide Level 15 mmol/L Anion Gap 11.0 mmol/L Blood Urea Nitrogen 40 mg/dl Creatinine 2.02 mg/dl Est Creatinine Clear Calc Drug Dose 42.1 ml/min Estimated GFR () 37.9 Estimated GFR (Non- 32.7 BUN/Creatinine Ratio 19.9 Random Glucose 333 mg/dl Calcium Level 7.5 mg/dl Phosphorus Level 3.5 mg/dl Magnesium Level 1.8 mg/dl Total Creatine Kinase 31 U/L Creatine Kinase MB 1.0 ng/ml Creatine Kinase MB Ratio 3.2 Troponin I < 0.015 ng/ml Beta-Hydroxybutyric Acid 3.10 mg/dL Urine Color YELLOW Urine Appearance CLOUDY Urine pH 7.0 Urine Specific [place] 1.011 Urine Protein 1+ Urine Glucose (UA) NEG Urine Ketones NEG Urine Occult Blood 1+ Urine Nitrite NEG Urine Bilirubin NEG Urine Urobilinogen NEG Urine Leukocyte Esterase MODERATE Urine WBC (Auto) >30 /hpf Urine RBC (Auto) 0-4 /hpf Urine Hyaline Casts (Auto) 10-30 /lpf Urine Epithelial Cells (Auto) 0-5 /lpf Urine Bacteria (Auto) NEG Test 09/18/17 12:48 09/18/17 12:50 09/18/17 14:32 Hemoglobin 7.0 g/dL Hematocrit 23.1 % Bedside Venous pH 7.21 Bedside Venous pCO2 34 mmHg Bedside Venous pO2 < 32 mmHg Bedside Venous HCO3 13 meq/L Bedside Venous Blood Total CO2 14 mEq/l Bedside Venous Blood O2 Saturation 24.0 % Bedside Venous Blood Base Excess -15.0 meq/L Bedside FiO2 40 % 100 % Blood Gas Sample Site Art Line Bedside Blood Gas pH (LAB) 7.30 Bedside Blood Gas pCO2 (LAB) 27 mmHg Bedside Blood Gas pO2 (LAB) 66 mmHg Bedside Blood Gas HCO3 (LAB) 13 meq/L Bedside Blood Gas Total CO2 14 mEq/l Bedside Blood Gas Base Excess (LAB) -14.0 meq/L Bedside Blood Gas O2 Saturation 91.0 % Wong Test NA Oxygen Delivery Device Ventilator Bedside Oxygen Rate (breaths/min) 30 Blood Gas Minute Ventilation 18.9 Blood Gas Tidal Volume 830 Blood Gas PEEP 8 Assessment and Plan (1) Vomiting (2) Hypercalcemia (3) Weakness (4) Carcinoma of bladder (5) Cancer of renal pelvis and ureter (6) Chemotherapy (7) PE (pulmonary embolism) (8) DVT (deep venous thrombosis) (9) Presence of IVC filter (10) DM II (diabetes mellitus, type II), controlled (11) Benign essential HTN (12) Hypothyroidism (13) CKD (chronic kidney disease) stage 3, GFR 30-59 ml/min (14) Edema (15) Hypercalcemia (16) Dysphagia (17) Anemia (18) Acute kidney injury 67-year-old white male admitted 09/08/2017 because of dysphagia, has history of localized urothelial cancer on right, developed unresponsive state, low blood pressure and temporarily regained stable VS but decompensated later requring intubation, concern for large gastric contents and outlet obstruction, NGT placed Acute Respiratory failure, ventilation managed by ICu, concern for aspiration pneumonia, started on Zosyn, probably influenced by lack of gastric emptying influencing aspiration. Initally concern for Linda esophagitis recommendation from ID, Diflucan can be 200 mg daily for totally 21 days, last dose 10/03/17 GERD concern for duodenitis causing gastric outlet issues IV Pepcid and Protonix , -- EGD on 09/11/2017 Pt did have fentanyl patch, and Marinol ,discontinued due to concerns of motility and negatively influencing BP Hypercalcemia, associated with malignancy resolved with hydration metastatic refractory stage IV urothelial carcinoma. most recent PET shows it is confined to right kidney, usually follows with Dr. Collazo, non contrast CT of abdomen and pelvis may suggest disease progression diabetes with poor control continue basal bolus Chronic kidney disease stage 3 lower extremity extensive DVT, hx of S/P IVC filter but was removed is not with therapeutic INR but has developed acute anemia of unknown source, will stop heparin and hold Coumadin, will discuss re placement of filter if bleeding is issue Acute anemia, follow and augment, likely a mix of acute on chronic Continued [facility] stay due to: multiple IV medications needed Discharge planning: rehab hospital
[2017-09-18] MEDS ORDERED: SODIUM BICARBONATE 8.4% INJ 150 MEQ in SODIUM CHLORIDE 0.45% 1000ML 1,000 ML IV SCH (15:45)
[2017-09-18] MEDS: VASOPRESSIN INJ 50 UNITS in SODIUM CHLORIDE 0.9% 500ML 500 ML IV SCH (16:12)
[2017-09-18] MEDS: SODIUM BICARBONATE 8.4% INJ 150 MEQ in SODIUM CHLORIDE 0.45% 1000ML 1,000 ML IV SCH ×2 (16:12→23:27)
--- NOTE | 2017-09-18 16:26 | Procedure Note ---
Procedure Note Procedure Date Sep 18, 2017. Procedure Description Procedure Name: RT IJ CVC Procedure time out: side/site verified, patient ID confirmed, correct procedure Consent obtained: written (From the .) Performed by: attending Indications: therapeutic (Hypotension/For fluids and multiple IV medications.) Complications: none Patient tolerated procedure: well Post-procedure vital signs: reviewed and stable Central Line Consent obtained: written Performed by: attending Indications: poor venous access, central drug admin., CVP monitoring Contraindications: coagulopathy Prep: chlorhexadine prep, sterile drape, sterile procedures used Anesthesia: local injection, lidocaine 2% without epi (3 cc of 2 % Lidocaine.) Volume anesthetic (ml's): 3 Central line lumen: triple Central line location: internal jugular (R) Additional details: percutaneous placement, ultrasound guidance, line sutured, good blood return CXR: appropriate position, no pneumothorax Complications: none Patient tolerated procedure: well Post-procedure vital signs: reviewed and stable Comments: D/W who is by the bedside and explained about the procedure again in detail. Answered all the questions.
--- NOTE | 2017-09-18 16:37 | DIAGNOSTIC IMAGING REPORT ---
CHEST ONE VIEW PORTABLE CLINICAL HISTORY: 67 years-old Male presenting with central line . TECHNIQUE: Portable supine AP view of the chest was obtained. COMPARISON: 09/18/2017 at 2:31 PM FINDINGS: Endotracheal tube terminates 1.4 cm from the pia, slightly low in comparison to prior. Nasogastric tube has been advanced, terminus not visualized. Right IJ Mediport unchanged. Interval placement of a second right IJ central line, which terminates in the right IJ. The patient is STEWART rotated. Persistent patchy bilateral pulmonary opacities with a central predominance. The right upper lung is also affected. No large pleural effusion or pneumothorax. Degenerative changes of the thoracic spine. The stomach is distended with contrast. IMPRESSION: 1. Endotracheal tube slightly low although 0.4 cm from the pia. 2. Interval placement of a second right IJ central line, which terminates in the right IJ. 3. Remaining lines and tubes are properly positioned. 4. Multifocal pulmonary opacities concerning for pneumonia, edema, or diffuse alveolar damage. Electronically signed by: Hever Buckner M.D. 09/18/2017 4:36 PM Dictated Date/Time: 09/18/2017 4:33 PM
[2017-09-18] MEDS: PIPERACILL/TAZOBAC IV 4.5 GM in DEXTROSE 5% 100ML IV SCH (17:52)
[2017-09-18 18:43] LABS: ISTAT POTASSIUM 4.9 mEq/L (3.3-5.0); ISTAT SODIUM 138 mEq/L (135-144)
--- NOTE | 2017-09-18 19:13 | DIAGNOSTIC IMAGING REPORT ---
CHEST ONE VIEW PORTABLE CLINICAL HISTORY: 67 years-old Male presenting with repositioned ET tube . TECHNIQUE: Portable upright AP view of the chest was obtained. COMPARISON: 09/18/2017 at 4:20 PM. FINDINGS: Endotracheal tube has been slightly retracted and now terminates over 3 cm from the pia. Right IJ Mediport, right IJ central line, and nasogastric tube unchanged in position. Cardiomediastinal silhouette unchanged. Persistent bilateral patchy central predominant opacities. No large pleural effusion. The left costophrenic sulcus appears deep, however, no pneumothorax on the left is apparent. Degenerative changes of the thoracic spine. Endovascular coils noted in the right upper quadrant. The stomach remains distended with contrast. IMPRESSION: 1. Endotracheal tube now over 3 cm from the pia. Remaining lines and tubes unchanged in position. 2. Persistent patchy central predominant bilateral opacities. 3. Stomach remains distended with contrast despite the presence of the nasogastric tube. Recommend decompression. The report will be called/faxed according to standard departmental protocol. Electronically signed by: Hever Buckner M.D. 09/18/2017 7:12 PM Dictated Date/Time: 09/18/2017 7:10 PM
[2017-09-18] MEDS ORDERED: FUROSEMIDE INJ 40 MG in SYRINGE 0 ML IV SCH (20:30)
[2017-09-18] MEDS ORDERED: INSULIN HUMAN NPH SQ SCH (21:00)
--- NOTE | 2017-09-18 21:22 | Pharmacy Progress Note ---
Pharmacy Antibiotic Consult Date of Service: Sep 18, 2017. Pharmacy Dosing Scope Pharmacy is consulted to initiate vancomycin and Zosyn IV dosing therapy, order appropriate labs and adjust drug dose/frequency. Subjective The patient is a 67 year old male admitted on Sep 08, 2017 at 15:42. History of DM, CKD, gastric outlet obstruction, possible aspiration. Objective Height (Feet): 5 Height (Inches): 11.00 Weight (Kilograms): 102.500 Lab Results (24hrs): Test 09/18/17 05:12 09/18/17 07:43 09/18/17 09:37 09/18/17 10:38 Prothrombin Time 28.8 SECONDS (9.0-12.0) Prothromb Time International Ratio 2.8 (0.9-1.1) Activated Partial Thromboplast Time 73.9 SECONDS (21.0-31.0) Partial Thromboplastin Ratio 2.8 Bedside Glucose 234 mg/dl (70-99) 309 mg/dl (70-99) White Blood Count 11.39 K/uL (4.8-10.8) Red Blood Count 2.53 M/uL (4.7-6.1) Hemoglobin 6.4 g/dL (14.0-18.0) Hematocrit 21.9 % (42-52) Mean Corpuscular Volume 86.6 fL (80-100) Mean Corpuscular Hemoglobin 25.3 pg (25-34) Mean Corpuscular Hemoglobin Concent 29.2 g/dl (32-36) RDW Standard Deviation 59.2 fL (36.4-46.3) RDW Coefficient of Variation 18.5 % (11.5-14.5) Platelet Count 185 K/uL (130-400) Mean Platelet Volume 9.7 fL (7.4-10.4) Nucleated RBC Absolute Count (auto) 0.03 K/uL (0-0) Nucleated Red Blood Cells % 0.2 % Sodium Level 135 mmol/L (136-145) Potassium Level 5.2 mmol/L (3.5-5.1) Chloride Level 109 mmol/L (98-107) Carbon Dioxide Level 15 mmol/L (21-32) Anion Gap 11.0 mmol/L (3-11) Blood Urea Nitrogen 40 mg/dl (7-18) Creatinine 2.02 mg/dl (0.60-1.40) Est Creatinine Clear Calc Drug Dose 42.1 ml/min Estimated GFR () 37.9 Estimated GFR (Non- 32.7 BUN/Creatinine Ratio 19.9 (10-20) Random Glucose 333 mg/dl (70-99) Calcium Level 7.5 mg/dl (8.5-10.1) Phosphorus Level 3.5 mg/dl (2.5-4.9) Magnesium Level 1.8 mg/dl (1.8-2.4) Total Creatine Kinase 31 U/L (39-308) Creatine Kinase MB 1.0 ng/ml (0.5-3.6) Creatine Kinase MB Ratio 3.2 (0-3.0) Troponin I < 0.015 ng/ml (0-0.045) Beta-Hydroxybutyric Acid 3.10 mg/dL (0.2-2.81) Test 09/18/17 11:49 09/18/17 12:48 09/18/17 12:50 09/18/17 14:32 Urine Color YELLOW Urine Appearance CLOUDY (CLEAR) Urine pH 7.0 (4.5-7.5) Urine Specific [place] 1.011 (1.000-1.030) Urine Protein 1+ (NEG) Urine Glucose (UA) NEG (NEG) Urine Ketones NEG (NEG) Urine Occult Blood 1+ (NEG) Urine Nitrite NEG (NEG) Urine Bilirubin NEG (NEG) Urine Urobilinogen NEG (NEG) Urine Leukocyte Esterase MODERATE (NEG) Urine WBC (Auto) >30 /hpf (0-5) Urine RBC (Auto) 0-4 /hpf (0-4) Urine Hyaline Casts (Auto) 10-30 /lpf (0-5) Urine Epithelial Cells (Auto) 0-5 /lpf (0-5) Urine Bacteria (Auto) NEG (NEG) Hemoglobin 7.0 g/dL (14.0-18.0) Hematocrit 23.1 % (42-52) Bedside Venous pH 7.21 (7.36-7.41) Bedside Venous pCO2 34 mmHg (38.0-50.0) Bedside Venous pO2 < 32 mmHg (30-55) Bedside Venous HCO3 13 meq/L (23-28) Bedside Venous Blood Total CO2 14 mEq/l (24-31) Bedside Venous Blood O2 Saturation 24.0 % (70-80) Bedside Venous Blood Base Excess -15.0 meq/L Bedside FiO2 40 % 100 % Blood Gas Sample Site Art Line Bedside Blood Gas pH (LAB) 7.30 (7.35-7.45) Bedside Blood Gas pCO2 (LAB) 27 mmHg (35-46) Bedside Blood Gas pO2 (LAB) 66 mmHg (80-95) Bedside Blood Gas HCO3 (LAB) 13 meq/L (19-24) Bedside Blood Gas Total CO2 14 mEq/l (24-31) Bedside Blood Gas Base Excess (LAB) -14.0 meq/L (-9-1.8) Bedside Blood Gas O2 Saturation 91.0 % (90-95) Wong Test NA Oxygen Delivery Device Ventilator Bedside Oxygen Rate (breaths/min) 30 Blood Gas Minute Ventilation 18.9 Blood Gas Tidal Volume 830 Blood Gas PEEP 8 Test 09/18/17 15:30 09/18/17 18:12 09/18/17 18:30 09/18/17 19:30 Lactic Acid Level 5.3 mmol/L (0.4-2.0) Bedside Hemoglobin 7.5 g/dl (14.0-18.0) Bedside Hematocrit 22 % (42-52) Bedside Blood Gas pH (LAB) 7.24 (7.35-7.45) Bedside Blood Gas pCO2 (LAB) 39 mmHg (35-46) Bedside Blood Gas pO2 (LAB) 69 mmHg (80-95) Bedside Blood Gas HCO3 (LAB) 17 meq/L (19-24) Bedside Blood Gas Total CO2 18 mEq/l (24-31) Bedside Blood Gas Base Excess (LAB) -10.0 meq/L (-9-1.8) Bedside Blood Gas O2 Saturation 90.0 % (90-95) Bedside Sodium 138 mEq/L (135-144) Bedside Potassium 4.9 mEq/L (3.3-5.0) Bedside Glucose (other) 202 mg/dl (70-99) 189 mg/dl (70-99) Micro Results: 09/18 nasal neg MRSA 09/18 blood x2 pending 09/18 cath urine pending 09/18 sputum pending Recent Pertinent Medications Item Value Date Time Vancomycin HCl 530 ml @ 200 mls/hr 09/19/17 1400 1500 mg/Sodium Q24H/IV Chloride Piperacillin Sod/ 120 ml @ 30 mls/hr 09/18/17 1700 Tazobactam Sod Q8H/IV 09/18/17 1752 4.5 gm/Dextrose Vancomycin HCl 550 ml @ 200 mls/hr 09/18/17 1500 2500 mg/Sodium TODAY@1500/IV 09/18/17 1515 Chloride Piperacillin Sod/ 120 ml @ 200 mls/hr 09/18/17 1045 Tazobactam Sod NOW ONCE/IV 09/18/17 1134 4.5 gm/Dextrose Assessment & Plan Loading dose: vancomycin 2500 mg IV X 1 dose (~25 mg/kg) then: vancomycin 1500 mg mg IV every 24 hours. Goal peak level estimate: between 30-40 mcg/mL. Goal trough level estimate: between 15-20 mcg/mL. Trough has been ordered for: 09/20/15 before 1400 dose. Zosyn 4.5 Gm IV xc1, then Zosyn 4.5 Gm IV (infused over 4 hr) q8h, for CrCl over 20 ml/min. Pharmacy will continue to follow and will adjust dose/frequency as necessary. Thank you
[2017-09-18 21:35] LABS: HEMATOCRIT 29.6 % (42-52); HEMOGLOBIN 9.2 g/dL (14.0-18.0)
[2017-09-18 21:53] LABS: INR 5.7 (0.9-1.1)
[2017-09-18 22:14] LABS: CREATININE 2.41 mg/dl (0.60-1.40); POTASSIUM 4.9 mmol/L (3.5-5.1)
[2017-09-18] MEDS ORDERED: PHYTONADIONE INJ 10 MG in SODIUM CHLORIDE 0.9% 50ML 50 ML IV SCH (22:45)
[2017-09-19] VITALS (14 sets, daily range): BP systolic 83–144; BP diastolic 45–85; PULSE 90–98; TEMP 37–37.9; O2SAT 94–97
[2017-09-19] MEDS: PIPERACILL/TAZOBAC IV 4.5 GM in DEXTROSE 5% 100ML IV SCH ×3 (00:39→16:16)
[2017-09-19] MEDS: NOREPINEPHRINE BIT INJ 8 MG in DEXTROSE 5% 500ML 500 ML IV PRN ×3 (01:16→11:32)
[2017-09-19 05:25] LABS: HEMATOCRIT 28.2 % (42-52); HEMOGLOBIN 8.7 g/dL (14.0-18.0); MEAN CELL VOLUME 84.9 fL (80-100); MEAN CORPUSCULAR HEMOGLOBIN 26.2 pg (25-34); MEAN CORPUSCULAR HGB CONC 30.9 g/dl (32-36); MEAN PLATELET VOLUME 10.4 fL (7.4-10.4); NUCLEATED RED BLOOD CELL ABS 0.07 K/uL (0-0); PLATELET COUNT 175 K/uL (130-400); RED CELL DISTRIBUTION WIDTH CV 17.4 % (11.5-14.5); RED CELL DISTRIBUTION WIDTH SD 53.7 fL (36.4-46.3); WHITE BLOOD COUNT 18.99 K/uL (4.8-10.8)
[2017-09-19 05:35] LABS: INR 1.8 (0.9-1.1)
[2017-09-19 05:43] LABS: CREATININE 2.73 mg/dl (0.60-1.40); POTASSIUM 5.3 mmol/L (3.5-5.1)
[2017-09-19] MEDS: SODIUM BICARBONATE 8.4% INJ 150 MEQ in SODIUM CHLORIDE 0.45% 1000ML 1,000 ML IV SCH ×3 (07:24→21:47)
[2017-09-19] MEDS: INSULIN ASPART 100 UNITS/ML 3 ML PEN SC SCH ×4 (07:24→20:18)
[2017-09-19] MEDS: PANTOprazole INJ 40 MG in SYRINGE 0 ML IV SCH (07:30)
[2017-09-19] MEDS ORDERED: NURSING VERBAL MED ORDER ONE (07:45)
[2017-09-19] MEDS ORDERED: PANTOprazole INJ 40 MG in SYRINGE 0 ML IV SCH (08:00)
--- NOTE | 2017-09-19 08:44 | DIAGNOSTIC IMAGING REPORT ---
KUB CLINICAL HISTORY: obstruction obstruction COMPARISON STUDY: 09/17/2017 FINDINGS: Persistent gastric distention. Moderate improvement from the prior exam. Maximum dimension 28 cm diminished from 39 cm. Residual gastric barium is noted. Bowel pattern is nonobstructive. Stable postoperative changes lateral soft tissue pelvic region. IMPRESSION: Gastric distention moderately improved from the prior study. The above report was generated using voice recognition software. It may contain grammatical, syntax or spelling errors. Electronically signed by: Issac Alcazar M.D. 09/19/2017 8:43 AM Dictated Date/Time: 09/19/2017 8:41 AM
--- NOTE | 2017-09-19 09:07 | GASTROENTEROLOGY PROGRESS NOTE ---
DATE: 09/19/2017 DATE: 09/19/2017 GI issues discussed again with family present at the bedside. The patient intubated yesterday and had copious OG output. His studies are negative this morning. Hemoglobin is 8.7 and was 9.2 yesterday. Serum chemistries show BUN and creatinine of 44 and 2.73. Potassium 5.3. His INR is 1.8, yesterday's was 5.7, although earlier in the day it was 2.8. PTT is 73.9. REVIEW OF SYSTEMS: Otherwise noncontributory based on 13-point exam. CURRENT MEDICATIONS: Include vancomycin IV, insulin, Zosyn, propofol, versed, and norepinephrine, levothyroxine, senna. PHYSICAL EXAMINATION: GENERAL: The patient is sedated, unarousable. HEAD, EYES, EARS, NOSE, AND THROAT: The sclerae are anicteric. Oral mucosa is parched. HEART: Normal S1, S2. LUNGS: Overall, clear to auscultation, some mild course sounds are noted anteriorly. ABDOMEN: Soft, positive bowel sounds, though diminished. There is no rebound or guarding appreciated. EXTREMITIES: Without edema. RECTAL EXAMINATION: Deferred. I spoke with the patient and family members at length. The issues still are of concern that there is an outlet obstruction somewhere past the stomach, perhaps in the early portion of the bulb or duodenum that is contributing to this gastric distention. Gastroparesis may also be a contributing fracture, although I believe the former needs to be excluded. PLAN: Check obstruction series today to reassess the abdomen for further decompression of the stomach and tentatively with upper endoscopy tomorrow to assess for a stenosis whether intrinsic or extrinsic in the region of the postbulbar duodenum. Some of the options discussed with the patient's family included a duodenal luminal stenting and possibly gastrojejunostomy however much of this depending on the patient's overall progress, anticipated plan of care from oncology. The family is considering transfer down to a referral center which is reasonable as the patient has been treated in the past for his urologic malignancy at [facility]. If this were to occur, from a GI perspective, I would recommend an upper endoscopy for assessment of the lumen and then to further consider whether duodenal luminal stenting or evaluation by oncology surgery for consideration of gastrojejunal bypass for palliative purposes could be considered. All questions answered. Would continue to follow the patient's NG tube output and further recommendations once the results of the flat plate are available which would be important to determine if there is still copious amounts of residual that may obscure endoscopic exam. CORNELIUS
--- NOTE | 2017-09-19 09:12 | DIAGNOSTIC IMAGING REPORT ---
SINGLE VIEW CHEST CLINICAL HISTORY: Respiratory failure. FINDINGS: An AP, portable, upright chest radiograph is compared to study dated 09/18/2017. The examination is significantly degraded by portable technique and patient rotation. A right internal jugular central venous catheter, an enteric tube, and an endotracheal tube are unchanged in position. A right-sided Central venous infusion port is again noted. The heart is enlarged there is atherosclerotic calcification of the thoracic aorta. There is pulmonary vascular congestion. Patchy airspace opacities are present bilaterally. Trace pleural effusions are suspected. Calcific granulomas are noted on the right. No pneumothorax is seen. The skeletal structures are osteopenic. Degenerative change is seen throughout the spine. The bony thorax is grossly intact. The stomach is filled with enteric contrast. Coils project over the right upper quadrant. IMPRESSION: 1. Stable lines and tubes. 2. Cardiomegaly with evidence of congestive failure. 3. There are perihilar airspace opacities. This could represent interstitial edema and/or superimposed pneumonia. Clinical correlation will be required. 4. Trace pleural effusions. Electronically signed by: Chris Garcia M.D. 09/19/2017 9:11 AM Dictated Date/Time: 09/19/2017 9:08 AM
--- NOTE | 2017-09-19 09:36 | Critical Care Progress Note ---
Critical Care Progress Note Date of Service Sep 19, 2017. ICU Day ICU Day Number: [address] Ramirez Subjective 67 year old male still remains intubated and is on the ventilator. Still very poor urine output and creatinine is trending up. The patient has stable H/H. Also was intubated and rt IJ central line and rt radial A line was put yesterday. Also OG tube was placed yesterday and 2.5 litres of fluid was drained from th estomach. The KUB today revealed some improvement in the distension of the stomach from 39 cm to 28 cm. Will be reevaluated by GI for EGD tomorrow. Also still requiring high FiO2 and PEEP. Possibility of ARDS secondary to vomitting and aspiration prior to intubation. Objective The patient remains sedated and on ventilator. HEENT: Pupils equally reactive to light. Sclera is not icteric. Unable to examine the throat because of intubation. NECK: Supple. No JVD. No Lymphadenopathy. CHEST: Bilateral coarse breathing/ Diminished breath sounds, posterior rales. No wheeze or rhonchi. HEART: S1/S2 heard. GI: Soft, Distended. Hypoactive bowel sounds. NEURO: unable to examine. The patient is sedated and intubated. EXTREMITIES: Bilateral edema 3 + of the legs. SKIN: No rash or lesion. Current SOFA Score SOFA Score Response (Comments) Value PaO2/FiO2 (mmHg) < 300 2 SaO2 / FIO2 67 - 141 3 Platelets (x10) > 150 0 Bilirubin (mg/dL) 1.2 - 1.9 1 [place] Coma Score < 6 4 Level of Hypotension MAP less than 70 1 Creatinine (mg/dL) 2.0 - 3.4 2 Total 13 Assessment & Plan NEURO: The patient remains sedated and intubated and no Neurological issues at this time. CARDIOLOGY: The patient remains hemodynamically stable. On Levophed and Vasopressin. Also has H/O Atrial fibrillation and was on Xarelto, which is off for GI bleed and anemia. Will monitor and will be started when cleared by the GI. Currently he is rate controlled. PULMONARY: Respiratory failure. Possibility of ARDS secondary to aspiration. Requiring high FiO2 and PEEP. Some improvement in oxygenation. ABG 7.20/49/83/-8 /19/93% on ac 20/500/5/90 %. Pneumonia. Respiratory secretions are pending. On Zosyn and Vancomycin. Will follow the cultures and adjust antibiotics accordingly. Will continue with current plan of care as prescribed, including ventilatory support, weaning as tolerated and sedation. RENAL: Acute on chronic renal failure. No urine output yet. Patient's Legal Entity Controller was consulted. The patient will be evaluated today. Metabolic Acidoses and he remains on Bicarb drip. ID: Possibility of sepsis related to multiple ongoing problems, metastatic disease and also aspiration. The patient has been treated on sepsis protocol and Lactic acid has been trending down from 5 to 2 now. Will monitor. On broad spectrum IV antibiotics and cultures are still pending. HEMATOLOGY/ONCOLOGY: The patient has metastatic disease. Followed by Oncology. Also bilateral DVT and he has been on Xarelto and Heparin in recent pass, which was stopped because of active GI bleed and low H/H and he also received two units of transfusion. ENDOCRINE: Elevated glucose/DM. Currently he remains on IV Insulin drip and blood sugar has been in control. GI: Distended stomach. Possibility of gastric outlet obstruction. Waiting fore repeat EGD for the confirmation. Has OG tube, which is draining. Also esophageal candidiasis and he has been of Fluconazole IV for that. We are going to continue with current plan of care as prescribed. D/W the family at length and answered all the questions. Spent greater than 35 minutes of critical care time. DR. Doris [facility]. Consults & Procedures Consultants: Oncology/Hematology: Cleveland Stephen MD Gastroenterology: Marv Vallejo. Hospitalist: Devin Gamino. Procedures: 1. RT IJ Central Line. Day # 1. Clean, no signs of infection. Need for IV fluids and multiple medications and pressors. DR. Doris RAMIREZ 2. RT Radial A Line. Day # 1. Clean and no sign of infection. Need for close hemodynamic monitoring. DR. Doris RAMIREZ 3. Rice catheter. Need for the patient is intubated and sedated. 4. OG. In place for decompression of the distended stomach. 5. INTUBATION. Day 2. Dr. Doris RAMIREZ Data Medications: Current Inpatient Medications Medications (Trade) Dose Ordered Sig/Sara Route Start Time Stop Time Status Last Admin Dose Admin Acetaminophen (Tylenol Tab) 650 mg Q4H PRN PO 09/08/17 12:45 10/08/17 12:44 09/18/17 23:55 650 MG Allopurinol (Zyloprim Tab) 300 mg DAILY PO 09/09/17 08:00 10/09/17 07:59 09/17/17 08:21 300 MG Aspirin (Ecotrin Tab) 81 mg QAM PO 09/09/17 08:00 10/09/17 07:59 09/17/17 08:18 81 MG Sodium Bicarbonate (Sodium Bicarbonate Tab) 650 mg BID PO 09/08/17 20:00 10/08/17 19:59 09/18/17 21:17 650 MG Heparin Sodium (Porcine) (Heparin 100 Unit/ml 5ml Flush) 5 ml PRN PRN IV 09/08/17 13:30 10/08/17 13:29 Miscellaneous (Iv Fluids Completed) 1 ea PRN PRN N/A 09/08/17 13:45 09/08/18 13:44 Al Hydrox/Mg Hydrox/Simethicone (Maalox Max Susp) 30 ml Q6H PRN PO 09/08/17 14:15 10/08/17 14:14 Lidocaine HCl/ Diphenhydramine HCl/Al Hydroxide/ Mg Hydroxide/ Glycerin/Barcode Q6H PRN MT 09/08/17 14:15 10/08/17 14:14 09/08/17 19:05 5 ML Glucose (Glucose 40% Gel) 15-30 GRAMS 15 GRAMS... UD PRN PO 09/08/17 15:15 10/08/17 15:14 Glucose (Glucose Chew Tab) 4-8 Tablets 4 Tabl... UD PRN PO 09/08/17 15:15 10/08/17 15:14 Dextrose (Dextrose 50% 50ML Syringe) 25-50ML OF 50% DW IV FOR... UD PRN IV 09/08/17 15:15 10/08/17 15:14 Glucagon (Glucagon Inj) 1 mg UD PRN SQ 09/08/17 15:15 10/08/17 15:14 Ondansetron HCl (Zofran Inj) 4 mg Q6H PRN IV 09/11/17 13:00 10/11/17 12:59 09/18/17 07:51 4 MG Nystatin (Mycostatin Susp) 10 ml QID PO 09/11/17 17:00 09/21/17 16:59 09/18/17 21:17 10 ML Cyanocobalamin (Vitamin B-12 Tab) 1,000 mcg QAM PO 09/15/17 08:00 10/15/17 07:59 Future Hold Enteral Nutritional Formula (Boost) 1 can TID@1030,1430,2000 PO 09/14/17 14:30 10/14/17 14:29 09/17/17 20:58 1 CAN Potassium Chloride 10 meq/ Sodium Chloride 1,005 ml @ 100 mls/hr Q10H3M IV 09/15/17 13:00 10/15/17 12:59 Future Hold 09/17/17 15:00 100 MLS/HR Pantoprazole Sodium 40 mg/ Syringe 10 ml @ 5 mls/min DAILY@11 IV 09/16/17 11:00 10/16/17 10:59 09/19/17 07:30 5 MLS/MIN Levothyroxine Sodium 50 mcg/ Syringe 2.5 ml @ 2 mls/min QAM IV 09/16/17 08:00 10/16/17 07:59 09/18/17 08:57 2 MLS/MIN Insulin Aspart (novoLOG ASPART) SLIDING SCALE G... ACHS SC 09/15/17 18:01 10/15/17 17:59 Future Hold 09/18/17 09:02 3 UNITS Senna/Docusate Sodium (Senokot S Tab) 1 tab BID PO 09/16/17 20:00 09/23/17 16:59 09/18/17 21:16 1 TAB Sodium Chloride ([place] Nasal [place]) 1 sprays PRN PRN NA 09/16/17 21:45 10/16/17 21:44 Al Hydrox/Mg Hydrox/Simethicone (Maalox Max Susp) 15 ml Q4H PRN PO 09/18/17 10:00 10/18/17 09:59 Morphine Sulfate (MoRPHine SULFATE INJ) 2 mg Q2H PRN IV 09/18/17 10:00 10/02/17 09:59 Miscellaneous Information (Icu Protocol For Hyperglycemia) 1 ea PRN PRN N/A 09/18/17 10:00 09/20/17 09:59 Piperacillin Sod/ Tazobactam Sod (Consult) 1 ea UD PRN N/A 09/18/17 10:45 10/18/17 10:44 Norepinephrine Bitartrate 8 mg/ Dextrose 508 ml @ 0 mls/hr Q0M PRN IV 09/18/17 11:15 10/18/17 11:14 09/19/17 05:13 139 MLS/HR Piperacillin Sod/ Tazobactam Sod 4.5 gm/Dextrose 120 ml @ 30 mls/hr Q8H IV 09/18/17 17:00 09/25/17 16:59 09/19/17 07:30 30 MLS/HR Miscellaneous Information (Consult Glycemic Management Pharmacy) 1 ea UD PRN N/A 09/18/17 11:58 10/18/17 11:57 Insulin Aspart (novoLOG ASPART) SLIDING SCALE [facility] 09/18/17 17:15 10/18/17 17:14 Insulin Human Regular 250 units/ Sodium Chloride 252.5 ml @ 0 mls/hr Q24H IV 09/18/17 12:30 10/18/17 12:29 09/18/17 13:04 3.9 MLS/HR Midazolam HCl 250 ml @ 0 mls/hr Q0M PRN IV 09/18/17 14:00 10/18/17 13:59 Vancomycin HCl (Consult) 1 ea UD PRN N/A 09/18/17 14:30 10/18/17 14:29 Propofol (Diprivan Iv Emulsion 100ml Vial) 1 dose UD PRN IV 09/18/17 15:00 09/21/17 14:59 Sodium Bicarbonate 150 meq/Sodium Chloride 1,150 ml @ 150 mls/hr Q7H40M IV 09/18/17 16:30 10/18/17 16:29 09/19/17 07:24 150 MLS/HR Vasopressin 50 units/Sodium Chloride 502.5 ml @ 24 mls/hr [id number] IV 09/18/17 16:00 10/18/17 15:59 09/18/17 16:12 24 MLS/HR Vancomycin HCl 1500 mg/Sodium Chloride 530 ml @ 200 mls/hr Q24H IV 09/19/17 14:00 09/25/17 13:59 Vital Signs: Date Time Temp Pulse Resp B/P (MAP) Pulse Ox O2 Delivery O2 Flow Rate FiO2 09/19/17 06:00 37.2 22 126/47 (73) 95 Mechanical Ventilator 100 09/19/17 05:28 100 09/19/17 04:00 100 09/19/17 04:00 Mechanical Ventilator 100 09/19/17 04:00 37.2 22 134/48 (76) 97 Mechanical Ventilator 100 144/85 (104) 09/19/17 02:12 100 09/19/17 02:00 37.4 17 127/49 (75) 96 Mechanical Ventilator 100 09/19/17 00:01 37.9 98 22 122/85 (97) 94 Mechanical Ventilator 100 112/54 (73) 09/18/17 23:59 100 09/18/17 23:59 Mechanical Ventilator 100 09/18/17 23:00 100 09/18/17 22:00 38.0 95 23 99/47 (64) 96 Mechanical Ventilator 100 134/76 (95) 09/18/17 20:40 38.1 93 24 96/46 (64) 98 09/18/17 20:30 38.1 92 23 99/49 (66) 99 09/18/17 20:00 38.1 24 108/57 (74) 98 Mechanical Ventilator 100 135/75 (95) 09/18/17 20:00 Mechanical Ventilator 100 09/18/17 20:00 100 09/18/17 19:47 100 09/18/17 19:30 38.0 95 24 116/57 (76) 99 09/18/17 18:30 37.8 93 30 94/46 (60) 96 09/18/17 18:26 37.8 90 27 95/56 97 09/18/17 18:15 37.8 96 25 101/52 (66) 92 09/18/17 18:00 Mechanical Ventilator 100 09/18/17 18:00 37.7 96 26 109/54 (69) 93 107/61 09/18/17 17:45 37.6 95 24 125/57 (75) 93 09/18/17 17:37 37.6 94 25 135/57 (77) 93 141/68 09/18/17 17:30 37.6 94 27 138/59 (80) 92 09/18/17 17:22 100 09/18/17 17:15 37.5 94 24 137/58 (78) 91 09/18/17 17:00 37.5 94 25 131/56 (74) 88 09/18/17 16:45 37.4 92 26 129/54 (72) 91 09/18/17 16:30 37.5 90 26 123/57 (74) 94 09/18/17 16:15 37.5 89 27 98/47 (61) 97 09/18/17 16:00 100 09/18/17 16:00 Mechanical Ventilator 100 09/18/17 16:00 37.6 89 30 116/64 (79) 97 09/18/17 16:00 Mechanical Ventilator 100 09/18/17 15:45 37.6 95 29 104/48 (64) 95 09/18/17 15:30 37.5 91 25 92/43 (56) 96 09/18/17 15:15 37.4 90 25 76/38 (49) 94 09/18/17 15:00 37.2 89 25 75/33 (44) 91 09/18/17 14:06 91 28 101/56 (71) 95 Mechanical Ventilator 100 09/18/17 13:30 100 09/18/17 12:59 91 100 100 09/18/17 12:00 100 BiPAP 30 09/18/17 12:00 90 26 84/57 (66) 95 BiPAP 100 09/18/17 10:10 100 09/18/17 10:00 100 BiPAP 30 09/18/17 10:00 93 26 111/61 (78) 100 BiPAP 30 Laboratory Results: Last 24 Hours Test 09/18/17 09:37 09/18/17 10:38 09/18/17 11:49 09/18/17 12:48 Bedside Glucose 309 mg/dl White Blood Count 11.39 K/uL Red Blood Count 2.53 M/uL Hemoglobin 6.4 g/dL 7.0 g/dL Hematocrit 21.9 % 23.1 % Mean Corpuscular Volume 86.6 fL Mean Corpuscular Hemoglobin 25.3 pg Mean Corpuscular Hemoglobin Concent 29.2 g/dl RDW Standard Deviation 59.2 fL RDW Coefficient of Variation 18.5 % Platelet Count 185 K/uL Mean Platelet Volume 9.7 fL Nucleated RBC Absolute Count (auto) 0.03 K/uL Nucleated Red Blood Cells % 0.2 % Sodium Level 135 mmol/L Potassium Level 5.2 mmol/L Chloride Level 109 mmol/L Carbon Dioxide Level 15 mmol/L Anion Gap 11.0 mmol/L Blood Urea Nitrogen 40 mg/dl Creatinine 2.02 mg/dl Est Creatinine Clear Calc Drug Dose 42.1 ml/min Estimated GFR () 37.9 Estimated GFR (Non- 32.7 BUN/Creatinine Ratio 19.9 Random Glucose 333 mg/dl Calcium Level 7.5 mg/dl Phosphorus Level 3.5 mg/dl Magnesium Level 1.8 mg/dl Total Creatine Kinase 31 U/L Creatine Kinase MB 1.0 ng/ml Creatine Kinase MB Ratio 3.2 Troponin I < 0.015 ng/ml Beta-Hydroxybutyric Acid 3.10 mg/dL Urine Color YELLOW Urine Appearance CLOUDY Urine pH 7.0 Urine Specific [place] 1.011 Urine Protein 1+ Urine Glucose (UA) NEG Urine Ketones NEG Urine Occult Blood 1+ Urine Nitrite NEG Urine Bilirubin NEG Urine Urobilinogen NEG Urine Leukocyte Esterase MODERATE Urine WBC (Auto) >30 /hpf Urine RBC (Auto) 0-4 /hpf Urine Hyaline Casts (Auto) 10-30 /lpf Urine Epithelial Cells (Auto) 0-5 /lpf Urine Bacteria (Auto) NEG Test 09/18/17 12:50 09/18/17 14:32 09/18/17 14:40 09/18/17 15:30 Bedside Venous pH 7.21 Bedside Venous pCO2 34 mmHg Bedside Venous pO2 < 32 mmHg Bedside Venous HCO3 13 meq/L Bedside Venous Blood Total CO2 14 mEq/l Bedside Venous Blood O2 Saturation 24.0 % Bedside Venous Blood Base Excess -15.0 meq/L Bedside FiO2 40 % 100 % Blood Gas Sample Site Art Line Bedside Blood Gas pH (LAB) 7.30 Bedside Blood Gas pCO2 (LAB) 27 mmHg Bedside Blood Gas pO2 (LAB) 66 mmHg Bedside Blood Gas HCO3 (LAB) 13 meq/L Bedside Blood Gas Total CO2 14 mEq/l Bedside Blood Gas Base Excess (LAB) -14.0 meq/L Bedside Blood Gas O2 Saturation 91.0 % Wong Test NA Oxygen Delivery Device Ventilator Bedside Oxygen Rate (breaths/min) 30 Blood Gas Minute Ventilation 18.9 Blood Gas Tidal Volume 830 Blood Gas PEEP 8 Bedside Glucose (other) 256 mg/dl Lactic Acid Level 5.3 mmol/L Test 09/18/17 15:33 09/18/17 16:37 09/18/17 17:37 09/18/17 18:12 Bedside Glucose (other) 251 mg/dl 237 mg/dl 221 mg/dl Bedside Hemoglobin 7.5 g/dl Bedside Hematocrit 22 % Bedside Blood Gas pH (LAB) 7.24 Bedside Blood Gas pCO2 (LAB) 39 mmHg Bedside Blood Gas pO2 (LAB) 69 mmHg Bedside Blood Gas HCO3 (LAB) 17 meq/L Bedside Blood Gas Total CO2 18 mEq/l Bedside Blood Gas Base Excess (LAB) -10.0 meq/L Bedside Blood Gas O2 Saturation 90.0 % Bedside Sodium 138 mEq/L Bedside Potassium 4.9 mEq/L Test 09/18/17 18:30 09/18/17 19:30 09/18/17 20:46 09/18/17 21:27 Bedside Glucose (other) 202 mg/dl 189 mg/dl 178 mg/dl Prothrombin Time 58.1 SECONDS Prothromb Time International Ratio 5.7 Sodium Level 139 mmol/L Potassium Level 4.9 mmol/L Chloride Level 110 mmol/L Carbon Dioxide Level 20 mmol/L Anion Gap 9.0 mmol/L Blood Urea Nitrogen 44 mg/dl Creatinine 2.41 mg/dl Est Creatinine Clear Calc Drug Dose 35.3 ml/min Estimated GFR () 30.6 Estimated GFR (Non- 26.4 BUN/Creatinine Ratio 18.2 Random Glucose 174 mg/dl Calcium Level 7.0 mg/dl Troponin I 0.028 ng/ml Test 09/18/17 21:28 09/18/17 21:31 09/18/17 22:40 09/19/17 00:45 Hemoglobin 9.2 g/dL Hematocrit 29.6 % Lactic Acid Level 2.2 mmol/L Bedside Glucose (other) 173 mg/dl 161 mg/dl 167 mg/dl Test 09/19/17 02:38 09/19/17 04:06 09/19/17 05:14 09/19/17 07:54 Bedside Glucose (other) 168 mg/dl 172 mg/dl White Blood Count 18.99 K/uL Red Blood Count 3.32 M/uL Hemoglobin 8.7 g/dL Hematocrit 28.2 % Mean Corpuscular Volume 84.9 fL Mean Corpuscular Hemoglobin 26.2 pg Mean Corpuscular Hemoglobin Concent 30.9 g/dl RDW Standard Deviation 53.7 fL RDW Coefficient of Variation 17.4 % Platelet Count 175 K/uL Mean Platelet Volume 10.4 fL Nucleated RBC Absolute Count (auto) 0.07 K/uL Nucleated Red Blood Cells % 0.4 % Prothrombin Time 18.7 SECONDS Prothromb Time International Ratio 1.8 Sodium Level 136 mmol/L Potassium Level 5.3 mmol/L Chloride Level 107 mmol/L Carbon Dioxide Level 21 mmol/L Anion Gap 8.0 mmol/L Blood Urea Nitrogen 44 mg/dl Creatinine 2.73 mg/dl Est Creatinine Clear Calc Drug Dose 31.1 ml/min Estimated GFR () 26.3 Estimated GFR (Non- 22.7 BUN/Creatinine Ratio 16.3 Random Glucose 166 mg/dl Lactic Acid Level 2.2 mmol/L Calcium Level 7.0 mg/dl Troponin I 0.024 ng/ml Blood Gas Sample Site Art Line Bedside Blood Gas pH (LAB) 7.21 Bedside Blood Gas pCO2 (LAB) 49 mmHg Bedside Blood Gas pO2 (LAB) 83 mmHg Bedside Blood Gas HCO3 (LAB) 20 meq/L Bedside Blood Gas Total CO2 21 mEq/l Bedside Blood Gas Base Excess (LAB) -8.0 meq/L Bedside Blood Gas O2 Saturation 93.0 % Wong Test NA Oxygen Delivery Device Ventilator Bedside Oxygen Rate (breaths/min) 20 Blood Gas Minute Ventilation 11 Bedside FiO2 90 % Blood Gas Tidal Volume 500 Blood Gas PEEP 10 Test 09/19/17 08:03 Bedside Glucose (other) 152 mg/dl
[2017-09-19] MEDS: FLUCONAZOLE / NSS 200 MG in PREMIXED NSS 100 ML IV SCH (09:39)
[2017-09-19] MEDS: LEVOTHYROXINE SODIUM INJ 50 MCG in SYRINGE 0 ML IV SCH (09:39)
[2017-09-19] MEDS: NYSTATIN SUSP 500,000 U/5 ML UDC PO SCH ×4 (09:39→20:24)
--- NOTE | 2017-09-19 11:23 | Pharmacy Progress Note ---
Pharmacy Glycemic Short Note 2 Date of Service Sep 19, 2017. OUTPATIENT ANTIDIABETIC REGIMEN: * Lantus 45 units SQ qAM * NPH 35 units SQ qPM * Humalog 33 units TID with meals * 179 units of insulin per day * HbA1c: 7.1% (09/09/17) ASSESSMENT: * Patient was initiated on insulin infusion yesterday after patient decompensated and was transferred to ICU, as patient became hyperglycemic. * Patient has been very steady on insulin gtt at 3.9 units/hr for nearly 24 hours now. PLAN FOR INPATIENT GLYCEMIC CONTROL: * Continue IV insulin for now, as patient has been very stable and is requiring infrequent monitoring/adjustments. * May consider transition to SQ insulin if patient's status improves.
[2017-09-19] MEDS: INSULIN REGULAR 250 UNITS in SODIUM CHLORIDE 0.9% 250ML 250 ML IV SCH (11:31)
[2017-09-19] MEDS: VASOPRESSIN INJ 50 UNITS in SODIUM CHLORIDE 0.9% 500ML 500 ML IV SCH (11:32)
--- NOTE | 2017-09-19 12:13 | Nephrology Consultation ---
Nephrology Consultation Date & Providers Date of Consultation: Sep 19, 2017. Primary Care Provider: Stephen Odom M.D. Referring Provider: Reason for Consultation Acute on chronic kidney injury History of Present Illness Mr. Weir is a 67 year old white male who is seen and evaluated in the ICU at the request of Dr. Chen for evaluation of oliguric acute on chronic kidney injury. Medical plan of care has been discussed w/ ICU team and the family this am. Medical records in the EMR were reviewed. Mr. Weir has a complex medical history: 01/05 diagnosed w/ urothelial carcinoma of the bladder. He underwent radical cystectomy w/ neobladder construction. Pelvic lymph nodes were positive for metastatic disease. He was treated w/ Gemcitabine and Cis-kotlik. His medical course was complicated by PE. While on anticoagulation therapy he suffered a R retroperitoneal hemorrhage and CATHERINE. He required R renal artery embolization, Rosalie filter placement and HD. He later had the IVC filter removed and he recovered kidney function. He was taken off dialysis and creatinine has stablilized at 2.2. In mid 2015 Mr. Weir was found on surveillance imaging to have R hydronephrosis. There was a new mass in the R renal pelvis. Biopsy revealed high grade urothelial carcinoma. He was treated w/ Taxol, Carboplatinum and radiation therapy. Unfortunately he has had clinical progression of his disease. 09/10 PET/CT revealed marked enlargement of the R peripelvic mass and increased metabolic activity. The mass was noted to surround the R renal vessels, IVC and involve the R psoas muscle. The R kidney was noted to be markedly hydronephrotic with only a thin rim of cortical tissue. Mr. Weir was being considered for Navelbine therapy as an outpatient by Oncology. He was admitted to [facility] 09/02 - 09/04 with N&V, weakness associated w/ hypercalcemia. He responded to medical therapy and was discharged w/ Ca 9.5, creatinine 2.2. Mr. Weir was readmitted 09/08 w/ progressive weakness and unintentional weight loss. EGD 09/11 revealed fungal esophagitis and duodenal obstruction vs. narcotic associated dysmotility. On 09/18 Mr. Weir suffered an episode of emesis, syncope and possible aspiration. He was transferred to ICU and intubated for airway protection. An OG tube was placed and 2.5 L coffee ground emesis was obtained. Hgb had dropped to 6.4. SBP was in the mid 80's. Patient was started on inotropic support and transfused 2 U PRBC. He has become oliguric and creatinine has risen to 2.7. CXR shows perihilar vascular congestion. Weight has increased 12 kg since admission. Past Medical/Surgical History Medical: # CKD w/ baseline creatinine 2.2. Patient has a nonfunctional hydronephrotic R kidney # Urothelial carcinoma s/p cystectomy, pelvic lymphnode dissection and neobladder construction # AODM # HTN # R carotid stenosis 50 - 69% on 08/06 doppler # CaOx kidney stones # Gout # h/o PE - anticoagulation therapy complicated by R retroperitoneal bleed Surgical: # Cystectomy w/ neobladder creation # R renal artery embolization Allergies Coded Allergies: No Known Allergies (Unverified , 09/02/17) Inpatient Medications Current Inpatient Medications Medications (Trade) Dose Ordered Sig/Sara Route Start Time Stop Time Status Last Admin Dose Admin Heparin Sodium (Porcine) (Heparin 100 Unit/ml 5ml Flush) 5 ml PRN PRN IV 09/08/17 13:30 10/08/17 13:29 Miscellaneous (Iv Fluids Completed) 1 ea PRN PRN N/A 09/08/17 13:45 09/08/18 13:44 Lidocaine HCl/ Diphenhydramine HCl/Al Hydroxide/ Mg Hydroxide/ Glycerin/Barcode Q6H PRN MT 09/08/17 14:15 10/08/17 14:14 09/08/17 19:05 5 ML Glucose (Glucose 40% Gel) 15-30 GRAMS 15 GRAMS... UD PRN PO 09/08/17 15:15 10/08/17 15:14 Glucose (Glucose Chew Tab) 4-8 Tablets 4 Tabl... UD PRN PO 09/08/17 15:15 10/08/17 15:14 Dextrose (Dextrose 50% 50ML Syringe) 25-50ML OF 50% DW IV FOR... UD PRN IV 09/08/17 15:15 10/08/17 15:14 Glucagon (Glucagon Inj) 1 mg UD PRN SQ 09/08/17 15:15 10/08/17 15:14 Ondansetron HCl (Zofran Inj) 4 mg Q6H PRN IV 09/11/17 13:00 10/11/17 12:59 09/18/17 07:51 4 MG Nystatin (Mycostatin Susp) 10 ml QID PO 09/11/17 17:00 09/21/17 16:59 09/19/17 09:39 10 ML Fluconazole/ Sodium Chloride 200 mg/Prmx 100 ml @ 100 mls/hr DAILY IV 09/15/17 14:00 10/03/17 13:59 09/19/17 09:39 100 MLS/HR Potassium Chloride 10 meq/ Sodium Chloride 1,005 ml @ 100 mls/hr Q10H3M IV 09/15/17 13:00 10/15/17 12:59 Future Hold 09/17/17 15:00 100 MLS/HR Pantoprazole Sodium 40 mg/ Syringe 10 ml @ 5 mls/min DAILY@11 IV 09/16/17 11:00 10/16/17 10:59 09/19/17 07:30 5 MLS/MIN Levothyroxine Sodium 50 mcg/ Syringe 2.5 ml @ 2 mls/min QAM IV 09/16/17 08:00 10/16/17 07:59 09/19/17 09:39 2 MLS/MIN Insulin Aspart (novoLOG ASPART) SLIDING SCALE G... ACHS SC 09/15/17 18:01 10/15/17 17:59 Future Hold 09/18/17 09:02 3 UNITS Sodium Chloride ([place]ger Nasal [place]) 1 sprays PRN PRN NA 09/16/17 21:45 10/16/17 21:44 Morphine Sulfate (MoRPHine SULFATE INJ) 2 mg Q2H PRN IV 09/18/17 10:00 10/02/17 09:59 Miscellaneous Information (Icu Protocol For Hyperglycemia) 1 ea PRN PRN N/A 09/18/17 10:00 09/20/17 09:59 Piperacillin Sod/ Tazobactam Sod (Consult) 1 ea UD PRN N/A 09/18/17 10:45 10/18/17 10:44 Norepinephrine Bitartrate 8 mg/ Dextrose 508 ml @ 0 mls/hr Q0M PRN IV 09/18/17 11:15 10/18/17 11:14 09/19/17 05:13 139 MLS/HR Piperacillin Sod/ Tazobactam Sod 4.5 gm/Dextrose 120 ml @ 30 mls/hr Q8H IV 09/18/17 17:00 09/25/17 16:59 09/19/17 07:30 30 MLS/HR Miscellaneous Information (Consult Glycemic Management Pharmacy) 1 ea UD PRN N/A 09/18/17 11:58 10/18/17 11:57 Insulin Aspart (novoLOG ASPART) SLIDING SCALE [facility] 09/18/17 17:15 10/18/17 17:14 Insulin Human Regular 250 units/ Sodium Chloride 252.5 ml @ 0 mls/hr Q24H IV 09/18/17 12:30 10/18/17 12:29 09/18/17 13:04 3.9 MLS/HR Midazolam HCl 250 ml @ 0 mls/hr Q0M PRN IV 09/18/17 14:00 10/18/17 13:59 Vancomycin HCl (Consult) 1 ea UD PRN N/A 09/18/17 14:30 10/18/17 14:29 Propofol (Diprivan Iv Emulsion 100ml Vial) 1 dose UD PRN IV 09/18/17 15:00 09/21/17 14:59 Sodium Bicarbonate 150 meq/Sodium Chloride 1,150 ml @ 150 mls/hr Q7H40M IV 09/18/17 16:30 10/18/17 16:29 09/19/17 07:24 150 MLS/HR Vasopressin 50 units/Sodium Chloride 502.5 ml @ 24 mls/hr [id number] IV 09/18/17 16:00 10/18/17 15:59 09/18/17 16:12 24 MLS/HR Vancomycin HCl 1500 mg/Sodium Chloride 530 ml @ 200 mls/hr Q24H IV 09/19/17 14:00 09/25/17 13:59 Family History Negative for CKD/ESRD Social History Smoking Status: Former Smoker Smokeless Tobacco Use: Unknown Alcohol Use: none Drug Use: none Marital Status: Housing Status: lives with family Occupation: retired . Retired from [employer]. Remote h/o tobacco use. Review of Systems Unable to obtain ROS - sedated on mechanical ventilation. Physical Exam Date Time Temp Pulse Resp B/P (MAP) Pulse Ox O2 Delivery O2 Flow Rate FiO2 12/26/17 10:02 37.2 98 22 102/52 (69) 95 Mechanical Ventilator 70 103/60 (74) 09/19/17 08:00 37.1 93 22 109/45 (66) 97 Mechanical Ventilator 90 104/57 (73) 09/19/17 08:00 90 09/19/17 08:00 Mechanical Ventilator 90 09/19/17 06:00 37.2 22 126/47 (73) 95 Mechanical Ventilator 100 09/19/17 05:28 100 09/19/17 04:00 100 09/19/17 04:00 Mechanical Ventilator 100 09/19/17 04:00 37.2 22 134/48 (76) 97 Mechanical Ventilator 100 144/85 (104) 09/19/17 02:12 100 09/19/17 02:00 37.4 17 127/49 (75) 96 Mechanical Ventilator 100 09/19/17 00:01 37.9 98 22 122/85 (97) 94 Mechanical Ventilator 100 112/54 (73) 09/18/17 23:59 100 09/18/17 23:59 Mechanical Ventilator 100 09/18/17 23:00 100 09/18/17 22:00 38.0 95 23 99/47 (64) 96 Mechanical Ventilator 100 134/76 (95) 09/18/17 20:40 38.1 93 24 96/46 (64) 98 09/18/17 20:30 38.1 92 23 99/49 (66) 99 09/18/17 20:00 38.1 24 108/57 (74) 98 Mechanical Ventilator 100 135/75 (95) 09/18/17 20:00 Mechanical Ventilator 100 09/18/17 20:00 100 09/18/17 19:47 100 09/18/17 19:30 38.0 95 24 116/57 (76) 99 09/18/17 18:30 37.8 93 30 94/46 (60) 96 09/18/17 18:26 37.8 90 27 95/56 97 09/18/17 18:15 37.8 96 25 101/52 (66) 92 09/18/17 18:00 Mechanical Ventilator 100 09/18/17 18:00 37.7 96 26 109/54 (69) 93 107/61 09/18/17 17:45 37.6 95 24 125/57 (75) 93 09/18/17 17:37 37.6 94 25 135/57 (77) 93 141/68 09/18/17 17:30 37.6 94 27 138/59 (80) 92 09/18/17 17:22 100 09/18/17 17:15 37.5 94 24 137/58 (78) 91 09/18/17 17:00 37.5 94 25 131/56 (74) 88 09/18/17 16:45 37.4 92 26 129/54 (72) 91 09/18/17 16:30 37.5 90 26 123/57 (74) 94 09/18/17 16:15 37.5 89 27 98/47 (61) 97 09/18/17 16:00 100 09/18/17 16:00 Mechanical Ventilator 100 09/18/17 16:00 37.6 89 30 116/64 (79) 97 09/18/17 16:00 Mechanical Ventilator 100 09/18/17 15:45 37.6 95 29 104/48 (64) 95 09/18/17 15:30 37.5 91 25 92/43 (56) 96 09/18/17 15:15 37.4 90 25 76/38 (49) 94 09/18/17 15:00 37.2 89 25 75/33 (44) 91 09/18/17 14:06 91 28 101/56 (71) 95 Mechanical Ventilator 100 09/18/17 13:30 100 09/18/17 12:59 91 100 100 09/18/17 12:00 100 BiPAP 30 09/18/17 12:00 90 26 84/57 (66) 95 BiPAP 100 General Appearance: + pertinent finding (Sedated, mechanically ventilated, on pressor support) Head: atraumatic Eyes: PERRL ENT: + pertinent finding (orotracheal intubation) Neck: + pertinent finding (R IJ CVC in place w/ clean dry dressing) Respiratory/Chest: + pertinent finding (coarse breath sounds bilaterally) Cardiovascular: regular rate, rhythm Abdomen/GI: + distended, + pertinent finding (no bowel sounds) Genitourinary - Male: + pertinent finding (levy catheter in place draining clear yellow urine. 100 cc in collection container this am.) Extremities/Musculoskelatal: + pedal edema (1+ pedal and pretibial pitting edema) Neurologic/Psych: + pertinent finding (sedated) Skin: warm/dry Laboratory Results Last 24 Hours Test 09/18/17 11:49 09/18/17 12:48 09/18/17 12:50 09/18/17 14:32 Urine Color YELLOW Urine Appearance CLOUDY Urine pH 7.0 Urine Specific [place] 1.011 Urine Protein 1+ Urine Glucose (UA) NEG Urine Ketones NEG Urine Occult Blood 1+ Urine Nitrite NEG Urine Bilirubin NEG Urine Urobilinogen NEG Urine Leukocyte Esterase MODERATE Urine WBC (Auto) >30 /hpf Urine RBC (Auto) 0-4 /hpf Urine Hyaline Casts (Auto) 10-30 /lpf Urine Epithelial Cells (Auto) 0-5 /lpf Urine Bacteria (Auto) NEG Hemoglobin 7.0 g/dL Hematocrit 23.1 % Bedside Venous pH 7.21 Bedside Venous pCO2 34 mmHg Bedside Venous pO2 < 32 mmHg Bedside Venous HCO3 13 meq/L Bedside Venous Blood Total CO2 14 mEq/l Bedside Venous Blood O2 Saturation 24.0 % Bedside Venous Blood Base Excess -15.0 meq/L Bedside FiO2 40 % 100 % Blood Gas Sample Site Art Line Bedside Blood Gas pH (LAB) 7.30 Bedside Blood Gas pCO2 (LAB) 27 mmHg Bedside Blood Gas pO2 (LAB) 66 mmHg Bedside Blood Gas HCO3 (LAB) 13 meq/L Bedside Blood Gas Total CO2 14 mEq/l Bedside Blood Gas Base Excess (LAB) -14.0 meq/L Bedside Blood Gas O2 Saturation 91.0 % Wong Test NA Oxygen Delivery Device Ventilator Bedside Oxygen Rate (breaths/min) 30 Blood Gas Minute Ventilation 18.9 Blood Gas Tidal Volume 830 Blood Gas PEEP 8 Test 09/18/17 14:40 09/18/17 15:30 09/18/17 15:33 09/18/17 16:37 Bedside Glucose (other) 256 mg/dl 251 mg/dl 237 mg/dl Lactic Acid Level 5.3 mmol/L Test 09/18/17 17:37 09/18/17 18:12 09/18/17 18:30 09/18/17 19:30 Bedside Glucose (other) 221 mg/dl 202 mg/dl 189 mg/dl Bedside Hemoglobin 7.5 g/dl Bedside Hematocrit 22 % Bedside Blood Gas pH (LAB) 7.24 Bedside Blood Gas pCO2 (LAB) 39 mmHg Bedside Blood Gas pO2 (LAB) 69 mmHg Bedside Blood Gas HCO3 (LAB) 17 meq/L Bedside Blood Gas Total CO2 18 mEq/l Bedside Blood Gas Base Excess (LAB) -10.0 meq/L Bedside Blood Gas O2 Saturation 90.0 % Bedside Sodium 138 mEq/L Bedside Potassium 4.9 mEq/L Test 09/18/17 20:46 09/18/17 21:27 09/18/17 21:28 09/18/17 21:31 Bedside Glucose (other) 178 mg/dl 173 mg/dl Prothrombin Time 58.1 SECONDS Prothromb Time International Ratio 5.7 Sodium Level 139 mmol/L Potassium Level 4.9 mmol/L Chloride Level 110 mmol/L Carbon Dioxide Level 20 mmol/L Anion Gap 9.0 mmol/L Blood Urea Nitrogen 44 mg/dl Creatinine 2.41 mg/dl Est Creatinine Clear Calc Drug Dose 35.3 ml/min Estimated GFR () 30.6 Estimated GFR (Non- 26.4 BUN/Creatinine Ratio 18.2 Random Glucose 174 mg/dl Calcium Level 7.0 mg/dl Troponin I 0.028 ng/ml Hemoglobin 9.2 g/dL Hematocrit 29.6 % Lactic Acid Level 2.2 mmol/L Test 09/18/17 22:40 09/19/17 00:45 09/19/17 02:38 09/19/17 04:06 Bedside Glucose (other) 161 mg/dl 167 mg/dl 168 mg/dl 172 mg/dl Test 09/19/17 05:14 09/19/17 07:54 09/19/17 08:03 White Blood Count 18.99 K/uL Red Blood Count 3.32 M/uL Hemoglobin 8.7 g/dL Hematocrit 28.2 % Mean Corpuscular Volume 84.9 fL Mean Corpuscular Hemoglobin 26.2 pg Mean Corpuscular Hemoglobin Concent 30.9 g/dl RDW Standard Deviation 53.7 fL RDW Coefficient of Variation 17.4 % Platelet Count 175 K/uL Mean Platelet Volume 10.4 fL Nucleated RBC Absolute Count (auto) 0.07 K/uL Nucleated Red Blood Cells % 0.4 % Prothrombin Time 18.7 SECONDS Prothromb Time International Ratio 1.8 Sodium Level 136 mmol/L Potassium Level 5.3 mmol/L Chloride Level 107 mmol/L Carbon Dioxide Level 21 mmol/L Anion Gap 8.0 mmol/L Blood Urea Nitrogen 44 mg/dl Creatinine 2.73 mg/dl Est Creatinine Clear Calc Drug Dose 31.1 ml/min Estimated GFR () 26.3 Estimated GFR (Non- 22.7 BUN/Creatinine Ratio 16.3 Random Glucose 166 mg/dl Lactic Acid Level 2.2 mmol/L Calcium Level 7.0 mg/dl Troponin I 0.024 ng/ml Blood Gas Sample Site Art Line Bedside Blood Gas pH (LAB) 7.21 Bedside Blood Gas pCO2 (LAB) 49 mmHg Bedside Blood Gas pO2 (LAB) 83 mmHg Bedside Blood Gas HCO3 (LAB) 20 meq/L Bedside Blood Gas Total CO2 21 mEq/l Bedside Blood Gas Base Excess (LAB) -8.0 meq/L Bedside Blood Gas O2 Saturation 93.0 % Wong Test NA Oxygen Delivery Device Ventilator Bedside Oxygen Rate (breaths/min) 20 Blood Gas Minute Ventilation 11 Bedside FiO2 90 % Blood Gas Tidal Volume 500 Blood Gas PEEP 10 Bedside Glucose (other) 152 mg/dl Impression (1) Duodenal obstruction (2) Hypotension (arterial) (3) Acute kidney injury (4) CKD (chronic kidney disease) stage 3, GFR 30-59 ml/min (5) Anemia (6) Edema (7) Cancer of renal pelvis and ureter (8) Fungal esophagitis Recommendations ACUTE KIDNEY INJURY: -- Likely hemodynamically mediated ATN -- Will send urine for urinalysis w/ microscopy -- Patient is ~ 12 L volume positive w/ LE edema and mild pulmonary perihilar congestion. Will start Furosemide 100 mg IV TID -- No acute indication for HD at this time. If dialysis is needed may have to consider CRRT due to hemodynamic instability HYPERKALEMIA: -- Mild. Expect that this will correct with Furosemide administration and treatment on metabolic acidosis METABOLIC ACIDOSIS: -- Continue IV NaHCO3 infusion HYPOTENSION: -- Recommend transfusion to maintain Hgb > 10 -- Wean pressors keeping SBP > 90 mmHG GI: -- Will need follow up EGD once medically stable 90 min critical care time provided to the patient today. This was necessary to review medical records, perform physical exam and to discuss plan of care with the ICU team, staffing clerk and patient's . Over 50% of time provided was spent on coordination of care.
[2017-09-19] MEDS: FUROSEMIDE INJ 100 MG in SYRINGE 0 ML IV SCH ×3 (12:16→21:11)
[2017-09-19] MEDS ORDERED: VANCOMYCIN INJ 1,500 MG in SODIUM CHLORIDE 0.9% 500ML 500 ML IV SCH (14:00)
[2017-09-19] MEDS ORDERED: HEPARIN IV LOW DOSE NO BOLUS SCH (15:55)
--- NOTE | 2017-09-19 16:25 | Progress Note ---
Subjective Date of Service: Sep 19, 2017. Subjective pt is intubated and sedate, her family is at bedside and updated. pt cannot perform ROS Problem List Medical Problems: (1) Acute kidney injury Status: Acute (2) Cancer of renal pelvis and ureter Permanent Comment: STAGING: Right renal pelvis/ureter, urothelial carcinoma, cT3 /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 Systemic chemotherapy (Opdivo) had progression 2. Combined radiation and chemotherapy. Radiation to the abdomen completed 09/23. Received 5,940 cGy. 3. Plan for immunotherapy Status: Chronic (3) Carcinoma of bladder Permanent Comment: STAGING: Bladder, urothelial carcinoma, [id number] TREATMENT: 1. Partial course of neoadjuvant chemotherapy 2. Radical cystectomy, bilateral pelvic lymph node dissection and ileal neobladder formation - 04/12/2013 3. Adjuvant chemotherapy with G/C for 3 cycles Status: Acute (4) Chemotherapy Status: Acute (5) Dehydration Status: Acute (6) Edema Status: Acute (7) History of pulmonary embolus (PE) Status: Chronic (8) History of renal bleeding Status: Chronic (9) Hypercalcemia Status: Acute (10) Hypercalcemia Status: Acute (11) Hyperglycemia Status: Acute (12) Intractable vomiting Status: Acute (13) Perinephric hematoma Status: Acute (14) Retroperitoneal bleeding Status: Acute (15) Retroperitoneal hematoma Status: Acute (16) Sepsis Status: Acute (17) Vomiting Status: Acute (18) Weakness Status: Acute Objective Vital Signs Date Time Temp Pulse Resp B/P (MAP) Pulse Ox O2 Delivery O2 Flow Rate FiO2 09/19/17 06:00 37.2 22 126/47 (73) 95 Mechanical Ventilator 100 09/19/17 05:28 100 09/19/17 04:00 100 09/19/17 04:00 Mechanical Ventilator 100 09/19/17 04:00 37.2 22 134/48 (76) 97 Mechanical Ventilator 100 144/85 (104) 09/19/17 02:12 100 09/19/17 02:00 37.4 17 127/49 (75) 96 Mechanical Ventilator 100 09/19/17 00:01 37.9 98 22 122/85 (97) 94 Mechanical Ventilator 100 112/54 (73) 09/18/17 23:59 100 09/18/17 23:59 Mechanical Ventilator 100 09/18/17 23:00 100 09/18/17 22:00 38.0 95 23 99/47 (64) 96 Mechanical Ventilator 100 134/76 (95) 09/18/17 20:40 38.1 93 24 96/46 (64) 98 09/18/17 20:30 38.1 92 23 99/49 (66) 99 09/18/17 20:00 38.1 24 108/57 (74) 98 Mechanical Ventilator 100 135/75 (95) 09/18/17 20:00 Mechanical Ventilator 100 09/18/17 20:00 100 09/18/17 19:47 100 09/18/17 19:30 38.0 95 24 116/57 (76) 99 09/18/17 18:30 37.8 93 30 94/46 (60) 96 09/18/17 18:26 37.8 90 27 95/56 97 09/18/17 18:15 37.8 96 25 101/52 (66) 92 09/18/17 18:00 Mechanical Ventilator 100 09/18/17 18:00 37.7 96 26 109/54 (69) 93 107/61 09/18/17 17:45 37.6 95 24 125/57 (75) 93 09/18/17 17:37 37.6 94 25 135/57 (77) 93 141/68 09/18/17 17:30 37.6 94 27 138/59 (80) 92 09/18/17 17:22 100 09/18/17 17:15 37.5 94 24 137/58 (78) 91 09/18/17 17:00 37.5 94 25 131/56 (74) 88 09/18/17 16:45 37.4 92 26 129/54 (72) 91 09/18/17 16:30 37.5 90 26 123/57 (74) 94 09/18/17 16:15 37.5 89 27 98/47 (61) 97 09/18/17 16:00 100 09/18/17 16:00 Mechanical Ventilator 100 09/18/17 16:00 37.6 89 30 116/64 (79) 97 09/18/17 16:00 Mechanical Ventilator 100 09/18/17 15:45 37.6 95 29 104/48 (64) 95 09/18/17 15:30 37.5 91 25 92/43 (56) 96 12/25/17 15:15 37.4 90 25 76/38 (49) 94 09/18/17 15:00 37.2 89 25 75/33 (44) 91 09/18/17 14:06 91 28 101/56 (71) 95 Mechanical Ventilator 100 09/18/17 13:30 100 09/18/17 12:59 91 100 100 09/18/17 12:00 100 BiPAP 30 09/18/17 12:00 90 26 84/57 (66) 95 BiPAP 100 09/18/17 10:10 100 09/18/17 10:00 100 BiPAP 30 09/18/17 10:00 93 26 111/61 (78) 100 BiPAP 30 Physical Exam General Appearance: + severe distress, + pertinent finding (chroincially ill) Respiratory/Chest: + respiratory distress, + decreased breath sounds Cardiovascular: regular rate, rhythm, no murmur Abdomen: non tender, soft Extremities: + pedal edema, + swelling Laboratory Results Last 24 Hours Test 09/18/17 09:37 09/18/17 10:38 09/18/17 11:49 09/18/17 12:48 Bedside Glucose 309 mg/dl White Blood Count 11.39 K/uL Red Blood Count 2.53 M/uL Hemoglobin 6.4 g/dL 7.0 g/dL Hematocrit 21.9 % 23.1 % Mean Corpuscular Volume 86.6 fL Mean Corpuscular Hemoglobin 25.3 pg Mean Corpuscular Hemoglobin Concent 29.2 g/dl RDW Standard Deviation 59.2 fL RDW Coefficient of Variation 18.5 % Platelet Count 185 K/uL Mean Platelet Volume 9.7 fL Nucleated RBC Absolute Count (auto) 0.03 K/uL Nucleated Red Blood Cells % 0.2 % Sodium Level 135 mmol/L Potassium Level 5.2 mmol/L Chloride Level 109 mmol/L Carbon Dioxide Level 15 mmol/L Anion Gap 11.0 mmol/L Blood Urea Nitrogen 40 mg/dl Creatinine 2.02 mg/dl Est Creatinine Clear Calc Drug Dose 42.1 ml/min Estimated GFR () 37.9 Estimated GFR (Non- 32.7 BUN/Creatinine Ratio 19.9 Random Glucose 333 mg/dl Calcium Level 7.5 mg/dl Phosphorus Level 3.5 mg/dl Magnesium Level 1.8 mg/dl Total Creatine Kinase 31 U/L Creatine Kinase MB 1.0 ng/ml Creatine Kinase MB Ratio 3.2 Troponin I < 0.015 ng/ml Beta-Hydroxybutyric Acid 3.10 mg/dL Urine Color YELLOW Urine Appearance CLOUDY Urine pH 7.0 Urine Specific [place] 1.011 Urine Protein 1+ Urine Glucose (UA) NEG Urine Ketones NEG Urine Occult Blood 1+ Urine Nitrite NEG Urine Bilirubin NEG Urine Urobilinogen NEG Urine Leukocyte Esterase MODERATE Urine WBC (Auto) >30 /hpf Urine RBC (Auto) 0-4 /hpf Urine Hyaline Casts (Auto) 10-30 /lpf Urine Epithelial Cells (Auto) 0-5 /lpf Urine Bacteria (Auto) NEG Test 09/18/17 12:50 09/18/17 14:32 09/18/17 14:40 09/18/17 15:30 Bedside Venous pH 7.21 Bedside Venous pCO2 34 mmHg Bedside Venous pO2 < 32 mmHg Bedside Venous HCO3 13 meq/L Bedside Venous Blood Total CO2 14 mEq/l Bedside Venous Blood O2 Saturation 24.0 % Bedside Venous Blood Base Excess -15.0 meq/L Bedside FiO2 40 % 100 % Blood Gas Sample Site Art Line Bedside Blood Gas pH (LAB) 7.30 Bedside Blood Gas pCO2 (LAB) 27 mmHg Bedside Blood Gas pO2 (LAB) 66 mmHg Bedside Blood Gas HCO3 (LAB) 13 meq/L Bedside Blood Gas Total CO2 14 mEq/l Bedside Blood Gas Base Excess (LAB) -14.0 meq/L Bedside Blood Gas O2 Saturation 91.0 % Wong Test NA Oxygen Delivery Device Ventilator Bedside Oxygen Rate (breaths/min) 30 Blood Gas Minute Ventilation 18.9 Blood Gas Tidal Volume 830 Blood Gas PEEP 8 Bedside Glucose (other) 256 mg/dl Lactic Acid Level 5.3 mmol/L Test 09/18/17 15:33 09/18/17 16:37 09/18/17 17:37 09/18/17 18:12 Bedside Glucose (other) 251 mg/dl 237 mg/dl 221 mg/dl Bedside Hemoglobin 7.5 g/dl Bedside Hematocrit 22 % Bedside Blood Gas pH (LAB) 7.24 Bedside Blood Gas pCO2 (LAB) 39 mmHg Bedside Blood Gas pO2 (LAB) 69 mmHg Bedside Blood Gas HCO3 (LAB) 17 meq/L Bedside Blood Gas Total CO2 18 mEq/l Bedside Blood Gas Base Excess (LAB) -10.0 meq/L Bedside Blood Gas O2 Saturation 90.0 % Bedside Sodium 138 mEq/L Bedside Potassium 4.9 mEq/L Test 09/18/17 18:30 09/18/17 19:30 09/18/17 20:46 09/18/17 21:27 Bedside Glucose (other) 202 mg/dl 189 mg/dl 178 mg/dl Prothrombin Time 58.1 SECONDS Prothromb Time International Ratio 5.7 Sodium Level 139 mmol/L Potassium Level 4.9 mmol/L Chloride Level 110 mmol/L Carbon Dioxide Level 20 mmol/L Anion Gap 9.0 mmol/L Blood Urea Nitrogen 44 mg/dl Creatinine 2.41 mg/dl Est Creatinine Clear Calc Drug Dose 35.3 ml/min Estimated GFR () 30.6 Estimated GFR (Non- 26.4 BUN/Creatinine Ratio 18.2 Random Glucose 174 mg/dl Calcium Level 7.0 mg/dl Troponin I 0.028 ng/ml Test 09/18/17 21:28 09/18/17 21:31 09/18/17 22:40 09/19/17 00:45 Hemoglobin 9.2 g/dL Hematocrit 29.6 % Lactic Acid Level 2.2 mmol/L Bedside Glucose (other) 173 mg/dl 161 mg/dl 167 mg/dl Test 09/19/17 02:38 09/19/17 04:06 09/19/17 05:14 09/19/17 07:54 Bedside Glucose (other) 168 mg/dl 172 mg/dl White Blood Count 18.99 K/uL Red Blood Count 3.32 M/uL Hemoglobin 8.7 g/dL Hematocrit 28.2 % Mean Corpuscular Volume 84.9 fL Mean Corpuscular Hemoglobin 26.2 pg Mean Corpuscular Hemoglobin Concent 30.9 g/dl RDW Standard Deviation 53.7 fL RDW Coefficient of Variation 17.4 % Platelet Count 175 K/uL Mean Platelet Volume 10.4 fL Nucleated RBC Absolute Count (auto) 0.07 K/uL Nucleated Red Blood Cells % 0.4 % Prothrombin Time 18.7 SECONDS Prothromb Time International Ratio 1.8 Sodium Level 136 mmol/L Potassium Level 5.3 mmol/L Chloride Level 107 mmol/L Carbon Dioxide Level 21 mmol/L Anion Gap 8.0 mmol/L Blood Urea Nitrogen 44 mg/dl Creatinine 2.73 mg/dl Est Creatinine Clear Calc Drug Dose 31.1 ml/min Estimated GFR () 26.3 Estimated GFR (Non- 22.7 BUN/Creatinine Ratio 16.3 Random Glucose 166 mg/dl Lactic Acid Level 2.2 mmol/L Calcium Level 7.0 mg/dl Troponin I 0.024 ng/ml Blood Gas Sample Site Art Line Bedside Blood Gas pH (LAB) 7.21 Bedside Blood Gas pCO2 (LAB) 49 mmHg Bedside Blood Gas pO2 (LAB) 83 mmHg Bedside Blood Gas HCO3 (LAB) 20 meq/L Bedside Blood Gas Total CO2 21 mEq/l Bedside Blood Gas Base Excess (LAB) -8.0 meq/L Bedside Blood Gas O2 Saturation 93.0 % Wong Test NA Oxygen Delivery Device Ventilator Bedside Oxygen Rate (breaths/min) 20 Blood Gas Minute Ventilation 11 Bedside FiO2 90 % Blood Gas Tidal Volume 500 Blood Gas PEEP 10 Test 09/19/17 08:03 Bedside Glucose (other) 152 mg/dl Assessment and Plan (1) Hypercalcemia (2) Weakness (3) Carcinoma of bladder (4) Cancer of renal pelvis and ureter (5) Chemotherapy (6) PE (pulmonary embolism) (7) DVT (deep venous thrombosis) (8) Presence of IVC filter (9) DM II (diabetes mellitus, type II), controlled (10) Benign essential HTN (11) Hypothyroidism (12) CKD (chronic kidney disease) stage 3, GFR 30-59 ml/min (13) Edema (14) Hypercalcemia (15) Dysphagia (16) Vomiting (17) Acute kidney injury (18) Anemia 67-year-old white male admitted 09/08/2017 because of dysphagia, has history of localized urothelial cancer on right, developed unresponsive state, low blood pressure and temporarily regained stable VS but decompensated later requiring intubation, concern for large gastric contents and outlet obstruction, NGT placed, now concerns for aspiration pneumonia Acute Respiratory failure, ventilation managed by ICu, concern for aspiration pneumonia, Zosyn, probably influenced by lack of gastric emptying influencing aspiration, ngt placed Initially concern for Linda esophagitis recommendation from ID, Diflucan can be 200 mg daily for totally 21 days, last dose 10/03/17, staph seen in urine and iv vnacomycin added. still with mechanical ventilation GERD concern for duodenitis causing gastric outlet issues IV Pepcid and Protonix , EGD on 09/11/2017 Hypercalcemia, associated with malignancy resolved with hydration metastatic refractory stage IV urothelial carcinoma. most recent PET shows it is confined to right kidney, usually follows with Dr. Collazo, non contrast CT of abdomen and pelvis may suggest disease progression diabetes with poor control continue basal bolus Acute on Chronic kidney disease stage 3, worsened by atn and hypotension lower extremity extensive DVT, hx of S/P IVC filter but was removed is not with therapeutic INR but has developed acute anemia of unknown source, will stop heparin and hold Coumadin, will discuss re placement of filter if bleeding is issue ,inr is reversed Acute anemia, follow and augment, likely a mix of acute on chronic spoke extensively with family, they were updated and realistic Continued [facility] stay due to: multiple IV medications needed Discharge planning: rehab hospital
[2017-09-19] MEDS ORDERED: HEPARIN 25,000 UNIT/500ML D5W 500 ML IV PRN (16:45)
[2017-09-19] MEDS: ALBUMIN HUMAN 25% 12.5 GM/50 ML VIAL IV SCH ×2 (20:23→21:13)
[2017-09-19 23:34] LABS: HEMATOCRIT 21.2 % (42-52); HEMOGLOBIN 6.5 g/dL (14.0-18.0)
[2017-09-19 23:40] LABS: PTT PATIENT 97.5 SECONDS (21.0-31.0)
[2017-09-20] VITALS (42 sets, daily range): BP systolic 101–186; BP diastolic 46–184; PULSE 76–109; TEMP 36.6–37; O2SAT 90–100
[2017-09-20] MEDS: PIPERACILL/TAZOBAC IV 4.5 GM in DEXTROSE 5% 100ML IV SCH ×3 (01:10→17:00)
[2017-09-20] MEDS: ALBUMIN HUMAN 25% 12.5 GM/50 ML VIAL IV SCH ×6 (05:28→21:29)
[2017-09-20] MEDS: FUROSEMIDE INJ 100 MG in SYRINGE 0 ML IV SCH ×2 (05:29→10:21)
[2017-09-20] MEDS: SODIUM BICARBONATE 8.4% INJ 150 MEQ in SODIUM CHLORIDE 0.45% 1000ML 1,000 ML IV SCH (06:05)
--- NOTE | 2017-09-20 06:55 | DIAGNOSTIC IMAGING REPORT ---
CHEST ONE VIEW PORTABLE CLINICAL HISTORY: 67 years-old Male presenting with pna. TECHNIQUE: Portable upright AP view of the chest was obtained. COMPARISON: 09/19/2017. FINDINGS: Endotracheal tube positioned in the mid to lower thoracic trachea. The pia is difficult to accurately visualize. The endotracheal tube terminus appears to be approximately 2 cm from the pia. Nasogastric tube terminates proximally near the gastroesophageal junction. Right internal jugular Mediport unchanged. Right internal jugular central venous catheter has been advanced or replaced, now terminating at the lower SVC. Cardiac silhouette remains enlarged. Persistent patchy central predominant opacities as well as obscuration of the left hemidiaphragm. Mildly low lung volumes. Overall aeration has slightly decreased since the prior exam. Left pleural effusion may be present. No large pneumothorax. Degenerative changes of the thoracic spine. The stomach remains distended with contrast material despite the presence of the nasogastric tube. Endovascular coils in the upper abdomen partially visualized. IMPRESSION: 1. Nasogastric tube may terminate proximally near the gastroesophageal junction. The stomach is also incompletely decompressed. Consider advancement. 2. Remaining lines and tubes appropriately positioned. 3. Interval decreased lung aeration with persistence patchy central predominant and left basilar opacities. 4. Possible left pleural effusion. Electronically signed by: Hever Buckner M.D. 09/20/2017 6:54 AM Dictated Date/Time: 09/20/2017 6:50 AM
[2017-09-20] MEDS: INSULIN ASPART 100 UNITS/ML 3 ML PEN SC SCH ×4 (08:00→19:42)
--- NOTE | 2017-09-20 08:06 | DIAGNOSTIC IMAGING REPORT ---
KUB CLINICAL HISTORY: obstruction obstruction COMPARISON STUDY: 09/19/2017 FINDINGS: Unchanging gastric distention. Maximum dimension is some is 28 cm which is unchanged. No significant bowel distention. Nasogastric tube within the distal stomach. No secondary evidence for free air. IMPRESSION: Persistent findings of gastric distention and gastric outlet obstruction. No change from the prior study. The above report was generated using voice recognition software. It may contain grammatical, syntax or spelling errors. Electronically signed by: Issac Alcazar M.D. 09/20/2017 8:04 AM Dictated Date/Time: 09/20/2017 7:59 AM
[2017-09-20 08:24] LABS: ALBUMIN 1.7 gm/dl (3.4-5.0); CALCIUM 6.8 mg/dl (8.5-10.1); CREATININE 3.65 mg/dl (0.60-1.40); POTASSIUM 4.6 mmol/L (3.5-5.1)
[2017-09-20 08:28] LABS: HEMOGLOBIN 7.3 g/dL (14.0-18.0); MEAN CELL VOLUME 82.7 fL (80-100); MEAN CORPUSCULAR HEMOGLOBIN 27.4 pg (25-34); MEAN CORPUSCULAR HGB CONC 33.2 g/dl (32-36); RED CELL DISTRIBUTION WIDTH CV 16.6 % (11.5-14.5); RED CELL DISTRIBUTION WIDTH SD 50.5 fL (36.4-46.3); WHITE BLOOD COUNT 8.33 K/uL (4.8-10.8)
[2017-09-20 08:32] LABS: MEAN PLATELET VOLUME 9.5 fL (7.4-10.4); PLATELET COUNT 74 K/uL (130-400)
[2017-09-20 08:33] LABS: TOTAL PROTEIN 4.2 gm/dl (6.4-8.2)
[2017-09-20 08:52] LABS: PTT PATIENT 251.6 SECONDS (21.0-31.0)
[2017-09-20] MEDS: LEVOTHYROXINE SODIUM INJ 50 MCG in SYRINGE 0 ML IV SCH (09:09)
--- NOTE | 2017-09-20 09:57 | Nephrology Progress Note ---
Nephrology Progress Note Date of Service Sep 20, 2017. Chief Complaint Acute on chronic kidney injury Subjective Mr. Weir was seen & examined in the ICU this morning. His was present at bedside. Patient remains sedated, ventilator and pressor dependent. Hgb dropped to 6.5 yesterday evening. He required blood transfusion. Mr. Weir has had minimal UO in response to bolus IV Furosemide therapy. He was nearly 5 L volume positive yesterday alone. He still requires 50% FiO2 Review of Systems ROS was not attainable - patient is sedated and mechanically ventilated Vital Signs Last 8 Hrs Date Time Temp Pulse Resp B/P (MAP) Pulse Ox O2 Delivery O2 Flow Rate FiO2 09/20/17 06:00 36.6 78 21 131/46 (74) 99 117/59 (78) 09/20/17 05:41 50 09/20/17 05:15 36.6 81 24 138/53 (81) 99 Mechanical Ventilator 50 09/20/17 04:45 36.8 82 28 129/52 (77) 97 Mechanical Ventilator 50 09/20/17 04:15 36.8 80 21 132/51 (78) 100 Mechanical Ventilator 50 09/20/17 04:00 Mechanical Ventilator 50 09/20/17 04:00 36.8 84 21 132/52 (78) 99 Mechanical Ventilator 50 112/64 (80) 09/20/17 04:00 50 09/20/17 03:45 36.8 81 24 138/54 (76) 100 09/20/17 03:28 36.8 85 23 120/52 100 09/20/17 03:28 36.8 84 22 127/55 (76) 100 09/20/17 03:20 36.8 83 22 126/55 (77) 100 09/20/17 03:00 36.8 80 20 113/51 (70) 100 09/20/17 02:32 36.8 82 19 110/50 (68) 100 101/57 09/20/17 02:30 36.8 82 20 112/52 (70) 100 09/20/17 02:08 50 09/20/17 02:01 36.8 86 20 112/52 (72) 99 109/58 09/20/17 02:00 36.8 85 20 112/50 (68) 99 Last Recorded Weight Weight (Kilograms): 118.000 Physical Exam General Appearance: + pertinent finding (acutely ill on mechanical ventillation and pressor support) Head: atraumatic Eyes: PERRL Neck: no adenopathy, + pertinent finding (R IJ THC with clean dry dressing in place) Respiratory/Chest: + pertinent finding (coarse breath sounds anteriorly) Cardiovascular: regular rate, rhythm Abdomen/GI: + pertinent finding (no bowel sounds) Genitourinary - Male: + pertinent finding (levy catheter in place. 50 cc clear yellow urine within the collection container) Extremities/Musculoskelatal: + swelling (1+ pedal & pretibial pitting edema) Neurologic/Psych: + pertinent finding (sedated) Family History Negative for CKD/ESRD Social History Smoking Status: Former smoker Smokeless Tobacco Use: Unknown Alcohol Use: none Drug Use: none Marital Status: Housing Status: lives with family Occupation: retired . Retired from [employer]. Remote h/o tobacco use. Laboratory Results Past 24 Hours 09/19/17 23:03 09/20/17 07:56 09/20/17 07:56 Test 09/19/17 12:21 09/19/17 16:15 09/19/17 16:24 09/19/17 20:03 Bedside Glucose (other) 125 mg/dl (70-99) 103 mg/dl (70-99) Urine Color YELLOW Urine Appearance CLOUDY (CLEAR) Urine pH 8.5 (4.5-7.5) Urine Specific [place] 1.015 (1.000-1.030) Urine Protein 2+ (NEG) Urine Glucose (UA) NEG (NEG) Urine Ketones NEG (NEG) Urine Occult Blood 2+ (NEG) Urine Nitrite NEG (NEG) Urine Bilirubin NEG (NEG) Urine Urobilinogen NEG (NEG) Urine Leukocyte Esterase SMALL (NEG) Urine WBC (Auto) >30 /hpf (0-5) Urine RBC (Auto) 5-10 /hpf (0-4) Urine Hyaline Casts (Auto) 5-10 /lpf (0-5) Urine Epithelial Cells (Auto) 0-5 /lpf (0-5) Urine Bacteria (Auto) NEG (NEG) Blood Gas Sample Site Art Line Bedside Blood Gas pH (LAB) 7.29 (7.35-7.45) Bedside Blood Gas pCO2 (LAB) 49 mmHg (35-46) Bedside Blood Gas pO2 (LAB) 71 mmHg (80-95) Bedside Blood Gas HCO3 (LAB) 24 meq/L (19-24) Bedside Blood Gas Total CO2 25 mEq/l (24-31) Bedside Blood Gas Base Excess (LAB) -3.0 meq/L (-9-1.8) Bedside Blood Gas O2 Saturation 92.0 % (90-95) Wong Test Pass Oxygen Delivery Device Ventilator Bedside Oxygen Rate (breaths/min) 20 Blood Gas Minute Ventilation 10.4 Bedside FiO2 60 % Blood Gas Tidal Volume 500 Blood Gas PEEP 10 Test 09/19/17 20:14 09/19/17 23:03 09/19/17 23:09 09/19/17 23:12 Bedside Glucose (other) 106 mg/dl (70-99) 108 mg/dl (70-99) Activated Partial Thromboplast Time 97.5 SECONDS (21.0-31.0) Partial Thromboplastin Ratio 3.8 Blood Gas Sample Site Art Line Bedside Blood Gas pH (LAB) 7.33 (7.35-7.45) Bedside Blood Gas pCO2 (LAB) 45 mmHg (35-46) Bedside Blood Gas pO2 (LAB) 123 mmHg (80-95) Bedside Blood Gas HCO3 (LAB) 24 meq/L (19-24) Bedside Blood Gas Total CO2 25 mEq/l (24-31) Bedside Blood Gas Base Excess (LAB) -2.0 meq/L (-9-1.8) Bedside Blood Gas O2 Saturation 99.0 % (90-95) Wong Test Pass Oxygen Delivery Device Ventilator Bedside Oxygen Rate (breaths/min) 20 Blood Gas Minute Ventilation 9 Bedside FiO2 60 % Blood Gas Tidal Volume 500 Blood Gas PEEP 10 Test 09/20/17 02:02 09/20/17 03:44 09/20/17 05:32 09/20/17 07:56 Blood Gas Sample Site Art Line Art Line Bedside Blood Gas pH (LAB) 7.35 (7.35-7.45) 7.40 (7.35-7.45) Bedside Blood Gas pCO2 (LAB) 45 mmHg (35-46) 38 mmHg (35-46) Bedside Blood Gas pO2 (LAB) 84 mmHg (80-95) 63 mmHg (80-95) Bedside Blood Gas HCO3 (LAB) 25 meq/L (19-24) 24 meq/L (19-24) Bedside Blood Gas Total CO2 26 mEq/l (24-31) 25 mEq/l (24-31) Bedside Blood Gas Base Excess (LAB) -1.0 meq/L (-9-1.8) -1.0 meq/L (-9-1.8) Bedside Blood Gas O2 Saturation 96.0 % (90-95) 92.0 % (90-95) Wong Test NA NA Oxygen Delivery Device Ventilator Ventilator Bedside Oxygen Rate (breaths/min) 20 20 Blood Gas Minute Ventilation 9 10 Bedside FiO2 50 % 50 % Blood Gas Tidal Volume 500 500 Blood Gas PEEP 10 8 Bedside Glucose (other) 104 mg/dl (70-99) Red Blood Count 2.66 M/uL (4.7-6.1) Mean Corpuscular Volume 82.7 fL (80-100) Mean Corpuscular Hemoglobin 27.4 pg (25-34) Mean Corpuscular Hemoglobin Concent 33.2 g/dl (32-36) RDW Standard Deviation 50.5 fL (36.4-46.3) RDW Coefficient of Variation 16.6 % (11.5-14.5) Mean Platelet Volume 9.5 fL (7.4-10.4) Platelet Estimate DECREASED Activated Partial Thromboplast Time 251.6 SECONDS (21.0-31.0) Partial Thromboplastin Ratio 9.5 Anion Gap 9.0 mmol/L (3-11) Est Creatinine Clear Calc Drug Dose 25.0 ml/min Estimated GFR () 18.5 Estimated GFR (Non- 16.0 BUN/Creatinine Ratio 15.0 (10-20) Calcium Level 6.8 mg/dl (8.5-10.1) Phosphorus Level 5.0 mg/dl (2.5-4.9) Magnesium Level 1.5 mg/dl (1.8-2.4) Total Bilirubin 1.1 mg/dl (0.2-1) Aspartate Amino Transf (AST/SGOT) 684 U/L (15-37) Alanine Aminotransferase (ALT/SGPT) 999 U/L (12-78) Alkaline Phosphatase 252 U/L (45-117) Total Protein 4.2 gm/dl (6.4-8.2) Albumin 1.7 gm/dl (3.4-5.0) Globulin 2.5 gm/dl (2.5-4.0) Albumin/Globulin Ratio 0.7 (0.9-2) Test 09/20/17 09:13 09/20/17 09:17 Blood Gas Sample Site Art Line Bedside Blood Gas pH (LAB) 7.44 (7.35-7.45) Bedside Blood Gas pCO2 (LAB) 38 mmHg (35-46) Bedside Blood Gas pO2 (LAB) 65 mmHg (80-95) Bedside Blood Gas HCO3 (LAB) 25 meq/L (19-24) Bedside Blood Gas Total CO2 27 mEq/l (24-31) Bedside Blood Gas Base Excess (LAB) 1.0 meq/L (-9-1.8) Bedside Blood Gas O2 Saturation 93.0 % (90-95) Wong Test NA Oxygen Delivery Device Ventilator Bedside Oxygen Rate (breaths/min) 20 Blood Gas Minute Ventilation 10.7 Bedside FiO2 50 % Blood Gas Tidal Volume 500 Blood Gas PEEP 5 Allergies Coded Allergies: No Known Allergies (Unverified , 09/02/17) Medications Current Inpatient Medications Medications (Trade) Dose Ordered Sig/Sara Route Start Time Stop Time Status Last Admin Dose Admin Heparin Sodium (Porcine) (Heparin 100 Unit/ml 5ml Flush) 5 ml PRN PRN IV 09/08/17 13:30 10/08/17 13:29 Miscellaneous (Iv Fluids Completed) 1 ea PRN PRN N/A 09/08/17 13:45 09/08/18 13:44 Lidocaine HCl/ Diphenhydramine HCl/Al Hydroxide/ Mg Hydroxide/ Glycerin/Barcode Q6H PRN MT 09/08/17 14:15 10/08/17 14:14 09/08/17 19:05 5 ML Glucose (Glucose 40% Gel) 15-30 GRAMS 15 GRAMS... UD PRN PO 09/08/17 15:15 10/08/17 15:14 Glucose (Glucose Chew Tab) 4-8 Tablets 4 Tabl... UD PRN PO 09/08/17 15:15 10/08/17 15:14 Dextrose (Dextrose 50% 50ML Syringe) 25-50ML OF 50% DW IV FOR... UD PRN IV 09/08/17 15:15 10/08/17 15:14 Glucagon (Glucagon Inj) 1 mg UD PRN SQ 09/08/17 15:15 10/08/17 15:14 Ondansetron HCl (Zofran Inj) 4 mg Q6H PRN IV 09/11/17 13:00 10/11/17 12:59 09/18/17 07:51 4 MG Pantoprazole Sodium 40 mg/ Syringe 10 ml @ 5 mls/min DAILY@11 IV 09/16/17 11:00 10/16/17 10:59 09/19/17 07:30 5 MLS/MIN Levothyroxine Sodium 50 mcg/ Syringe 2.5 ml @ 2 mls/min QAM IV 09/16/17 08:00 10/16/17 07:59 09/20/17 09:09 2 MLS/MIN Insulin Aspart (novoLOG ASPART) SLIDING SCALE G... ACHS SC 09/15/17 18:01 10/15/17 17:59 Future Hold 09/18/17 09:02 3 UNITS Sodium Chloride (Kiln Nasal [place]) 1 sprays PRN PRN NA 09/16/17 21:45 10/16/17 21:44 Morphine Sulfate (MoRPHine SULFATE INJ) 2 mg Q2H PRN IV 09/18/17 10:00 10/02/17 09:59 Piperacillin Sod/ Tazobactam Sod (Consult) 1 ea UD PRN N/A 09/18/17 10:45 10/18/17 10:44 Piperacillin Sod/ Tazobactam Sod 4.5 gm/Dextrose 120 ml @ 30 mls/hr Q8H IV 09/18/17 17:00 09/25/17 16:59 09/20/17 09:10 30 MLS/HR Miscellaneous Information (Consult Glycemic Management Pharmacy) 1 ea UD PRN N/A 09/18/17 11:58 10/18/17 11:57 Insulin Aspart (novoLOG ASPART) SLIDING SCALE PC SC 09/18/17 17:15 10/18/17 17:14 Insulin Human Regular 250 units/ Sodium Chloride 252.5 ml @ 0 mls/hr Q24H IV 09/18/17 12:30 10/18/17 12:29 09/19/17 11:31 3.9 MLS/HR Midazolam HCl 250 ml @ 0 mls/hr Q0M PRN IV 09/18/17 14:00 10/18/17 13:59 09/19/17 11:31 12 MLS/HR Vancomycin HCl (Consult) 1 ea UD PRN N/A 09/18/17 14:30 10/18/17 14:29 Sodium Bicarbonate 150 meq/Sodium Chloride 1,150 ml @ 150 mls/hr Q7H40M IV 09/18/17 16:30 10/18/17 16:29 09/20/17 06:05 150 MLS/HR Vancomycin HCl 1500 mg/Sodium Chloride 530 ml @ 200 mls/hr Q24H IV 09/19/17 14:00 09/25/17 13:59 Future Hold 09/19/17 13:29 200 MLS/HR Furosemide 100 mg/ Syringe 10 ml @ 4 mls/min Q8 IV 09/19/17 11:30 10/19/17 11:29 09/20/17 05:29 4 MLS/MIN Albumin Human (Albumin 25%) 25 gm 0400,0500,1200,1300,2000,2100 IV 09/19/17 20:00 09/22/17 19:59 09/20/17 05:30 25 GM Impression (1) Duodenal obstruction (2) Hypotension (arterial) (3) Acute kidney injury (4) CKD (chronic kidney disease) stage 3, GFR 30-59 ml/min (5) Anemia (6) Edema (7) 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 No casts reported -- Patient is ~ 17 L volume positive w/ LE edema and mild pulmonary perihilar congestion. No significant response to bolus high dose loop diuretic therapy -- Electrolytes remain acceptable while on NaHCO3 gtt, however, patient has worsening kidney function and minimal response to bolus loop diuretic therapy. He will likely require HD within the next 24 - 48 hours due to progressive volume overload. Hemodynamic instability and need for pressor support may complicate conventional intermittent HD. Patient would likely benefit from transfer to a tertiary care center for ongoing ICU care and CRRT when needed. HYPERKALEMIA: -- Corrected. Continue to monitor PRP METABOLIC ACIDOSIS: -- Serum bicarbonate has corrected. Will reduce NaHCO3 gtt. HYPOTENSION: -- Recommend transfusion to maintain Hgb > 10 -- Wean pressors keeping SBP > 90 mmHG GI: -- Will need follow up EGD once medically stable -- May benefit from transfer to tertiary care center for evaluation of ongoing GI bleeding, need for endoscopy and evaluation of possible extrinsic duodenal obstruction 90 min critical care time provided to the patient today. This was necessary to review medical records, perform physical exam and to discuss plan of care with the ICU team, bell staff and patient's . Over 50% of time provided was spent on coordination of care.
[2017-09-20] MEDS: SODIUM BICARBONATE 8.4% INJ 75 MEQ in SODIUM CHLORIDE 0.45% 1000ML 1,000 ML IV SCH (10:22)
[2017-09-20] MEDS: FUROSEMIDE INJ 100 MG in DEXTROSE 5% 100ML 90 ML IV PRN ×3 (10:22→23:12)
[2017-09-20] MEDS: PANTOprazole INJ 40 MG in SYRINGE 0 ML IV SCH (10:22)
[2017-09-20 10:31] LABS: PTT PATIENT 86.4 SECONDS (21.0-31.0)
--- NOTE | 2017-09-20 10:38 | HEME/ONC PROGRESS NOTE ---
DATE: 09/20/2017 DIAGNOSES: 1. Acute respiratory failure. 2. Gastric outlet obstruction. 3. Intractable nausea and vomiting. 4. Pulmonary embolus. 5. Active gastrointestinal bleeding, precipitous drop in hemoglobin. 6. Metastatic urothelial carcinoma. SUBJECTIVE: Mr. Weir is a 67-year-old gentleman currently under the care of Dr. Peterson Collazo for metastatic urothelial carcinoma. He is now on hospital day 12 and in the past 24 hours, required mechanical ventilation for acute respiratory failure, thought to be attributable to aspiration pneumonia. He continues broad-spectrum antibiotics. The medical team also reports precipitous drop in hemoglobin, requiring transfusional support. Apparently, gastric secretions are positive for blood. Unfortunately, EGD was unable to be performed because of the patient's failing respiratory status. The patient's who was at bedside this morning has now requested that he be transferred to the [facility]. Anticoagulation is currently on hold because of active bleeding. PHYSICAL EXAMINATION: GENERAL: He is now intubated, sedated and comfortable. VITAL SIGNS: Temperature 36.6, pulse 78, respiratory rate 21, blood pressure 131/46. SKIN: Without rash or lesion. HEENT: Again, patient is intubated. NECK: Supple. HEART: Regular rate and rhythm. LUNGS: Clear to auscultation. ABDOMEN: Firm, nontender, nondistended. EXTREMITIES: +2 peripheral edema bilaterally. NEUROLOGIC: Not done. LABORATORY DATA: WBC count 8330, hemoglobin 7.3, platelet count 74,000. Sodium 139, potassium 4.6, chloride 103, carbon dioxide 26, creatinine 3.65, BUN 55, AST 684, ALT 999, alkaline phosphatase 252, albumin 1.7. IMPRESSION: 1. Elevated liver transaminases, questionable shock liver. 2. Acute renal injury. 3. Hypoalbuminemia. 4. Hypomagnesemia. 5. Acute respiratory failure, requiring mechanical ventilation. 6. Active gastrointestinal bleeding, probable upper gastrointestinal tract. 7. Pulmonary embolism. PLAN: Mr. Weir unfortunately has taken a clinical turn for the worse; however, according to the critical care team, his respiratory status has improved since intubation and decompression of his stomach. Apparently, there was evidence of blood and gastric secretions; however, formal scoping has not been performed because of the patient's clinical condition. He presently has a multitude of medical problems and appears to be entering multiorgan systemic failure. His platelets have subsequently dropped, which may suggest impending DIC. We will obtain fibrinogen and fibrin split products. I agree with patient's and medical team that Mr. Weir may be better served to be transferred at this juncture. His prognosis would appear quite poor at this juncture. We will officially sign off anticipating transfer. I will notify Dr. Collazo of today's events. Thank you very much for allowing us to participate in his care. CORNELIUS
--- NOTE | 2017-09-20 10:42 | Pharmacy Progress Note ---
Glycemic Control Progress Note Date of Service Sep 20, 2017. Scope Glycemic Pharmacist consulted for glycemic control to write orders per [facility] inpatient glycemic control protocol. Objective Accuchecks BSG (last 24hrs): Test 09/20/17 07:56 09/20/17 10:00 Random Glucose 91 mg/dl (70-99) Bedside Glucose 90 mg/dl (70-99) HbA1c: Test 09/09/17 05:38 Hemoglobin A1c 7.1 % (4.5-5.6) H Recent Pertinent Medications The patient is currently receiving: * IV insulin infusion per protocol, goal range 100-180mg/dL Outpatient Anti-Diabetic Meds * Lantus 45 units SQ qAM * NPH 35 units SQ qPM * Humalog 33 units TID with meals * 179 units of insulin per day * HbA1c: 7.1% (09/09/17) Assessment & Plan ASSESSMENT: 09/20/17 * Patient remains intubated at this time, possible plans for SAT/SBT later today after EGD * Pressors have been weaned off at this time and BP stable * Heparin drip (mixed in D5W) now placed on hold secondary to dropping H/H * Renal fxn continues to decline, SCr increasing, poor U.O. * Insulin drip was running at 2units/hr until BSG dropped to below goal range this AM. Given pressors have been weaned off as well as further decline in renal fxn he may be more insulin sensitive at this time. We really do not need BSGs to be less than 140 in this patient. With BSGs in the 90's now it would be best to hold the insulin infusion until BSGs return to mid-100's range. PLAN FOR INPATIENT GLYCEMIC CONTROL: * Place the insulin drip on hold at this time * Continue to check BSGs hourly this AM, however if BSG remains less than 140 we can convert to Q 4 hr checks with the ultimate plan being to restart IV insulin infusion at 1 unit/hr if BSG greater than 140 and follow the insulin adjustment calculator thereafter. * Please note that the plan above was derived based on current level of insulin resistance and hospital stress. These recommendations are appropriate for inpatient admission only. Plan of care upon discharge will need to be reassessed to avoid potential outpatient hypo/hyperglycemia. Thank you.
--- NOTE | 2017-09-20 10:46 | Critical Care Progress Note ---
Critical Care Progress Note Date of Service Sep 20, 2017. ICU Day ICU Day Number: [address] Ashley Oseguera The patient remains on the ventilator and currently is requiring 50 % FiO2 and 5 of PEEP and he is saturating at 98%. Also is maintaining the BP of 156/53 and he is off the pressors. He is sedated with 6 mg of Versed. Still draining coffee ground materials from the OG tube. H/H was down and he received 2 units of PRBC transfusion. The patient also received three doses of IV Lasix at 100 mg and two doses of Albumen. Urine output is still very poor. There was an initiation of transfer to [facility] for possible CRRT, but no beds available at this time and patient seems to be recovering. Off the pressors, minimal O2 and PEEP requirement and his Lactic Acid is also trending down, so at this stage, will keep the patient here and also consider IV lasix drip. Family were notified in detail about the plan of care and they are happy with that. Also considering an IVC filter placement since he is not a candidate for anticoagulation. Objective The patient remains sedated and on ventilator. HEENT: Pupils equally reactive to light. Sclera is not icteric. Unable to examine the throat because of intubation. NECK: Supple. No JVD. No Lymphadenopathy. CHEST: Bilateral coarse breathing/ Diminished breath sounds, posterior rales. No wheeze or rhonchi. HEART: S1/S2 heard. GI: Soft, Distended. Hypoactive bowel sounds. NEURO: unable to examine. The patient is sedated and intubated. EXTREMITIES: Bilateral edema 3 + of the legs. SKIN: No rash or lesion. Current SOFA Score SOFA Score Response (Comments) Value PaO2/FiO2 (mmHg) < 300 2 SaO2 / FIO2 67 - 141 3 Platelets (x10) > 150 0 Bilirubin (mg/dL) 1.2 - 1.9 1 [place] Coma Score < 6 4 Level of Hypotension MAP less than 70 1 Creatinine (mg/dL) 2.0 - 3.4 2 Total 13 Previous SOFA Scores 13 Assessment & Plan NEURO: The patient remains sedated and intubated and no Neurological issues at this time. Since he has improved clinically, will try to wake him up after EGD and assess for weaning. CARDIOLOGY: The patient remains hemodynamically stable. Off Levophed and Vasopressin and he is maintaining the blood pressor 153 systolically. Also has H /O Atrial fibrillation and was on Xarelto, which is off for GI bleed and anemia. Will monitor and will be started when cleared by the GI. Currently he is rate controlled. The patient is reate controlled. was tried on Heparin, but he dropped with the H/H and heparin was stopped. PULMONARY: Respiratory failure. Overall is improving with ventilatory support and currently he is on 50 % FiO2 and PEEP of 5 and is saturating at 98 %. Once cleared by GI after EGD, will wean from the sedation and if tolerated well, will try to wean from the ventilator. Pneumonia. Respiratory secretions negative so far. On Zosyn and Vancomycin. Will follow the cultures and adjust antibiotics accordingly. Will continue with current plan of care as prescribed, including ventilatory support, weaning as tolerated and sedation. RENAL: Acute on chronic renal failure. No urine output yet. Patient's Conventions Reservationist was consulted. The patient was started on IV Lasix 100 mg Q 8 hr and no improvement in urine output. Were considering a transfer for CRRT, but no beds available at [facility], so he will be started on IV Lasix drip along with Albumen as prescribed and recommended by Conventions Reservationist. If no improvement, will put a dialysis catheter and patient will be dialyzed. Metabolic Acidoses and he remains on Bicarb drip. It is improving and slowly will cut down on Bicarb drip. ID: Possibility of sepsis related to multiple ongoing problems, metastatic disease and also aspiration. The patient has been treated on sepsis protocol and Lactic acid has been trending down from 5 to 2 now. Will monitor. On broad spectrum IV antibiotics and cultures are still pending except urine is growing Staph and the patient is already on vancomycin. final ID and sensitivity is pending. HEMATOLOGY/ONCOLOGY: The patient has metastatic disease. Followed by Oncology. Also bilateral DVT and he has been on Xarelto and Heparin in recent pass, which was stopped because of active GI bleed and low H/H and he also received two units of transfusion. According to the Oncologist, he is not the candidate for Chemotherapy at this time. Also anticoagulation is on hold because of rebleeding and two more units of transfusion. The patient will be considered for IVC filter placement. ENDOCRINE: Elevated glucose/DM. The blood sugar has been controlled and he is off the Insulin drip. GI: Distended stomach. Possibility of gastric outlet obstruction. Waiting fore repeat EGD for the confirmation. Has OG tube, which is draining coffee ground materials. Oral cavity was negative for any sheba infection and Fluconazole was D/gianna. We are going to continue with current plan of care as prescribed. The patient will be also evaluated by GI/Endoscopy. D/W the family at length and answered all the questions. Also explained to them that at [facility], beds are not available and since he is recovering, will consider keeping the patient here in our ICU, unless they want to transfer any other place and they have agreed to keep the patient here in our ICU/[facility]. The family were also explained about EGD/IV Lasix drip and if no improvement, than dialysis. Spent greater than 35 minutes of critical care time, for evaluating and treating the patient/discussing with other medical providers and also with the family. Consults & Procedures Consultants: Oncology/Hematology: Cleveland Stephen MD Gastroenterology: Marv Vallejo. Hospitalist: Devin Gamino. Nephrology: Roverto Butler MD. Procedures: 1. RT IJ Central Line. Day # 1. Clean, no signs of infection. Need for IV fluids and multiple medications and pressors. DR. Doris TAI 2. RT Radial A Line. Day # 1. Clean and no sign of infection. Need for close hemodynamic monitoring. DR. Doris TAI 3. Rice catheter. Need for the patient is intubated and sedated. 4. OG. In place for decompression of the distended stomach. 5. INTUBATION. Day 2. Dr. Doris TAI Data Medications: Current Inpatient Medications Medications (Trade) Dose Ordered Sig/Sara Route Start Time Stop Time Status Last Admin Dose Admin Heparin Sodium (Porcine) (Heparin 100 Unit/ml 5ml Flush) 5 ml PRN PRN IV 09/08/17 13:30 10/08/17 13:29 Miscellaneous (Iv Fluids Completed) 1 ea PRN PRN N/A 09/08/17 13:45 09/08/18 13:44 Lidocaine HCl/ Diphenhydramine HCl/Al Hydroxide/ Mg Hydroxide/ Glycerin/Barcode Q6H PRN MT 09/08/17 14:15 10/08/17 14:14 09/08/17 19:05 5 ML Glucose (Glucose 40% Gel) 15-30 GRAMS 15 GRAMS... UD PRN PO 09/08/17 15:15 10/08/17 15:14 Glucose (Glucose Chew Tab) 4-8 Tablets 4 Tabl... UD PRN PO 09/08/17 15:15 10/08/17 15:14 Dextrose (Dextrose 50% 50ML Syringe) 25-50ML OF 50% DW IV FOR... UD PRN IV 09/08/17 15:15 10/08/17 15:14 Glucagon (Glucagon Inj) 1 mg UD PRN SQ 09/08/17 15:15 10/08/17 15:14 Ondansetron HCl (Zofran Inj) 4 mg Q6H PRN IV 09/11/17 13:00 10/11/17 12:59 09/18/17 07:51 4 MG Pantoprazole Sodium 40 mg/ Syringe 10 ml @ 5 mls/min DAILY@11 IV 09/16/17 11:00 10/16/17 10:59 09/19/17 07:30 5 MLS/MIN Levothyroxine Sodium 50 mcg/ Syringe 2.5 ml @ 2 mls/min QAM IV 09/16/17 08:00 10/16/17 07:59 09/20/17 09:09 2 MLS/MIN Sodium Chloride ([place] Nasal [place]) 1 sprays PRN PRN NA 09/16/17 21:45 10/16/17 21:44 Morphine Sulfate (MoRPHine SULFATE INJ) 2 mg Q2H PRN IV 09/18/17 10:00 10/02/17 09:59 Piperacillin Sod/ Tazobactam Sod (Consult) 1 ea UD PRN N/A 09/18/17 10:45 10/18/17 10:44 Piperacillin Sod/ Tazobactam Sod 4.5 gm/Dextrose 120 ml @ 30 mls/hr Q8H IV 09/18/17 17:00 09/25/17 16:59 09/20/17 09:10 30 MLS/HR Miscellaneous Information (Consult Glycemic Management Pharmacy) 1 ea UD PRN N/A 09/18/17 11:58 10/18/17 11:57 Insulin Aspart (novoLOG ASPART) SLIDING SCALE PCHS SC 09/18/17 17:15 10/18/17 17:14 Insulin Human Regular 250 units/ Sodium Chloride 252.5 ml @ 0 mls/hr Q24H IV 09/18/17 12:30 10/18/17 12:29 09/19/17 11:31 3.9 MLS/HR Midazolam HCl 250 ml @ 0 mls/hr Q0M PRN IV 09/18/17 14:00 10/18/17 13:59 09/19/17 11:31 12 MLS/HR Vancomycin HCl (Consult) 1 ea UD PRN N/A 09/18/17 14:30 10/18/17 14:29 Vancomycin HCl 1500 mg/Sodium Chloride 530 ml @ 200 mls/hr Q24H IV 09/19/17 14:00 09/25/17 13:59 Future Hold 09/19/17 13:29 200 MLS/HR Furosemide 100 mg/ Syringe 10 ml @ 4 mls/min Q8 IV 09/19/17 11:30 09/20/17 10:30 09/20/17 05:29 4 MLS/MIN Sodium Bicarbonate 75 meq/Sodium Chloride 1,075 ml @ 75 mls/hr [id number] IV 09/20/17 10:30 10/20/17 10:29 Furosemide 100 mg/ Dextrose 100 ml @ 10 mls/hr Q10H PRN IV 09/20/17 10:00 10/20/17 09:59 Albumin Human (Albumin 25%) 12.5 gm Q8@0600,0601,1400,1401 IV 09/20/17 14:00 09/23/17 13:59 Albumin Human (Albumin 25%) 12.5 gm Q8@2200,2201 IV 09/20/17 22:00 09/23/17 21:59 Vital Signs: Date Time Temp Pulse Resp B/P (MAP) Pulse Ox O2 Delivery O2 Flow Rate FiO2 09/20/17 08:00 37.0 76 20 119/70 (86) 95 Mechanical Ventilator 50 156/57 (90) 09/20/17 08:00 50 09/20/17 08:00 95 Mechanical Ventilator 50 09/20/17 06:00 36.6 78 21 131/46 (74) 99 117/59 (78) 09/20/17 05:41 50 09/20/17 05:15 36.6 81 24 138/53 (81) 99 Mechanical Ventilator 50 09/20/17 04:45 36.8 82 28 129/52 (77) 97 Mechanical Ventilator 50 09/20/17 04:15 36.8 80 21 132/51 (78) 100 Mechanical Ventilator 50 09/20/17 04:00 Mechanical Ventilator 50 09/20/17 04:00 36.8 84 21 132/52 (78) 99 Mechanical Ventilator 50 112/64 (80) 09/20/17 04:00 50 09/20/17 03:45 36.8 81 24 138/54 (76) 100 09/20/17 03:28 36.8 85 23 120/52 100 09/20/17 03:28 36.8 84 22 127/55 (76) 100 09/20/17 03:20 36.8 83 22 126/55 (77) 100 09/20/17 03:00 36.8 80 20 113/51 (70) 100 09/20/17 02:32 36.8 82 19 110/50 (68) 100 101/57 09/20/17 02:30 36.8 82 20 112/52 (70) 100 09/20/17 02:08 50 09/20/17 02:01 36.8 86 20 112/52 (72) 99 109/58 09/20/17 02:00 36.8 85 20 112/50 (68) 99 09/20/17 01:30 36.8 87 20 103/48 (64) 99 09/20/17 01:15 36.8 89 21 105/49 (66) 97 09/20/17 01:00 36.8 86 20 103/50 (67) 98 09/20/17 00:45 36.8 87 20 119/54 (73) 98 09/20/17 00:38 36.8 90 22 112/52 99 09/20/17 00:01 36.9 91 24 101/48 (65) 97 Mechanical Ventilator 60 110/62 (78) 09/19/17 23:59 50 09/19/17 23:59 Mechanical Ventilator 50 09/19/17 23:47 60 09/19/17 22:00 37.0 90 22 102/48 (66) 97 Mechanical Ventilator 60 102/55 (71) 09/19/17 20:48 37.1 91 21 83/57 (66) 96 Mechanical Ventilator 60 09/19/17 20:32 37.1 94 24 103/47 (65) 94 Mechanical Ventilator 60 09/19/17 20:18 60 09/19/17 20:00 60 09/19/17 20:00 37.0 96 23 97/58 (71) 96 Mechanical Ventilator 60 09/19/17 20:00 Mechanical Ventilator 60 09/19/17 18:00 37.0 96 24 116/50 (72) 94 Mechanical Ventilator 65 113/62 (79) 09/19/17 16:00 37.0 93 26 118/51 (73) 94 Mechanical Ventilator 65 114/58 (76) 09/19/17 16:00 Mechanical Ventilator 65 09/19/17 16:00 65 09/19/17 14:23 65 09/19/17 14:13 37.3 96 26 103/49 (67) 94 Mechanical Ventilator 65 108/60 (76) 09/19/17 12:00 90 09/19/17 12:00 37.4 98 26 97/51 (66) 95 Mechanical Ventilator 70 96/57 (70) 09/19/17 12:00 Mechanical Ventilator 90 09/19/17 11:05 70 Laboratory Results: Last 24 Hours Test 09/19/17 12:21 09/19/17 16:15 09/19/17 16:24 09/19/17 20:03 Bedside Glucose (other) 125 mg/dl 103 mg/dl Urine Color YELLOW Urine Appearance CLOUDY Urine pH 8.5 Urine Specific [place] 1.015 Urine Protein 2+ Urine Glucose (UA) NEG Urine Ketones NEG Urine Occult Blood 2+ Urine Nitrite NEG Urine Bilirubin NEG Urine Urobilinogen NEG Urine Leukocyte Esterase SMALL Urine WBC (Auto) >30 /hpf Urine RBC (Auto) 5-10 /hpf Urine Hyaline Casts (Auto) 5-10 /lpf Urine Epithelial Cells (Auto) 0-5 /lpf Urine Bacteria (Auto) NEG Blood Gas Sample Site Art Line Bedside Blood Gas pH (LAB) 7.29 Bedside Blood Gas pCO2 (LAB) 49 mmHg Bedside Blood Gas pO2 (LAB) 71 mmHg Bedside Blood Gas HCO3 (LAB) 24 meq/L Bedside Blood Gas Total CO2 25 mEq/l Bedside Blood Gas Base Excess (LAB) -3.0 meq/L Bedside Blood Gas O2 Saturation 92.0 % Wong Test Pass Oxygen Delivery Device Ventilator Bedside Oxygen Rate (breaths/min) 20 Blood Gas Minute Ventilation 10.4 Bedside FiO2 60 % Blood Gas Tidal Volume 500 Blood Gas PEEP 10 Test 09/19/17 20:14 09/19/17 23:03 09/19/17 23:09 09/19/17 23:12 Bedside Glucose (other) 106 mg/dl 108 mg/dl Hemoglobin 6.5 g/dL Hematocrit 21.2 % Activated Partial Thromboplast Time 97.5 SECONDS Partial Thromboplastin Ratio 3.8 Blood Gas Sample Site Art Line Bedside Blood Gas pH (LAB) 7.33 Bedside Blood Gas pCO2 (LAB) 45 mmHg Bedside Blood Gas pO2 (LAB) 123 mmHg Bedside Blood Gas HCO3 (LAB) 24 meq/L Bedside Blood Gas Total CO2 25 mEq/l Bedside Blood Gas Base Excess (LAB) -2.0 meq/L Bedside Blood Gas O2 Saturation 99.0 % Wong Test Pass Oxygen Delivery Device Ventilator Bedside Oxygen Rate (breaths/min) 20 Blood Gas Minute Ventilation 9 Bedside FiO2 60 % Blood Gas Tidal Volume 500 Blood Gas PEEP 10 Test 09/20/17 02:02 09/20/17 03:44 09/20/17 05:32 09/20/17 07:56 Blood Gas Sample Site Art Line Art Line Bedside Blood Gas pH (LAB) 7.35 7.40 Bedside Blood Gas pCO2 (LAB) 45 mmHg 38 mmHg Bedside Blood Gas pO2 (LAB) 84 mmHg 63 mmHg Bedside Blood Gas HCO3 (LAB) 25 meq/L 24 meq/L Bedside Blood Gas Total CO2 26 mEq/l 25 mEq/l Bedside Blood Gas Base Excess (LAB) -1.0 meq/L -1.0 meq/L Bedside Blood Gas O2 Saturation 96.0 % 92.0 % Wong Test NA NA Oxygen Delivery Device Ventilator Ventilator Bedside Oxygen Rate (breaths/min) 20 20 Blood Gas Minute Ventilation 9 10 Bedside FiO2 50 % 50 % Blood Gas Tidal Volume 500 500 Blood Gas PEEP 10 8 Bedside Glucose (other) 104 mg/dl White Blood Count 8.33 K/uL Red Blood Count 2.66 M/uL Hemoglobin 7.3 g/dL Hematocrit 22.0 % Mean Corpuscular Volume 82.7 fL Mean Corpuscular Hemoglobin 27.4 pg Mean Corpuscular Hemoglobin Concent 33.2 g/dl RDW Standard Deviation 50.5 fL RDW Coefficient of Variation 16.6 % Platelet Count 74 K/uL Mean Platelet Volume 9.5 fL Platelet Estimate DECREASED Activated Partial Thromboplast Time 251.6 SECONDS Partial Thromboplastin Ratio 9.5 Sodium Level 139 mmol/L Potassium Level 4.6 mmol/L Chloride Level 103 mmol/L Carbon Dioxide Level 26 mmol/L Anion Gap 9.0 mmol/L Blood Urea Nitrogen 55 mg/dl Creatinine 3.65 mg/dl Est Creatinine Clear Calc Drug Dose 25.0 ml/min Estimated GFR () 18.5 Estimated GFR (Non- 16.0 BUN/Creatinine Ratio 15.0 Random Glucose 91 mg/dl Calcium Level 6.8 mg/dl Phosphorus Level 5.0 mg/dl Magnesium Level 1.5 mg/dl Total Bilirubin 1.1 mg/dl Aspartate Amino Transf (AST/SGOT) 684 U/L Alanine Aminotransferase (ALT/SGPT) 999 U/L Alkaline Phosphatase 252 U/L Total Protein 4.2 gm/dl Albumin 1.7 gm/dl Globulin 2.5 gm/dl Albumin/Globulin Ratio 0.7 Test 09/20/17 09:13 09/20/17 09:17 09/20/17 10:00 Blood Gas Sample Site Art Line Bedside Blood Gas pH (LAB) 7.44 Bedside Blood Gas pCO2 (LAB) 38 mmHg Bedside Blood Gas pO2 (LAB) 65 mmHg Bedside Blood Gas HCO3 (LAB) 25 meq/L Bedside Blood Gas Total CO2 27 mEq/l Bedside Blood Gas Base Excess (LAB) 1.0 meq/L Bedside Blood Gas O2 Saturation 93.0 % Wong Test NA Oxygen Delivery Device Ventilator Bedside Oxygen Rate (breaths/min) 20 Blood Gas Minute Ventilation 10.7 Bedside FiO2 50 % Blood Gas Tidal Volume 500 Blood Gas PEEP 5 Fibrin Degradation Products >40 mcg/ml Bedside Glucose 90 mg/dl
[2017-09-20] MEDS: INSULIN REGULAR 250 UNITS in SODIUM CHLORIDE 0.9% 250ML 250 ML IV SCH (12:30)
[2017-09-20] MEDS ORDERED: VANCOMYCIN TROUGH ONE (13:30)
--- NOTE | 2017-09-20 14:06 | Progress Note ---
Subjective Date of Service: Sep 20, 2017. Subjective pt is sedate and intubated, his and son were at bedside, there was some discussion of transfer however discussion with [facility] and our ICU had felt that we will try to encourage some improvement in renal function before finalization of transfer. Family was updated and understand plan of care. 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 Systemic chemotherapy (Opdivo) had progression 2. Combined radiation and chemotherapy. Radiation to the abdomen completed 09/23. Received 5,940 cGy. 3. Plan for immunotherapy Status: Chronic (3) Carcinoma of bladder Permanent Comment: STAGING: Bladder, urothelial carcinoma, [id number] TREATMENT: 1. Partial course of neoadjuvant chemotherapy 2. Radical cystectomy, bilateral pelvic lymph node dissection and ileal neobladder formation - 04/12/2013 3. Adjuvant chemotherapy with G/C for 3 cycles Status: Acute (4) Chemotherapy Status: Acute (5) Dehydration Status: Acute (6) Edema Status: Acute (7) History of pulmonary embolus (PE) Status: Chronic (8) History of renal bleeding Status: Chronic (9) Hypercalcemia Status: Acute (10) Hypercalcemia Status: Acute (11) Hyperglycemia Status: Acute (12) Intractable vomiting Status: Acute (13) Perinephric hematoma Status: Acute (14) Retroperitoneal bleeding Status: Acute (15) Retroperitoneal hematoma Status: Acute (16) Sepsis Status: Acute (17) Vomiting Status: Acute (18) Weakness Status: Acute Objective Vital Signs Date Time Temp Pulse Resp B/P (MAP) Pulse Ox O2 Delivery O2 Flow Rate FiO2 09/20/17 12:00 37.0 89 24 123/68 (86) 94 Mechanical Ventilator 148/57 (87) 09/20/17 12:00 94 Mechanical Ventilator 50 09/20/17 12:00 50 09/20/17 11:17 50 09/20/17 11:16 50 09/20/17 10:00 89 20 116/62 (80) 95 Mechanical Ventilator 50 143/53 (83) 09/20/17 08:00 37.0 76 20 119/70 (86) 95 Mechanical Ventilator 50 156/57 (90) 09/20/17 08:00 Mechanical Ventilator 50 09/20/17 08:00 50 09/20/17 08:00 95 Mechanical Ventilator 50 09/20/17 06:00 36.6 78 21 131/46 (74) 99 117/59 (78) 09/20/17 05:41 50 09/20/17 05:15 36.6 81 24 138/53 (81) 99 Mechanical Ventilator 50 09/20/17 04:45 36.8 82 28 129/52 (77) 97 Mechanical Ventilator 50 09/20/17 04:15 36.8 80 21 132/51 (78) 100 Mechanical Ventilator 50 09/20/17 04:00 Mechanical Ventilator 50 09/20/17 04:00 36.8 84 21 132/52 (78) 99 Mechanical Ventilator 50 112/64 (80) 09/20/17 04:00 50 09/20/17 03:45 36.8 81 24 138/54 (76) 100 09/20/17 03:28 36.8 85 23 120/52 100 09/20/17 03:28 36.8 84 22 127/55 (76) 100 09/20/17 03:20 36.8 83 22 126/55 (77) 100 09/20/17 03:00 36.8 80 20 113/51 (70) 100 09/20/17 02:32 36.8 82 19 110/50 (68) 100 101/57 09/20/17 02:30 36.8 82 20 112/52 (70) 100 09/20/17 02:08 50 09/20/17 02:01 36.8 86 20 112/52 (72) 99 109/58 09/20/17 02:00 36.8 85 20 112/50 (68) 99 09/20/17 01:30 36.8 87 20 103/48 (64) 99 09/20/17 01:15 36.8 89 21 105/49 (66) 97 09/20/17 01:00 36.8 86 20 103/50 (67) 98 09/20/17 00:45 36.8 87 20 119/54 (73) 98 09/20/17 00:38 36.8 90 22 112/52 99 09/20/17 00:01 36.9 91 24 101/48 (65) 97 Mechanical Ventilator 60 110/62 (78) 09/19/17 23:59 50 09/19/17 23:59 Mechanical Ventilator 50 09/19/17 23:47 60 09/19/17 22:00 37.0 90 22 102/48 (66) 97 Mechanical Ventilator 60 102/55 (71) 09/19/17 20:48 37.1 91 21 83/57 (66) 96 Mechanical Ventilator 60 09/19/17 20:32 37.1 94 24 103/47 (65) 94 Mechanical Ventilator 60 09/19/17 20:18 60 09/19/17 20:00 60 09/19/17 20:00 37.0 96 23 97/58 (71) 96 Mechanical Ventilator 60 09/19/17 20:00 Mechanical Ventilator 60 09/19/17 18:00 37.0 96 24 116/50 (72) 94 Mechanical Ventilator 65 113/62 (79) 09/19/17 16:00 37.0 93 26 118/51 (73) 94 Mechanical Ventilator 65 114/58 (76) 09/19/17 16:00 Mechanical Ventilator 65 09/19/17 16:00 65 09/19/17 14:23 65 09/19/17 14:13 37.3 96 26 103/49 (67) 94 Mechanical Ventilator 65 108/60 (76) Physical Exam General Appearance: + severe distress Respiratory/Chest: + respiratory distress, + decreased breath sounds, + accessory muscle use Cardiovascular: regular rate, rhythm, + systolic murmur Abdomen: normal bowel sounds, soft Extremities: + pedal edema, + swelling Laboratory Results Last 24 Hours Test 09/19/17 16:15 09/19/17 16:24 09/19/17 20:03 09/19/17 20:14 Urine Color YELLOW Urine Appearance CLOUDY Urine pH 8.5 Urine Specific [place] 1.015 Urine Protein 2+ Urine Glucose (UA) NEG Urine Ketones NEG Urine Occult Blood 2+ Urine Nitrite NEG Urine Bilirubin NEG Urine Urobilinogen NEG Urine Leukocyte Esterase SMALL Urine WBC (Auto) >30 /hpf Urine RBC (Auto) 5-10 /hpf Urine Hyaline Casts (Auto) 5-10 /lpf Urine Epithelial Cells (Auto) 0-5 /lpf Urine Bacteria (Auto) NEG Bedside Glucose (other) 103 mg/dl 106 mg/dl Blood Gas Sample Site Art Line Bedside Blood Gas pH (LAB) 7.29 Bedside Blood Gas pCO2 (LAB) 49 mmHg Bedside Blood Gas pO2 (LAB) 71 mmHg Bedside Blood Gas HCO3 (LAB) 24 meq/L Bedside Blood Gas Total CO2 25 mEq/l Bedside Blood Gas Base Excess (LAB) -3.0 meq/L Bedside Blood Gas O2 Saturation 92.0 % Wong Test Pass Oxygen Delivery Device Ventilator Bedside Oxygen Rate (breaths/min) 20 Blood Gas Minute Ventilation 10.4 Bedside FiO2 60 % Blood Gas Tidal Volume 500 Blood Gas PEEP 10 Test 09/19/17 23:03 09/19/17 23:09 09/19/17 23:12 09/20/17 02:02 Hemoglobin 6.5 g/dL Hematocrit 21.2 % Activated Partial Thromboplast Time 97.5 SECONDS Partial Thromboplastin Ratio 3.8 Bedside Glucose (other) 108 mg/dl Blood Gas Sample Site Art Line Art Line Bedside Blood Gas pH (LAB) 7.33 7.35 Bedside Blood Gas pCO2 (LAB) 45 mmHg 45 mmHg Bedside Blood Gas pO2 (LAB) 123 mmHg 84 mmHg Bedside Blood Gas HCO3 (LAB) 24 meq/L 25 meq/L Bedside Blood Gas Total CO2 25 mEq/l 26 mEq/l Bedside Blood Gas Base Excess (LAB) -2.0 meq/L -1.0 meq/L Bedside Blood Gas O2 Saturation 99.0 % 96.0 % Wong Test Pass NA Oxygen Delivery Device Ventilator Ventilator Bedside Oxygen Rate (breaths/min) 20 20 Blood Gas Minute Ventilation 9 9 Bedside FiO2 60 % 50 % Blood Gas Tidal Volume 500 500 Blood Gas PEEP 10 10 Test 09/20/17 03:44 09/20/17 05:32 09/20/17 07:56 09/20/17 09:13 Bedside Glucose (other) 104 mg/dl Blood Gas Sample Site Art Line Art Line Bedside Blood Gas pH (LAB) 7.40 7.44 Bedside Blood Gas pCO2 (LAB) 38 mmHg 38 mmHg Bedside Blood Gas pO2 (LAB) 63 mmHg 65 mmHg Bedside Blood Gas HCO3 (LAB) 24 meq/L 25 meq/L Bedside Blood Gas Total CO2 25 mEq/l 27 mEq/l Bedside Blood Gas Base Excess (LAB) -1.0 meq/L 1.0 meq/L Bedside Blood Gas O2 Saturation 92.0 % 93.0 % Wong Test NA NA Oxygen Delivery Device Ventilator Ventilator Bedside Oxygen Rate (breaths/min) 20 20 Blood Gas Minute Ventilation 10 10.7 Bedside FiO2 50 % 50 % Blood Gas Tidal Volume 500 500 Blood Gas PEEP 8 5 White Blood Count 8.33 K/uL Red Blood Count 2.66 M/uL Hemoglobin 7.3 g/dL Hematocrit 22.0 % Mean Corpuscular Volume 82.7 fL Mean Corpuscular Hemoglobin 27.4 pg Mean Corpuscular Hemoglobin Concent 33.2 g/dl RDW Standard Deviation 50.5 fL RDW Coefficient of Variation 16.6 % Platelet Count 74 K/uL Mean Platelet Volume 9.5 fL Platelet Estimate DECREASED Activated Partial Thromboplast Time 251.6 SECONDS Partial Thromboplastin Ratio 9.5 Sodium Level 139 mmol/L Potassium Level 4.6 mmol/L Chloride Level 103 mmol/L Carbon Dioxide Level 26 mmol/L Anion Gap 9.0 mmol/L Blood Urea Nitrogen 55 mg/dl Creatinine 3.65 mg/dl Est Creatinine Clear Calc Drug Dose 25.0 ml/min Estimated GFR () 18.5 Estimated GFR (Non- 16.0 BUN/Creatinine Ratio 15.0 Random Glucose 91 mg/dl Calcium Level 6.8 mg/dl Phosphorus Level 5.0 mg/dl Magnesium Level 1.5 mg/dl Total Bilirubin 1.1 mg/dl Aspartate Amino Transf (AST/SGOT) 684 U/L Alanine Aminotransferase (ALT/SGPT) 999 U/L Alkaline Phosphatase 252 U/L Total Protein 4.2 gm/dl Albumin 1.7 gm/dl Globulin 2.5 gm/dl Albumin/Globulin Ratio 0.7 Test 09/20/17 09:17 09/20/17 10:00 09/20/17 10:56 09/20/17 13:31 Prothrombin Time 20.6 SECONDS Prothromb Time International Ratio 2.0 Activated Partial Thromboplast Time 86.4 SECONDS Partial Thromboplastin Ratio 3.3 Fibrinogen 529 mg/dl Fibrin Degradation Products >40 mcg/ml Bedside Glucose 90 mg/dl 101 mg/dl Assessment and Plan (1) Hypercalcemia (2) Weakness (3) Carcinoma of bladder (4) Cancer of renal pelvis and ureter (5) Chemotherapy (6) PE (pulmonary embolism) (7) DVT (deep venous thrombosis) (8) Presence of IVC filter (9) DM II (diabetes mellitus, type II), controlled (10) Benign essential HTN (11) Hypothyroidism (12) CKD (chronic kidney disease) stage 3, GFR 30-59 ml/min (13) Edema (14) Hypercalcemia (15) Dysphagia (16) Vomiting (17) Acute kidney injury (18) Anemia 67-year-old white male admitted 09/08/2017 because of dysphagia, has history of localized urothelial cancer on right, developed unresponsive state, low blood pressure and temporarily regained stable VS but decompensated later requiring intubation, concern for large gastric contents and outlet obstruction, NGT placed, aspiration pneumonia, pt has been weaned from pressors but has sustained acute renal failure likely due to ATN and also the fact that he only has one kidney. Acute Respiratory failure, ventilation managed by ICu,treatment for aspiration pneumonia, Zosyn,vancomycin added as urine culture with staph not yet speciated still with mechanical ventilation GERD concern for duodenitis causing gastric outlet issues IV Pepcid and Protonix , EGD on 09/11/2017. NGT drainage has become blackened and concern for gastritis or worse, initial EGD did not show any issues, but will consider discussion of repeat EGD with Dr Vallejo Hypercalcemia, associated with malignancy resolved with hydration metastatic refractory stage IV urothelial carcinoma. most recent PET shows it is confined to right kidney, usually follows with Dr. Collazo, non contrast CT of abdomen and pelvis may suggest disease progression, concern if gastric outlet maybe extrinsic compression although not confirmed on imaging diabetes with poor control continue basal bolus Acute on Chronic kidney disease stage 3, worsened by atn and hypotension, has only one kidney and concern if progresses many need Continuous dialysis, will attempt diuretic Gtt to see if renal function "opens up" lower extremity extensive DVT, hx of S/P IVC filter but was removed is not with therapeutic INR but has developed acute anemia of unknown source, have held Coumadin, will discuss re placement of IVC filter as ngt seems to be draining melena Acute anemia, follow and augment, likely a mix of acute on chronic spoke extensively with family, they were updated and realistic Continued [facility] stay due to: multiple IV medications needed Discharge planning: rehab hospital
[2017-09-20] MEDS ORDERED: NURSING VERBAL MED ORDER ONE (14:15)
--- NOTE | 2017-09-20 14:53 | Pharmacy Progress Note ---
Pharmacy Abx Dose Short Note Date of Service Sep 20, 2017. Assessment & Plan Assessment * 67 year old male receiving vancomycin 1500mg IV Q 24 hours and Zosyn 4.5gm ext -infusion IV Q 8 hours for treatment of possible aspiration pneumonia and UTI * Day # 3 of antimicrobial therapy * Afebrile x 24 hours, WBC trending down * Renal fxn continues to deteriorate. Nil U.O. last 4 hours despite diuretics, SCr increasin.02 -->2.73 -->3.65. No hemodialysis ordered yet. * Urine cx is growing staph sp and corynebacterium. This cx was drawn from a catheter. If cath was not exchanged before cx was drawn this could represent colonization. * Sputum cx growing gram + rods Plan Vancomycin * Thus far patient received 2500mg (~25mg/kg) load x 1 on 09/18 followed by a 1500mg IV maintenance dose x 1 yesterday at 1400 * Trough level was drawn today prior to 2nd maintenance dose in light of declining renal fxn * Trough level of 27.2 mcg/mL is supratherapeutic * Will place vancomycin on hold as pt currently anuric * Will recheck random vancomycin level w/ AM labs tomorrow as the half-life of vancomycin is likely > 24 hours * Plan will be to redose when random level between 15-20 mcg/mL Zosyn * Will need to reduce Zosyn dose to 4.5gm ext-infusion Q 12 hrs if anuria continues. Pharmacy will continue to follow and will adjust dose/frequency as necessary. Thank you.
[2017-09-20 15:04] LABS: HEMATOCRIT 21.9 % (42-52); HEMOGLOBIN 7.4 g/dL (14.0-18.0); MEAN CELL VOLUME 81.7 fL (80-100); MEAN CORPUSCULAR HEMOGLOBIN 27.6 pg (25-34); MEAN CORPUSCULAR HGB CONC 33.8 g/dl (32-36); NUCLEATED RED BLOOD CELL ABS 0.02 K/uL (0-0); RED CELL DISTRIBUTION WIDTH CV 16.9 % (11.5-14.5); RED CELL DISTRIBUTION WIDTH SD 50.5 fL (36.4-46.3); WHITE BLOOD COUNT 9.48 K/uL (4.8-10.8)
[2017-09-20 15:06] LABS: MEAN PLATELET VOLUME 9.3 fL (7.4-10.4); PLATELET COUNT 77 K/uL (130-400)
[2017-09-20 15:24] LABS: CALCIUM 7.1 mg/dl (8.5-10.1); CREATININE 3.78 mg/dl (0.60-1.40); POTASSIUM 4.4 mmol/L (3.5-5.1)
--- NOTE | 2017-09-20 15:41 | GASTROENTEROLOGY PROGRESS NOTE ---
DATE: 09/20/2017 SUBJECTIVE: Chart reviewed, patient examined, events of overnight noted. The patient had heparin restarted for a brief period of time but NG tube output blackened and increased in volume. In addition, his hemoglobin did fall. LABORATORY STUDIES: Today at 8:00 a.m. - white count 8.3, hemoglobin 7.3 but had been 6.5 at 11:00 p.m. on September 19. Platelets did fall from 175 down to 74,000 and a HIT panel is in progress. The patient did have evidence of a coagulopathy and his INR is elevated at 2.0 and PTT was 251 this morning at 8:00 a.m. but fell to 86 at 9:17, presumably due to the weaning effects of heparin. However, there are elevated fibrin degradation products, although fibrinogen is elevated at 529. The patient's transaminases are elevated this morning as well, AST 684, ALT 999, alkaline phosphatase 252, albumin is 1.7. BUN and creatinine are 55 and 3.65. These LFT abnormalities are new since September 08 on admission and new from September 12 except for alkaline phosphatase which was 182 at that time. Total bilirubin, however, is only 1.01 with today's markedly elevated transaminases. PHYSICAL EXAMINATION: VITAL SIGNS: Today, the patient is afebrile 37.0, blood pressure 123/68, respiratory rate 24, heart rate is 89, patient is on a mechanical ventilation with sedation, pulse ox 94% with a 50% FiO2, however, at 2:00 p.m. this was reduced to 40% with maintenance of 94% pulse ox. GENERAL: The patient's physical exam is unchanged: The patient is unresponsive, intubated, and has an orogastric tube that is draining dark gastric aspirate. Gastric aspirate has increased overnight and had been only 270 throughout Monday. The day prior was 1215 and since NG tube placement the NG gastric drainage was 3100 mL. EXTREMITIES: With +1 edema. ABDOMEN: Soft with quiet good bowel sounds. IMPRESSION AND PLAN: The patient with evidence of elevation of fibrin degradation products, although the fibrinogen level was elevated. Thrombosis is suspected and plans for an inferior vena cava filter are in progress. Anticoagulation has been stopped because of the NG tube output and the drop in his hemoglobin. I spoke with the patient's family, and son at length today regarding these issues. Although, I believe it is reasonable to do a diagnostic endoscopy to assess for evidence of an outlet obstruction as this has been an issue for the past several days, biopsies will not be possible until the coagulopathy can be reduced. The patient did have a KUB this morning and this showed that the NG tube resides in the distal stomach, when compared to 09/19/2017. I do not see evidence that the tube enters the duodenum. I have obtained permission from the patient's to perform an upper endoscopy today and albeit if there is an increased risk of bleeding, infection and perforation; however, this may be helpful to better identify if there is an outlet obstruction and if possible to pass a Keofeed tube distal to the duodenum. If a mechanical obstruction is present, stenting may be an option; however, the coagulopathy will need to be readdressed. According to the patient's family, the plans are that if his health can be improved and nutrition status improved, then they would eventually may plans to resume chemotherapy; however, at the present time, these are limiting his treatments. Will plan for EGD in the ICU this afternoon. All questions answered. MTDD
[2017-09-20] MEDS ORDERED: MIDAZOLAM HCL 5 MG/ML 1 ML VIAL ONE (16:25)
--- NOTE | 2017-09-20 17:11 | DIAGNOSTIC IMAGING REPORT ---
DOPPLER ULTRASOUND OF THE HEPATIC AND PORTAL VASCULATURE CLINICAL HISTORY: Generalized weakness. COMPARISON STUDY: Abdominal CT dated 09/18/2017. TECHNIQUE: Real-time, grayscale, and color Doppler sonography of the hepatic and portal vasculature is performed. FINDINGS: The hepatic veins are patent and maintain normal hepatic venous waveforms. The inferior vena cava is patent. The main portal vein is patent with normal direction of flow. Velocities within the main portal vein measure up to 66 cm/s. The right and left portal branches are patent with normal direction of flow. The splenic vein is patent. Biliary sludge is incidentally noted. There is marked hydronephrosis of the atrophic right kidney. This was better characterized on the recent abdominal CT scan. IMPRESSION: 1. The hepatic veins and portal veins are patent with normal direction of flow. 2. Biliary sludge. 3. The atrophic right kidney is markedly hydronephrotic. Electronically signed by: Chris Garcia M.D. 09/20/2017 5:09 PM Dictated Date/Time: 09/20/2017 4:39 PM
[2017-09-20] MEDS ORDERED: FENTANYL CITRATE INJ 50 MCG/1 ML 2 ML VIAL ONE (17:43)
[2017-09-20] MEDS ORDERED: FENTANYL CITRATE INJ 50 MCG/1 ML 2 ML VIAL IV ONE (17:45)
[2017-09-20] MEDS ORDERED: MIDAZOLAM HCL 1 MG/ML 2ML VIAL IV ONE (17:45)
[2017-09-21 00:01] VITALS: BP_SYST 120; BP_SYST 161; BP_DIAS 58; BP_DIAS 72; PULSE 85; TEMP 36.7; O2SAT 94
[2017-09-21] MEDS: SODIUM BICARBONATE 8.4% INJ 75 MEQ in SODIUM CHLORIDE 0.45% 1000ML 1,000 ML IV SCH (00:50)
[2017-09-21] MEDS: PIPERACILL/TAZOBAC IV 4.5 GM in DEXTROSE 5% 100ML IV SCH ×2 (01:00→07:56)
[2017-09-21 02:00] VITALS: BP_SYST 132; BP_SYST 164; BP_DIAS 59; BP_DIAS 78; PULSE 88; TEMP 36.7; O2SAT 95
[2017-09-21 04:00] VITALS: BP_SYST 132; BP_SYST 166; BP_DIAS 60; BP_DIAS 73; PULSE 85; TEMP 36.8; O2SAT 96
[2017-09-21] MEDS: INSULIN REGULAR 250 UNITS in SODIUM CHLORIDE 0.9% 250ML 250 ML IV SCH (04:18)
[2017-09-21] MEDS: FUROSEMIDE INJ 100 MG in DEXTROSE 5% 100ML 90 ML IV PRN (04:38)
[2017-09-21 05:53] LABS: PTT PATIENT 90.6 SECONDS (21.0-31.0)
[2017-09-21 06:00] VITALS: BP_SYST 141; BP_SYST 172; BP_DIAS 71; BP_DIAS 79; PULSE 86; TEMP 36.9; O2SAT 97
[2017-09-21 06:09] LABS: ALBUMIN 2.1 gm/dl (3.4-5.0); CALCIUM 7.2 mg/dl (8.5-10.1); CREATININE 4.07 mg/dl (0.60-1.40)
[2017-09-21 06:12] LABS: TOTAL PROTEIN 4.8 gm/dl (6.4-8.2)
[2017-09-21] MEDS: ALBUMIN HUMAN 25% 12.5 GM/50 ML VIAL IV SCH ×2 (06:17→06:19)
[2017-09-21] MEDS: INSULIN ASPART 100 UNITS/ML 3 ML PEN SC SCH (07:49)
[2017-09-21 08:00] VITALS: BP 143/79; PULSE 83; TEMP 37; O2SAT 95; O2SAT 99
[2017-09-21] MEDS: LEVOTHYROXINE SODIUM INJ 50 MCG in SYRINGE 0 ML IV SCH (08:06)
[2017-09-21] MEDS ORDERED: HEPARIN IV LOW DOSE NO BOLUS SCH (09:00)
--- NOTE | 2017-09-21 09:11 | Nephrology Progress Note ---
Nephrology Progress Note Date of Service Sep 21, 2017. Chief Complaint Acute on chronic kidney injury Subjective Mr. Weir was seen & examined in the ICU this morning. He remains mechanically ventilated. Pressors have been weaned to off. Sedation has been stopped but patient has not yet woken up. Levy catheter is in place draining clear yellow urine. Patient has had 700 cc UO in response to Furosemide gtt. Mr. Weir's son was present at bedside. Review of Systems Unattainable Vital Signs Last 8 Hrs Date Time Temp Pulse Resp B/P (MAP) Pulse Ox O2 Delivery O2 Flow Rate FiO2 09/21/17 07:23 40 09/21/17 06:00 36.9 86 28 172/71 (104) 97 Mechanical Ventilator 40 141/79 (99) 09/21/17 05:05 40 09/21/17 04:00 Mechanical Ventilator 40 09/21/17 04:00 40 09/21/17 04:00 36.8 85 25 166/60 (95) 96 Mechanical Ventilator 40 132/73 (92) 09/21/17 02:20 40 09/21/17 02:00 36.7 88 25 164/59 (94) 95 Mechanical Ventilator 40 132/78 (96) Last Recorded Weight Weight (Kilograms): 115.800 Physical Exam General Appearance: + pertinent finding (acutely ill requiring mechanical ventilation) Head: atraumatic (temporal muscle wasting) Eyes: PERRL Neck: no adenopathy, + pertinent finding (R IJ CVC with clean dry dressing in place) Respiratory/Chest: + pertinent finding (coarse breath sounds anteriorly) Cardiovascular: + tachycardia Abdomen/GI: soft (hypoactive bowel sounds) Genitourinary - Male: + pertinent finding (levy catheter in place draining clear yellow urine) Extremities/Musculoskelatal: + pertinent finding (1+ pretibial and pedal edema) Neurologic/Psych: + pertinent finding (remains sedated) Family History Negative for CKD/ESRD Social History Smoking Status: Former smoker Smokeless Tobacco Use: Unknown Alcohol Use: none Drug Use: none Marital Status: Housing Status: lives with family Occupation: retired . Retired from [employer]. Remote h/o tobacco use. Laboratory Results Past 24 Hours 09/20/17 14:56 09/20/17 14:56 09/21/17 04:59 Test 09/20/17 09:13 09/20/17 09:17 09/20/17 10:00 09/20/17 10:56 Blood Gas Sample Site Art Line Bedside Blood Gas pH (LAB) 7.44 (7.35-7.45) Bedside Blood Gas pCO2 (LAB) 38 mmHg (35-46) Bedside Blood Gas pO2 (LAB) 65 mmHg (80-95) Bedside Blood Gas HCO3 (LAB) 25 meq/L (19-24) Bedside Blood Gas Total CO2 27 mEq/l (24-31) Bedside Blood Gas Base Excess (LAB) 1.0 meq/L (-9-1.8) Bedside Blood Gas O2 Saturation 93.0 % (90-95) Wong Test NA Oxygen Delivery Device Ventilator Bedside Oxygen Rate (breaths/min) 20 Blood Gas Minute Ventilation 10.7 Bedside FiO2 50 % Blood Gas Tidal Volume 500 Blood Gas PEEP 5 Prothrombin Time 20.6 SECONDS (9.0-12.0) Prothromb Time International Ratio 2.0 (0.9-1.1) Activated Partial Thromboplast Time 86.4 SECONDS (21.0-31.0) Partial Thromboplastin Ratio 3.3 Fibrinogen 529 mg/dl (184-400) Fibrin Degradation Products >40 mcg/ml (<10) Bedside Glucose 90 mg/dl (70-99) 101 mg/dl (70-99) Test 09/20/17 12:24 09/20/17 13:07 09/20/17 13:31 09/20/17 14:56 Bedside Glucose 100 mg/dl (70-99) 96 mg/dl (70-99) Vancomycin Level Trough 27.2 mcg/ml (SEE COMMENT) Red Blood Count 2.68 M/uL (4.7-6.1) Mean Corpuscular Volume 81.7 fL (80-100) Mean Corpuscular Hemoglobin 27.6 pg (25-34) Mean Corpuscular Hemoglobin Concent 33.8 g/dl (32-36) RDW Standard Deviation 50.5 fL (36.4-46.3) RDW Coefficient of Variation 16.9 % (11.5-14.5) Mean Platelet Volume 9.3 fL (7.4-10.4) Nucleated RBC Absolute Count (auto) 0.02 K/uL (0-0) Nucleated Red Blood Cells % 0.3 % Anion Gap 9.0 mmol/L (3-11) Est Creatinine Clear Calc Drug Dose 24.1 ml/min Estimated GFR () 17.8 Estimated GFR (Non- 15.3 BUN/Creatinine Ratio 15.9 (10-20) Calcium Level 7.1 mg/dl (8.5-10.1) Heparin-PF4 Antibody Screen NEG (NEG) Test 09/20/17 18:51 09/21/17 00:33 09/21/17 03:05 09/21/17 03:11 Bedside Glucose 126 mg/dl (70-99) 147 mg/dl (70-99) 164 mg/dl (70-99) 144 mg/dl (70-99) Test 09/21/17 04:59 09/21/17 05:04 09/21/17 08:52 Activated Partial Thromboplast Time 90.6 SECONDS (21.0-31.0) Partial Thromboplastin Ratio 3.5 Anion Gap 11.0 mmol/L (3-11) Est Creatinine Clear Calc Drug Dose 22.4 ml/min Estimated GFR () 16.2 Estimated GFR (Non- 14.0 BUN/Creatinine Ratio 17.0 (10-20) Calcium Level 7.2 mg/dl (8.5-10.1) Total Bilirubin 1.0 mg/dl (0.2-1) Aspartate Amino Transf (AST/SGOT) 338 U/L (15-37) Alanine Aminotransferase (ALT/SGPT) 833 U/L (12-78) Alkaline Phosphatase 371 U/L (45-117) Total Protein 4.8 gm/dl (6.4-8.2) Albumin 2.1 gm/dl (3.4-5.0) Globulin 2.7 gm/dl (2.5-4.0) Albumin/Globulin Ratio 0.8 (0.9-2) Random Vancomycin Level 25.3 mcg/ml Bedside Glucose 160 mg/dl (70-99) Allergies Coded Allergies: No Known Allergies (Unverified , 09/02/17) Medications Current Inpatient Medications Medications (Trade) Dose Ordered Sig/Sara Route Start Time Stop Time Status Last Admin Dose Admin Heparin Sodium (Porcine) (Heparin 100 Unit/ml 5ml Flush) 5 ml PRN PRN IV 09/08/17 13:30 10/08/17 13:29 Miscellaneous (Iv Fluids Completed) 1 ea PRN PRN N/A 09/08/17 13:45 09/08/18 13:44 Lidocaine HCl/ Diphenhydramine HCl/Al Hydroxide/ Mg Hydroxide/ Glycerin/Barcode Q6H PRN MT 09/08/17 14:15 10/08/17 14:14 09/08/17 19:05 5 ML Glucose (Glucose 40% Gel) 15-30 GRAMS 15 GRAMS... UD PRN PO 09/08/17 15:15 10/08/17 15:14 Glucose (Glucose Chew Tab) 4-8 Tablets 4 Tabl... UD PRN PO 09/08/17 15:15 10/08/17 15:14 Dextrose (Dextrose 50% 50ML Syringe) 25-50ML OF 50% DW IV FOR... UD PRN IV 09/08/17 15:15 10/08/17 15:14 Glucagon (Glucagon Inj) 1 mg UD PRN SQ 09/08/17 15:15 10/08/17 15:14 Ondansetron HCl (Zofran Inj) 4 mg Q6H PRN IV 09/11/17 13:00 10/11/17 12:59 09/18/17 07:51 4 MG Pantoprazole Sodium 40 mg/ Syringe 10 ml @ 5 mls/min DAILY@11 IV 09/16/17 11:00 10/16/17 10:59 09/20/17 10:22 5 MLS/MIN Levothyroxine Sodium 50 mcg/ Syringe 2.5 ml @ 2 mls/min QAM IV 09/16/17 08:00 10/16/17 07:59 09/21/17 08:06 2 MLS/MIN Sodium Chloride ([place] Nasal [place]) 1 sprays PRN PRN NA 09/16/17 21:45 10/16/17 21:44 Morphine Sulfate (MoRPHine SULFATE INJ) 2 mg Q2H PRN IV 09/18/17 10:00 10/02/17 09:59 Piperacillin Sod/ Tazobactam Sod (Consult) 1 ea UD PRN N/A 09/18/17 10:45 10/18/17 10:44 Piperacillin Sod/ Tazobactam Sod 4.5 gm/Dextrose 120 ml @ 30 mls/hr Q8H IV 09/18/17 17:00 09/25/17 16:59 09/21/17 07:56 30 MLS/HR Miscellaneous Information (Consult Glycemic Management Pharmacy) 1 ea UD PRN N/A 09/18/17 11:58 10/18/17 11:57 Insulin Aspart (novoLOG ASPART) SLIDING SCALE [facility] 09/18/17 17:15 10/18/17 17:14 Insulin Human Regular 250 units/ Sodium Chloride 252.5 ml @ 0 mls/hr Q24H IV 09/18/17 12:30 10/18/17 12:29 09/21/17 04:18 1 MLS/HR Midazolam HCl 250 ml @ 0 mls/hr Q0M PRN IV 09/18/17 14:00 10/18/17 13:59 09/19/17 11:31 12 MLS/HR Vancomycin HCl (Consult) 1 ea UD PRN N/A 09/18/17 14:30 10/18/17 14:29 Vancomycin HCl 1500 mg/Sodium Chloride 530 ml @ 200 mls/hr Q24H IV 09/19/17 14:00 09/25/17 13:59 Future Hold 09/19/17 13:29 200 MLS/HR Sodium Bicarbonate 75 meq/Sodium Chloride 1,075 ml @ 75 mls/hr [id number] IV 09/20/17 10:30 10/20/17 10:29 09/21/17 00:50 75 MLS/HR Furosemide 100 mg/ Dextrose 100 ml @ 20 mls/hr Q5H PRN IV 09/20/17 10:00 10/20/17 09:59 09/21/17 04:38 20 MLS/HR Albumin Human (Albumin 25%) 12.5 gm Q8@0600,0601,1400,1401 IV 09/20/17 14:00 09/23/17 13:59 09/21/17 06:19 12.5 GM Albumin Human (Albumin 25%) 12.5 gm Q8@2200,2201 IV 09/20/17 22:00 09/23/17 21:59 09/20/17 21:29 12.5 GM Heparin Sodium/ Dextrose 1 ea Q10M N/A 09/21/17 09:00 10/21/17 08:59 Future Hold Impression (1) Duodenal obstruction (2) Hypotension (arterial) (3) Acute kidney injury (4) CKD (chronic kidney disease) stage 3, GFR 30-59 ml/min (5) Anemia (6) Edema (7) 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 No casts reported -- Patient is volume positive w/ LE edema and mild pulmonary perihilar congestion. -- Continue Lasix gtt at 10 mg /hr. UO is improving. Hold HD at this time and continue daily reassessments METABOLIC ACIDOSIS: -- Serum bicarbonate has corrected. 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 -- May benefit from transfer to tertiary care center for evaluation of ongoing GI bleeding, hepatic dysfunction, and surgical and Oncology evaluations 90 min critical care time provided to the patient today. This was necessary to review medical records, perform physical exam and to discuss plan of care with the ICU team, staff midwife and patient's son. Over 50% of time provided was spent on coordination of care. ICU team is considering transfer to [facility] [place]
[2017-09-21 09:24] LABS: MEAN CORPUSCULAR HGB CONC 34.1 g/dl (32-36)
[2017-09-21 09:38] LABS: PHOSPHORUS 5.4 mg/dl (2.5-4.9)
[2017-09-21 09:42] LABS: BASO % 0.1 %; BASO ABS # 0.01 K/uL (0-0.2); EOS % 1.8 %; EOS ABS # 0.15 K/uL (0-0.5); HEMATOCRIT 21.1 % (42-52); HEMOGLOBIN 7.2 g/dL (14.0-18.0); IG# 0.06 K/uL (0.00-0.02); LYMPH ABS # 0.41 K/uL (1.2-3.4); MEAN CELL VOLUME 81.5 fL (80-100); MEAN CORPUSCULAR HEMOGLOBIN 27.8 pg (25-34); MEAN PLATELET VOLUME 10.2 fL (7.4-10.4); MONO % 3.1 %; MONO ABS # 0.25 K/uL (0.11-0.59); NEUT % 89.3 %; NEUT ABS # 7.28 K/uL (1.4-6.5); PLATELET COUNT 102 K/uL (130-400); PTT PATIENT 84.9 SECONDS (21.0-31.0); RED CELL DISTRIBUTION WIDTH CV 17.2 % (11.5-14.5); RED CELL DISTRIBUTION WIDTH SD 51.3 fL (36.4-46.3); WHITE BLOOD COUNT 8.16 K/uL (4.8-10.8)
[2017-09-21 10:00] VITALS: BP 137/72; PULSE 86; O2SAT 97
[2017-09-21] MEDS ORDERED: HEPARIN 25,000 UNIT/500ML D5W 500 ML IV PRN (10:00)
[2017-09-21] MEDS ORDERED: MAGNESIUM SULFATE 1GM / D5W 1 GM in PREMIXED IN D5W 100 ML IV ONE (11:00)
--- NOTE | 2017-09-21 11:01 | Critical Care Progress Note ---
Critical Care Progress Note Date of Service Sep 21, 2017. ICU Day ICU Day Number: [address] Ramirez Subjective The patient remains intubated. The patient has been off the sedation, but still not awake. Opens his eys on verbal command and tries to move the extremities, but do not follow any commands. Also he had the EGD yesterday and has gastric outlet obstruction secondary to new mass which was biopsied. Results are pending. The patient had lots of food debris in the stomach, which were 5 days old and there was no evidence of bleeding in the stomach. GI tried to pass the NG tube pass the duodenal sphincter, but was not able to do so and he certainly need GJ tube for decompression. The patient has thrombocytopenia and currently is off the Heparin which was prescribed for bilateral DVT. HIT profile was negative. H/H has been trending down and received transfusion. The creatinine has been going up. He has started putting out urine on high dose of IV Lasix drip along with Albumen. the patient certainly need the IVC filter which we are not able to do here and also GJ tube. Family is by the bed side. The patient still remains ventilator dependent. Objective The patient remains sedated and on ventilator. HEENT: Pupils equally reactive to light. Sclera is not icteric. Unable to examine the throat because of intubation. NECK: Supple. No JVD. No Lymphadenopathy. CHEST: Bilateral coarse breathing/ Diminished breath sounds, posterior rales. No wheeze or rhonchi. HEART: S1/S2 heard. GI: Soft, Distended. Hypoactive bowel sounds. NEURO: unable to examine. The patient is off the sedation and intubated. Do not follow any commands. EXTREMITIES: Bilateral edema 3 + of the legs. SKIN: No rash or lesion. Current SOFA Score SOFA Score Response (Comments) Value PaO2/FiO2 (mmHg) < 300 2 SaO2 / FIO2 67 - 141 3 Platelets (x10) > 150 0 Bilirubin (mg/dL) 1.2 - 1.9 1 Shelby Coma Score < 6 4 Level of Hypotension MAP less than 70 1 Creatinine (mg/dL) 2.0 - 3.4 2 Total 13 Previous SOFA Scores 13 Assessment & Plan Elderly male critical at this time. Remains on ventilator. Off the sedation since yesterday, but still very lethargic. NEURO: The patient remains intubated and is off the sedation, and no Neurological issues at this time. The patient opens eyes on verbal commands, but do not follow any simple commands. CARDIOLOGY: The patient remains hemodynamically stable. Off Levophed and Vasopressin and he is maintaining the blood pressor 150 systolically. Also has H /O Atrial fibrillation. Currently he is rate controlled. The patient is rate controlled. was tried on Heparin, but he dropped with the H/H and thrombocytopenia and heparin was stopped. Also he has bilateral extensive DVT and need IVC filter. PULMONARY: Respiratory failure. Overall is improving with ventilatory support and currently he is on 50 % FiO2 and PEEP of 5 and is saturating at 98 %. The patient is off all the sedation.Still very lethargic to be weaned from the ventilator. Pneumonia. Respiratory secretions negative so far. On Zosyn and Vancomycin. Will follow the cultures and adjust antibiotics accordingly. Will continue with current plan of care as prescribed, including ventilatory support, weaning as tolerated. Lactic acid is down. RENAL: Acute on chronic renal failure. The patient also had metabolic acidoses. was started on IV Lasix drip along with Albumen and now he has opened up and started passing the urine. Creatinine is still elevated. If no improvement, may need CRRT. Nephrology follows the case. ID: Possibility of sepsis related to multiple ongoing problems, metastatic disease and also aspiration. The patient has been treated on sepsis protocol and Lactic acid has been trending down from 5 to 2 now. Will monitor. On broad spectrum IV antibiotics and cultures are still pending except urine is growing Staph and the patient is already on vancomycin. final ID and sensitivity is pending. Magnesium was replaced. HEMATOLOGY/ONCOLOGY: The patient has metastatic disease. Followed by Oncology. Also bilateral DVT and he has been on Heparin in recent pass, which was stopped because of active GI bleed and low H/H and he also received two units of transfusion. According to the Oncologist, he is not the candidate for Chemotherapy at this time. Also anticoagulation is on hold because of rebleeding and two more units of transfusion. The patient will be considered for IVC filter placement.which can not be done here. Also thrombocytopenia and HIT profile was negative. ENDOCRINE: Elevated glucose/DM. The blood sugar was elevated and he was started on Insulin drip. GI: Distended stomach. Gastric outlet obstruction. Had EGD yesterday and has 3 cm mass which was biopsied. Pathology results are pending. Also lots of old food debris which were suctioned and lavaged. The patient also need GJ tube for the management. D/W the family at length and answered all the questions. Also explained to the family about the transfer of the patient to [facility] for higher level of care such as, IVC filter placement for extensive bilateral DVT and not able to anticoagulate due to bleeding, anemia and thrombocytopenia. The IVC filter placement service is not available at this time here at [facility]. Also he may need the GJ tube placement pass the obstruction. The patient also need further work up for his GI mass. The biopsy was done here , but the results are pending. The patient may need CRRT. Family is in agreement with the transfer and they understand the critical condition of the patient. Spent greater than 35 minutes of critical care time, for evaluating and treating the patient/discussing with other medical providers and also with the family. The patient has RT IJ central line. A line was removed since he has good blood pressure and is off all the pressors. The patient is full code. DR[facility]. Consults & Procedures Consultants: Oncology/Hematology: Cleveland Stephen MD Gastroenterology: Marv Vallejo. Hospitalist: Devin Gamino. Nephrology: Roverto Butler MD. Procedures: 1. RT IJ Central Line. Day # 1. Clean, no signs of infection. Need for IV fluids and multiple medications and pressors. DR. Doris RAMIREZ 2. RT Radial A Line. Day # 1. Clean and no sign of infection. Need for close hemodynamic monitoring. DR. Doris RAMIREZ 3. Irce catheter. Need for the patient is intubated and sedated. 4. OG. In place for decompression of the distended stomach. 5. INTUBATION. Day 2. Dr. Doris RAMIREZ Data Medications: Current Inpatient Medications Medications (Trade) Dose Ordered Sig/Sara Route Start Time Stop Time Status Last Admin Dose Admin Heparin Sodium (Porcine) (Heparin 100 Unit/ml 5ml Flush) 5 ml PRN PRN IV 09/08/17 13:30 10/08/17 13:29 Miscellaneous (Iv Fluids Completed) 1 ea PRN PRN N/A 09/08/17 13:45 09/08/18 13:44 Lidocaine HCl/ Diphenhydramine HCl/Al Hydroxide/ Mg Hydroxide/ Glycerin/Barcode Q6H PRN MT 09/08/17 14:15 10/08/17 14:14 09/08/17 19:05 5 ML Glucose (Glucose 40% Gel) 15-30 GRAMS 15 GRAMS... UD PRN PO 09/08/17 15:15 10/08/17 15:14 Glucose (Glucose Chew Tab) 4-8 Tablets 4 Tabl... UD PRN PO 09/08/17 15:15 10/08/17 15:14 Dextrose (Dextrose 50% 50ML Syringe) 25-50ML OF 50% DW IV FOR... UD PRN IV 09/08/17 15:15 10/08/17 15:14 Glucagon (Glucagon Inj) 1 mg UD PRN SQ 09/08/17 15:15 10/08/17 15:14 Ondansetron HCl (Zofran Inj) 4 mg Q6H PRN IV 09/11/17 13:00 10/11/17 12:59 09/18/17 07:51 4 MG Pantoprazole Sodium 40 mg/ Syringe 10 ml @ 5 mls/min DAILY@11 IV 09/16/17 11:00 10/16/17 10:59 09/20/17 10:22 5 MLS/MIN Levothyroxine Sodium 50 mcg/ Syringe 2.5 ml @ 2 mls/min QAM IV 09/16/17 08:00 10/16/17 07:59 09/21/17 08:06 2 MLS/MIN Sodium Chloride ([place] Nasal [place]) 1 sprays PRN PRN NA 09/16/17 21:45 10/16/17 21:44 Morphine Sulfate (MoRPHine SULFATE INJ) 2 mg Q2H PRN IV 09/18/17 10:00 10/02/17 09:59 Piperacillin Sod/ Tazobactam Sod (Consult) 1 ea UD PRN N/A 09/18/17 10:45 10/18/17 10:44 Piperacillin Sod/ Tazobactam Sod 4.5 gm/Dextrose 120 ml @ 30 mls/hr Q8H IV 09/18/17 17:00 09/25/17 16:59 09/21/17 07:56 30 MLS/HR Miscellaneous Information (Consult Glycemic Management Pharmacy) 1 ea UD PRN N/A 09/18/17 11:58 10/18/17 11:57 Insulin Aspart (novoLOG ASPART) SLIDING SCALE [facility] 09/18/17 17:15 10/18/17 17:14 Insulin Human Regular 250 units/ Sodium Chloride 252.5 ml @ 0 mls/hr Q24H IV 09/18/17 12:30 10/18/17 12:29 09/21/17 04:18 1 MLS/HR Midazolam HCl 250 ml @ 0 mls/hr Q0M PRN IV 09/18/17 14:00 10/18/17 13:59 09/19/17 11:31 12 MLS/HR Vancomycin HCl (Consult) 1 ea UD PRN N/A 09/18/17 14:30 10/18/17 14:29 Vancomycin HCl 1500 mg/Sodium Chloride 530 ml @ 200 mls/hr Q24H IV 09/19/17 14:00 09/25/17 13:59 Future Hold 09/19/17 13:29 200 MLS/HR Sodium Bicarbonate 75 meq/Sodium Chloride 1,075 ml @ 75 mls/hr [id number] IV 09/20/17 10:30 10/20/17 10:29 09/21/17 00:50 75 MLS/HR Furosemide 100 mg/ Dextrose 100 ml @ 20 mls/hr Q5H PRN IV 09/20/17 10:00 10/20/17 09:59 09/21/17 04:38 20 MLS/HR Albumin Human (Albumin 25%) 12.5 gm Q8@0600,0601,1400,1401 IV 09/20/17 14:00 09/23/17 13:59 09/21/17 06:19 12.5 GM Albumin Human (Albumin 25%) 12.5 gm Q8@2200,2201 IV 09/20/17 22:00 09/23/17 21:59 09/20/17 21:29 12.5 GM Heparin Sodium/ Dextrose 1 ea Q10M N/A 09/21/17 09:00 10/21/17 08:59 Future Hold Vital Signs: Date Time Temp Pulse Resp B/P (MAP) Pulse Ox O2 Delivery O2 Flow Rate FiO2 09/21/17 07:23 40 09/21/17 06:00 36.9 86 28 172/71 (104) 97 Mechanical Ventilator 40 141/79 (99) 09/21/17 05:05 40 09/21/17 04:00 Mechanical Ventilator 40 09/21/17 04:00 40 09/21/17 04:00 36.8 85 25 166/60 (95) 96 Mechanical Ventilator 40 132/73 (92) 09/21/17 02:20 40 09/21/17 02:00 36.7 88 25 164/59 (94) 95 Mechanical Ventilator 40 132/78 (96) 09/21/17 00:01 36.7 85 27 161/58 (92) 94 Mechanical Ventilator 40 120/72 (88) 09/20/17 23:59 40 09/20/17 23:59 Mechanical Ventilator 40 09/20/17 22:44 40 09/20/17 22:02 37.0 90 25 126/72 (90) 94 Mechanical Ventilator 40 167/60 (95) 09/20/17 21:00 37.0 87 25 114/69 (84) 94 Mechanical Ventilator 60 129/52 (77) 09/20/17 20:08 40 09/20/17 19:00 36.7 95 26 115/68 (84) 94 Mechanical Ventilator 60 135/53 (80) 09/20/17 19:00 Mechanical Ventilator 40 09/20/17 19:00 50 09/20/17 18:50 36.8 96 20 133/52 (73) 94 09/20/17 18:45 36.8 98 24 138/54 (77) 95 09/20/17 18:40 36.9 98 21 135/53 (75) 93 09/20/17 18:35 36.9 97 25 131/51 (73) 93 09/20/17 18:30 36.9 94 23 148/52 (75) 94 115/69 09/20/17 18:25 36.9 99 159/64 (89) 93 09/20/17 18:20 36.9 98 13 186/184 (185) 94 09/20/17 18:15 37.0 102 0 158/61 (89) 90 09/20/17 18:10 37.0 98 20 131/53 (75) 95 09/20/17 18:05 37.0 92 19 118/47 (67) 95 09/20/17 18:00 37.0 100 21 129/50 (71) 96 117/69 09/20/17 17:55 37.0 96 26 141/54 (78) 98 09/20/17 17:55 40 09/20/17 17:50 37.0 107 19 130/51 (73) 100 09/20/17 17:45 37.0 106 23 156/53 (80) 98 09/20/17 17:40 37.0 109 27 171/58 (90) 95 09/20/17 16:00 36.7 89 26 127/76 (93) 94 Mechanical Ventilator 40 134/62 (86) 09/20/17 16:00 40 09/20/17 16:00 Mechanical Ventilator 40 09/20/17 15:35 40 09/20/17 14:00 86 20 128/70 (89) 94 Mechanical Ventilator 40 09/20/17 12:00 37.0 89 24 123/68 (86) 94 Mechanical Ventilator 148/57 (87) 09/20/17 12:00 94 Mechanical Ventilator 50 09/20/17 12:00 50 09/20/17 11:17 50 09/20/17 11:16 50 Laboratory Results: Last 24 Hours Test 09/20/17 10:56 09/20/17 12:24 09/20/17 13:07 09/20/17 13:31 Bedside Glucose 101 mg/dl 100 mg/dl 96 mg/dl Vancomycin Level Trough 27.2 mcg/ml Test 09/20/17 14:56 09/20/17 18:51 09/21/17 00:33 09/21/17 03:05 White Blood Count 9.48 K/uL Red Blood Count 2.68 M/uL Hemoglobin 7.4 g/dL Hematocrit 21.9 % Mean Corpuscular Volume 81.7 fL Mean Corpuscular Hemoglobin 27.6 pg Mean Corpuscular Hemoglobin Concent 33.8 g/dl RDW Standard Deviation 50.5 fL RDW Coefficient of Variation 16.9 % Platelet Count 77 K/uL Mean Platelet Volume 9.3 fL Nucleated RBC Absolute Count (auto) 0.02 K/uL Nucleated Red Blood Cells % 0.3 % Sodium Level 138 mmol/L Potassium Level 4.4 mmol/L Chloride Level 102 mmol/L Carbon Dioxide Level 27 mmol/L Anion Gap 9.0 mmol/L Blood Urea Nitrogen 60 mg/dl Creatinine 3.78 mg/dl Est Creatinine Clear Calc Drug Dose 24.1 ml/min Estimated GFR () 17.8 Estimated GFR (Non- 15.3 BUN/Creatinine Ratio 15.9 Random Glucose 108 mg/dl Calcium Level 7.1 mg/dl Heparin-PF4 Antibody Screen NEG Bedside Glucose 126 mg/dl 147 mg/dl 164 mg/dl Test 09/21/17 03:11 09/21/17 04:59 09/21/17 05:04 09/21/17 05:35 Bedside Glucose 144 mg/dl 160 mg/dl Activated Partial Thromboplast Time 90.6 SECONDS 84.9 SECONDS Partial Thromboplastin Ratio 3.5 3.3 Sodium Level 138 mmol/L Potassium Level 4.0 mmol/L Chloride Level 100 mmol/L Carbon Dioxide Level 26 mmol/L Anion Gap 11.0 mmol/L Blood Urea Nitrogen 69 mg/dl Creatinine 4.07 mg/dl Est Creatinine Clear Calc Drug Dose 22.4 ml/min Estimated GFR () 16.2 Estimated GFR (Non- 14.0 BUN/Creatinine Ratio 17.0 Random Glucose 152 mg/dl Calcium Level 7.2 mg/dl Total Bilirubin 1.0 mg/dl Aspartate Amino Transf (AST/SGOT) 338 U/L Alanine Aminotransferase (ALT/SGPT) 833 U/L Alkaline Phosphatase 371 U/L Total Protein 4.8 gm/dl Albumin 2.1 gm/dl Globulin 2.7 gm/dl Albumin/Globulin Ratio 0.8 Random Vancomycin Level 25.3 mcg/ml White Blood Count 8.16 K/uL Red Blood Count 2.59 M/uL Hemoglobin 7.2 g/dL Hematocrit 21.1 % Mean Corpuscular Volume 81.5 fL Mean Corpuscular Hemoglobin 27.8 pg Mean Corpuscular Hemoglobin Concent 34.1 g/dl Platelet Count 102 K/uL Mean Platelet Volume 10.2 fL Neutrophils (%) (Auto) 89.3 % Lymphocytes (%) (Auto) 5.0 % Monocytes (%) (Auto) 3.1 % Eosinophils (%) (Auto) 1.8 % Basophils (%) (Auto) 0.1 % Neutrophils # (Auto) 7.28 K/uL Lymphocytes # (Auto) 0.41 K/uL Monocytes # (Auto) 0.25 K/uL Eosinophils # (Auto) 0.15 K/uL Basophils # (Auto) 0.01 K/uL RDW Standard Deviation 51.3 fL RDW Coefficient of Variation 17.2 % Immature Granulocyte % (Auto) 0.7 % Immature Granulocyte # (Auto) 0.06 K/uL Platelet Estimate DECREASED Hypochromasia PRESENT Rouleau 1+ Prothrombin Time 50.9 SECONDS Prothromb Time International Ratio 5.0 Test 09/21/17 08:52 Phosphorus Level 5.4 mg/dl Magnesium Level 1.6 mg/dl Procalcitonin 78.86 ng/ml Chemistry Specimen Hemolysis
--- NOTE | 2017-09-21 17:25 | Discharge Summary ---
Discharge Summary Date of Service Sep 21, 2017. 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 (2) History of pulmonary embolus (PE) Status: Chronic (3) History of renal bleeding Status: Chronic Immunizations: Have You Had Influenza Vaccine: Yes Influenza Vaccine Date: Aug 01, 2013 History of Tetanus Vaccine?: Unknown Tetanus Immunization Date: Sep 28, 2011 History of Pneumococcal: Yes Pneumococcal Date: Jul 04, 2012 History of Hepatitis B Vaccine: Unknown Discharge Exam pt is sedate and intubated cannot provide ROS Physical Exam: General Appearance: WD/WN, + moderate distress Respiratory/Chest: + respiratory distress, + decreased breath sounds, + accessory muscle use Cardiovascular: regular rate, rhythm, + systolic murmur Abdomen / GI: soft, + abnormal bowel sounds Hospital Course (1) Hypercalcemia (2) Weakness (3) Carcinoma of bladder (4) Cancer of renal pelvis and ureter (5) Chemotherapy (6) PE (pulmonary embolism) (7) DVT (deep venous thrombosis) (8) Presence of IVC filter (9) DM II (diabetes mellitus, type II), controlled (10) Benign essential HTN (11) Hypothyroidism (12) CKD (chronic kidney disease) stage 3, GFR 30-59 ml/min (13) Edema (14) Hypercalcemia (15) Dysphagia (16) Vomiting (17) Acute kidney injury (18) Anemia 67-year-old white male admitted 09/08/2017 because of dysphagia, has history of localized urothelial cancer on right, developed unresponsive state, low blood pressure and temporarily regained stable VS but decompensated later requiring intubation, concern for large gastric contents and outlet obstruction, NGT placed, aspiration pneumonia, mrsa uti, pt has been weaned from pressors but has sustained acute renal failure likely due to ATN and also the fact that he only has one kidney. did have EGD and felt to have a duodenal mass vs intrinsic compression. Due to progressive failure and renal failure, recommend to tertiary care for comments from established oncologist to discuss direction of care. Previously in the hospital stay Acute Respiratory failure, ventilation managed by ICu,treatment for aspiration pneumonia, Zosyn,vancomycin added as urine culture with staph not yet speciated still with mechanical ventilation GERD concern for duodenitis causing gastric outlet issues IV Pepcid and Protonix , EGD on 09/11/2017. NGT drainage has become blackened and concern for gastritis or worse, initial EGD did not show any issues, but will consider discussion of repeat EGD with Dr Vallejo Hypercalcemia, associated with malignancy resolved with hydration metastatic refractory stage IV urothelial carcinoma. most recent PET shows it is confined to right kidney, usually follows with Dr. Collazo, non contrast CT of abdomen and pelvis may suggest disease progression, concern if gastric outlet maybe from extrinsic compression diabetes with poor control continue basal bolus Acute on Chronic kidney disease stage 3, worsened by atn and hypotension, has only one kidney and concern if progresses many need Continuous dialysis lower extremity extensive DVT, hx of S/P IVC filter but was removed is not with therapeutic INR but has developed acute anemia of unknown source, have held Coumadin, will discuss re placement of IVC filter as ngt seems to be draining dark liquid and makes anticoagulation of risk Acute anemia a mix of acute on chronic spoke extensively with family, they were updated and seem to want to have full support despite pre illness history of progressive cancer, therefore did transfer to tertiary care Total Time Spent: Greater than 30 minutes This includes examination of the patient, discharge planning, medication reconciliation, and communication with other providers. Discharge Instructions Please refer to the electronic Patient Visit Report (Discharge Instructions) for additional information.
== END 2017-09-21 15:30 | disposition short-term general hospital (02) | DRG 682 ==
LOC: INTOOBSV 12:18 → C.4E 12:18 → OBSVTOIN 15:42 → C.MSICU 09-18 10:00
PROVIDERS: ADMIT Internal Medicine; ATTEND Internal Medicine
PROC: 0DB58ZX Excision of Esophagus, Via Natural or Artificial Opening Endoscopic, Diagnostic (ICD-10-PCS; principal; 2017-09-11 14:53)
PROC: 5A1945Z Respiratory Ventilation, 24-96 Consecutive Hours (ICD-10-PCS; 2017-09-18)
PROC: 03HB33Z Insertion of Infusion Device into Right Radial Artery, Percutaneous Approach (ICD-10-PCS; 2017-09-18)
PROC: 0BH17EZ Insertion of Endotracheal Airway into Trachea, Via Natural or Artificial Opening (ICD-10-PCS; 2017-09-18)
PROC: 05HM33Z Insertion of Infusion Device into Right Internal Jugular Vein, Percutaneous Approach (ICD-10-PCS; 2017-09-18)
PROC: 0DB98ZX Excision of Duodenum, Via Natural or Artificial Opening Endoscopic, Diagnostic (ICD-10-PCS; 2017-09-20)
DX: N17.0 Acute kidney failure with tubular necrosis (principal); J69.0 Pneumonitis due to inhalation of food and vomit; G93.40 Encephalopathy, unspecified; J96.00 Acute respiratory failure, unspecified whether with hypoxia or hypercapnia; C79.19 Secondary malignant neoplasm of other urinary organs; C79.01 Secondary malignant neoplasm of right kidney and renal pelvis; E46 Unspecified protein-calorie malnutrition; B37.81 Candidal esophagitis; I82.4Z3 Acute embolism and thrombosis of unspecified deep veins of distal lower extremity, bilateral; E83.52 Hypercalcemia; I12.9 Hypertensive chronic kidney disease with stage 1 through stage 4 chronic kidney disease, or unspecified chronic kidney disease; E78.5 Hyperlipidemia, unspecified; E11.22 Type 2 diabetes mellitus with diabetic chronic kidney disease; E03.9 Hypothyroidism, unspecified; M10.9 Gout, unspecified; N18.3 Chronic kidney disease, stage 3 (moderate); E86.0 Dehydration; E11.65 Type 2 diabetes mellitus with hyperglycemia; D64.9 Anemia, unspecified; R11.2 Nausea with vomiting, unspecified; K31.84 Gastroparesis; Z79.4 Long term (current) use of insulin; Z79.82 Long term (current) use of aspirin; Z79.899 Other long term (current) drug therapy; Z85.51 Personal history of malignant neoplasm of bladder; Z86.711 Personal history of pulmonary embolism; Z87.891 Personal history of nicotine dependence; Z92.3 Personal history of irradiation; T39.95XA Adverse effect of unspecified nonopioid analgesic, antipyretic and antirheumatic, initial encounter